=== PATIENT | male | born 1945 | race African-American/Black ===

== ENCOUNTER → 2017-05-12 | Outpatient (CLI) | payer OTHER ==
[~2017-05-12] MED LIST: ASPI325T45 PO; CARV25TA2 PO; FISHOIL PO; INSDGI SC; INSUINJ4 SC; LPT/20 PO; LSN20 PO; POLY335019 PO; TORS100T13 PO
[2017-05-12 15:46] LABS: HEMATOCRIT 38.7 % (42-52); MEAN CELL VOLUME 92.1 fL (80-100); MEAN CORPUSCULAR HEMOGLOBIN 29.5 pg (25-34); PLATELET COUNT 168 K/uL (130-400); WHITE BLOOD COUNT 6.72 K/uL (4.8-10.8)
[2017-05-12 16:15] LABS: ALT/SGPT 16 U/L (12-78); BLOOD UREA NITROGEN 56 mg/dl (7-18); CALCIUM 9.8 mg/dl (8.5-10.1); CARBON DIOXIDE 29 mmol/L (21-32); CHLORIDE 104 mmol/L (98-107); GLUCOSE 342 mg/dl (70-99); PHOSPHORUS 2.7 mg/dl (2.5-4.9); POTASSIUM 4.4 mmol/L (3.5-5.1); SODIUM 138 mmol/L (136-145); URIC ACID 7.6 mg/dl (2.6-7.2)
[2017-05-12 17:02] LABS: URINE APPEARANCE CLEAR (CLEAR); URINE BILIRUBIN NEG (NEG); URINE COLOR YELLOW; URINE NITRITE NEG (NEG); URINE SPECIFIC GRAVITY 1.014 (1.000-1.030); UROBILINOGEN NEG (NEG)
[2017-05-12 17:08] LABS: MANUAL MICROSCOPIC REQUIRED? NO; REVIEW REQ? NO
[2017-05-12 17:19] LABS: URINE PROTIEN/CREAT RATIO 0.3 (0-0.2); URINE TOTAL PROTEIN 25.1 mg/dl (0-11.9)
== END | disposition home or self-care (01) ==
LOC: C.LAB1850 14:57
PROVIDERS: ATTEND Family Medicine
DX: Z11.59 Encounter for screening for other viral diseases (principal); I10 Essential (primary) hypertension; D64.9 Anemia, unspecified; N18.3 Chronic kidney disease, stage 3 (moderate); E55.9 Vitamin D deficiency, unspecified; M10.9 Gout, unspecified; E78.5 Hyperlipidemia, unspecified; E11.29 Type 2 diabetes mellitus with other diabetic kidney complication

== ENCOUNTER → 2018-02-10 | Outpatient (CLI) | payer OTHER ==
[~2018-02-10] MED LIST changes: +ALLO100T PO; +ASPECOTC PO; -ASPI325T45 PO; -INSDGI SC; +INSU100I23 SQ; -INSUINJ4 SC; -LPT/20 PO; +LPT20 PO; +NVLGI7030 SC; -POLY335019 PO; -TORS100T13 PO; +TORS20TA2 PO
[2018-02-10 16:11] LABS: ALBUMIN 3.5 gm/dl (3.4-5.0); ALKALINE PHOSPHATASE 206 U/L (45-117); ALT/SGPT 21 U/L (12-78); AST/SGOT 25 U/L (15-37); BLOOD UREA NITROGEN 44 mg/dl (7-18); CARBON DIOXIDE 32 mmol/L (21-32); CHOLESTEROL 67 mg/dl (0-200); CREATININE 1.79 mg/dl (0.60-1.40); GLUCOSE 160 mg/dl (70-99); LDL CHOLESTEROL CALCULATED 16 mg/dl; POTASSIUM 4.1 mmol/L (3.5-5.1); SODIUM 139 mmol/L (136-145); TOTAL PROTEIN 7.7 gm/dl (6.4-8.2)
[2018-02-11 06:18] LABS: HEMOGLOBIN A1C 8.4 % (4.5-5.6)
== END | disposition home or self-care (01) ==
LOC: C.LAB1850 14:46
PROVIDERS: ATTEND Internal Medicine Cardiovascular Disease
DX: E11.29 Type 2 diabetes mellitus with other diabetic kidney complication (principal)

== ENCOUNTER → 2018-04-14 | Outpatient (CLI) | payer OTHER ==
[~2018-04-14] MED LIST changes: +AMOX500C3 PO; +CLR10 PO; -FISHOIL PO; +LISI-726 PO; -LSN20 PO; +OMEG10002 PO; +SENNTAB23 PO; +SILV1CRE73 TOP
[2018-04-14 12:20] LABS: HEMATOCRIT 36.7 % (42-52); HEMOGLOBIN 11.3 g/dL (14.0-18.0); MEAN CELL VOLUME 93.4 fL (80-100); MEAN CORPUSCULAR HEMOGLOBIN 28.8 pg (25-34); MEAN CORPUSCULAR HGB CONC 30.8 g/dl (32-36); PLATELET COUNT 198 K/uL (130-400); WHITE BLOOD COUNT 7.08 K/uL (4.8-10.8)
[2018-04-14 12:29] LABS: ALBUMIN 3.5 gm/dl (3.4-5.0); BLOOD UREA NITROGEN 58 mg/dl (7-18); CALCIUM 9.8 mg/dl (8.5-10.1); CARBON DIOXIDE 31 mmol/L (21-32); CREATININE 2.01 mg/dl (0.60-1.40); GLUCOSE 203 mg/dl (70-99); POTASSIUM 4.9 mmol/L (3.5-5.1); SODIUM 135 mmol/L (136-145)
== END | disposition home or self-care (01) ==
LOC: C.LAB1850 09:55
PROVIDERS: ATTEND Internal Medicine Nephrology
DX: E55.9 Vitamin D deficiency, unspecified (principal)

== ENCOUNTER 2019-08-19 21:04 | Inpatient (IN) ==
--- NOTE | 2019-08-19 21:27 | Emergency Department Note ---
Entered by Michael Stafford acting as a scribe for Dante Sampson DO History of Present Illness General Chief complaint: Weakness Stated complaint: WEAKNESS Time Seen by Provider: 08/19/19 21:04 Source: patient and other (hypercil core transformer assembler) History of Present Illness Onset (ago): hour(s) (prior to arrival) Location: lower extremity (leg weakness (bilateral)) Pain Consistency: + other (worsening) Relieved By: + none Associated symptoms: + denies other symptoms (increased leg swelling) and + shortness of breath; no fever/chills The patient is a 74 year old M who presents to the Emergency Room with complaints of worsening weakness that started prior to arrival. The HPI was provided by the hypercil core transformer assembler and the patient. The hypercil core transformer assembler states that EMS was called by the patients son. The hypercil core transformer assembler reports that the patients son called EMS because the patient sat down on the floor of the bathroom and could not get back up. The hypercil core transformer assembler adds that the patients son tried to pick the patient off of the floor but was unable to do so. The hypercil core transformer assembler states that the patient did not fall. The patient states that he is currently experiencing leg weakness and shortness of breath. He states that his leg weakness is affecting both legs. He denies that he is currently experiencing a fever and increased leg swelling. The patient notes that he did not take his medications today. He adds that he has a history of HTN. He notes that he has a scheduled appointment with the wound care center to address his ulcerations. He denies any recent travel. He notes that he uses a C-pap machine at home. Home Medications Home Medications Medication Instructions Recorded Confirmed Type allopurinol 100 mg tablet 100 mg PO BID 05/28/18 08/19/19 History aspirin 325 mg tablet 325 mg PO DAILY 05/28/18 08/19/19 History carvedilol 25 mg tablet 25 mg PO BID 05/28/18 08/19/19 History lisinopril 20 mg tablet 20 mg PO DAILY 05/28/18 08/19/19 History loratadine 10 mg tablet 10 mg PO DAILY 05/28/18 08/19/19 History omega-3 fatty acids 1,000 mg 1,000 mg PO DAILY 05/28/18 08/19/19 History capsule blood sugar diagnostic #10 ea 03/04/19 08/12/19 History lancets 30 gauge #25 ea 03/04/19 08/12/19 History nitroglycerin 0.4 mg sublingual 0.4 mg SL ONCE PRN tab 03/04/19 08/19/19 History tablet pen needle, diabetic 32 gauge x #10 ea 03/04/19 08/12/19 History 5/32" vitamin B complex 1 tab PO DAILY 03/04/19 08/19/19 History atorvastatin 40 mg tablet 40 mg PO DAILY #90 tab 05/07/19 08/19/19 Rx torsemide 100 mg tablet 100 mg PO .COMPLEX tab 08/03/19 08/19/19 History cholecalciferol (vitamin D3) 50,000 units PO MONTHLY #3 cap 08/09/19 08/19/19 Rx 50,000 unit capsule insulin glargine [Basaglar KwikPen 30 unit SUBCUT HS 08/19/19 08/19/19 History U-100 Insulin] vbujgrma-rezlfjcyoIu-mrgcxuujJ 1 applic TOPICAL DAILY 08/19/19 08/19/19 History [Neosporin ([id number])] Allergies Allergy/AdvReac Type Severity Reaction Status Date / Time escitalopram Allergy Unknown Unknown Verified 08/19/19 21:40 metformin Allergy Unknown unknown Verified 08/19/19 21:40 topiramate Allergy Unknown unknown Verified 08/19/19 21:40 Past Med/Surg History Medical History (Updated 08/20/19 @ 00:00 by Michael Stafford) Acute gouty arthritis (Resolved) Anemia Ankle joint pain Anxiety Asymptomatic hyperuricemia Biventricular ICD (implantable cardioverter-defibrillator) in place Chronic kidney disease, stage III (moderate) Chronic systolic congestive heart failure Constipation Diabetes Diabetes mellitus type 2, 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, uncontrolled Diabetic peripheral neuropathy Dyslipidemia Esophageal reflux Former smoker GERD (gastroesophageal reflux disease) (Chronic) Gout (Chronic) Gout Hematuria HTN (hypertension) Hypertension, goal below 140/90 Inhibited sexual excitement Ischemic cardiomyopathy Male erectile disorder of organic origin Mild nonproliferative diabetic retinopathy Morbid obesity Need for hepatitis C screening test Non-pressure chronic ulcer of right calf, limited to breakdown of skin Obstructive sleep apnea Paroxysmal ventricular tachycardia Poor compliance Shortness of breath Skin tear of left lower leg without complication Sleep apnea (Chronic) Testicular dysfunction Traumatic open wound of left lower leg Urinary urgency Venous insufficiency of both lower extremities Vitamin D deficiency Surgical History History of appendectomy (Resolved) Family History (Updated 08/19/19 @ 23:56 by Michael Stafford) Other Diabetes Heart disease Hypertension Kidney disease Social History Preferred Language: Haitian Communication Ability: Effective Visual Impairment: Limited Hearing Ability: Normal Surface Grinder Required: No Beliefs That Will Affect Care: Taoism Taoism Beliefs: Patient doesn't want any blood products used. marital status: Current Living Situation: Spouse current occupational status: retired Feels Safe at Home: Yes Smoking Status: Former smoker Tobacco Type: pipe and cigars ; Hx Alcohol Use: Yes Alcohol type: beer Hx Substance Use: No Review of Systems See HPI for pertinent positives & negatives. and A total of 10 systems reviewed and were otherwise negative Physical Exam Vital Signs Vital Signs - 24 hr 08/19/19 21:14 08/19/19 21:22 08/19/19 22:00 Temperature 36.5 C Temperature Source Oral Pulse Rate 80 80 60 Pulse Rate from SpO2 Sensor 60 Respiratory Rate 22 20 20 Respiratory Effort / Characteristics Non-Labored Spontaneous Respiratory Depth Normal Respiratory Pattern Regular Blood Pressure 146/70 H 179/95 H Blood Pressure Mean 95 125 Pulse Oximetry 96 96 97 Oxygen Delivery Method Room Air Room Air Sepsis Recent Fever Within 48 Hours No Sepsis New/Unexplained Change in Mental Status No Sepsis Action Taken by Nursing No Action Required 08/19/19 22:18 08/19/19 22:30 Temperature Temperature Source Pulse Rate 60 72 Pulse Rate from SpO2 Sensor 60 60 Respiratory Rate 20 20 Respiratory Effort / Characteristics Respiratory Depth Respiratory Pattern Blood Pressure 193/83 H Blood Pressure Mean 140 Pulse Oximetry 99 96 Oxygen Delivery Method Sepsis Recent Fever Within 48 Hours Sepsis New/Unexplained Change in Mental Status Sepsis Action Taken by Nursing GENERAL: The patient is awake and alert. He is comfortable appearing. EYES: The conjunctivae are clear. The pupils are round and reactive. EARS, NOSE, MOUTH AND THROAT: The nose is without any evidence of any deformity. Mucous membranes are moist tongue is midline NECK: The neck is nontender and supple. RESPIRATORY: Shallow respirations were noted. There were diminished breath sounds noted throughout with rales at both bases. CARDIOVASCULAR: Regular rate and rhythm noted there no murmurs rubs or gallops normal S1 normal S2 GASTROINTESTINAL: The abdomen is soft. Abdomen is nontender MUSCULOSKELETAL/EXTREMITIES: There is no evidence of gross deformity full range of motion is noted in the hips and shoulders SKIN: Significant venous stasis changes were noted. There were ulcerations on both lower extremities. There were signs of infection developing on the left anterior lower leg with erythema and drainage. NEUROLOGIC: Patient is awake alert and oriented x3. There was no drift in the upper extremities. Patient is able to hold each leg off the bed for 5 seconds. Course Course 2103: The patient was evaluated in room B2. A complete history and physical exam was performed. 2317: I reviewed the patient's case with Dr. Johnny Brewer, [facility] Hospitalist. He will evaluate the patient for further management. Administered Medications Vancomycin HCl 2,750 mg/ (Sodium Chloride) 555 mls @ 200 mls/hr IV NOW ONE Stop: 08/20/19 01:49 Last Admin: 08/19/19 23:52 Dose: 200 mls/hr Documented by: [id number] Discontinued Medications Sodium Chloride (Nss 1000ml) 500 mls @ 999 mls/hr IV .Q31M ONE Stop: 08/19/19 23:32 Last Infusion: 08/20/19 00:05 Dose: 0 mls/hr Documented by: [id number] Admin: 08/19/19 23:32 Dose: 999 mls/hr Documented by: [id number] Ceftriaxone Sodium (Rocephin) 2,000 mg in 70 mls @ 140 mls/hr IV NOW STA Stop: 08/19/19 23:31 Last Infusion: 08/19/19 23:59 Dose: 0 mls/hr Documented by: [id number] Admin: 08/19/19 23:28 Dose: 140 mls/hr Documented by: [id number] Medical Decision Making Differential Diagnosis Differential diagnosis: Etiologies such as metabolic, infection, hypo/hyperglycemia, electrolyte abnormalities, cardiac sources, intracerebral event, toxicologic, neurologic, as well as others were entertained. Medical Records Attestation: I reviewed the patient's medical records. Home Medications Current Medication List: was personally reviewed by me Laboratory Data Attestation: I reviewed the patient's lab results. Result diagrams: 08/19/19 21:16 08/19/19 21:16 Lab Results 08/19/19 08/19/19 08/19/19 Range/Units 21:16 21:16 21:16 WBC 8.14 (4.8-10.8) K/uL RBC 3.06 L (4.7-6.1) M/uL Hgb 8.9 L (14.0-18.0) g/dL Hct 28.4 L (42-52) % MCV 92.8 (80-100) fL MCH 29.1 (25-34) pg MCHC 31.3 L (32-36) g/dL RDW Std Deviation 55.3 H (36.4-46.3) fL RDW Coeff of [place] 16.3 H (11.5-14.5) % Plt Count 148 (130-400) K/uL MPV 11.3 H (7.4-10.4) fL Immature Gran % (Auto) 0.2 % Neut % (Auto) 80.4 % Lymph % (Auto) 11.9 % [place] % (Auto) 5.8 % Eos % (Auto) 1.6 % Baso % (Auto) 0.1 % Immature Gran # (Auto) 0.02 (0.00-0.02) K/uL Neut # (Auto) 6.54 H (1.4-6.5) K/uL Lymph # (Auto) 0.97 L (1.2-3.4) K/uL [place] # (Auto) 0.47 (0.11-0.59) K/uL Eos # (Auto) 0.13 (0-0.5) K/uL Baso # (Auto) 0.01 (0-0.2) K/uL ESR (0-14) mm/hr PT Cancelled INR Cancelled APTT Cancelled PTT Ratio Cancelled Sodium 139 (136-145) mmol/L Potassium 4.5 (3.5-5.1) mmol/L Chloride 106 (98-107) mmol/L Carbon Dioxide 28 (21-32) mmol/L Anion Gap 6.0 (3-11) BUN 102 H (7-18) mg/dl Creatinine 2.92 H (0.6-1.4) mg/dl Est Cr Clr Drug Dosing 34.7 ml/min Est GFR ( Amer) 23.6 Est GFR (Non-Af Amer) 20.3 BUN/Creatinine Ratio 34.8 H (10-20) Glucose 229 H (70-99) mg/dl POC Glucose (70-99) Lactate (0.4-2.0) mmol/L Calcium 9.8 (8.5-10.1) mg/dl Magnesium 2.5 H (1.8-2.4) mg/dl Total Bilirubin 1.0 (0.2-1) mg/dl AST 33 (15-37) U/L ALT 21 (12-78) U/L Alkaline Phosphatase 189 H (45-117) U/L Troponin I 0.059 H* (0-0.045) ng/ml C-Reactive Protein 1.96 H (0-0.29) mg/dl NT-Pro-B Natriuret Pep 7641 H (0-900) pg/ml Total Protein 7.6 (6.4-8.2) gm/dl Albumin 3.2 L (3.4-5.0) gm/dl Globulin 4.4 H (2.5-4.0) gm/dl Albumin/Globulin Ratio 0.7 L (0.9-2) Procalcitonin (0-0.5) ng/ml TSH 5.710 H (0.300-4.500) uIu/ml Free T4 1.24 (0.8-1.6) ng/dl 08/19/19 08/19/19 08/19/19 Range/Units 21:16 21:31 21:31 WBC (4.8-10.8) K/uL RBC (4.7-6.1) M/uL Hgb (14.0-18.0) g/dL Hct (42-52) % MCV (80-100) fL MCH (25-34) pg MCHC (32-36) g/dL RDW Std Deviation (36.4-46.3) fL RDW Coeff of [place] (11.5-14.5) % Plt Count (130-400) K/uL MPV (7.4-10.4) fL Immature Gran % (Auto) % Neut % (Auto) % Lymph % (Auto) % [place] % (Auto) % Eos % (Auto) % Baso % (Auto) % Immature Gran # (Auto) (0.00-0.02) K/uL Neut # (Auto) (1.4-6.5) K/uL Lymph # (Auto) (1.2-3.4) K/uL [place] # (Auto) (0.11-0.59) K/uL Eos # (Auto) (0-0.5) K/uL Baso # (Auto) (0-0.2) K/uL ESR 73 H (0-14) mm/hr PT INR APTT PTT Ratio Sodium (136-145) mmol/L Potassium (3.5-5.1) mmol/L Chloride (98-107) mmol/L Carbon Dioxide (21-32) mmol/L Anion Gap (3-11) BUN (7-18) mg/dl Creatinine (0.6-1.4) mg/dl Est Cr Clr Drug Dosing ml/min Est GFR ( Amer) Est GFR (Non-Af Amer) BUN/Creatinine Ratio (10-20) Glucose (70-99) mg/dl POC Glucose (70-99) Lactate 2.2 H* (0.4-2.0) mmol/L Calcium (8.5-10.1) mg/dl Magnesium (1.8-2.4) mg/dl Total Bilirubin (0.2-1) mg/dl AST (15-37) U/L ALT (12-78) U/L Alkaline Phosphatase (45-117) U/L Troponin I (0-0.045) ng/ml C-Reactive Protein (0-0.29) mg/dl NT-Pro-B Natriuret Pep (0-900) pg/ml Total Protein (6.4-8.2) gm/dl Albumin (3.4-5.0) gm/dl Globulin (2.5-4.0) gm/dl Albumin/Globulin Ratio (0.9-2) Procalcitonin 0.09 (0-0.5) ng/ml TSH (0.300-4.500) uIu/ml Free T4 (0.8-1.6) ng/dl 08/19/19 08/19/19 Range/Units 22:33 23:42 WBC (4.8-10.8) K/uL RBC (4.7-6.1) M/uL Hgb (14.0-18.0) g/dL Hct (42-52) % MCV (80-100) fL MCH (25-34) pg MCHC (32-36) g/dL RDW Std Deviation (36.4-46.3) fL RDW Coeff of [place] (11.5-14.5) % Plt Count (130-400) K/uL MPV (7.4-10.4) fL Immature Gran % (Auto) % Neut % (Auto) % Lymph % (Auto) % [place] % (Auto) % Eos % (Auto) % Baso % (Auto) % Immature Gran # (Auto) (0.00-0.02) K/uL Neut # (Auto) (1.4-6.5) K/uL Lymph # (Auto) (1.2-3.4) K/uL [place] # (Auto) (0.11-0.59) K/uL Eos # (Auto) (0-0.5) K/uL Baso # (Auto) (0-0.2) K/uL ESR (0-14) mm/hr PT 13.0 H INR 1.3 H APTT 27.2 PTT Ratio 1.0 Sodium (136-145) mmol/L Potassium (3.5-5.1) mmol/L Chloride (98-107) mmol/L Carbon Dioxide (21-32) mmol/L Anion Gap (3-11) BUN (7-18) mg/dl Creatinine (0.6-1.4) mg/dl Est Cr Clr Drug Dosing ml/min Est GFR ( Amer) Est GFR (Non-Af Amer) BUN/Creatinine Ratio (10-20) Glucose (70-99) mg/dl POC Glucose 206 H (70-99) Lactate (0.4-2.0) mmol/L Calcium (8.5-10.1) mg/dl Magnesium (1.8-2.4) mg/dl Total Bilirubin (0.2-1) mg/dl AST (15-37) U/L ALT (12-78) U/L Alkaline Phosphatase (45-117) U/L Troponin I (0-0.045) ng/ml C-Reactive Protein (0-0.29) mg/dl NT-Pro-B Natriuret Pep (0-900) pg/ml Total Protein (6.4-8.2) gm/dl Albumin (3.4-5.0) gm/dl Globulin (2.5-4.0) gm/dl Albumin/Globulin Ratio (0.9-2) Procalcitonin (0-0.5) ng/ml TSH (0.300-4.500) uIu/ml Free T4 (0.8-1.6) ng/dl Imaging Data Radiologist's Impression: Radiology results as stated below per my review and the radiologist's interpretation: XR chest 1V portable CLINICAL HISTORY: 74 years-old Male presenting with weakness. TECHNIQUE: Portable upright AP view of the chest was obtained. COMPARISON: 10/29/2018. FINDINGS: Left subclavian implanted cardiac defibrillator with leads to the right atrium, right ventricular apex, and coronary sinus. An additional abandoned right ventricular lead is also noted. Atherosclerosis of the aortic arch. Cardiac silhouette moderately enlarged. Pulmonary vascular prominence similar to prior exam. Significant interval increase in now small to moderate right pleural effusion. No significant effusion on the left. No pneumothorax. Degenerative changes of the thoracic spine. Upper abdomen normal. IMPRESSION: 1. Cardiomegaly with volume overload. 2. Small to moderate right pleural effusion and suspected extensive right basilar atelectasis. This is significantly increased from prior. Underlying infection cannot be excluded. Electronically signed by: Graham López M.D. 08/19/2019 9:55 PM ECG Data Attestation: I personally reviewed and interpreted this ECG as follows: Indication: + weakness Rate (beats per minute): 60 Rhythm: + other (ventricular paced rhythm ) ECG Intervals/blocks: + Right Bundle branch block ECG Findings: + Other (no [place] beats) Blood Pressure Blood Pressure Findings: Elevated blood pressure Blood Pressure Disposition: further management by hospitalist IOANA Narrative The patient is a 74-year-old male who presented to the emergency department for an evaluation of generalized weakness. The patient went to the bathroom but was unable to get off of the floor. The patient slid to the floor. He did not have a significant fall. Ambulance was dispatched and the patient was brought to the emergency department for further evaluation. The patient was found to have very significant swelling in his lower extremities. According to his significant other he is been seen at the wound care center for the swelling but he was discharged from the wound care center recently. The patient's developed blistering on his anterior lower extremities but now has an area especially on his right lower extremity which appears infected secondarily. He was treated with IV fluids and IV antibiotic's in the emergency department. I discussed the patient's laboratory and radiographic studies with him and his family members. Because of his symptoms I discussed his case with the on-call [facility] hospitalist group. They have agreed to evaluate the patient in the emergency department for further management disposition. Impression & Plan Cellulitis, Anemia, Weakness, JUDITH (acute kidney injury) Discharge Plan Visit Data Chief Complaint: Weakness Stated Complaint: WEAKNESS ED Provider: Dante Sampson Discharge Problem: Cellulitis, Anemia, Weakness, JUDITH (acute kidney injury) Patient Disposition: Admitted As Inpatient Discharge Instructions Interventions: ED Discharge Assessment Last Done: 08/20/19 00:16 Discharge Problem: Cellulitis Qualifiers: Site of cellulitis: extremity Site of cellulitis of extremity: lower extremity Laterality: unspecified laterality Qualified Code(s): L03.119 - Cellulitis of unspecified part of limb Anemia Qualifiers: Anemia type: unspecified type Qualified Code(s): D64.9 - Anemia, unspecified The scribe's documentation has been prepared under my direction and personally reviewed by me in its entirety. I confirm that the note above accurately reflects all work, treatment, procedures, and medical decision making performed by me.
[2019-08-19 21:31] LABS: Basophils # (auto) 0.01 K/uL (0-0.2); Basophils % (auto) 0.1 %; Eosinophils # (auto) 0.13 K/uL (0-0.5); Eosinophils % (auto) 1.6 %; Hematocrit (blood only) 28.4 % (42-52); Hemoglobin 8.9 g/dL (14.0-18.0); Immature Granulocytes # (auto) 0.02 K/uL (0.00-0.02); Immature Granulocytes % (auto) 0.2 %; Lymphocytes # (auto) 0.97 K/uL (1.2-3.4); Lymphocytes % (auto) 11.9 %; Mean Corpuscular Hemoglobin 29.1 pg (25-34); Mean Corpuscular Hgb Conc 31.3 g/dL (32-36); Mean Corpuscular Volume 92.8 fL (80-100); Mean Platelet Volume 11.3 fL (7.4-10.4); Monocytes # (auto) 0.47 K/uL (0.11-0.59); Monocytes % (auto) 5.8 %; Neutrophils # (auto) 6.54 K/uL (1.4-6.5); Neutrophils % (auto) 80.4 %; Platelet Count 148 K/uL (130-400); RDW Coefficient of Variation 16.3 % (11.5-14.5); RDW Standard Deviation 55.3 fL (36.4-46.3); Red Blood Count 3.06 M/uL (4.7-6.1); White Blood Count 8.14 K/uL (4.8-10.8)
[2019-08-19 21:49] LABS: Albumin Level 3.2 gm/dl (3.4-5.0); BUN Creatinine Ratio 34.8 (10-20); C Reactive Protein 1.96 mg/dl (0-0.29); Calcium 9.8 mg/dl (8.5-10.1); Creatinine Clr Calc Pharmacy 34.7 ml/min; Est GFR (African American) 23.6; Est GFR (Non-African American) 20.3; Magnesium 2.5 mg/dl (1.8-2.4); Potassium 4.5 mmol/L (3.5-5.1)
--- NOTE | 2019-08-19 21:57 | XRay Report ---
XR chest 1V portable CLINICAL HISTORY: 74 years-old Male presenting with weakness. TECHNIQUE: Portable upright AP view of the chest was obtained. COMPARISON: 10/29/2018. FINDINGS: Left subclavian implanted cardiac defibrillator with leads to the right atrium, right ventricular ape x, and coronary sinus. An additional abandoned right ventricular lead is also noted. Atherosclerosis of the aortic arch. Cardiac silhouette moderately enlarged. Pulmonary vascular prominence similar to prior exam. Significant interval increase in now small to moderate right pleural effusion. No signifi cant effusion on the left. No pneumothorax. Degenerative changes of the thoracic spine. Upper abdomen normal. IMPRESSION: 1. Cardiomegaly with volume overload. 2. Small to moderate right pleural effusion and suspected extensive right basilar atelectasis. This is significantly increased from prior. Underlying infection cannot be excluded. Electronically signed by: Graham López M.D. 08/19/2019 9:55 PM
[2019-08-19 22:04] LABS: Albumin Globulin Ratio 0.7 (0.9-2); Globulin 4.4 gm/dl (2.5-4.0); Thyroid Stimulating Hormone 5.71 uIu/ml (0.300-4.500); Total Protein 7.6 gm/dl (6.4-8.2); Troponin I 0.059 ng/ml (0-0.045)
[2019-08-19 22:17] LABS: T4 Free Thyroxine 1.24 ng/dl (0.8-1.6)
[2019-08-19 22:54] LABS: INR 1.3 (0.9-1.1); Partial Thromboplastin Time 27.2 Seconds (21.0-31.0)
[2019-08-19] MEDS ORDERED: cefTRIAXone SODIUM 2,000 MG/70 ML BAG IV STA (23:02)
[2019-08-19] MEDS ORDERED: SODIUM CHLORIDE 0.9% 1000ML 500 ML IV ONE (23:02)
[2019-08-19] MEDS ORDERED: VANCOMYCIN HCL 2,750 MG in SODIUM CHLORIDE 0.9% 500 ML IV ONE (23:03)
[2019-08-19] MEDS ORDERED: VANCOMYCIN CONSULT ACTIVE PRN (23:03)
--- NOTE | 2019-08-19 23:55 | History & Physical Report ---
Date of Service August 19, 2019 Assessment & Plan (1) Venous stasis ulcers of both lower extremities: Venous stasis ulcers of bilateral lower extremities, left greater than right/cellulitis left greater than right- Consult wound care. Initial dressing: Bacitracin/Adaptic/gauze/Pedro Luis wrap. Given vancomycin IV in the ED. Place on daptomycin IV. Present on Admission?: Yes (2) Cellulitis: As above. Present on Admission?: Yes (3) Acute kidney injury superimposed on chronic kidney disease: Creatinine 2.92 upon admission, with range 1.79-2.07. Hold lisinopril. Follow serially. Present on Admission?: Yes (4) Weakness: Multifactorial- Deconditioning, cellulitis, worsening lower extremity edema, poorly controlled diabetes, elevated troponin and possible cardiac issues, and CHF. Present on Admission?: Yes (5) Chronic systolic congestive heart failure: Chronic systolic CHF/CAD/hypertension/paroxysmal V. tach- Continue aspirin 325 mg p.o. daily, carvedilol 25 mg p.o. twice daily, torsemide 100 mg p.o. daily Present on Admission?: Yes (6) Diabetes mellitus type 2, insulin dependent: Continue Lantus insulin 30 units subcu at bedtime. Placed on Accu-Cheks before meals and at bedtime with NovoLog coverage per scale. Present on Admission?: Yes (7) Dyslipidemia: Continue atorvastatin 40 mg daily. Check a fasting lipid panel. Present on Admission?: Yes (8) Obstructive sleep apnea: CPAP at settings of 10. Present on Admission?: Yes (9) Paroxysmal ventricular tachycardia: Continue carvedilol 25 mg p.o. twice daily. Present on Admission?: Yes History of Present Illness Chief Complaint: The patient presents to the emergency department with complaint of generalized weakness, and worsening lower extremity edema and weeping skin abrasions and lacerations. Primary Care Provider: Aide Calle MD The patient is a 74-year-old male with a past medical history including diabetes mellitus, venous stasis ulcers, AICD, CKD stage III, chronic systolic CHF, diabetic peripheral neuropathy, dyslipidemia, GERD, ischemic cardiomyopathy, paroxysmal ventricular tachycardia, VISHAL and decreased vision due to poor nonproliferative diabetic retinopathy, who presents emergency department with worsening generalized weakness and worsening weeping lower extremity skin abrasions and lacerations that his is been trying to take care of at home. She reports that he had been going to wound care and was dismissed about 3 weeks ago, when his lesions were healed, but since that time they have recurred and worsened. He does have an appointment with wound care coming up early next week. Allergies Allergy/AdvReac Type Severity Reaction Status Date / Time escitalopram Allergy Unknown Unknown Verified 08/19/19 21:40 metformin Allergy Unknown unknown Verified 08/19/19 21:40 topiramate Allergy Unknown unknown Verified 08/19/19 21:40 Home Medications Home Medications Medication Instructions Recorded Confirmed Type allopurinol 100 mg tablet 100 mg PO BID 05/28/18 08/19/19 History aspirin 325 mg tablet 325 mg PO DAILY 05/28/18 08/19/19 History carvedilol 25 mg tablet 25 mg PO BID 05/28/18 08/19/19 History lisinopril 20 mg tablet 20 mg PO DAILY 05/28/18 08/19/19 History loratadine 10 mg tablet 10 mg PO DAILY 05/28/18 08/19/19 History omega-3 fatty acids 1,000 mg 1,000 mg PO DAILY 05/28/18 08/19/19 History capsule blood sugar diagnostic #10 ea 03/04/19 08/12/19 History lancets 30 gauge #25 ea 03/04/19 08/12/19 History nitroglycerin 0.4 mg sublingual 0.4 mg SL ONCE PRN tab 03/04/19 08/19/19 History tablet pen needle, diabetic 32 gauge x #10 ea 03/04/19 08/12/19 History " vitamin B complex 1 tab PO DAILY 03/04/19 08/19/19 History atorvastatin 40 mg tablet 40 mg PO DAILY #90 tab 05/07/19 08/19/19 Rx torsemide 100 mg tablet 100 mg PO .COMPLEX tab 08/03/19 08/19/19 History cholecalciferol (vitamin D3) 50,000 units PO MONTHLY #3 cap 08/09/19 08/19/19 Rx 50,000 unit capsule insulin glargine [Basaglar KwikPen 30 unit SUBCUT HS 08/19/19 08/19/19 History U-100 Insulin] [id number] 1 applic TOPICAL DAILY 11/28/19 11/28/19 History [Neosporin ([id number])] Past Med/Surg History Family History (Updated 08/19/19 @ 23:56 by Michael Stafford) Other Diabetes Heart disease Hypertension Kidney disease Social History Preferred Language: Kyr[place]z Communication Ability: Effective Visual Impairment: Limited Hearing Ability: Normal Hydrologic Engineer Required: No Beliefs That Will Affect Care: Synagogue Synagogue Beliefs: Alejandrocathryn marital status: Current Living Situation: Family current occupational status: retired Other Information That Helps Us Care for You: No Feels Safe at Home: Yes Safety Concerns: Feels Safe At This Time Smoking Status: Unknown if ever smoked Hx Alcohol Use: No Hx Substance Use: No Review of Systems Review of Systems: The patient denies chest pain, palpitations, change in chronic shortness of breath or dyspnea on exertion, cough, lower extremity swelling, sore throat, fevers, chills, sweats, nausea, vomiting, diarrhea , constipation, abdominal pain, pelvic pain, blood in urine or stool, dysuria, urinary frequency or urgency, lightheadedness, dizziness, headache, memory loss, loss of consciousness, focal weakness, numbness or tingling in arms or legs, generalized arthralgias or myalgias, back or neck pain, or night sweats. The review of systems is otherwise negative other than for that already noted above, and at least 10 systems have been reviewed. Physical Exam Physical Exam: The patient is awake, alert and oriented 3, well developed and well nourished, normocephalic and atraumatic, lying in bed and in no acute distress. HEENT--PERRL, EOMI, mucous membranes and oropharynx dry. Neck--supple. No JVD. No bruits. Thyroid normal, trachea midline, no adenopathy. Heart--normal S1 and S2. No murmurs, rubs or gallops. Lungs--clear bilaterally, no respiratory distress, no accessory muscle use. Abdomen--normal bowel sounds and soft. Nontender. Nondistended, no hernias or masses, no organomegaly. Extremities--no cyanosis or clubbing. No edema. There are good distal pulses b/l. Dermatologic--large skin laceration left whitaker approximately 5 x 4 cm with bleb at 7 o'clock position, and erythema extending from base to top of ankle. --Smaller laceration on right whitaker about half size 2.5 x 2 cm. There are times size lacerations on toes bilaterally. Neurologic--cranial nerves II through XII grossly intact. Rheumatologic--exam limited by body habitus and lower extremity lesions. Psychiatric--normal affect. Results & Data Vital Signs (Past 12 Hours) Vital Signs Temp Pulse Resp BP Pulse Ox 08/19/19 22:30 72 20 193/83 H 96 08/19/19 22:18 60 20 99 08/19/19 22:00 60 20 179/95 H 97 08/19/19 21:22 80 20 96 08/19/19 21:14 97.7 F 80 22 146/70 H 96 Laboratory Results Laboratory Results WBC 8.00 K/uL (4.8-10.8) 08/20/19 08:05 RBC 2.86 M/uL (4.7-6.1) L 08/20/19 08:05 Hgb 8.4 g/dL (14.0-18.0) L 08/20/19 08:05 Hct 26.5 % (42-52) L 08/20/19 08:05 MCV 92.7 fL (80-100) 08/20/19 08:05 MCH 29.4 pg (25-34) 08/20/19 08:05 MCHC 31.7 g/dL (32-36) L 08/20/19 08:05 RDW Std Deviation 54.6 fL (36.4-46.3) H 08/20/19 08:05 RDW Coeff of [place]ino 16.2 % (11.5-14.5) H 08/20/19 08:05 Plt Count 128 K/uL (130-400) L 08/20/19 08:05 MPV 11.5 fL (7.4-10.4) H 08/20/19 08:05 Immature Gran % (Auto) 0.3 % 08/20/19 08:05 Neut % (Auto) 76.8 % 08/20/19 08:05 Lymph % (Auto) 15.4 % 08/20/19 08:05 Clinch % (Auto) 6.4 % 08/20/19 08:05 Eos % (Auto) 1.0 % 08/20/19 08:05 Baso % (Auto) 0.1 % 08/20/19 08:05 Immature Gran # (Auto) 0.02 K/uL (0.00-0.02) 08/20/19 08:05 Neut # (Auto) 6.15 K/uL (1.4-6.5) 08/20/19 08:05 Lymph # (Auto) 1.23 K/uL (1.2-3.4) 08/20/19 08:05 Clinch # (Auto) 0.51 K/uL (0.11-0.59) 08/20/19 08:05 Eos # (Auto) 0.08 K/uL (0-0.5) 08/20/19 08:05 Baso # (Auto) 0.01 K/uL (0-0.2) 08/20/19 08:05 ESR 73 mm/hr (0-14) H 08/19/19 21:31 PT 13.0 Seconds (9.0-12.0) H 08/19/19 22:33 INR 1.3 (0.9-1.1) H 08/19/19 22:33 APTT 27.2 Seconds (21.0-31.0) 08/19/19 22:33 PTT Ratio 1.0 08/19/19 22:33 Sodium 140 mmol/L (136-145) 08/20/19 08:05 Potassium 4.1 mmol/L (3.5-5.1) 08/20/19 08:05 Chloride 107 mmol/L (98-107) 08/20/19 08:05 Carbon Dioxide 28 mmol/L (21-32) 08/20/19 08:05 Anion Gap 5.0 (3-11) 08/20/19 08:05 BUN 98 mg/dl (7-18) H 08/20/19 08:05 Creatinine 2.75 mg/dl (0.6-1.4) H 08/20/19 08:05 Est Cr Clr Drug Dosing 37.6 ml/min 08/20/19 08:05 Est GFR ( Amer) 25.4 08/20/19 08:05 Est GFR (Non-Af Amer) 21.9 08/20/19 08:05 BUN/Creatinine Ratio 35.5 (10-20) H 08/20/19 08:05 Glucose 198 mg/dl (70-99) H 08/20/19 08:05 POC Glucose 125 (70-99) H 08/20/19 16:08 Estimat Average Glucose 174 mg/dl 08/19/19 21:31 Hemoglobin A1c 7.7 % (4.5-5.6) H 08/19/19 21:31 Lactate 2.2 mmol/L (0.4-2.0) H* 08/19/19 21:16 Calcium 9.7 mg/dl (8.5-10.1) 08/20/19 08:05 Magnesium 2.5 mg/dl (1.8-2.4) H 08/19/19 21:16 Total Bilirubin 1.0 mg/dl (0.2-1) 08/19/19 21:16 AST 33 U/L (15-37) 08/19/19 21:16 ALT 21 U/L (12-78) 08/19/19 21:16 Alkaline Phosphatase 189 U/L (45-117) H 08/19/19 21:16 Troponin I 0.059 ng/ml (0-0.045) H* 08/19/19 21:16 C-Reactive Protein 1.96 mg/dl (0-0.29) H 08/19/19 21:16 NT-Pro-B Natriuret Pep 7641 pg/ml (0-900) H 08/19/19 21:16 Total Protein 7.6 gm/dl (6.4-8.2) 08/19/19 21:16 Albumin 3.2 gm/dl (3.4-5.0) L 08/19/19 21:16 Globulin 4.4 gm/dl (2.5-4.0) H 08/19/19 21:16 Albumin/Globulin Ratio 0.7 (0.9-2) L 08/19/19 21:16 Procalcitonin 0.09 ng/ml (0-0.5) 08/19/19 21:31 TSH 5.710 uIu/ml (0.300-4.500) H 08/19/19 21:16 Free T4 1.24 ng/dl (0.8-1.6) 08/19/19 21:16 Urine Color Yellow 08/20/19 00:26 Urine Appearance Clear (Clear) 08/20/19 00:26 Urine pH 5.0 (4.5-7.5) 08/20/19 00:26 Ur Specific [place] 1.016 (1.000-1.030) 08/20/19 00:26 Urine Protein Negative (Negative) 08/20/19 00:26 Urine Glucose (UA) Negative (Negative) 08/20/19 00:26 Urine Ketones Negative (Negative) 08/20/19 00:26 Urine Blood Trace (Negative) H 08/20/19 00:26 Urine Nitrite Negative (Negative) 08/20/19 00:26 Urine Bilirubin Negative (Negative) 08/20/19 00:26 Urine Urobilinogen Negative (Negative) 08/20/19 00:26 Ur Leukocyte Esterase Negative (Negative) 08/20/19 00:26 Urine WBC (Auto) 1-5 /hpf (0-5) 08/20/19 00:26 Urine RBC (Auto) 0-4 /hpf (0-4) 08/20/19 00:26 U Hyaline Cast (Auto) 1-5 /lpf (0-5) 08/20/19 00:26 U Epithel Cells (Auto) 10-20 /lpf (0-5) H 08/20/19 00:26 Urine Bacteria (Auto) Negative (Negative) 08/20/19 00:26 Code Status & VTE Plan Code Status Full code VTE Prophylaxis Plan VTE Prophylaxis will be ordered: Yes PG Care Time/CCT Total # of Minutes Spent Total Time Spent with Patient: Total time spent is greater than 50% in coordin ation of care (as documented) at patient's floor/unit and/or counseling patient: (1) Cellulitis Laterality: unspecified laterality Site of cellulitis: extremity Site of cellulitis of extremity: lower extremity Qualified Code(s): L03.119 - Cellulitis of unspecified part of limb
[2019-08-20] MEDS ORDERED: NITROGLYCERIN SL 0.4 MG/TAB TAB SL PRN (00:44)
[2019-08-20] MEDS ORDERED: DEXTROSE 50% 50 ML SYRINGE IV PRN (00:44)
[2019-08-20] MEDS ORDERED: ONDANSETRON INJ 2 MG/ML 2 ML VIAL IV PRN (00:44)
[2019-08-20] MEDS ORDERED: ALUMINUM/MAGNESIUM SUSP 30 ML UDC PO PRN (00:44)
[2019-08-20] MEDS ORDERED: GLUCOSE 10 TABS/TUBE PO PRN (00:44)
[2019-08-20] MEDS ORDERED: GLUCOSE 40% GEL 15 GM TUBE PO PRN (00:44)
[2019-08-20] MEDS ORDERED: POLYETHYLENE (MIRALAX) 17 GM PACK PO PRN (00:44)
[2019-08-20] MEDS ORDERED: MAGNESIUM HYDROXIDE SUSP 30 ML UDC PO PRN (00:44)
[2019-08-20] MEDS ORDERED: GLUCAGON FOR INJ 1 MG VIAL SQ PRN (00:44)
[2019-08-20 01:12] LABS: Appearance Urine Clear (Clear); Bacteria Urine Automated Negative (Negative); Bilirubin Urine Negative (Negative); Blood Urine Trace (Negative); Color Urine Yellow; Glucose Urine UA Negative (Negative); Ketones Urine Negative (Negative); Leukocyte Esterase Urine Negative (Negative); Nitrite Urine Negative (Negative); Protein Urine Negative (Negative); RBC Urine Automated 0-4 /hpf (0-4); Specific Gravity Urine 1.016 (1.000-1.030); Urobilinogen Urine Negative (Negative)
[2019-08-20] MEDS: TORSEMIDE 100 MG TAB PO SCH ×2 (01:42→07:56)
[2019-08-20] MEDS: allopurinoL 100 MG TAB PO SCH ×3 (01:42→20:52)
[2019-08-20] MEDS: carvediloL 25 MG TAB PO SCH ×3 (01:42→20:52)
[2019-08-20] MEDS ORDERED: INSULIN GLARGINE SOLOSTAR 100 UNITS/ML 3 ML PEN SC ONE (02:29)
[2019-08-20] MEDS ORDERED: INSULIN ASPART 100 UNITS/ML 3 ML PEN SC ONE (02:29)
[2019-08-20] MEDS: DAPTOmycin 650 MG in SYRINGE 0 ML IV SCH (05:08)
[2019-08-20 07:07] LABS: Estimated Average Glucose 174 mg/dl; Hemoglobin A1C 7.7 % (4.5-5.6)
[2019-08-20] MEDS: INSULIN ASPART 100 UNITS/ML 3 ML PEN SC SCH ×4 (07:53→20:52)
[2019-08-20] MEDS: LORATADINE 10 MG TAB PO SCH (07:55)
[2019-08-20] MEDS: ASPIRIN 325 MG ECTAB PO SCH (07:56)
[2019-08-20] MEDS: VITAMIN B COMPLEX TAB PO SCH (07:57)
[2019-08-20] MEDS: ATORVASTATIN 40 MG TAB PO SCH (07:57)
[2019-08-20 08:24] LABS: Basophils # (auto) 0.01 K/uL (0-0.2); Basophils % (auto) 0.1 %; Eosinophils # (auto) 0.08 K/uL (0-0.5); Hematocrit (blood only) 26.5 % (42-52); Hemoglobin 8.4 g/dL (14.0-18.0); Immature Granulocytes # (auto) 0.02 K/uL (0.00-0.02); Immature Granulocytes % (auto) 0.3 %; Lymphocytes # (auto) 1.23 K/uL (1.2-3.4); Lymphocytes % (auto) 15.4 %; Mean Corpuscular Hemoglobin 29.4 pg (25-34); Mean Corpuscular Hgb Conc 31.7 g/dL (32-36); Mean Corpuscular Volume 92.7 fL (80-100); Mean Platelet Volume 11.5 fL (7.4-10.4); Monocytes # (auto) 0.51 K/uL (0.11-0.59); Monocytes % (auto) 6.4 %; Neutrophils # (auto) 6.15 K/uL (1.4-6.5); Neutrophils % (auto) 76.8 %; Platelet Count 128 K/uL (130-400); RDW Coefficient of Variation 16.2 % (11.5-14.5); RDW Standard Deviation 54.6 fL (36.4-46.3); Red Blood Count 2.86 M/uL (4.7-6.1)
[2019-08-20 08:50] LABS: BUN Creatinine Ratio 35.5 (10-20); Calcium 9.7 mg/dl (8.5-10.1); Creatinine Clr Calc Pharmacy 37.6 ml/min; Est GFR (African American) 25.4; Est GFR (Non-African American) 21.9; Potassium 4.1 mmol/L (3.5-5.1)
[2019-08-20] MEDS ORDERED: lisinopriL 20 MG TAB PO SCH (09:00)
--- NOTE | 2019-08-20 14:32 | Hospitalist Progress Note ---
Date of Service August 20, 2019 Assessment & Plan (1) JUDITH (acute kidney injury): on CKD stage III Cr up to 2.9 on admission, down to 2.7 will hold Lisinopril and Torsemide allow to eat and drink, hesitant to give IV fluids with h/o systolic HF repeat BMP in the AM monitor UO JUDITH likely playing a role in his weakness (2) Venous stasis ulcers of both lower extremities: ongoing issue consult ground intelligence officer (3) Cellulitis: skin around wounds is slightly warm, but WBC normal will continue Daptomycin for time being and monitor closely (4) Anemia: Hb down 3gm from this summer, it is 8.4 and was 11 in March denies any melena will heme check stools repeat H/H in the AM, certainly anemia could be contributing to weakness (5) Weakness: multifactorial with JUDITH, anemia, infection and with a h/o neuropathy will treat all of the above consult PT/OT, was crawling around his home, anticipate he will need rehab (6) Chronic kidney disease, stage III (moderate): CKD up to 2.7, baseline closer to 2.0 will repeat in the AM (7) Chronic systolic congestive heart failure: mild edema in legs, lungs diminished mucous membranes dry, does not examine like he is in acute heart failure continue Coreg BID hold Lisinopril and Torsemide with JUDITH (8) Diabetes mellitus type 2, insulin dependent: Lantus 30 units HS, Novolog SS monitor for hypoglycemia Subjective patient still very fatigued admits to being fatigued and more weak at home for several weeks he has been crawling around the house, crawled into bathroom, could not get up he has been taking his medications as prescribes, says he takes care of his own medications he denies any fever/chills, cough, chest pain/pressure admits to chronic leg wounds he admits to some constipation, has not noticed dark/tarry stools reviewed labs, WBC 8k, Hb 8.4 (was 11 in the summer) Cr 2.7, down from 2.9 Review of Systems Review of Systems: All systems reviewed & are unremarkable except as noted in HPI & below Constitutional: + fatigue and + weakness; no fever, no chills and no sweats Respiratory: + dyspnea on exertion; no cough, no dyspnea and no wheezing Cardiovascular: + edema; no chest pain, no palpitations and no syncope Gastrointestinal: + constipation; no abdominal pain, no nausea, no vomiting, no diarrhea/loose stools and no melena Musculoskeletal: + muscle weakness; no back pain and no joint pain Integumentary: + wounds (venous stasis ulcers) Physical Exam Constitutional: WD/WN, vitals as above + obese Eyes: PERRL, conjunctivae normal, anicteric sclerae ENMT: external ear and nose normal, oropharynx normal Neck: trachea midline, no thyromegaly Respiratory: normal respiratory effort, lungs clear to auscultation (decreased in bases) Cardiovascular: Rate/Rhythm: regular rate and regular rhythm Heart Sounds: normal S1 and normal S2; no murmur Extremities: + edema Gastrointestinal (Abdomen): normal bowel sounds, soft, nontender, no hepatosplenomegaly Musculoskeletal: Head/Neck/Chest: normocephalic and head atraumatic Extremities: extremities normal to inspection and + abnormal strength (diffuse weakness, 3/5 strength in lower extremities) Skin: + wound (bilateral venous stasis ulcers, weeping, dressed); no rashes and no induration Neurologic: patellar DTR's 2+ bilat, sensation intact and PERRL, EOMI, accommodation nl, no face palsy, no dysarthria Psychiatric: A+Ox3, euthymic affect Lymphatic: no cervical or axillary lymphadenopathy Results & Data Vital Signs (Past 12 Hours) Vital Signs Temp Pulse Pulse Resp BP Pulse Ox 08/20/19 10:54 37.0 C 60 19 118/70 96 08/20/19 08:51 60 08/20/19 06:56 36.9 C 60 20 130/75 98 08/20/19 03:13 60 18 92 Laboratory Results Laboratory Results - last 24 hr 08/19/19 08/19/19 08/19/19 21:16 21:16 21:16 WBC 8.14 RBC 3.06 L Hgb 8.9 L Hct 28.4 L MCV 92.8 MCH 29.1 MCHC 31.3 L RDW Std Deviation 55.3 H RDW Coeff of Marino 16.3 H Plt Count 148 MPV 11.3 H Immature Gran % (Auto) 0.2 Neut % (Auto) 80.4 Lymph % (Auto) 11.9 [place] % (Auto) 5.8 Eos % (Auto) 1.6 Baso % (Auto) 0.1 Immature Gran # (Auto) 0.02 Neut # (Auto) 6.54 H Lymph # (Auto) 0.97 L [place] # (Auto) 0.47 Eos # (Auto) 0.13 Baso # (Auto) 0.01 ESR PT Cancelled INR Cancelled APTT Cancelled PTT Ratio Cancelled Sodium 139 Potassium 4.5 Chloride 106 Carbon Dioxide 28 Anion Gap 6.0 BUN 102 H Creatinine 2.92 H Est Cr Clr Drug Dosing 34.7 Est GFR ( Amer) 23.6 Est GFR (Non-Af Amer) 20.3 BUN/Creatinine Ratio 34.8 H Glucose 229 H POC Glucose Estimat Average Glucose Hemoglobin A1c Lactate Calcium 9.8 Magnesium 2.5 H Total Bilirubin 1.0 AST 33 ALT 21 Alkaline Phosphatase 189 H Troponin I 0.059 H* C-Reactive Protein 1.96 H NT-Pro-B Natriuret Pep 7641 H Total Protein 7.6 Albumin 3.2 L Globulin 4.4 H Albumin/Globulin Ratio 0.7 L Procalcitonin TSH 5.710 H Free T4 1.24 Urine Color Urine Appearance Urine pH Ur Specific [place] Urine Protein Urine Glucose (UA) Urine Ketones Urine Blood Urine Nitrite Urine Bilirubin Urine Urobilinogen Ur Leukocyte Esterase Urine WBC (Auto) Urine RBC (Auto) U Hyaline Cast (Auto) U Epithel Cells (Auto) Urine Bacteria (Auto) 08/19/19 08/19/19 08/19/19 21:16 21:31 21:31 WBC RBC Hgb Hct MCV MCH MCHC RDW Std Deviation RDW Coeff of [place] Plt Count MPV Immature Gran % (Auto) Neut % (Auto) Lymph % (Auto) [place] % (Auto) Eos % (Auto) Baso % (Auto) Immature Gran # (Auto) Neut # (Auto) Lymph # (Auto) [place] # (Auto) Eos # (Auto) Baso # (Auto) ESR 73 H PT INR APTT PTT Ratio Sodium Potassium Chloride Carbon Dioxide Anion Gap BUN Creatinine Est Cr Clr Drug Dosing Est GFR ( Amer) Est GFR (Non-Af Amer) BUN/Creatinine Ratio Glucose POC Glucose Estimat Average Glucose Hemoglobin A1c Lactate 2.2 H* Calcium Magnesium Total Bilirubin AST ALT Alkaline Phosphatase Troponin I C-Reactive Protein NT-Pro-B Natriuret Pep Total Protein Albumin Globulin Albumin/Globulin Ratio Procalcitonin 0.09 TSH Free T4 Urine Color Urine Appearance Urine pH Ur Specific [place] Urine Protein Urine Glucose (UA) Urine Ketones Urine Blood Urine Nitrite Urine Bilirubin Urine Urobilinogen Ur Leukocyte Esterase Urine WBC (Auto) Urine RBC (Auto) U Hyaline Cast (Auto) U Epithel Cells (Auto) Urine Bacteria (Auto) 08/19/19 08/19/19 08/19/19 21:31 22:33 23:42 WBC RBC Hgb Hct MCV MCH MCHC RDW Std Deviation RDW Coeff of [place] Plt Count MPV Immature Gran % (Auto) Neut % (Auto) Lymph % (Auto) [place] % (Auto) Eos % (Auto) Baso % (Auto) Immature Gran # (Auto) Neut # (Auto) Lymph # (Auto) [place] # (Auto) Eos # (Auto) Baso # (Auto) ESR PT 13.0 H INR 1.3 H APTT 27.2 PTT Ratio 1.0 Sodium Potassium Chloride Carbon Dioxide Anion Gap BUN Creatinine Est Cr Clr Drug Dosing Est GFR ( Amer) Est GFR (Non-Af Amer) BUN/Creatinine Ratio Glucose POC Glucose 206 H Estimat Average Glucose 174 Hemoglobin A1c 7.7 H Lactate Calcium Magnesium Total Bilirubin AST ALT Alkaline Phosphatase Troponin I C-Reactive Protein NT-Pro-B Natriuret Pep Total Protein Albumin Globulin Albumin/Globulin Ratio Procalcitonin TSH Free T4 Urine Color Urine Appearance Urine pH Ur Specific [place] Urine Protein Urine Glucose (UA) Urine Ketones Urine Blood Urine Nitrite Urine Bilirubin Urine Urobilinogen Ur Leukocyte Esterase Urine WBC (Auto) Urine RBC (Auto) U Hyaline Cast (Auto) U Epithel Cells (Auto) Urine Bacteria (Auto) 08/20/19 08/20/19 08/20/19 00:26 01:27 07:13 WBC RBC Hgb Hct MCV MCH MCHC RDW Std Deviation RDW Coeff of [place] Plt Count MPV Immature Gran % (Auto) Neut % (Auto) Lymph % (Auto) [place] % (Auto) Eos % (Auto) Baso % (Auto) Immature Gran # (Auto) Neut # (Auto) Lymph # (Auto) [place] # (Auto) Eos # (Auto) Baso # (Auto) ESR PT INR APTT PTT Ratio Sodium Potassium Chloride Carbon Dioxide Anion Gap BUN Creatinine Est Cr Clr Drug Dosing Est GFR ( Amer) Est GFR (Non-Af Amer) BUN/Creatinine Ratio Glucose POC Glucose 228 H 225 H Estimat Average Glucose Hemoglobin A1c Lactate Calcium Magnesium Total Bilirubin AST ALT Alkaline Phosphatase Troponin I C-Reactive Protein NT-Pro-B Natriuret Pep Total Protein Albumin Globulin Albumin/Globulin Ratio Procalcitonin TSH Free T4 Urine Color Yellow Urine Appearance Clear Urine pH 5.0 Ur Specific [place] 1.016 Urine Protein Negative Urine Glucose (UA) Negative Urine Ketones Negative Urine Blood Trace H Urine Nitrite Negative Urine Bilirubin Negative Urine Urobilinogen Negative Ur Leukocyte Esterase Negative Urine WBC (Auto) 1-5 Urine RBC (Auto) 0-4 U Hyaline Cast (Auto) 1-5 U Epithel Cells (Auto) 10-20 H Urine Bacteria (Auto) Negative 08/20/19 08/20/19 08/20/19 08:05 08:05 11:14 WBC 8.00 RBC 2.86 L Hgb 8.4 L Hct 26.5 L MCV 92.7 MCH 29.4 MCHC 31.7 L RDW Std Deviation 54.6 H RDW Coeff of [place] 16.2 H Plt Count 128 L MPV 11.5 H Immature Gran % (Auto) 0.3 Neut % (Auto) 76.8 Lymph % (Auto) 15.4 [place] % (Auto) 6.4 Eos % (Auto) 1.0 Baso % (Auto) 0.1 Immature Gran # (Auto) 0.02 Neut # (Auto) 6.15 Lymph # (Auto) 1.23 [place] # (Auto) 0.51 Eos # (Auto) 0.08 Baso # (Auto) 0.01 ESR PT INR APTT PTT Ratio Sodium 140 Potassium 4.1 Chloride 107 Carbon Dioxide 28 Anion Gap 5.0 BUN 98 H Creatinine 2.75 H Est Cr Clr Drug Dosing 37.6 Est GFR ( Amer) 25.4 Est GFR (Non-Af Amer) 21.9 BUN/Creatinine Ratio 35.5 H Glucose 198 H POC Glucose 170 H Estimat Average Glucose Hemoglobin A1c Lactate Calcium 9.7 Magnesium Total Bilirubin AST ALT Alkaline Phosphatase Troponin I C-Reactive Protein NT-Pro-B Natriuret Pep Total Protein Albumin Globulin Albumin/Globulin Ratio Procalcitonin TSH Free T4 Urine Color Urine Appearance Urine pH Ur Specific [place] Urine Protein Urine Glucose (UA) Urine Ketones Urine Blood Urine Nitrite Urine Bilirubin Urine Urobilinogen Ur Leukocyte Esterase Urine WBC (Auto) Urine RBC (Auto) U Hyaline Cast (Auto) U Epithel Cells (Auto) Urine Bacteria (Auto) Medications Administered Current Inpatient Medications Al Hydrox/Mg Hydrox/Simethicone (Maalox) 15 ml PO Q4H PRN PRN Reason: Dyspepsia Stop: 09/19/19 00:43 Allopurinol (Zyloprim) 100 mg PO BID SHARITA Stop: 09/19/19 00:43 Last Admin: 08/20/19 07:58 Dose: 100 mg Documented by: Aspirin (Ecotrin) 325 mg PO DAILY SHARITA Stop: 09/19/19 08:59 Last Admin: 08/20/19 07:56 Dose: 325 mg Documented by: Atorvastatin Calcium (Lipitor) 40 mg PO DAILY SHARITA Stop: 09/19/19 08:59 Last Admin: 08/20/19 07:57 Dose: 40 mg Documented by: Carvedilol (Coreg) 25 mg PO BID SHARITA Stop: 09/19/19 00:43 Last Admin: 08/20/19 07:55 Dose: 25 mg Documented by: Dextrose (Dextrose 50%) 25 - 50 ml IV UD PRN; Protocol PRN Reason: Hypoglycemia Protocol Stop: 09/19/19 00:43 Glucagon (Glucagen) 1 mg SQ UD PRN; Protocol PRN Reason: Hypoglycemia Protocol Stop: 09/19/19 00:43 Glucose (Dex4 Glucose) 4 - 8 tabs PO UD PRN; Protocol PRN Reason: Hypoglycemia Protocol Stop: 09/19/19 00:43 Glucose (Glucose 40%) 15 - 30 gm PO UD PRN; Protocol PRN Reason: Hypoglycemia Protocol Stop: 09/19/19 00:43 Daptomycin 650 mg/ Syringe 13 mls @ 6.5 mls/min IV Q24H SHARITA; Protocol Stop: 08/30/19 05:59 Last Admin: 08/20/19 05:08 Dose: 6.5 mls/min Documented by: Insulin Aspart (Novolog Flexpen) 0 units SC ACHS SHARITA Stop: 09/19/19 07:29 Last Admin: 08/20/19 11:57 Dose: 5 units Documented by: Insulin Glargine (Lantus Solostar Pen) 30 units SQ HS [facility] Stop: 09/19/19 20:59 Loratadine (Claritin) 10 mg PO DAILY [facility] Stop: 09/19/19 08:59 Last Admin: 08/20/19 07:55 Dose: 10 mg Documented by: Magnesium Hydroxide (Milk Of Magnesia) 30 ml PO Q12H PRN PRN Reason: Constipation Stop: 09/19/19 00:43 Miscellaneous (Carbohydrates For Hypoglycemia) 15 - 30 gm PO UD PRN PRN Reason: Hypoglycemia Protocol Stop: 09/19/19 00:43 Nitroglycerin (Nitrostat) 0.4 mg SL ONCE PRN PRN Reason: Chest Pain Stop: 09/19/19 00:43 Ondansetron HCl (Zofran) 4 mg IV Q6H PRN PRN Reason: Nausea Stop: 09/19/19 00:43 Polyethylene Glycol (Miralax Powder Packet) 17 gm PO DAILY PRN PRN Reason: Constipation Stop: 09/19/19 00:43 Vitamin B Complex (Vitamin B Complex) 1 tab PO DAILY SHARITA Stop: 09/19/19 08:59 Last Admin: 08/20/19 07:57 Dose: 1 tab Documented by: PG Care Time/CCT Total # of Minutes Spent Total Time Spent with Patient: Total time spent is greater than 50% in coordination of care (as documented) at patient's floor/unit and/or counseling patient: (1) Cellulitis Laterality: unspecified laterality Site of cellulitis: extremity Site of cellulitis of extremity: lower extremity Qualified Code(s): L03.119 - Cellulitis of unspecified part of limb (2) Anemia Anemia type: unspecified type Qualified Code(s): D64.9 - Anemia, unspecified
[2019-08-20] MEDS ORDERED: INFLUENZA Vaccine HIGH DOSE 65+yrs 0.5 mL Syr IM ONE (14:45)
[2019-08-20] MEDS ORDERED: INSULIN GLARGINE SOLOSTAR 100 UNITS/ML 3 ML PEN SQ SCH (21:00)
[2019-08-21] MEDS: DAPTOmycin 650 MG in SYRINGE 0 ML IV SCH (05:07)
[2019-08-21 06:17] LABS: Eosinophils % (auto) 2.2 %; Hematocrit (blood only) 27.7 % (42-52); Hemoglobin 8.7 g/dL (14.0-18.0); Immature Granulocytes # (auto) 0.02 K/uL (0.00-0.02); Immature Granulocytes % (auto) 0.2 %; Lymphocytes # (auto) 1.11 K/uL (1.2-3.4); Lymphocytes % (auto) 12.2 %; Mean Corpuscular Hemoglobin 28.7 pg (25-34); Mean Corpuscular Hgb Conc 31.4 g/dL (32-36); Mean Corpuscular Volume 91.4 fL (80-100); Mean Platelet Volume 12.1 fL (7.4-10.4); Monocytes # (auto) 0.75 K/uL (0.11-0.59); Monocytes % (auto) 8.2 %; Neutrophils # (auto) 7.02 K/uL (1.4-6.5); Neutrophils % (auto) 77.2 %; Platelet Count 157 K/uL (130-400); RDW Coefficient of Variation 16.3 % (11.5-14.5); RDW Standard Deviation 54.2 fL (36.4-46.3); Red Blood Count 3.03 M/uL (4.7-6.1)
[2019-08-21 07:08] LABS: Albumin Globulin Ratio 0.7 (0.9-2); BUN Creatinine Ratio 33.6 (10-20); Bilirubin,Total 0.8 mg/dl (0.2-1); Calcium 9.5 mg/dl (8.5-10.1); Creatinine Clr Calc Pharmacy 38.7 ml/min; Est GFR (Non-African American) 22.5; Globulin 4.4 gm/dl (2.5-4.0); Potassium 3.8 mmol/L (3.5-5.1); Total Protein 7.4 gm/dl (6.4-8.2)
[2019-08-21] MEDS: CARBOHYDRATES FOR HYPOGLYCEMIA PO PRN ×2 (07:11→07:31)
[2019-08-21] MEDS: ASPIRIN 325 MG ECTAB PO SCH (07:32)
[2019-08-21] MEDS: LORATADINE 10 MG TAB PO SCH (07:32)
[2019-08-21] MEDS: VITAMIN B COMPLEX TAB PO SCH (07:32)
[2019-08-21] MEDS: ATORVASTATIN 40 MG TAB PO SCH (07:32)
[2019-08-21] MEDS: carvediloL 25 MG TAB PO SCH ×2 (07:32→21:32)
[2019-08-21] MEDS: allopurinoL 100 MG TAB PO SCH ×2 (07:32→21:32)
[2019-08-21] MEDS: INSULIN ASPART 100 UNITS/ML 3 ML PEN SC SCH ×4 (07:40→21:33)
[2019-08-21] MEDS ORDERED: D5W AND 1/2NSS 1,000 ML IV SCH (08:15)
--- NOTE | 2019-08-21 09:43 | Hospitalist Progress Note ---
Date of Service August 21, 2019 Assessment & Plan (1) JUDITH (acute kidney injury): on CKD stage III Cr up to 2.9 on admission, down to 2.6 today will hold Lisinopril and Torsemide gentle hydration today at 80cc/hr for 1 liter total repeat BMP in the AM monitor UO JUDITH likely playing a role in his weakness (2) Chronic kidney disease, stage III (moderate): CKD down a little further to 2.6, baseline closer to 2.0 gentle fluids today, monitor respiratory status (3) Anemia: Hb down 3gm from this summer, it was 11 in March 8.7 this morning, up slightly, no BM denies any melena will heme check stools repeat H/H in the AM, certainly anemia could be contributing to weakness (4) Venous stasis ulcers of both lower extremities: ongoing issue consult microfiche duplicator (5) Hypoglycemia: quite low at 38 this AM, received normal dose of Lantus 30 last night will give D5 at 80cc/hr to help with glucose intake, continue Novolog SS reduce Lantus slightly tonight to 25 (6) Cellulitis: skin around wounds is slightly warm, but WBC normal for two days will continue Daptomycin for time being and monitor closely (7) Weakness: multifactorial with JUDITH, anemia, infection and with a h/o neuropathy will treat all of the above consult PT/OT, was crawling around his home, anticipate he will need rehab told him to start to consider where he would want to go, would anticipate him being ready by mid week (8) Chronic systolic congestive heart failure: mild edema in legs, lungs diminished mucous membranes dry, does not examine like he is in acute heart failure continue Coreg BID hold Lisinopril and Torsemide with JUDITH, likely resume tomorrow give very gentle fluid today, appears on dry side (9) Diabetes mellitus type 2, insulin dependent: Lantus reduced to 25 units HS, Novolog SS monitor for hypoglycemia, had an episode this AM, see above (10) Dyslipidemia: Continue atorvastatin 40 mg daily. (11) Obstructive sleep apnea: CPAP at settings of 10. (12) Paroxysmal ventricular tachycardia: Continue carvedilol 25 mg p.o. twice daily. Subjective patient feeling a little better today, minimal improvement in strength, very weak with therapy discussed with him that he is going to need rehab, to start considering a location, CM will discuss with him further eating well, no BM in a few days no chest pain, no dyspnea, no cough, no nausea/vomiting no pain in lower extremities still with weeping from open ulcers reviewed labs, hypoglycemic this AM at 38, no symptoms, up to 70's later in the AM says that he has hypoglycemic at home placed on D5 1/2 at 80cc/hr for one bag Cr down slightly to 2.6, electrolytes stable, WBC normal, Hb up to 8.7 Review of Systems Review of Systems: All systems reviewed & are unremarkable except as noted in HPI & below Respiratory: no cough, no dyspnea and no wheezing Cardiovascular: + edema (mild, bilaterally); no chest pain Gastrointestinal: + constipation; no abdominal pain, no nausea, no vomiting and no diarrhea/loose stools Musculoskeletal: + muscle weakness Integumentary: + skin ulcer and + dry skin Physical Exam Constitutional: WD/WN, vitals as above + obese Eyes: PERRL, conjunctivae normal, anicteric sclerae ENMT: external ear and nose normal, oropharynx normal Neck: trachea midline, no thyromegaly Respiratory: normal respiratory effort, lungs clear to auscultation (decreased in bases) Cardiovascular: Rate/Rhythm: regular rate and regular rhythm Heart Sounds: normal S1 and normal S2; no murmur Extremities: + edema Gastrointestinal (Abdomen): normal bowel sounds, soft, nontender, no hepatosplenomegaly Musculoskeletal: Head/Neck/Chest: normocephalic and head atraumatic Extremities: extremities normal to inspection and + abnormal strength (diffuse weakness, 3/5 strength in lower extremities) Skin: + wound (bilateral venous stasis ulcers, weeping, dressed); no rashes and no induration Neurologic: patellar DTR's 2+ bilat, sensation intact and PERRL, EOMI, accommodation nl, no face palsy, no dysarthria Psychiatric: A+Ox3, euthymic affect Lymphatic: no cervical or axillary lymphadenopathy Results & Data Vital Signs (Past 12 Hours) Vital Signs Temp Pulse Pulse Resp BP Pulse Ox 08/21/19 07:27 36.3 C L 65 20 122/71 95 08/21/19 04:00 36.8 C 60 18 133/75 94 08/21/19 03:26 57 L 18 94 08/21/19 00:00 60 08/20/19 22:59 36.8 C 59 L 20 105/69 99 08/20/19 22:58 60 17 97 Laboratory Results Laboratory Results - last 24 hr 08/20/19 08/20/19 08/20/19 11:14 16:08 20:41 WBC RBC Hgb Hct MCV MCH MCHC RDW Std Deviation RDW Coeff of Marino Plt Count MPV Immature Gran % (Auto) Neut % (Auto) Lymph % (Auto) Hood % (Auto) Eos % (Auto) Baso % (Auto) Immature Gran # (Auto) Neut # (Auto) Lymph # (Auto) Hood # (Auto) Eos # (Auto) Baso # (Auto) Sodium Potassium Chloride Carbon Dioxide Anion Gap BUN Creatinine Est Cr Clr Drug Dosing Est GFR ( Amer) Est GFR (Non-Af Amer) BUN/Creatinine Ratio Glucose POC Glucose 170 H 125 H 111 H Calcium Total Bilirubin AST ALT Alkaline Phosphatase Total Protein Albumin Globulin Albumin/Globulin Ratio 08/21/19 08/21/19 08/21/19 05:26 05:26 07:22 WBC 9.10 RBC 3.03 L Hgb 8.7 L Hct 27.7 L MCV 91.4 MCH 28.7 MCHC 31.4 L RDW Std Deviation 54.2 H RDW Coeff of Marino 16.3 H Plt Count 157 MPV 12.1 H Immature Gran % (Auto) 0.2 Neut % (Auto) 77.2 Lymph % (Auto) 12.2 [place] % (Auto) 8.2 Eos % (Auto) 2.2 Baso % (Auto) 0.0 Immature Gran # (Auto) 0.02 Neut # (Auto) 7.02 H Lymph # (Auto) 1.11 L [place] # (Auto) 0.75 H Eos # (Auto) 0.20 Baso # (Auto) 0.00 Sodium 139 Potassium 3.8 Chloride 105 Carbon Dioxide 28 Anion Gap 6.0 BUN 90 H Creatinine 2.69 H Est Cr Clr Drug Dosing 38.7 Est GFR ( Amer) 26.0 Est GFR (Non-Af Amer) 22.5 BUN/Creatinine Ratio 33.6 H Glucose 38 L* POC Glucose 65 L* Calcium 9.5 Total Bilirubin 0.8 AST 30 ALT 19 Alkaline Phosphatase 178 H Total Protein 7.4 Albumin 3.0 L Globulin 4.4 H Albumin/Globulin Ratio 0.7 L 08/21/19 07:46 WBC RBC Hgb Hct MCV MCH MCHC RDW Std Deviation RDW Coeff of Marino Plt Count MPV Immature Gran % (Auto) Neut % (Auto) Lymph % (Auto) [place] % (Auto) Eos % (Auto) Baso % (Auto) Immature Gran # (Auto) Neut # (Auto) Lymph # (Auto) Hood # (Auto) Eos # (Auto) Baso # (Auto) Sodium Potassium Chloride Carbon Dioxide Anion Gap BUN Creatinine Est Cr Clr Drug Dosing Est GFR ( Amer) Est GFR (Non-Af Amer) BUN/Creatinine Ratio Glucose POC Glucose 72 Calcium Total Bilirubin AST ALT Alkaline Phosphatase Total Protein Albumin Globulin Albumin/Globulin Ratio Medications Administered Current Inpatient Medications Al Hydrox/Mg Hydrox/Simethicone (Maalox) 15 ml PO Q4H PRN PRN Reason: Dyspepsia Stop: 09/19/19 00:43 Allopurinol (Zyloprim) 100 mg PO BID [facility] Stop: 09/19/19 00:43 Last Admin: 08/21/19 07:32 Dose: 100 mg Documented by: Aspirin (Ecotrin) 325 mg PO DAILY [facility] Stop: 09/19/19 08:59 Last Admin: 08/21/19 07:32 Dose: 325 mg Documented by: Atorvastatin Calcium (Lipitor) 40 mg PO DAILY [facility] Stop: 09/19/19 08:59 Last Admin: 08/21/19 07:32 Dose: 40 mg Documented by: Carvedilol (Coreg) 25 mg PO BID [facility] Stop: 09/19/19 00:43 Last Admin: 08/21/19 07:32 Dose: 25 mg Documented by: Dextrose (Dextrose 50%) 25 - 50 ml IV UD PRN; Protocol PRN Reason: Hypoglycemia Protocol Stop: 09/19/19 00:43 Glucagon (Glucagen) 1 mg SQ UD PRN; Protocol PRN Reason: Hypoglycemia Protocol Stop: 09/19/19 00:43 Glucose (Dex4 Glucose) 4 - 8 tabs PO UD PRN; Protocol PRN Reason: Hypoglycemia Protocol Stop: 09/19/19 00:43 Glucose (Glucose 40%) 15 - 30 gm PO UD PRN; Protocol PRN Reason: Hypoglycemia Protocol Stop: 09/19/19 00:43 Daptomycin 650 mg/ Syringe 13 mls @ 6.5 mls/min IV Q24H [facility]; Protocol Stop: 08/30/19 05:59 Last Admin: 08/21/19 05:07 Dose: 6.5 mls/min Documented by: Dextrose/Sodium Chloride (D5w And 1/2nss) 1,000 mls @ 80 mls/hr IV .[id number] [facility] Stop: 08/21/19 20:44 Last Admin: 08/21/19 08:19 Dose: 80 mls/hr Documented by: Insulin Aspart (Novolog Flexpen) 0 units SC ACHS [facility] Stop: 09/19/19 07:29 Last Admin: 08/21/19 07:40 Dose: 3 units Documented by: Insulin Glargine (Lantus Solostar Pen) 30 units SQ HS [facility] Stop: 09/19/19 20:59 Last Admin: 08/20/19 20:51 Dose: 30 units Documented by: Loratadine (Claritin) 10 mg PO DAILY [facility] Stop: 09/19/19 08:59 Last Admin: 08/21/19 07:32 Dose: 10 mg Documented by: Magnesium Hydroxide (Milk Of Magnesia) 30 ml PO Q12H PRN PRN Reason: Constipation Stop: 09/19/19 00:43 Miscellaneous (Carbohydrates For Hypoglycemia) 15 - 30 gm PO UD PRN PRN Reason: Hypoglycemia Protocol Stop: 09/19/19 00:43 Last Admin: 08/21/19 07:31 Dose: 15 gm Documented by: Nitroglycerin (Nitrostat) 0.4 mg SL ONCE PRN PRN Reason: Chest Pain Stop: 09/19/19 00:43 Ondansetron HCl (Zofran) 4 mg IV Q6H PRN PRN Reason: Nausea Stop: 09/19/19 00:43 Polyethylene Glycol (Miralax Powder Packet) 17 gm PO DAILY PRN PRN Reason: Constipation Stop: 09/19/19 00:43 Vitamin B Complex (Vitamin B Complex) 1 tab PO DAILY [facility] Stop: 09/19/19 08:59 Last Admin: 08/21/19 07:32 Dose: 1 tab Documented by: PG Care Time/CCT Total # of Minutes Spent Total Time Spent with Patient: Total time spent is greater than 50% in coordination of care (as documented) at patient's floor/unit and/or counseling patient: (1) Cellulitis Laterality: unspecified laterality Site of cellulitis: extremity Site of cellulitis of extremity: lower extremity Qualified Code(s): L03.119 - Cellulitis of unspecified part of limb (2) Anemia Anemia type: unspecified type Qualified Code(s): D64.9 - Anemia, unspecified
[2019-08-21] MEDS ORDERED: INSULIN GLARGINE SOLOSTAR 100 UNITS/ML 3 ML PEN SQ SCH (21:00)
[2019-08-22] MEDS: DAPTOmycin 650 MG in SYRINGE 0 ML IV SCH (06:02)
[2019-08-22 08:17] LABS: Basophils # (auto) 0.01 K/uL (0-0.2); Basophils % (auto) 0.1 %; Eosinophils # (auto) 0.23 K/uL (0-0.5); Eosinophils % (auto) 2.5 %; Hematocrit (blood only) 27.4 % (42-52); Hemoglobin 8.6 g/dL (14.0-18.0); Immature Granulocytes # (auto) 0.02 K/uL (0.00-0.02); Immature Granulocytes % (auto) 0.2 %; Lymphocytes # (auto) 1.48 K/uL (1.2-3.4); Lymphocytes % (auto) 16.3 %; Mean Corpuscular Hemoglobin 29.2 pg (25-34); Mean Corpuscular Hgb Conc 31.4 g/dL (32-36); Mean Corpuscular Volume 92.9 fL (80-100); Mean Platelet Volume 10.6 fL (7.4-10.4); Monocytes # (auto) 0.62 K/uL (0.11-0.59); Monocytes % (auto) 6.8 %; Neutrophils # (auto) 6.71 K/uL (1.4-6.5); Neutrophils % (auto) 74.1 %; Platelet Count 145 K/uL (130-400); RDW Coefficient of Variation 16.2 % (11.5-14.5); RDW Standard Deviation 55.3 fL (36.4-46.3); Red Blood Count 2.95 M/uL (4.7-6.1); White Blood Count 9.07 K/uL (4.8-10.8)
[2019-08-22] MEDS: ASPIRIN 325 MG ECTAB PO SCH (08:27)
[2019-08-22] MEDS: LORATADINE 10 MG TAB PO SCH (08:28)
[2019-08-22] MEDS: allopurinoL 100 MG TAB PO SCH ×2 (08:28→21:37)
[2019-08-22] MEDS: ATORVASTATIN 40 MG TAB PO SCH (08:28)
[2019-08-22] MEDS: VITAMIN B COMPLEX TAB PO SCH (08:28)
[2019-08-22] MEDS: carvediloL 25 MG TAB PO SCH ×2 (08:31→21:31)
[2019-08-22] MEDS: INSULIN ASPART 100 UNITS/ML 3 ML PEN SC SCH ×4 (08:44→21:33)
[2019-08-22 08:46] LABS: BUN Creatinine Ratio 35.4 (10-20); Calcium 9.6 mg/dl (8.5-10.1); Creatinine Clr Calc Pharmacy 37.5 ml/min; Est GFR (African American) 26.2; Est GFR (Non-African American) 22.6; Potassium 4.1 mmol/L (3.5-5.1)
--- NOTE | 2019-08-22 11:48 | Hospitalist Progress Note ---
Date of Service August 22, 2019 Assessment & Plan (1) JUDITH (acute kidney injury): on CKD stage III Cr up to 2.9 on admission, down to 2.68 today continue to hold Lisinopril, resume Torsemide 200mg today due to edema provided 1 liter total of fluid on 08/21, no further fluid needed repeat BMP in the AM monitor UO, making adequate urine will check renal US to rule out an obstructive process JUDITH likely playing a role in his weakness (2) Chronic kidney disease, stage III (moderate): CKD down a little further to 2.68, baseline closer to 2.0 gentle fluids yesterday, no further fluids, examines euvolemic to slightly overloaded resume Torsemide today continue to hold Lisinopril as BP low normal (3) Anemia: Hb down 3gm from this summer, it was 11 in March 8.6 this morning, stable, no BM to check for heme occult denies any melena repeat H/H in the AM, certainly anemia could be contributing to weakness (4) Venous stasis ulcers of both lower extremities: ongoing issue consult retail performance specialist (5) Hypoglycemia: quite low at 38 morning of 08/21, received normal dose of Lantus 30 the night prior placed on D5 at 80cc/hr to help with glucose intake, continue Novolog SS plan: reduce Lantus further to 20 units HS, check sugars in AM may need lower dose of Lantus on discharge, however, likely that his diet is better here (6) Cellulitis: skin around wounds is slightly warm, but WBC normal for three days will continue Daptomycin for time being and monitor closely would complete 7 days, no growth on blood cultures all prior wound cultures have grown MSSA wound RN to see tomorrow (7) Weakness: multifactorial with JUDITH, anemia, infection and with a h/o neuropathy will treat all of the above consult PT/OT, was crawling around his home, anticipate he will need rehab told him to start to consider where he would want to go, would anticipate him being ready by mid week (8) Chronic systolic congestive heart failure: mild edema in legs, lungs diminished mucous membranes dry, does not examine like he is in acute heart failure continue Coreg BID resume Torsemide 200mg daily today continue to hold Lisinopril in setting of elevated Cr and low normal BP (9) Diabetes mellitus type 2, insulin dependent: Lantus reduced to 20 units HS, Novolog SS monitor for hypoglycemia (10) Dyslipidemia: Continue atorvastatin 40 mg daily. (11) Obstructive sleep apnea: CPAP at settings of 10. (12) Paroxysmal ventricular tachycardia: Continue carvedilol 25 mg p.o. twice daily. Plan: continue PT/OT, transfer to medical floor today, will most likely need SNF rehab once medically stable for discharge retail performance specialist to see tomorrow for recommendations continue Daptomycin while admitted, several options available for PO treatment on discharge based on prior MSSA cultures check labs in the AM Subjective patient feeling slightly stronger, in the room with therapy, he stood with walker, took a few steps to the door and back legs still with ulcers, weeping wounds eating better, no chest pain, has some dyspnea on exertion but he says that it is normal for him no nausea, still with constipation reviewed labs, Hb stable at 8.6, Cr is 2.68 no real change with fluids yesterday glucose better this morning with lowering dose of Lantus to 25 units, could probably lower further to 20 units Review of Systems Review of Systems: All systems reviewed & are unremarkable except as noted in HPI & below Constitutional: + fatigue and + weakness; no fever Respiratory: + dyspnea on exertion; no cough, no dyspnea and no wheezing Cardiovascular: + edema; no chest pain Gastrointestinal: + constipation; no abdominal pain, no nausea, no vomiting and no diarrhea/loose stools Physical Exam Constitutional: WD/WN, vitals as above + obese Eyes: PERRL, conjunctivae normal, anicteric sclerae ENMT: external ear and nose normal, oropharynx normal Neck: trachea midline, no thyromegaly Respiratory: normal respiratory effort, lungs clear to auscultation (decreased in bases) Cardiovascular: Rate/Rhythm: regular rate and regular rhythm Heart Sounds: normal S1 and normal S2; no murmur Extremities: + edema Gastrointestinal (Abdomen): normal bowel sounds, soft, nontender, no hepatosplenomegaly Musculoskeletal: Head/Neck/Chest: normocephalic and head atraumatic Extremities: extremities normal to inspection and + abnormal strength (diffuse weakness, 4/5 strength in lower extremities) Skin: + wound (bilateral venous stasis ulcers, weeping, dressed); no rashes and no induration Neurologic: patellar DTR's 2+ bilat, sensation intact and PERRL, EOMI, accom modation nl, no face palsy, no dysarthria Psychiatric: A+Ox3, euthymic affect Lymphatic: no cervical or axillary lymphadenopathy Results & Data Vital Signs (Past 12 Hours) Vital Signs Temp Pulse Pulse Resp BP Pulse Ox 08/22/19 10:44 36.6 C 63 18 114/58 L 97 08/22/19 08:33 36.9 C 60 18 138/82 99 08/22/19 08:00 60 08/22/19 05:01 69 18 96 08/22/19 04:10 36.9 C 59 L 18 129/66 97 08/22/19 01:37 61 14 96 Laboratory Results Microbiology 08/19/19 21:31 Blood Aerobic Blood Culture - Preliminary No growth in Aerobic bottle after 48 hours. 08/19/19 21:31 Blood Anaerobic Blood Culture - Preliminary No growth in Anaerobic bottle after 48 hours. 08/19/19 21:16 Blood Aerobic Blood Culture - Preliminary No growth in Aerobic bottle after 48 hours. 08/19/19 21:16 Blood Anaerobic Blood Culture - Preliminary No growth in Anaerobic bottle after 48 hours. Laboratory Results - last 24 hr 08/21/19 08/21/19 08/22/19 16:47 20:28 08:07 WBC 9.07 RBC 2.95 L Hgb 8.6 L Hct 27.4 L MCV 92.9 MCH 29.2 MCHC 31.4 L RDW Std Deviation 55.3 H RDW Coeff of Marino 16.2 H Plt Count 145 MPV 10.6 H Immature Gran % (Auto) 0.2 Neut % (Auto) 74.1 Lymph % (Auto) 16.3 [place] % (Auto) 6.8 Eos % (Auto) 2.5 Baso % (Auto) 0.1 Immature Gran # (Auto) 0.02 Neut # (Auto) 6.71 H Lymph # (Auto) 1.48 [place] # (Auto) 0.62 H Eos # (Auto) 0.23 Baso # (Auto) 0.01 Sodium Potassium Chloride Carbon Dioxide Anion Gap BUN Creatinine Est Cr Clr Drug Dosing Est GFR ( Amer) Est GFR (Non-Af Amer) BUN/Creatinine Ratio Glucose POC Glucose 197 H 196 H Calcium 08/22/19 08/22/19 08/22/19 08:07 08:39 12:00 WBC RBC Hgb Hct MCV MCH MCHC RDW Std Deviation RDW Coeff of Marino Plt Count MPV Immature Gran % (Auto) Neut % (Auto) Lymph % (Auto) [place] % (Auto) Eos % (Auto) Baso % (Auto) Immature Gran # (Auto) Neut # (Auto) Lymph # (Auto) [place] # (Auto) Eos # (Auto) Baso # (Auto) Sodium 139 Potassium 4.1 Chloride 106 Carbon Dioxide 29 Anion Gap 4.0 BUN 95 H Creatinine 2.68 H Est Cr Clr Drug Dosing 37.5 Est GFR ( Amer) 26.2 Est GFR (Non-Af Amer) 22.6 BUN/Creatinine Ratio 35.4 H Glucose 85 POC Glucose 111 H 142 H Calcium 9.6 Medications Administered Current Inpatient Medications Al Hydrox/Mg Hydrox/Simethicone (Maalox) 15 ml PO Q4H PRN PRN Reason: Dyspepsia Stop: 09/19/19 00:43 Allopurinol (Zyloprim) 100 mg PO BID [facility] Stop: 09/19/19 00:43 Last Admin: 08/22/19 08:28 Dose: 100 mg Documented by: Aspirin (Ecotrin) 325 mg PO DAILY [facility] Stop: 09/19/19 08:59 Last Admin: 08/22/19 08:27 Dose: 325 mg Documented by: Atorvastatin Calcium (Lipitor) 40 mg PO DAILY [facility] Stop: 09/19/19 08:59 Last Admin: 08/22/19 08:28 Dose: 40 mg Documented by: Carvedilol (Coreg) 25 mg PO BID [facility] Stop: 09/19/19 00:43 Last Admin: 08/22/19 08:31 Dose: 25 mg Documented by: Dextrose (Dextrose 50%) 25 - 50 ml IV UD PRN; Protocol PRN Reason: Hypoglycemia Protocol Stop: 09/19/19 00:43 Glucagon (Glucagen) 1 mg SQ UD PRN; Protocol PRN Reason: Hypoglycemia Protocol Stop: 09/19/19 00:43 Glucose (Dex4 Glucose) 4 - 8 tabs PO UD PRN; Protocol PRN Reason: Hypoglycemia Protocol Stop: 09/19/19 00:43 Glucose (Glucose 40%) 15 - 30 gm PO UD PRN; Protocol PRN Reason: Hypoglycemia Protocol Stop: 09/19/19 00:43 Daptomycin 650 mg/ Syringe 13 mls @ 6.5 mls/min IV Q24H [facility]; Protocol Stop: 08/30/19 05:59 Last Admin: 08/22/19 06:02 Dose: 6.5 mls/min Documented by: Insulin Aspart (Novolog Flexpen) 0 units SC ACHS [facility] Stop: 09/19/19 07:29 Last Admin: 08/22/19 08:44 Dose: 5 units Documented by: Insulin Glargine (Lantus Solostar Pen) 20 units SC HS [facility] Stop: 09/21/19 20:59 Loratadine (Claritin) 10 mg PO DAILY [facility] Stop: 09/19/19 08:59 Last Admin: 08/22/19 08:28 Dose: 10 mg Documented by: Magnesium Hydroxide (Milk Of Magnesia) 30 ml PO Q12H PRN PRN Reason: Constipation Stop: 09/19/19 00:43 Miscellaneous (Carbohydrates For Hypoglycemia) 15 - 30 gm PO UD PRN PRN Reason: Hypoglycemia Protocol Stop: 09/19/19 00:43 Last Admin: 08/21/19 07:31 Dose: 15 gm Documented by: Nitroglycerin (Nitrostat) 0.4 mg SL ONCE PRN PRN Reason: Chest Pain Stop: 09/19/19 00:43 Ondansetron HCl (Zofran) 4 mg IV Q6H PRN PRN Reason: Nausea Stop: 09/19/19 00:43 Polyethylene Glycol (Miralax Powder Packet) 17 gm PO DAILY PRN PRN Reason: Constipation Stop: 09/19/19 00:43 Torsemide (Demadex) 200 mg PO QAM [facility] Stop: 09/21/19 10:59 Vitamin B Complex (Vitamin B Complex) 1 tab PO DAILY [facility] Stop: 09/19/19 08:59 Last Admin: 08/22/19 08:28 Dose: 1 tab Documented by: PG Care Time/CCT Total # of Minutes Spent Total Time Spent with Patient: Total time spent is greater than 50% in coordination of care (as documented) at patient's floor/unit and/or counseling patient: (1) Anemia Anemia type: unspecified type Qualified Code(s): D64.9 - Anemia, unspecified (2) Cellulitis Laterality: unspecified laterality Site of cellulitis: extremity Site of cellulitis of extremity: lower extremity Qualified Code(s): L03.119 - Cellulitis of unspecified part of limb
[2019-08-22] MEDS: TORSEMIDE 100 MG TAB PO SCH (15:56)
[2019-08-22] MEDS: INSULIN GLARGINE SOLOSTAR 100 UNITS/ML 3 ML PEN SC SCH (21:32)
[2019-08-23 05:26] LABS: Basophils # (auto) 0.01 K/uL (0-0.2); Basophils % (auto) 0.1 %; Eosinophils # (auto) 0.16 K/uL (0-0.5); Eosinophils % (auto) 2.2 %; Hematocrit (blood only) 27.9 % (42-52); Hemoglobin 8.6 g/dL (14.0-18.0); Immature Granulocytes # (auto) 0.02 K/uL (0.00-0.02); Immature Granulocytes % (auto) 0.3 %; Lymphocytes % (auto) 15.2 %; Mean Corpuscular Hemoglobin 28.6 pg (25-34); Mean Corpuscular Hgb Conc 30.8 g/dL (32-36); Mean Corpuscular Volume 92.7 fL (80-100); Mean Platelet Volume 11.8 fL (7.4-10.4); Monocytes # (auto) 0.51 K/uL (0.11-0.59); Monocytes % (auto) 7.1 %; Neutrophils # (auto) 5.43 K/uL (1.4-6.5); Neutrophils % (auto) 75.1 %; Platelet Count 148 K/uL (130-400); RDW Coefficient of Variation 16.4 % (11.5-14.5); RDW Standard Deviation 55.1 fL (36.4-46.3); Red Blood Count 3.01 M/uL (4.7-6.1); White Blood Count 7.23 K/uL (4.8-10.8)
[2019-08-23 05:47] LABS: BUN Creatinine Ratio 33.8 (10-20); Calcium 9.3 mg/dl (8.5-10.1); Creatinine Clr Calc Pharmacy 34.4 ml/min; Est GFR (African American) 23.6; Est GFR (Non-African American) 20.3; Potassium 4.4 mmol/L (3.5-5.1)
[2019-08-23] MEDS: DAPTOmycin 650 MG in SYRINGE 0 ML IV SCH (06:13)
[2019-08-23] MEDS: INSULIN ASPART 100 UNITS/ML 3 ML PEN SC SCH ×4 (09:22→21:30)
[2019-08-23] MEDS: ASPIRIN 325 MG ECTAB PO SCH (09:24)
[2019-08-23] MEDS: LORATADINE 10 MG TAB PO SCH (09:24)
[2019-08-23] MEDS: carvediloL 25 MG TAB PO SCH ×2 (09:24→21:44)
[2019-08-23] MEDS: allopurinoL 100 MG TAB PO SCH ×2 (09:25→21:45)
[2019-08-23] MEDS: ATORVASTATIN 40 MG TAB PO SCH (09:25)
[2019-08-23] MEDS: VITAMIN B COMPLEX TAB PO SCH (09:25)
[2019-08-23] MEDS: TORSEMIDE 100 MG TAB PO SCH (10:08)
--- NOTE | 2019-08-23 12:44 | Hospitalist Progress Note ---
Date of Service August 23, 2019 Assessment & Plan (1) JUDITH (acute kidney injury): In setting of CKD stage III Cr up to 2.9 on admission - improved modestly - now back to 2.9 Will check renal u/s to rule out any obstructive process ANUPAMA on hold Diuretic was resumed due to chronic systolic CHF and ongoing edema repeat BMP in the AM of note - he was given IVF earlier this admission w/o any clinical change or improvement in creatinine (2) Metabolic encephalopathy: 2nd to elevated ammonia level?? lactulose x 1 now; repeat ammonia level am. serial exams. (3) Weakness: suspect multifactorial etiology - JUDITH, anemia, infectious process, elevated ammonia, etc PT, OT check lumbar spine CT to r/o cord issue/spinal stenosis etc check b12 level (4) Cellulitis: b/l shins by report will take dressings off and examine these tomorrow will continue Daptomycin all prior wound cultures have grown MSSA wound care consult appreciated (5) Chronic kidney disease, stage III (moderate): baseline creatinine 2.0 to 2.5 hold ANUPAMA renal u/s BMP in am has mild JUDITH superimposed at this time (6) Anemia: iron studies c/w iron deficiency start Fe supplementation CBC am for stability (7) Venous stasis ulcers of both lower extremities: cont local wound care (8) Hypoglycemia: resolved with reduction in lantus cont reduced lantus dosing and loose Novolog SS (9) Chronic systolic congestive heart failure: appears compensated continue Coreg BID continue Torsemide 200mg daily holding ANUPAMA due to JUDITH in setting of CKD stage 3 (10) Diabetes mellitus type 2, insulin dependent: Lantus reduced to 20 units HS, Novolog SS hypoglycemia resolved (11) Dyslipidemia: Continue atorvastatin (12) Obstructive sleep apnea: CPAP at settings of 10 HS/naps (13) Paroxysmal ventricular tachycardia: Continue carvedilol 25 mg p.o. twice daily. has pacer/ICD check interrogation to r/o dysrhythmia contributing to clinical picture (14) Morbid obesity with BMI of 45.0-49.9, adult: BMI 45.9 (15) DVT prophylaxis: add heparin 5000 BID PT, OT evals Subjective patient sitting in chair at bedside. mildly confused and very poor historian. asked why he was in the hospital and stated "it was my legs." he initially told me he was having pains from the knees down to his feet. asked if he had joint pain and he had hard time answering that. he then stated he was crawling on his hands/knees at home "before I came in." I asked how active he is when he feels well - again had hard time telling me an answer. however, he does use a cane with ambulation at home. appetite is fair at best. denies any back pain. when asked if he was short of breath he said "yes" but couldn't tell me any details. "I was short of breath this am" he told me. Review of Systems Constitutional: no fever Respiratory: no cough Cardiovascular: no chest pain Gastrointestinal: no abdominal pain, no nausea and no vomiting Genitourinary: no dysuria Musculoskeletal: + joint pain; no back pain Integumentary: + skin ulcer Physical Exam Constitutional: + morbidly obese and + altered mental status; no acute distress ENMT: external ear and nose normal, oropharynx normal Neck: trachea midline, no thyromegaly Respiratory: normal respiratory effort, lungs clear to auscultation Cardiovascular: Rate/Rhythm: regular rate and regular rhythm Heart Sounds: normal S1, normal S2 and + murmur (2/6 LSB) Vessels: posterior tibial pulses present and dorsalis pedis pulses present; no JVD Extremities: + edema (1-2+ b/l) Gastrointestinal (Abdomen): normal bowel sounds, soft, nontender, no hepatosplenomegaly Musculoskeletal: no synovitis or effusions of either knee, either ankle, or any of the small joints of his feet. I can passively flex/extend each knee/ankle w/o pain. Skin: skin abrasions/ulcerations inferior to both knees on tibial plateau area - each covered w/ optifoams. kerlix dressings in place over both distal shins. first MTP areas both feet with minor, superficial skin ulcerations. Neurologic: moves all extremities; no focal motor deficits Psychiatric: Orientation: alert, oriented to person and oriented to place; + not oriented to time Results & Data Vital Signs (Past 12 Hours) Vital Signs Temp Pulse Pulse Resp BP Pulse Ox 08/23/19 09:20 60 131/63 08/23/19 07:20 36.8 C 60 20 131/68 96 08/23/19 03:20 61 18 97 Laboratory Results Laboratory Results - last 24 hr 08/23/19 08/23/19 08/23/19 04:31 07:54 12:11 Sodium 138 Potassium 4.4 Chloride 105 Carbon Dioxide 29 Anion Gap 4.0 BUN 99 H Creatinine 2.92 H Est Cr Clr Drug Dosing 34.4 Est GFR ( Amer) 23.6 Est GFR (Non-Af Amer) 20.3 BUN/Creatinine Ratio 33.8 H Glucose 90 POC Glucose 72 79 Calcium 9.3 Iron Transferrin Transferrin % Sat Ferritin Ammonia Total Creatine Kinase Vitamin B12 08/23/19 08/23/19 08/23/19 12:59 12:59 12:59 Sodium Potassium Chloride Carbon Dioxide Anion Gap BUN Creatinine Est Cr Clr Drug Dosing Est GFR ( Amer) Est GFR (Non-Af Amer) BUN/Creatinine Ratio Glucose POC Glucose Calcium Iron 35 Transferrin 211 Transferrin % Sat 12 L Ferritin 39.6 Ammonia 66.0 H Total Creatine Kinase 120 Vitamin B12 1846 H 08/23/19 08/23/19 17:29 20:45 Sodium Potassium Chloride Carbon Dioxide Anion Gap BUN Creatinine Est Cr Clr Drug Dosing Est GFR ( Amer) Est GFR (Non-Af Amer) BUN/Creatinine Ratio Glucose POC Glucose 77 160 H Calcium Iron Transferrin Transferrin % Sat Ferritin Ammonia Total Creatine Kinase Vitamin B12 PG Care Time/CCT Total # of Minutes Spent Total Time Spent with Patient: Total time spent is greater than 50% in coordination of care (as documented) at patient's floor/unit and/or counseling patient: (1) Anemia Anemia type: unspecified type Qualified Code(s): D64.9 - Anemia, unspecified (2) Cellulitis Laterality: unspecified laterality Site of cellulitis: extremity Site of cellulitis of extremity: lower extremity Qualified Code(s): L03.119 - Cellulitis of unspecified part of limb
[2019-08-23 13:43] LABS: Ferritin 39.6 ng/ml (8-388)
--- NOTE | 2019-08-23 15:20 | CT Scan Report ---
CT lumbar spine wo con CT DOSE: 1099.59 mGy.cm CLINICAL HISTORY: Trauma. Bilateral lower extremity weakness. TECHNIQUE: Helical images were acquired in transverse plane. Reformatted sagittal and coronal images were reviewed. A dose lowering technique was utilized adhering to the principles of ALARA. CONTRAST: No contrast was administered COMPARISON STUDY: None. FINDINGS: L1-2 level: There is no evidence of significant disc bulge or focal herniation. There is no evidence of spinal or foraminal stenosis. L2-3 level: There is a circumferential disc bulge. There is severe spinal stenosis. There is a mild L 3 compression deformity. There is an abnormal trabecular pattern of the L3 vertebral body and posteri or elements. There is mild expansion of the spinous process. While nonspecific, the findings resemble Paget's disease. L3-4 level: There is a circumferential disc bulge. There is severe spinal stenosis. There is facet kristina int arthropathy. There is mild bilateral foraminal narrowing. L4-5 level: There is a circumferential disc bulge. There is severe spinal stenosis. There is facet kristina int arthropathy. There is moderate bilateral foraminal narrowing. L5-S1 level: There is a circumferential disc bulge. There is no significant spinal or foraminal steno sis. There is partial SI joint ankylosis. Evaluation is mildly limited from a technical standpoint due to the patient's large body habitus. IMPRESSION: 1. Mild pathologic compression fracture of the L3 vertebra. While nonspecific, the appearance favors Paget's disease of bone 2. Multilevel spondylytic changes with severe spinal stenosis at the L2-3, L3-4, and L4-5 levels. Electronically signed by: Merrill Valera M.D. 08/23/2019 3:18 PM
[2019-08-23] MEDS ORDERED: LACTULOSE SYRUP 20 GM/30 ML UDC PO ONE (16:00)
--- NOTE | 2019-08-23 16:15 | Ultrasound Report ---
EXAMINATION: RENAL ULTRASOUND CLINICAL HISTORY: Acute on chronic renal failure COMPARISON STUDY: CT scan dated 02/23/2008 FINDINGS: The right kidney measures 7 cm. The left kidney measures 10.5 cm. There is no evidence of hydronephrosis. There are no renal masses. Neither ureteral jet was visualized. There is lower pelvic ascites. The study was limited from a technical standpoint due to the patient's large body habitus. IMPRESSION : 1. Technically limited study secondary to the patient's large body habitus 2. No evidence of hydronephrosis 3. Low volume ascites Electronically signed by: Merrill Valera M.D. 08/23/2019 4:13 PM
[2019-08-23] MEDS: FERROUS SULFATE 325 MG TAB PO SCH (17:33)
[2019-08-23] MEDS: INSULIN GLARGINE SOLOSTAR 100 UNITS/ML 3 ML PEN SC SCH (21:31)
[2019-08-24] MEDS: DAPTOmycin 650 MG in SYRINGE 0 ML IV SCH (05:41)
[2019-08-24 07:05] LABS: BUN Creatinine Ratio 35.1 (10-20); Calcium 9.2 mg/dl (8.5-10.1); Creatinine Clr Calc Pharmacy 33.7 ml/min; Est GFR (Non-African American) 19.9; Potassium 4.4 mmol/L (3.5-5.1)
[2019-08-24] MEDS ORDERED: LACTULOSE SYRUP 30 GM/45 ML UDP PO SCH (08:00)
[2019-08-24] MEDS: INSULIN ASPART 100 UNITS/ML 3 ML PEN SC SCH ×4 (08:54→21:13)
[2019-08-24] MEDS: LORATADINE 10 MG TAB PO SCH (09:00)
[2019-08-24] MEDS: FERROUS SULFATE 325 MG TAB PO SCH ×2 (09:00→18:16)
[2019-08-24] MEDS: TORSEMIDE 100 MG TAB PO SCH (09:01)
[2019-08-24] MEDS: carvediloL 25 MG TAB PO SCH ×2 (09:01→21:09)
[2019-08-24] MEDS: ASPIRIN 325 MG ECTAB PO SCH (09:01)
[2019-08-24] MEDS: ATORVASTATIN 40 MG TAB PO SCH (09:02)
[2019-08-24] MEDS: allopurinoL 100 MG TAB PO SCH ×2 (09:02→21:08)
[2019-08-24] MEDS: VITAMIN B COMPLEX TAB PO SCH (09:02)
[2019-08-24] MEDS: HEPARIN SOD 5,000 UNIT/0.5 ML VIAL SQ SCH ×2 (09:16→21:11)
[2019-08-24] MEDS ORDERED: LACTULOSE SYRUP 30 GM/45 ML UDP PO ONE (14:00)
--- NOTE | 2019-08-24 18:04 | CT Scan Report ---
CT head/brain wo con CLINICAL HISTORY: 74 years-old Male with recent fall, altered MS. acutely altered mental status with recent fall TECHNIQUE: Multiple axial CT images of the head were obtained without contrast. A dose lowering tech nique was utilized adhering to the principles of ALARA. CT DOSE: 1228.24 mGy.cm COMPARISON: None. FINDINGS: No acute intracranial hemorrhage, midline shift, intracranial mass, hydrocephalus, territorial ischem ia or abnormal extra-axial collection. Mild age-related involutional changes. Mild patchy white matte r hypodensities suggest chronic microvascular ischemic disease. The calvarium is intact. Mastoid air cells are clear. Mild polypoid mucosal thickening of the right sphenoid and left maxillary sinuses. Soft tissues and orbits are unremarkable. Prior bilateral catara ct repair. IMPRESSION: No acute intracranial abnormality or calvarial fracture. The above report was generated using voice recognition software. It may contain grammatical, syntax o r spelling errors. Electronically signed by: Tawanda Londono M.D. 08/24/2019 6:03 PM
[2019-08-24] MEDS ORDERED: LACTULOSE 200 GM, WATER, STERILE IRRIG 700 ML, BARCODE IDENTIFIER 1 EA PR ONE (18:30)
--- NOTE | 2019-08-24 21:00 | Hospitalist Progress Note ---
Date of Service August 24, 2019 Assessment & Plan (1) Hepatic encephalopathy: ammonia level elevated x 2. despite 3 doses of lactulose over the past 48 hours he has had no improvement in ammonia and no bowel movement. give lactulose enema x 1. repeat ammonia level tomorrow. elevated ammonia level could be 2nd to passive congestion of liver from CHF. alternatively could have primary liver disease - alluded to drinking etoh in past - but no prior h/o liver disease. repeat LFTs and INR in am. consider dedicated liver imaging (ultrasound). (2) Metabolic encephalopathy: CT head wnl. Differential - uremia and/or hepatic encephalopathy +/- metabolic from cellulitis of legs vs combination of factors. Treat elevated ammonia. Treat cellulitis. Supportive care for elevated BUN and Cr. (3) JUDITH (acute kidney injury): In setting of CKD stage III Cr up to 2.9 on admission - improved modestly - now back to 2.9 Renal u/s w/o obstructive process ANUPAMA on hold Diuretic was resumed due to chronic systolic CHF and ongoing edema He examines either euvolemic or mildly volume up but if volume up he looks more like right-sided CHF May need nephrology input - follows w/ Dr Barrios repeat BMP in the AM of note - he was given IVF earlier this admission w/o any clinical change or improvement in creatinine (4) Weakness: suspect multifactorial etiology - JUDITH, anemia, infectious process, elevated ammonia, etc PT, OT both recommending rehab states he has not been to rehab recently checked lumbar spine CT to r/o cord issue/spinal stenosis -- does indeed have spinal stenosis but I don't think this is the cause of current symptoms b12 level was not deficient (5) Cellulitis: b/l shins by report on exam today I don't appreciate significant cellulitis all prior wound cultures have grown MSSA wound care consult appreciated can likely d/c daptomycin tomorrow and proceed forward with oral abx (6) Chronic kidney disease, stage III (moderate): baseline creatinine 2.0 to 2.5 hold ANUPAMA renal u/s w/o obvious obstruction BMP in am has mild JUDITH superimposed at this time (7) Anemia: iron studies c/w iron deficiency started Fe supplementation CBC am for stability await fecal occult blood (8) Venous stasis ulcers of both lower extremities: cont local wound care (9) Hypoglycemia: resolved with reduction in lantus cont reduced lantus dosing and loose Novolog SS glycemic control overall acceptable at this time (10) Chronic systolic congestive heart failure: appears compensated or slightly volume up continue Coreg BID continue Torsemide 200mg daily holding ANUPAMA due to JUDITH in setting of CKD stage [address] Varela's note from 08/03/19 his last echo was in 2017 showing EF 40-45% will repeat echo tomorrow I am very confused by patient's weight They have fluctuated tremendously during his stay True baseline weight is uncertain his torsemide was increased to 200mg/day by Dr Varela in 08/03/19 and he seemingly did ok from volume standpoint thereafter (11) Diabetes mellitus type 2, insulin dependent: Lantus reduced to 20 units HS, Novolog SS hypoglycemia resolved (12) Dyslipidemia: Continue atorvastatin (13) Obstructive sleep apnea: CPAP at settings of 10 HS/naps (14) Paroxysmal ventricular tachycardia: Continue carvedilol 25 mg p.o. twice daily. has pacer/ICD check interrogation to r/o dysrhythmia contributing to clinical picture (15) Morbid obesity with BMI of 45.0-49.9, adult: BMI 49 (16) DVT prophylaxis: heparin 5000 BID PT, OT evals rehab recommended extensively updated by phone total time today 45 minutes including lengthy call to Subjective patient sitting again in chair by bedside. was sleeping but woke up. seemed mildly confused. again could not tell me the year but knew he was in the hospital. appetite a little better today. still no bowel movement despite multiple doses of lactulose. I had a 25 minute long conversation with his by phone late in the day today. she reported he had been confused for 2+ weeks. she recounted how he had seen cardiology earlier in July for dyspnea and his torsemide was increased. she also confirmed he had been constipated and that his legs had been weak. Review of Systems Constitutional: + fatigue; no fever and no chills Respiratory: + cough; no dyspnea Cardiovascular: no chest pain Gastrointestinal: + constipation; no abdominal pain and no nausea Genitourinary: no dysuria Integumentary: + non-healing lesions and + skin ulcer Physical Exam Constitutional: + morbidly obese and + altered mental status; no acute distress ENMT: external ear and nose normal, oropharynx normal Neck: trachea midline, no thyromegaly Respiratory: normal respiratory effort, lungs clear to auscultation Cardiovascular: Rate/Rhythm: regular rate and regular rhythm Heart Sounds: normal S1, normal S2 and + murmur (2/6 LSB) Vessels: posterior tibial pulses present and dorsalis pedis pulses present; no JVD Extremities: + edema (1-2+ b/l) Gastrointestinal (Abdomen): normal bowel sounds, soft, nontender, no hepatosplenomegaly Skin: large ulcerations/denuded skin b/l anterior shins; no superimposed drainage, cellulitis or erythema/odor; smaller ulcerations just below knees b/l and on dorsum of foot near great toe b/l Neurologic: moves all extremities; no focal motor deficits Motor/Sensory: + asterixis Psychiatric: Orientation: alert, oriented to person and oriented to place; + not oriented to time Results & Data Vital Signs (Past 12 Hours) Vital Signs Temp Pulse Resp BP BP Pulse Ox 08/24/19 20:48 61 24 109/53 L 97 08/24/19 14:58 36.9 C 60 18 117/76 98 08/24/19 09:00 60 135/72 Laboratory Results Laboratory Results - last 24 hr 08/24/19 08/24/19 08/24/19 06:15 06:21 08:11 Sodium 137 Potassium 4.4 Chloride 104 Carbon Dioxide 28 Anion Gap 5.0 BUN 105 H Creatinine 2.98 H Est Cr Clr Drug Dosing 33.7 Est GFR ( Amer) 23.0 Est GFR (Non-Af Amer) 19.9 BUN/Creatinine Ratio 35.1 H Glucose 103 H POC Glucose 91 Calcium 9.2 Ammonia 68.0 H 08/24/19 12:08 Sodium Potassium Chloride Carbon Dioxide Anion Gap BUN Creatinine Est Cr Clr Drug Dosing Est GFR ( Amer) Est GFR (Non-Af Amer) BUN/Creatinine Ratio Glucose POC Glucose 110 H Calcium Ammonia PG Care Time/CCT Total # of Minutes Spent Total Time Spent with Patient: Total time spent is greater than 50% in coordination of care (as documented) at patient's floor/unit and/or counseling patient: (1) Anemia Anemia type: unspecified type Qualified Code(s): D64.9 - Anemia, unspecified (2) Cellulitis Laterality: unspecified laterality Site of cellulitis: extremity Site of cellulitis of extremity: lower extremity Qualified Code(s): L03.119 - Cellulitis of unspecified part of limb
[2019-08-24] MEDS: INSULIN GLARGINE SOLOSTAR 100 UNITS/ML 3 ML PEN SC SCH (21:12)
[2019-08-25] MEDS: DAPTOmycin 650 MG in SYRINGE 0 ML IV SCH (06:15)
[2019-08-25 07:27] LABS: INR 1.3 (0.9-1.1); Prothrombin Time 13.4 Seconds (9.0-12.0)
[2019-08-25 07:36] LABS: Hematocrit (blood only) 26.1 % (42-52); Hemoglobin 8.3 g/dL (14.0-18.0); Mean Corpuscular Hemoglobin 29.5 pg (25-34); Mean Corpuscular Hgb Conc 31.8 g/dL (32-36); Mean Corpuscular Volume 92.9 fL (80-100); Mean Platelet Volume 11.3 fL (7.4-10.4); Platelet Count 113 K/uL (130-400); RDW Coefficient of Variation 16.4 % (11.5-14.5); RDW Standard Deviation 55.1 fL (36.4-46.3); Red Blood Count 2.81 M/uL (4.7-6.1); White Blood Count 7.77 K/uL (4.8-10.8)
[2019-08-25 07:50] LABS: Albumin Level 2.8 gm/dl (3.4-5.0); BUN Creatinine Ratio 36.2 (10-20); Calcium 9.2 mg/dl (8.5-10.1); Creatinine Clr Calc Pharmacy 33.9 ml/min; Est GFR (African American) 22.1; Est GFR (Non-African American) 19.1; Potassium 4.4 mmol/L (3.5-5.1)
[2019-08-25 07:53] LABS: Albumin Globulin Ratio 0.7 (0.9-2); Bilirubin,Total 1.1 mg/dl (0.2-1); Globulin 4.3 gm/dl (2.5-4.0); Total Protein 7.1 gm/dl (6.4-8.2)
[2019-08-25] MEDS: ASPIRIN 325 MG ECTAB PO SCH (08:06)
[2019-08-25] MEDS: LORATADINE 10 MG TAB PO SCH (08:07)
[2019-08-25] MEDS: carvediloL 25 MG TAB PO SCH ×2 (08:07→21:06)
[2019-08-25] MEDS: allopurinoL 100 MG TAB PO SCH ×2 (08:08→21:01)
[2019-08-25] MEDS: ATORVASTATIN 40 MG TAB PO SCH (08:08)
[2019-08-25] MEDS: VITAMIN B COMPLEX TAB PO SCH (08:08)
[2019-08-25] MEDS: FERROUS SULFATE 325 MG TAB PO SCH ×2 (08:09→16:53)
[2019-08-25] MEDS ORDERED: LACTULOSE SYRUP 30 GM/45 ML UDP PO SCH (09:00)
--- NOTE | 2019-08-25 09:24 | Ultrasound Report ---
ABDOMINAL ULTRASOUND COMPLETE HISTORY: ?cirrhosis. COMPARISON: Abdomen and pelvis CT 02/23/2008. FINDINGS: Pancreas: Obscured by overlying bowel gas. Liver: Mildly enlarged measuring 19 cm in length. Suboptimally assessed due to the patient's body hab itus. Subtle nodular contour to the liver suggestive of cirrhosis. No hepatic masses. Gallbladder: No gallbladder wall thickening. There appear to be a few punctate stones within the gall bladder neck. CBD: Difficult to visualize but appears to measure 5 mm in diameter. Kidneys: No hydronephrosis. Spleen: Normal in size. Aorta: Obscured by overlying bowel gas. Miscellaneous: Trace ascites. IVC: Patent. IMPRESSION: 1. Subtle nodular contour to the liver suggestive of mild cirrhosis. The liver is also mildly enlarge d. 2. Suspect a few tiny gallstones. No gallbladder wall thickening. 3. Trace ascites. Electronically signed by: Sonido Helms M.D. 08/25/2019 9:23 AM
[2019-08-25] MEDS: HEPARIN SOD 5,000 UNIT/0.5 ML VIAL SQ SCH ×2 (10:23→20:58)
[2019-08-25] MEDS: INSULIN ASPART 100 UNITS/ML 3 ML PEN SC SCH ×4 (10:25→20:57)
--- NOTE | 2019-08-25 10:33 | Nephrology Consultation ---
Date of Consultation August 25, 2019 Assessment & Plan (1) Hepatic encephalopathy: New diagnosis. Minimal ascites noted on renal Us. (2) JUDITH (acute kidney injury): Non-oliguric. Metabolic profile otherwise acceptable. Euvolemic on exam with exception of chronic lower extremity edema. Agree with continuing Torsemide to maintain an even fluid balance. I would defer any additional adjustment of diuretics to cardiology assessment. ANUPAMA held. UA acellular. Renal US without obstruction. Creatinine is stable. There is no emergent indication for LIGHTER. Medications are acceptably dosed for kidney function. Document I/O's and repeat metabolic profile tomorrow AM. (3) Cellulitis: Remains on daptomycin. (4) Chronic kidney disease, stage III (moderate): Baseline creatinine 2.0 mg/dL. Follows with Dr. Barrios as outpatient. (5) Anemia: Iron deficiency noted. FOB pending. No signs of active bleeding. Repeat H/H tomorrow AM. (6) Venous stasis ulcers of both lower extremities: (7) Chronic systolic congestive heart failure: Patient is well known to cardiology. Diuretics adjusted by Dr. Varela less than 1 month ago. I would defer additional evaluation regarding volume status to cardiology. (8) Diabetes mellitus type 2, insulin dependent: History of Present Illness Reason for Consultation: JUDITH/CKD Requesting Physician: Michael Escalera Attending Physician: Michael Escalera History of Present Illness Mr. Mendez is a 74-year-old AA male with CKD stage III. His baseline creatinine has been approximately 2.0 mg/dL with an eGFR of 35 cc/minute. Urine sediment has been benign. Urinary protein excretion has been low grade. Renal impairment has been attributed to obesity, cardiovascular disease, and diabetic nephropathy. Mr. Mendez follow in the CKD clinic with Dr. Barrios. He was last seen in the nephrology clinic in August 2018. Medical history is notable for an ischemic cardiomyopathy with chronic systolic CHF. The patient follows with Dr. Varela in the cardiology clinic regarding this. He has a biV pacer/ICD placed in 2011. Subsequent TTE demonstrated LVEF 40%. He is followed closely in the CHF clinic. 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 The patient also suffers from morbid obesity, DMII, VISHAL, gout, hypertension, and chronic lower extremity edema with venous stasis and lymphedema. He has struggled recently with chronic venous stasis ulcers. Mr. Mendez was admitted to [facility] at the end of July with weakness and mental status changes. He has been treated for hepatic encephalopathy. He was also found to have evidence of lower extremity cellulitis for which he has been treated with daptomycin. Creatinine has been stable at 3.0 mg/dL since admission. Renal US did not demonstrate obstruction. UA/microscopy was bland and acellular. Lisinopril has been held. Allergies Allergy/AdvReac Type Severity Reaction Status Date / Time escitalopram Allergy Unknown Unknown Verified 08/19/19 21:40 metformin Allergy Unknown unknown Verified 08/19/19 21:40 topiramate Allergy Unknown unknown Verified 08/19/19 21:40 Home Medications Home Medications Medication Instructions Recorded Confirmed Type allopurinol 100 mg tablet 100 mg PO BID 05/28/18 08/19/19 History aspirin 325 mg tablet 325 mg PO DAILY 05/28/18 08/19/19 History carvedilol 25 mg tablet 25 mg PO BID 05/28/18 08/19/19 History lisinopril 20 mg tablet 20 mg PO DAILY 05/28/18 08/19/19 History loratadine 10 mg tablet 10 mg PO DAILY 05/28/18 08/19/19 History omega-3 fatty acids 1,000 mg 1,000 mg PO DAILY 05/28/18 08/19/19 History capsule blood sugar diagnostic #10 ea 03/04/19 08/12/19 History lancets 30 gauge #25 ea 03/04/19 08/12/19 History nitroglycerin 0.4 mg sublingual 0.4 mg SL ONCE PRN tab 03/04/19 08/19/19 History tablet pen needle, diabetic 32 gauge x #10 ea 03/04/19 08/12/19 History 5/32" vitamin B complex 1 tab PO DAILY 03/04/19 08/19/19 History torsemide 100 mg tablet 100 mg PO .COMPLEX tab 08/03/19 08/19/19 History cholecalciferol (vitamin D3) 50,000 units PO MONTHLY #3 cap 08/09/19 08/19/19 Rx 50,000 unit capsule insulin glargine [Basaglar KwikPen 30 unit SUBCUT HS 08/19/19 08/19/19 History U-100 Insulin] [id number] 1 applic TOPICAL DAILY 08/19/19 08/19/19 History [Neosporin (ryv-yuw-qxttx)] atorvastatin 40 mg tablet 40 mg PO DAILY #90 tab 08/23/19 Rx Patient History Medical History Acute gouty arthritis (Resolved) Anemia Ankle joint pain Anxiety Asymptomatic hyperuricemia Biventricular ICD (implantable cardioverter-defibrillator) in place Chronic kidney disease, stage III (moderate) Chronic systolic congestive heart failure Constipation Diabetes Diabetes mellitus type 2, 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, uncontrolled Diabetic peripheral neuropathy Dyslipidemia Esophageal reflux Former smoker GERD (gastroesophageal reflux disease) (Chronic) Gout (Chronic) Gout Hematuria HTN (hypertension) Hypertension, goal below 140/90 Inhibited sexual excitement Ischemic cardiomyopathy Male erectile disorder of organic origin Mild nonproliferative diabetic retinopathy Morbid obesity Need for hepatitis C screening test Non-pressure chronic ulcer of right calf, limited to breakdown of skin Obstructive sleep apnea Paroxysmal ventricular tachycardia Poor compliance Shortness of breath Skin tear of left lower leg without complication Sleep apnea (Chronic) Testicular dysfunction Traumatic open wound of left lower leg Urinary urgency Venous insufficiency of both lower extremities Vitamin D deficiency Surgical History History of appendectomy (Resolved) Family History Other Diabetes Heart disease Hypertension Kidney disease Social History Preferred Language: Grenadian Communication Ability: Effective Visual Impairment: Limited Hearing Ability: Normal Cook Larder Required: No Beliefs That Will Affect Care: Uatsdin Uatsdin Beliefs: Shayy marital status: Current Living Situation: Family current occupational status: retired Other Information That Helps Us Care for You: No Feels Safe at Home: Yes Safety Concerns: Feels Safe At This Time Smoking Status: Unknown if ever smoked Hx Alcohol Use: No Hx Substance Use: No Review of Systems Review of Systems: All systems reviewed & are unremarkable except as noted in HPI & below Gastrointestinal: + constipation Physical Exam Constitutional: well developed; no acute distress Eyes: no scleral abnormality and no corneal abnormality ENMT: Mouth: no oral mucosal abnormality and oral mucous membranes not dry Neck: normal visual inspection, trachea midline and + thick neck Respiratory: normal respiratory effort Auscultation: lungs clear to auscultation bilaterally Cardiovascular: Rate/Rhythm: regular rate Heart Sounds: normal S1 and normal S2 Vessels: no JVD Extremities: + edema Musculoskeletal: Extremities: no cyanosis and no clubbing Skin: normal turgor; no lesions Neurologic: Motor/Sensory: no tremor and no asterixis Psychiatric: Orientation: alert and oriented x 3 Results & Data Vital Signs (Past 12 Hours) Vital Signs Temp Pulse Pulse Pulse Resp BP Pulse Ox 08/25/19 08:00 36.4 C L 61 23 111/71 99 08/25/19 03:21 62 16 95 08/24/19 23:37 92 H 16 96 08/24/19 23:01 36.5 C 60 17 130/80 97 Laboratory Results Laboratory Results - last 24 hr 08/24/19 08/24/19 08/24/19 12:08 17:09 20:38 WBC RBC Hgb Hct MCV MCH MCHC RDW Std Deviation RDW Coeff of Marino Plt Count MPV PT INR Sodium Potassium Chloride Carbon Dioxide Anion Gap BUN Creatinine Est Cr Clr Drug Dosing Est GFR ( Amer) Est GFR (Non-Af Amer) BUN/Creatinine Ratio Glucose POC Glucose 110 H 133 H Calcium Total Bilirubin AST ALT Alkaline Phosphatase Ammonia Total Protein Albumin Globulin Albumin/Globulin Ratio Stool Occult Bld Scrn Negative 08/24/19 08/25/19 08/25/19 20:55 07:06 07:06 WBC 7.77 RBC 2.81 L Hgb 8.3 L Hct 26.1 L MCV 92.9 MCH 29.5 MCHC 31.8 L RDW Std Deviation 55.1 H RDW Coeff of Marino 16.4 H Plt Count 113 L MPV 11.3 H PT 13.4 H INR 1.3 H Sodium Potassium Chloride Carbon Dioxide Anion Gap BUN Creatinine Est Cr Clr Drug Dosing Est GFR ( Amer) Est GFR (Non-Af Amer) BUN/Creatinine Ratio Glucose POC Glucose 197 H Calcium Total Bilirubin AST ALT Alkaline Phosphatase Ammonia Total Protein Albumin Globulin Albumin/Globulin Ratio Stool Occult Bld Scrn 08/25/19 08/25/19 08/25/19 07:06 07:06 08:15 WBC RBC Hgb Hct MCV MCH MCHC RDW Std Deviation RDW Coeff of Marino Plt Count MPV PT INR Sodium 137 Potassium 4.4 Chloride 103 Carbon Dioxide 28 Anion Gap 5.0 BUN 112 H Creatinine 3.08 H Est Cr Clr Drug Dosing 33.9 Est GFR ( Amer) 22.1 Est GFR (Non-Af Amer) 19.1 BUN/Creatinine Ratio 36.2 H Glucose 139 H POC Glucose 130 H Calcium 9.2 Total Bilirubin 1.1 H AST 49 H ALT 30 Alkaline Phosphatase 209 H Ammonia 53.5 H Total Protein 7.1 Albumin 2.8 L Globulin 4.3 H Albumin/Globulin Ratio 0.7 L Stool Occult Bld Scrn PG Care Time/CCT Total # of Minutes Spent Total Time Spent with Patient: Total time spent is greater than 50% in coordination of care (as documented) at patient's floor/unit and/or counseling patient: (1) Cellulitis Laterality: unspecified laterality Site of cellulitis: extremity Site of cellulitis of extremity: lower extremity Qualified Code(s): L03.119 - Cellulitis of unspecified part of limb (2) Anemia Anemia type: unspecified type Qualified Code(s): D64.9 - Anemia, unspecified
[2019-08-25] MEDS ORDERED: BUMETANIDE 1 MG TAB PO STA (16:27)
--- NOTE | 2019-08-25 18:08 | Cardiology Consultation ---
Date of Consultation August 25, 2019 Assessment & Plan (1) Biventricular ICD (implantable cardioverter-defibrillator) in place: It appears that his device is programmed to VVI. He seems to have non sensing or a malfunction of the atrial lead which is known to be chronic. It is unclear from his EKG was his atrial rhythm happens to be. Would have some concerns regarding atrial fibrillation and the need for systemic anticoagulation moving forward. (2) Chronic systolic congestive heart failure: Does appear to have an element of pulmonary vascular congestion on chest x-ray. His examination is complicated by his morbid obesity and lower extremity edema which is not entirely due to his cardiac condition. As result, his overall volume status is difficult to determine. Clearly he has overall hypovolemia, but what element of pulmonary vascular congestion or intravascular hypovolemia he has is less clear. I think is reasonable to continue him on his current dose of diuretic. It may be more effective if administered intravenously while he is in the hospital. Review of his objective measures seems unreliable. According to his record he gained 20 kilograms in a period of 7-1/2 hours. Whether his in and out tabulated whitaker is correct is also unclear. According to his chart he has been volume positive for several days . His N terminal proBNP was markedly elevated at the time of admission. I think we should seek to maintain a net negative fluid balance. Perhaps we can attempt to get more accurate numbers to see if his current dose of diuretic his effective. If his renal function declines whether continues to be some debate as to whether he requires more aggressive diuresis than right heart catheterization could shed some light on the topic. (3) Ischemic cardiomyopathy: The cardiomyopathy appears to be resolved. This is likely due to adequate medical therapy and biventricular pacing. LV function was normal on echocardiogram today. He is not appear to be any indication for more aggressive therapy given his preserved LV function at this point. History of Present Illness Reason for Consultation: Congestive heart failure Requesting Physician: Aron Attending Physician: Michael Escalera History of Present Illness The patient is a 74-year-old gentleman with an extensive cardiac history to include an ischemic cardiomyopathy, congestive heart failure and prior implantation of biventricular ICD who is currently admitted to the hospital for symptoms of weakness. It seems that the patient has had progressive weakness over a couple of weeks. He reports being unable to ambulate normally. He was weak enough that he had difficulty getting out of a chair or even getting to the bathroom. During this time the patient did endorse symptoms of dyspnea as well. He states he did have significant breathing trouble leading up to his admission. He has chronic lower extremity edema. He also has pain in the left foot presumably due to ulcers on the left leg. At the time of his admission the patient was felt to be encephalopathic. He had elevated ammonia levels of unclear origin. He is also noted to have acute renal failure. He has baseline renal insufficiency that was worse at the time of admission. Currently complains of left leg discomfort. He states that he does feel slightly stronger today and was able to ambulate with the help of a nurse. He states that he has an element of breathing difficulty but this also appears to be improved since admission. He feels like his mentation is also improved. Allergies Allergy/AdvReac Type Severity Reaction Status Date / Time escitalopram Allergy Unknown Unknown Verified 08/19/19 21:40 metformin Allergy Unknown unknown Verified 08/19/19 21:40 topiramate Allergy Unknown unknown Verified 08/19/19 21:40 Home Medications Home Medications Medication Instructions Recorded Confirmed Type allopurinol 100 mg tablet 100 mg PO BID 05/28/18 08/19/19 History aspirin 325 mg tablet 325 mg PO DAILY 05/28/18 08/19/19 History carvedilol 25 mg tablet 25 mg PO BID 05/28/18 08/19/19 History lisinopril 20 mg tablet 20 mg PO DAILY 05/28/18 08/19/19 History loratadine 10 mg tablet 10 mg PO DAILY 05/28/18 08/19/19 History omega-3 fatty acids 1,000 mg 1,000 mg PO DAILY 05/28/18 08/19/19 History capsule blood sugar diagnostic #10 ea 03/04/19 08/12/19 History lancets 30 gauge #25 ea 03/04/19 08/12/19 History nitroglycerin 0.4 mg sublingual 0.4 mg SL ONCE PRN tab 03/04/19 08/19/19 History tablet pen needle, diabetic 32 gauge x #10 ea 03/04/19 08/12/19 History 5/32" vitamin B complex 1 tab PO DAILY 03/04/19 08/19/19 History torsemide 100 mg tablet 100 mg PO .COMPLEX tab 08/03/19 08/19/19 History cholecalciferol (vitamin D3) 50,000 units PO MONTHLY #3 cap 08/09/19 08/19/19 Rx 50,000 unit capsule insulin glargine [Basaglar KwikPen 30 unit SUBCUT HS 08/19/19 08/19/19 History U-100 Insulin] [id number] 1 applic TOPICAL DAILY 08/19/19 08/19/19 History [Neosporin (pdf-rfa-ptszo)] atorvastatin 40 mg tablet 40 mg PO DAILY #90 tab 08/23/19 Rx Patient History Medical History Acute gouty arthritis (Resolved) Anemia Ankle joint pain Anxiety Asymptomatic hyperuricemia Biventricular ICD (implantable cardioverter-defibrillator) in place Chronic kidney disease, stage III (moderate) Chronic systolic congestive heart failure Constipation Diabetes Diabetes mellitus type 2, 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, uncontrolled Diabetic peripheral neuropathy Dyslipidemia Esophageal reflux Former smoker GERD (gastroesophageal reflux disease) (Chronic) Gout (Chronic) Gout Hematuria HTN (hypertension) Hypertension, goal below 140/90 Inhibited sexual excitement Ischemic cardiomyopathy Male erectile disorder of organic origin Mild nonproliferative diabetic retinopathy Morbid obesity Need for hepatitis C screening test Non-pressure chronic ulcer of right calf, limited to breakdown of skin Obstructive sleep apnea Paroxysmal ventricular tachycardia Poor compliance Shortness of breath Skin tear of left lower leg without complication Sleep apnea (Chronic) Testicular dysfunction Traumatic open wound of left lower leg Urinary urgency Venous insufficiency of both lower extremities Vitamin D deficiency Surgical History History of appendectomy (Resolved) Family History Other Diabetes Heart disease Hypertension Kidney disease Social History Preferred Language: Guyanese Communication Ability: Effective Visual Impairment: Limited Hearing Ability: Normal Weed Inspector Required: No Beliefs That Will Affect Care: Adventist Adventist Beliefs: Shayy marital status: Current Living Situation: Family current occupational status: retired Other Information That Helps Us Care for You: No Feels Safe at Home: Yes Safety Concerns: Feels Safe At This Time Smoking Status: Unknown if ever smoked Hx Alcohol Use: No Hx Substance Use: No Review of Systems Review of Systems: Unobtainable due to cognitive status He did not endorse recent symptoms of fevers or chills. He did not endorse abdominal discomfort. He did endorse an element of anorexia. He claims to be compliant with his outpatient medical regimen. Physical Exam Physical Exam: The patient was somewhat somnolent. He was arousable and easily directed bbl. He did answer questions appropriately. HEENT: He did not open his eyes during today's interview. Neuro: Cranial nerves otherwise intact. Neck: Patient's neck is supple. He has palpable carotid pulses bilaterally without bruits on auscultation. There is no evidence of jugular venous distention. The thyroid is not enlarged. Lungs: Occasional crackles in the bases and some upper respiratory bronchial sounds. No expiratory wheezing. Normal respiratory effort. Chest: Well-healed ICD implant site in left upper pectoral area. Cardiac: Heart demonstrates a regular rate and rhythm. Normal S1 and S2. No murmurs on examination. Pulses: The patient has palpable radial pulses bilaterally that are equal in intensity Extremities: He has significant edema both lower extremities. There are bandages on both lower extremities for stasis ulcers. Skin: I did not appreciate any rashes on examination today. Results & Data Vital Signs (Past 12 Hours) Vital Signs Temp Pulse Pulse Resp BP Pulse Ox 08/25/19 15:02 36.4 C L 60 16 107/66 100 08/25/19 12:30 36.5 C 60 21 116/52 L 98 08/25/19 08:00 36.4 C L 61 23 111/71 99 Laboratory Results Abnormal Lab Results 08/24/19 08/24/19 08/24/19 17:09 20:38 20:55 WBC RBC Hgb Hct MCV MCH MCHC RDW Std Deviation RDW Coeff of Marino Plt Count MPV PT INR Sodium Potassium Chloride Carbon Dioxide Anion Gap BUN Creatinine Est Cr Clr Drug Dosing Est GFR ( Amer) Est GFR (Non-Af Amer) BUN/Creatinine Ratio Glucose POC Glucose 133 H 197 H Calcium Total Bilirubin AST ALT Alkaline Phosphatase Ammonia Total Protein Albumin Globulin Albumin/Globulin Ratio Stool Occult Bld Scrn Negative 08/25/19 08/25/19 08/25/19 07:06 07:06 07:06 WBC 7.77 RBC 2.81 L Hgb 8.3 L Hct 26.1 L MCV 92.9 MCH 29.5 MCHC 31.8 L RDW Std Deviation 55.1 H RDW Coeff of Marino 16.4 H Plt Count 113 L MPV 11.3 H PT 13.4 H INR 1.3 H Sodium 137 Potassium 4.4 Chloride 103 Carbon Dioxide 28 Anion Gap 5.0 BUN 112 H Creatinine 3.08 H Est Cr Clr Drug Dosing 33.9 Est GFR ( Amer) 22.1 Est GFR (Non-Af Amer) 19.1 BUN/Creatinine Ratio 36.2 H Glucose 139 H POC Glucose Calcium 9.2 Total Bilirubin 1.1 H AST 49 H ALT 30 Alkaline Phosphatase 209 H Ammonia Total Protein 7.1 Albumin 2.8 L Globulin 4.3 H Albumin/Globulin Ratio 0.7 L Stool Occult Bld Scrn 08/25/19 08/25/19 08/25/19 07:06 08:15 12:06 WBC RBC Hgb Hct MCV MCH MCHC RDW Std Deviation RDW Coeff of Marino Plt Count MPV PT INR Sodium Potassium Chloride Carbon Dioxide Anion Gap BUN Creatinine Est Cr Clr Drug Dosing Est GFR ( Amer) Est GFR (Non-Af Amer) BUN/Creatinine Ratio Glucose POC Glucose 130 H 146 H Calcium Total Bilirubin AST ALT Alkaline Phosphatase Ammonia 53.5 H Total Protein Albumin Globulin Albumin/Globulin Ratio Stool Occult Bld Scrn 08/25/19 17:11 WBC RBC Hgb Hct MCV MCH MCHC RDW Std Deviation RDW Coeff of Marino Plt Count MPV PT INR Sodium Potassium Chloride Carbon Dioxide Anion Gap BUN Creatinine Est Cr Clr Drug Dosing Est GFR ( Amer) Est GFR (Non-Af Amer) BUN/Creatinine Ratio Glucose POC Glucose 169 H Calcium Total Bilirubin AST ALT Alkaline Phosphatase Ammonia Total Protein Albumin Globulin Albumin/Globulin Ratio Stool Occult Bld Scrn Diagnostic Findings Chest x-ray obtained at the time admission did reveal cardiomegaly and evidence of pulmonary vascular congestion. Also right-sided pleural effusion. Echocardiogram performed today revealed preserved LV systolic function with moderate dilation of left atrium. ECG Additional Comments: EKG demonstrates a paced ventricular rhythm. Unclear atrial rhythm. PG Care Time/CCT Total # of Minutes Spent Total Time Spent with Patient: Total time spent is greater than 50% in coordination of care (as documented) at patient's floor/unit and/or counseling patient:
--- NOTE | 2019-08-25 18:54 | Hospitalist Progress Note ---
Date of Service August 25, 2019 Assessment & Plan (1) Hepatic encephalopathy: IMPROVED. s/p lactulose enema and multiple doses of lactulose by mouth. place on standing lactulose 30gm daily. liver u/s today with findings suggestive of cirrhosis. suspect cirrhosis 2nd to long-standing etoh abuse. cannot rule out [place]/fatty liver given morbid obesity. mildly elevated INR likely 2nd cirrhosis. mildly elevated LFTs likely 2nd to cirrhosis. would refer to GI post-d/c. (2) Cirrhosis: 2nd to etoh or [place] or other vs combo of factors from volume standpoint likely compensated ammonia improving; cont daily lactulose; ideally 2-3 BMs/day on such GI f/u post-d/c (3) Metabolic encephalopathy: CT head wnl. Differential - uremia and/or hepatic encephalopathy +/- metabolic from ce llulitis of legs vs combination of factors. Suspect hyperammoniemia biggest culprit. MENTAL STATUS MUCH IMPROVED TODAY. Treat elevated ammonia. Treat cellulitis. Supportive care for elevated BUN and Cr. (4) JUDITH (acute kidney injury): In setting of CKD stage III Cr up to 2.9 on admission - a little worse today. This is after receiving his daily dose of torsemide. Renal u/s w/o obstructive process ANUPAMA on hold He examines either euvolemic or mildly volume up although liver u/s with minimal ascites, O2 sats 100% in RA, etc. I am concerned that renal function has worsened with ongoing PO diuretics. I asked both Gayathri Crowell from CHF clinic and Dr Sharp from nephrology to assist with diuretic management. 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 consult appreciated can d/c daptomycin after tomorrow's dose (tomorrow would be day #7) then consider 3 more days of PO abx then stop all abx (7) Chronic kidney disease, stage III (moderate): baseline creatinine 2.0 to 2.5 hold ANUPAMA renal u/s w/o obvious obstruction BMP in am has mild JUDITH superimposed at this time nephrology consulted (8) Anemia: iron studies c/w iron deficiency started Fe supplementation CBC stable fecal occult blood NEGATIVE (9) Venous stasis ulcers of both lower extremities: cont local wound care (10) Hypoglycemia: resolved with reduction in lantus cont reduced lantus dosing and loose Novolog SS glycemic control overall acceptable at this time (11) Chronic systolic congestive heart failure: appears compensated or slightly volume up continue Coreg BID continue Torsemide 200mg daily holding ANUPAMA due to JUDITH in setting of CKD stage [address] Varela's note from 08/03/19 his last echo was in 2017 showing EF 40-45% will repeat echo tomorrow I am very confused by patient's weight They have fluctuated tremendously during his stay True baseline weight is uncertain his torsemide was increased to 200mg/day by Dr Varela in 08/03/19 and he seemingly did ok from volume standpoint thereafter (12) Diabetes mellitus type 2, insulin dependent: Lantus reduced to 20 units HS, Novolog SS hypoglycemia resolved (13) Dyslipidemia: Continue atorvastatin (14) Obstructive sleep apnea: CPAP at settings of 10 HS/naps (15) Paroxysmal ventricular tachycardia: Continue carvedilol 25 mg p.o. twice daily. has pacer/ICD check interrogation to r/o dysrhythmia contributing to clinical picture (16) Morbid obesity with BMI of 45.0-49.9, adult: BMI 49 (17) DVT prophylaxis: heparin 5000 BID (cautiously in light of Fe Def) PT, OT evals appreciated rehab recommended extensively updated by phone 08/24 left another message on her voicemail 08/25 total time today 45 minutes including lengthy call to Subjective patient much more awake, alert today. knew all orientation questions. he was faster at answering my questions. could recall names of doctors he sees (Dr Barrios, etc). other than feeling weak he otherwise denied new complaints. had discussion about his etoh history. apparently, up until sometime in the last year, would drink a 6-back beer or gin/bourbon several times each week. had been consuming etoh for many years. Review of Systems Constitutional: + fatigue; no fever, no chills and no anorexia Respiratory: + dyspnea on exertion Cardiovascular: + paroxysmal nocturnal dyspnea and + edema; no chest pain and no dyspnea at rest Gastrointestinal: no abdominal pain and no nausea Genitourinary: no dysuria Integumentary: + skin ulcer Physical Exam Constitutional: + morbidly obese; no acute distress and no altered mental status ENMT: external ear and nose normal, oropharynx normal Neck: trachea midline, no thyromegaly Respiratory: normal respiratory effort, lungs clear to auscultation Cardiovascular: Rate/Rhythm: regular rate and regular rhythm Heart Sounds: normal S1, normal S2 and + murmur (2/6 LSB) Vessels: + JVD (minimal), posterior tibial pulses present and dorsalis pedis pulses present Extremities: + edema (1-2+ b/l) Gastrointestinal (Abdomen): normal bowel sounds, soft, nontender, no hepatosplenomegaly Skin: + ulcer (b/l upper shins just below knees - clean; optifoams in place) dressings intact to b/l mid-shins Neurologic: moves all extremities; no focal motor deficits Motor/Sensory: + asterixis (but much improved today) Psychiatric: Orientation: alert, oriented to person, oriented to place and oriented to time Results & Data Vital Signs (Past 12 Hours) Vital Signs Temp Pulse Pulse Resp BP Pulse Ox 08/25/19 15:02 36.4 C L 60 16 107/66 100 08/25/19 12:30 36.5 C 60 21 116/52 L 98 08/25/19 08:00 36.4 C L 61 23 111/71 99 Laboratory Results Laboratory Results - last 24 hr 08/24/19 08/24/19 08/24/19 17:09 20:38 20:55 WBC RBC Hgb Hct MCV MCH MCHC RDW Std Deviation RDW Coeff of Marino Plt Count MPV PT INR Sodium Potassium Chloride Carbon Dioxide Anion Gap BUN Creatinine Est Cr Clr Drug Dosing Est GFR ( Amer) Est GFR (Non-Af Amer) BUN/Creatinine Ratio Glucose POC Glucose 133 H 197 H Calcium Total Bilirubin AST ALT Alkaline Phosphatase Ammonia Total Protein Albumin Globulin Albumin/Globulin Ratio Stool Occult Bld Scrn Negative 08/25/19 08/25/19 08/25/19 07:06 07:06 07:06 WBC 7.77 RBC 2.81 L Hgb 8.3 L Hct 26.1 L MCV 92.9 MCH 29.5 MCHC 31.8 L RDW Std Deviation 55.1 H RDW Coeff of Marino 16.4 H Plt Count 113 L MPV 11.3 H PT 13.4 H INR 1.3 H Sodium 137 Potassium 4.4 Chloride 103 Carbon Dioxide 28 Anion Gap 5.0 BUN 112 H Creatinine 3.08 H Est Cr Clr Drug Dosing 33.9 Est GFR ( Amer) 22.1 Est GFR (Non-Af Amer) 19.1 BUN/Creatinine Ratio 36.2 H Glucose 139 H POC Glucose Calcium 9.2 Total Bilirubin 1.1 H AST 49 H ALT 30 Alkaline Phosphatase 209 H Ammonia Total Protein 7.1 Albumin 2.8 L Globulin 4.3 H Albumin/Globulin Ratio 0.7 L Stool Occult Bld Scrn 08/25/19 08/25/19 08/25/19 07:06 08:15 12:06 WBC RBC Hgb Hct MCV MCH MCHC RDW Std Deviation RDW Coeff of Marino Plt Count MPV PT INR Sodium Potassium Chloride Carbon Dioxide Anion Gap BUN Creatinine Est Cr Clr Drug Dosing Est GFR ( Amer) Est GFR (Non-Af Amer) BUN/Creatinine Ratio Glucose POC Glucose 130 H 146 H Calcium Total Bilirubin AST ALT Alkaline Phosphatase Ammonia 53.5 H Total Protein Albumin Globulin Albumin/Globulin Ratio Stool Occult Bld Scrn 08/25/19 17:11 WBC RBC Hgb Hct MCV MCH MCHC RDW Std Deviation RDW Coeff of Marino Plt Count MPV PT INR Sodium Potassium Chloride Carbon Dioxide Anion Gap BUN Creatinine Est Cr Clr Drug Dosing Est GFR ( Amer) Est GFR (Non-Af Amer) BUN/Creatinine Ratio Glucose POC Glucose 169 H Calcium Total Bilirubin AST ALT Alkaline Phosphatase Ammonia Total Protein Albumin Globulin Albumin/Globulin Ratio Stool Occult Bld Scrn PG Care Time/CCT Total # of Minutes Spent Total Time Spent with Patient: Total time spent is greater than 50% in coordination of care (as documented) at patient's floor/unit and/or counseling patient: (1) Anemia Anemia type: unspecified type Qualified Code(s): D64.9 - Anemia, unspecified (2) Cellulitis Laterality: unspecified laterality Site of cellulitis: extremity Site of cellulitis of extremity: lower extremity Qualified Code(s): L03.119 - Cellulitis of unspecified part of limb (3) Cirrhosis Hepatic cirrhosis type: other cirrhosis Qualified Code(s): K74.69 - Other cirrhosis of liver
[2019-08-25] MEDS: INSULIN GLARGINE SOLOSTAR 100 UNITS/ML 3 ML PEN SC SCH (20:58)
[2019-08-26] MEDS: DAPTOmycin 650 MG in SYRINGE 0 ML IV SCH (05:44)
[2019-08-26 07:25] LABS: BUN Creatinine Ratio 32.6 (10-20); Calcium 9.2 mg/dl (8.5-10.1); Creatinine Clr Calc Pharmacy 31.8 ml/min; Est GFR (African American) 20.9; Potassium 4.4 mmol/L (3.5-5.1)
[2019-08-26] MEDS: LORATADINE 10 MG TAB PO SCH (08:31)
[2019-08-26] MEDS: ATORVASTATIN 40 MG TAB PO SCH (08:31)
[2019-08-26] MEDS: carvediloL 25 MG TAB PO SCH ×2 (08:31→20:35)
[2019-08-26] MEDS: FERROUS SULFATE 325 MG TAB PO SCH ×2 (08:31→17:25)
[2019-08-26] MEDS: ASPIRIN 325 MG ECTAB PO SCH (08:31)
[2019-08-26] MEDS: allopurinoL 100 MG TAB PO SCH ×2 (08:31→20:36)
[2019-08-26] MEDS: LACTULOSE SYRUP 30 GM/45 ML UDP PO SCH ×2 (08:32→20:35)
[2019-08-26] MEDS: VITAMIN B COMPLEX TAB PO SCH (08:32)
[2019-08-26] MEDS: HEPARIN SOD 5,000 UNIT/0.5 ML VIAL SQ SCH ×2 (08:34→21:00)
[2019-08-26] MEDS: INSULIN ASPART 100 UNITS/ML 3 ML PEN SC SCH ×4 (08:35→21:04)
[2019-08-26] MEDS: AMOXICILLIN/CLAVULANATE 500 MG TAB PO SCH ×2 (08:42→17:24)
[2019-08-26] MEDS: TORSEMIDE 100 MG TAB PO SCH (09:58)
--- NOTE | 2019-08-26 10:02 | Nephrology Progress Note ---
Date of Service August 26, 2019 Assessment & Plan (1) Hepatic encephalopathy: New diagnosis. Minimal ascites noted on renal US. Abd US demonstrated cirrhotic contour to liver but liver is enlarged. (2) JUDITH (acute kidney injury): Non-oliguric. Metabolic profile otherwise acceptable. Euvolemic on exam with exception of chronic lower extremity edema. Agree with cardiology regarding encouraging negative fluid balance. Torsemide resumed this morning. I would defer any additional adjustment of diuretics to cardiology assessment. ANUPAMA held. UA acellular. Renal US without obstruction. Creatinine slightly elevated at 3.2 mg/dL this morning. 2.9 mg/dL on admission. 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 Medications are acceptably dosed for kidney function. Document I/O's and repeat metabolic profile tomorrow AM. (3) Cellulitis: Remains on daptomycin. (4) Chronic kidney disease, stage III (moderate): Baseline creatinine 2.0 mg/dL. Follows with Dr. Barrios as outpatient. (5) Anemia: Iron deficiency noted. FOB pending. No signs of active bleeding. Repeat H/H tomorrow AM. (6) Venous stasis ulcers of both lower extremities: (7) Chronic systolic congestive heart failure: Patient is well known to cardiology (Dr. Vareal) and CHF clinic. (8) Diabetes mellitus type 2, insulin dependent: Subjective No acute events overnight. Sleepy this morning. Denies pain. No fevers or chills. Breathing comfortably. No urinary complaints. Appetite good. Review of Systems Review of Systems: All systems reviewed & are unremarkable except as noted in HPI & below Physical Exam Constitutional: well developed; no acute distress Eyes: no scleral abnormality and no corneal abnormality ENMT: Mouth: no oral mucosal abnormality and oral mucous membranes not dry Neck: normal visual inspection, trachea midline and + thick neck Respiratory: normal respiratory effort Auscultation: lungs clear to auscultation bilaterally Cardiovascular: Rate/Rhythm: regular rate Heart Sounds: normal S1 and normal S2 Vessels: no JVD Extremities: + edema Musculoskeletal: Extremities: no cyanosis and no clubbing Skin: normal turgor; no lesions Neurologic: Motor/Sensory: no tremor and no asterixis Psychiatric: Orientation: alert and oriented x 3 Results & Data Vital Signs (Past 12 Hours) Vital Signs Temp Pulse Pulse Resp BP Pulse Ox 08/26/19 07:50 36.9 C 63 16 110/63 94 12/05/19 03:33 61 18 97 08/25/19 23:32 36.5 C 60 18 102/53 L 98 08/25/19 22:41 60 16 98 Laboratory Results Laboratory Results - last 24 hr 08/25/19 08/25/19 08/25/19 12:06 17:11 20:30 Sodium Potassium Chloride Carbon Dioxide Anion Gap BUN Creatinine Est Cr Clr Drug Dosing Est GFR ( Amer) Est GFR (Non-Af Amer) BUN/Creatinine Ratio Glucose POC Glucose 146 H 169 H Calcium Ammonia Nasal Screen MRSA (PCR) Negative 08/25/19 08/26/19 08/26/19 20:49 06:48 06:48 Sodium 136 Potassium 4.4 Chloride 103 Carbon Dioxide 28 Anion Gap 5.0 BUN 105 H Creatinine 3.23 H Est Cr Clr Drug Dosing 31.8 Est GFR ( Amer) 20.9 Est GFR (Non-Af Amer) 18.0 BUN/Creatinine Ratio 32.6 H Glucose 105 H POC Glucose 199 H Calcium 9.2 Ammonia 65.7 H Nasal Screen MRSA (PCR) 08/26/19 08:09 Sodium Potassium Chloride Carbon Dioxide Anion Gap BUN Creatinine Est Cr Clr Drug Dosing Est GFR ( Amer) Est GFR (Non-Af Amer) BUN/Creatinine Ratio Glucose POC Glucose 115 H Calcium Ammonia Nasal Screen MRSA (PCR) PG Care Time/CCT Total # of Minutes Spent Total Time Spent with Patient: Total time spent is greater than 50% in coordination of care (as documented) at patient's floor/unit and/or counseling patient: (1) Cellulitis Laterality: unspecified laterality Site of cellulitis: extremity Site of cellulitis of extremity: lower extremity Qualified Code(s): L03.119 - Cellulitis of unspecified part of limb (2) Anemia Anemia type: unspecified type Qualified Code(s): D64.9 - Anemia, unspecified
--- NOTE | 2019-08-26 15:06 | Heart Failure Progress Note ---
Date of Service August 26, 2019 Assessment & Plan (1) Chronic systolic congestive heart failure: Volume status is difficult to assess due to his body habitus. He has significant lower extremity edema which is likely chronic and likely secondary to venous insufficiency but could also be heart failure. Pulmonary vascular congestion on chest x-ray. Overall he appears hypervolemic but with rising creatinine with ongoing diuresis may suggest he is intravascularly dry. Diuretic is currently held. Continue to aim for net negative or at least neutral fluid balance. Continue to encourage accurate documentation of I&Os. Consider sesay catheter for more accurate documentation. Daily standing weights, no bed weights. Low sodium diet. Fluid restriction. Could consider right heart catheterization to determine pressures. Cardiology is also following and will defer to Dr. Patel. Disposition: Anticipate close follow up with CHF team upon discharge, within 7 days. Will continue to follow during admission. Subjective Mr. Mendez is [place] [facility] [place] He was scheduled to follow up in the office the day he ended up being admitted. He reports he is feeling improved today. He is sitting up in a chair at the bedside. He notes chronic dyspnea but this has improved since admission. He has chronic orthopnea and denies PND. He has chronic lower extremity edema. He received Bumex 2 mg IV yesterday and his creatinine continues to worsen. Fluid balance is currently positive (+2.7 L) per the chart but is likely inaccurate due to undocumented urine output. His weight has been fluctuating quite a bit so accuracy is questionable. He is down 10 lb overnight? He denies chest pain, dizziness, or lightheadedness. Physical Exam Physical Exam: Constitutional: Alert, oriented, in no acute distress HEENT: Head is atraumatic and normocephalic. EOMs intact. Sclera anicteric. Face is symmetric. No perioral cyanosis. Mucous membranes moist. Neck: Supple, no JVD Pulmonary: Normal respiratory effort, decreased breath sounds at the bases with rhonchi. No wheezing. Chest: Palpable device left pectoral area. Cardiac: Regular rate and rhythm. Normal S1 and S2, no gallops, no rubs, no murmurs Extremities: 2+ radial pulses bilaterally. 2+ posterior tibialis pulses bilaterally. Significant tense pitting edema extending to the thighs. No cyanosis or clubbing. Abdomen: Normal bowel sounds, soft, non-tender, no abdominal mass palpated Skin: Normal skin color, turgor, and pigmentation, no rash, BLE dressings. Neurological: Patient is awake, alert, and oriented. Pleasant and cooperative. Answers questions appropriately. Speech is clear. Normal movement in all 4 extremities. Results & Data Vital Signs (Past 12 Hours) Vital Signs Temp Pulse Pulse Resp BP Pulse Ox 08/26/19 07:50 98.4 F 63 16 110/63 94 08/26/19 03:33 61 18 97 PG Care Time/CCT Total # of Minutes Spent Total Time Spent with Patient: Total time spent is greater than 50% in coordination of care (as documented) at patient's floor/unit and/or counseling patient:
--- NOTE | 2019-08-26 20:20 | Hospitalist Progress Note ---
Date of Service August 26, 2019 Assessment & Plan (1) JUDITH (acute kidney injury): In setting of CKD stage III He has continued to have worsening renal function with use of torsemide 200mg daily. He has not had any significant diuresis with it either. Renal u/s w/o obstructive process ANUPAMA on hold. He continues to have significant LE edema. CHF clinic/Dr Patel and nephrology/Dr Sharp continue to follow. There has been some consideration of right heart cath to help decipher volume status, hemodynamics, etc. BMP in am. The trajectory of his creatinine is highly concerning. (2) Hepatic encephalopathy: IMPROVED. Cont lactulose 30gm BID. liver u/s with findings suggestive of cirrhosis. suspect cirrhosis 2nd to long-standing etoh abuse. cannot rule out [place]/fatty liver given morbid obesity. mildly elevated INR likely 2nd cirrhosis. mildly elevated LFTs likely 2nd to cirrhosis. would refer to GI post-d/c. (3) Chronic kidney disease, stage III (moderate): baseline creatinine 2.0 to 2.5 holding ANUPAMA in face of JUDITH renal u/s w/o obvious obstruction BMP in am (4) Cirrhosis: 2nd to etoh or [place] or other vs combo of factors ammonia improving; cont daily lactulose; ideally 2-3 BMs/day on such GI f/u post-d/c check ammonia level in 48 hours (5) Metabolic encephalopathy: CT head wnl. Differential - uremia and/or hepatic encephalopathy +/- metabolic from cellulitis of legs vs combination of factors. Suspect hyperammoniemia biggest culprit followed by uremia. Treat elevated ammonia. Treat cellulitis. Supportive care for elevated BUN and Cr. (6) Weakness: suspect multifactorial etiology - JUDITH, anemia, infectious process, elevated ammonia, etc PT, OT both recommending rehab checked lumbar spine CT to r/o cord issue/spinal stenosis -- does have spinal stenosis but doubt this is cause of weakness b12 level was not deficient (7) Cellulitis: b/l shins at time of admission - resolved. 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 appreciated completed 7 days of IV daptomycin complete 3 more days of PO augmentin then stop all abx (8) Anemia: iron studies c/w iron deficiency started Fe supplementation CKD also likely contributing to anemia fecal occult blood NEGATIVE CBC in am for stability (9) Venous stasis ulcers of both lower extremities: cont local wound care - has 6 ulcers in total, 3 on each leg (first is just inferior to knee; 2nd is mid-whitaker; 3rd is near the first MTP joint) (10) Hypoglycemia: resolved with reduction in lantus cont reduced lantus dosing and loose Novolog SS glycemic control overall acceptable at this time (11) Chronic systolic congestive heart failure: previous echo 2016 with EF 40-45% echo now with preserved EF and normal IVC continue Coreg BID continue Torsemide 200mg daily holding ANUPAMA due to JUDITH in setting of CKD stage 3 patient's volume status has been difficult to determine daily weights have been quite confusing I's and O's may not be entirely accurate his torsemide was increased to 200mg/day by Dr Varela in early July as an outpatient there is consideration of right heart cath to assist with determining volume status (12) Diabetes mellitus type 2, insulin dependent: cont Lantus at reduced dose of 20 units HS Novolog Sliding scale controlled (13) Dyslipidemia: Continue atorvastatin (14) Obstructive sleep apnea: cont CPAP at settings of 10 HS/naps (15) Paroxysmal ventricular tachycardia: Continue carvedilol 25 mg p.o. twice daily. has pacer/ICD (16) Morbid obesity with BMI of 45.0-49.9, adult: BMI 49 (17) DVT prophylaxis: heparin 5000 BID (cautiously in light of Fe Def) PT, OT evals appreciated; rehab recommended extensively updated by phone 08/24 left another message on her voicemail 08/25 will update tomorrow Subjective patient more awake today than previous. more oriented - knew he was in [facility], that it was 2018, etc. he c/o dyspnea with exertion - none at rest. in fact he was laying completely flat in bed w/o difficulty. eating decently today. no bowel movement today however. Review of Systems Constitutional: no fever Respiratory: no cough Cardiovascular: + edema; no chest pain and no orthopnea Gastrointestinal: + bloating; no abdominal pain, no nausea and no vomiting Physical Exam Constitutional: + morbidly obese; no acute distress and no altered mental status ENMT: external ear and nose normal, oropharynx normal Neck: trachea midline, no thyromegaly Respiratory: normal respiratory effort, lungs clear to auscultation Cardiovascular: Rate/Rhythm: regular rate and regular rhythm Heart Sounds: normal S1, normal S2 and + murmur (2/6 LSB) Vessels: posterior tibial pulses present and dorsalis pedis pulses present Extremities: + edema (2+ b/l lower legs; edema present in thighs as well ) Gastrointestinal (Abdomen): normal bowel sounds, soft, nontender, no hepatosplenomegaly Inspection/Auscultation: + abdomen distended Skin: + ulcer (b/l upper shins just below knees - clean; optifoams in place) Neurologic: moves all extremities; no focal motor deficits Motor/Sensory: + asterixis (mild) Psychiatric: Orientation: alert, oriented to person, oriented to place and oriented to time Results & Data Vital Signs (Past 12 Hours) Vital Signs Temp Pulse Resp BP Pulse Ox 08/26/19 15:25 36.3 C L 65 20 115/66 100 Laboratory Results Laboratory Results - last 24 hr 08/25/19 08/25/19 08/26/19 20:30 20:49 06:48 Sodium Potassium Chloride Carbon Dioxide Anion Gap BUN Creatinine Est Cr Clr Drug Dosing Est GFR ( Amer) Est GFR (Non-Af Amer) BUN/Creatinine Ratio Glucose POC Glucose 199 H Calcium Ammonia 65.7 H Nasal Screen MRSA (PCR) Negative 08/26/19 08/26/19 08/26/19 06:48 08:09 12:16 Sodium 136 Potassium 4.4 Chloride 103 Carbon Dioxide 28 Anion Gap 5.0 BUN 105 H Creatinine 3.23 H Est Cr Clr Drug Dosing 31.8 Est GFR ( Amer) 20.9 Est GFR (Non-Af Amer) 18.0 BUN/Creatinine Ratio 32.6 H Glucose 105 H POC Glucose 115 H 125 H Calcium 9.2 Ammonia Nasal Screen MRSA (PCR) 08/26/19 17:29 Sodium Potassium Chloride Carbon Dioxide Anion Gap BUN Creatinine Est Cr Clr Drug Dosing Est GFR ( Amer) Est GFR (Non-Af Amer) BUN/Creatinine Ratio Glucose POC Glucose 157 H Calcium Ammonia Nasal Screen MRSA (PCR) PG Care Time/CCT Total # of Minutes Spent Total Time Spent with Patient: Total time spent is greater than 50% in coordination of care (as documented) at patient's floor/unit and/or counseling patient: (1) Anemia Anemia type: unspecified type Qualified Code(s): D64.9 - Anemia, unspecified (2) Cellulitis Laterality: unspecified laterality Site of cellulitis: extremity Site of cellulitis of extremity: lower extremity Qualified Code(s): L03.119 - Cellulitis of unspecified part of limb (3) Cirrhosis Hepatic cirrhosis type: other cirrhosis Qualified Code(s): K74.69 - Other cirrhosis of liver
[2019-08-26] MEDS: INSULIN GLARGINE SOLOSTAR 100 UNITS/ML 3 ML PEN SC SCH (21:03)
[2019-08-27 08:19] LABS: Hematocrit (blood only) 24.4 % (42-52); Hemoglobin 7.7 g/dL (14.0-18.0); Mean Corpuscular Hemoglobin 29.3 pg (25-34); Mean Corpuscular Hgb Conc 31.6 g/dL (32-36); Mean Corpuscular Volume 92.8 fL (80-100); Mean Platelet Volume 9.9 fL (7.4-10.4); Platelet Count 126 K/uL (130-400); RDW Coefficient of Variation 16.7 % (11.5-14.5); RDW Standard Deviation 54.5 fL (36.4-46.3); Red Blood Count 2.63 M/uL (4.7-6.1); White Blood Count 6.73 K/uL (4.8-10.8)
[2019-08-27] MEDS: FERROUS SULFATE 325 MG TAB PO SCH ×2 (09:00→17:48)
[2019-08-27] MEDS: AMOXICILLIN/CLAVULANATE 500 MG TAB PO SCH ×2 (09:00→17:48)
[2019-08-27 09:07] LABS: Albumin Globulin Ratio 0.6 (0.9-2); Albumin Level 2.6 gm/dl (3.4-5.0); BUN Creatinine Ratio 34.5 (10-20); Bilirubin,Total 1.1 mg/dl (0.2-1); Calcium 9.4 mg/dl (8.5-10.1); Creatinine Clr Calc Pharmacy 31.5 ml/min; Est GFR (Non-African American) 17.3; Globulin 4.2 gm/dl (2.5-4.0); Total Protein 6.8 gm/dl (6.4-8.2)
[2019-08-27] MEDS: INSULIN ASPART 100 UNITS/ML 3 ML PEN SC SCH ×4 (09:19→21:42)
[2019-08-27] MEDS: LACTULOSE SYRUP 30 GM/45 ML UDP PO SCH ×2 (09:21→21:43)
[2019-08-27] MEDS: LORATADINE 10 MG TAB PO SCH (09:22)
[2019-08-27] MEDS: TORSEMIDE 100 MG TAB PO SCH (09:22)
[2019-08-27] MEDS: HEPARIN SOD 5,000 UNIT/0.5 ML VIAL SQ SCH ×2 (09:23→21:44)
[2019-08-27] MEDS: ASPIRIN 325 MG ECTAB PO SCH (09:23)
[2019-08-27] MEDS: VITAMIN B COMPLEX TAB PO SCH (09:23)
[2019-08-27] MEDS: ATORVASTATIN 40 MG TAB PO SCH (09:23)
[2019-08-27] MEDS: allopurinoL 100 MG TAB PO SCH ×2 (09:24→21:46)
[2019-08-27] MEDS: carvediloL 25 MG TAB PO SCH ×2 (09:30→21:48)
[2019-08-27 09:38] LABS: Potassium 4.7 mmol/L (3.5-5.1)
[2019-08-27] MEDS ORDERED: EPOETIN ALFA 20,000 UNITS/ML VIAL SQ ONE (10:27)
--- NOTE | 2019-08-27 16:08 | Nephrology Progress Note ---
Date of Service August 27, 2019 Assessment & Plan (1) Hepatic encephalopathy: New diagnosis. Minimal ascites noted on renal US. Abd US demonstrated cirrhotic contour to liver but liver is enlarged. (2) JUDITH (acute kidney injury): Non-oliguric. Metabolic profile otherwise acceptable. The patient appeared more edematous on exam today. I suspect he would benefit from encouraging negative fluid balance and would certainly avoid a positive fluid balance. Torsemide continued this morning. I appreciate cardiology assistance. I had a long conversation with the patient this morning regarding potential indications for dialysis. If there is no improvement in kidney function over the weekend, I would favor HD catheter placement and starting on HD. Juan expressed understanding. I discussed this with Dr. Aiken as well. UA acellular. Renal US without obstruction. 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 Medications are acceptably dosed for kidney function. Document I/O's and repeat metabolic profile tomorrow AM. (3) Cellulitis: Remains on daptomycin. (4) Chronic kidney disease, stage III (moderate): Baseline creatinine 2.0 mg/dL. Follows with Dr. Barrios as outpatient. (5) Anemia: Iron deficiency noted. FOB negative. No signs of active bleeding. Repeat H/H tomorrow AM. (6) Venous stasis ulcers of both lower extremities: (7) Chronic systolic congestive heart failure: Patient is well known to cardiology (Dr. Varela) and CHF clinic. (8) Diabetes mellitus type 2, insulin dependent: Subjective No acute events overnight. Juan remains lethargic. No fevers or chills. No pain. Denies shortness of breath. Review of Systems Review of Systems: All systems reviewed & are unremarkable except as noted in HPI & below Physical Exam Constitutional: well developed; no acute distress Eyes: no scleral abnormality and no corneal abnormality ENMT: Mouth: no oral mucosal abnormality and oral mucous membranes not dry Neck: normal visual inspection, trachea midline and + thick neck Respiratory: normal respiratory effort Auscultation: lungs clear to auscultation bilaterally Cardiovascular: Rate/Rhythm: regular rate Heart Sounds: normal S1 and normal S2 Vessels: no JVD Extremities: + edema Musculoskeletal: Extremities: no cyanosis and no clubbing Skin: normal turgor; no lesions Neurologic: Motor/Sensory: no tremor and no asterixis Psychiatric: Orientation: alert and oriented x 3 Results & Data Vital Signs (Past 12 Hours) Vital Signs Temp Pulse Pulse Pulse Resp BP Pulse Ox 08/27/19 12:15 36.4 C L 60 21 98/61 L 100 08/27/19 09:30 60 116/73 08/27/19 08:00 36.5 C 60 20 116/74 97 08/27/19 04:08 76 16 97 Laboratory Results Laboratory Results - last 24 hr 08/26/19 08/26/19 08/27/19 17:29 21:02 08:06 WBC RBC Hgb Hct MCV MCH MCHC RDW Std Deviation RDW Coeff of Marino Plt Count MPV Sodium 137 Potassium Chloride 103 Carbon Dioxide 26 Anion Gap 8.0 BUN 115 H Creatinine 3.34 H Est Cr Clr Drug Dosing 31.5 Est GFR ( Amer) 20.0 Est GFR (Non-Af Amer) 17.3 BUN/Creatinine Ratio 34.5 H Glucose 62 L POC Glucose 157 H 194 H Calcium 9.4 Total Bilirubin 1.1 H AST ALT 33 Alkaline Phosphatase 201 H Total Protein 6.8 Albumin 2.6 L Globulin 4.2 H Albumin/Globulin Ratio 0.6 L 08/27/19 08/27/19 08/27/19 08:06 08:12 09:13 WBC 6.73 RBC 2.63 L Hgb 7.7 L Hct 24.4 L MCV 92.8 MCH 29.3 MCHC 31.6 L RDW Std Deviation 54.5 H RDW Coeff of Marino 16.7 H Plt Count 126 L MPV 9.9 Sodium Potassium 4.7 Chloride Carbon Dioxide Anion Gap BUN Creatinine Est Cr Clr Drug Dosing Est GFR ( Amer) Est GFR (Non-Af Amer) BUN/Creatinine Ratio Glucose POC Glucose 71 Calcium Total Bilirubin AST 52 H ALT Alkaline Phosphatase Total Protein Albumin Globulin Albumin/Globulin Ratio 08/27/19 11:51 WBC RBC Hgb Hct MCV MCH MCHC RDW Std Deviation RDW Coeff of Marino Plt Count MPV Sodium Potassium Chloride Carbon Dioxide Anion Gap BUN Creatinine Est Cr Clr Drug Dosing Est GFR ( Amer) Est GFR (Non-Af Amer) BUN/Creatinine Ratio Glucose POC Glucose 122 H Calcium Total Bilirubin AST ALT Alkaline Phosphatase Total Protein Albumin Globulin Albumin/Globulin Ratio PG Care Time/CCT Total # of Minutes Spent Total Time Spent with Patient: Total time spent is greater than 50% in coordination of care (as documented) at patient's floor/unit and/or counseling patient: (1) Cellulitis Laterality: unspecified laterality Site of cellulitis: extremity Site of cellulitis of extremity: lower extremity Qualified Code(s): L03.119 - Cellulit is of unspecified part of limb (2) Anemia Anemia type: unspecified type Qualified Code(s): D64.9 - Anemia, unspecified
--- NOTE | 2019-08-27 16:36 | Cardiac Catheterization ---
ACC Data: Community Planner Cardiac Status Clinical evaluation leading to the procedure CAD Presenation: No Sxs, No angina Diagnostic Physicians Name: Manan Patel MD Closure Device Recommendations: Medical Therapy and/or Counseling Cardiac Cath Procedure Full Procedure Date August 27, 2019 Pre-Procedure Diagnosis Pre-Procedure Diagnosis: CHF AUC Score AUC Score: n/a Post-Procedure Diagnosis Post-Procedure Diagnosis: Elevated Intracardiac Pressures Procedure(s) Performed Procedure(s) Performed: Right Heart Cath Agency Development Manager Manan Patel MD Salvage Supervisor(s) none Estimated Blood Loss Estimated Blood Loss: 7cc Medication(s) Medication(s): Lidocaine 1% Summary of Findings Right heart catheterization was performed from the right antecubital approach. A 6 [place]bourg[place] venous sheath was placed at this site over a guidewire. The sheath the use of feels a passage of a balloon tipped PA catheter through the different chambers of the heart into the pulmonary artery under fluoroscopic guidance. Pressure measurements and hemodynamics were measured prior to removal of the catheter. At the conclusion of the procedure hemostasis was achieved at the access site using manual pressure. [place]az cardiac output was 5.2 liters/minute Thermodilution cardiac output was 5.4 liters/minute Hemodynamics Rest Ao:: n/a Final Ao: n/a LV: n/a RA: The right atrial pressure was 29 millimeters Hg RV: Right ventricular pressure was 78/22 millimeters of mercury PA: PA pressure was 70/29 millimeters of mercury PW: Pulmonary capillary wedge pressure was 28 millimeters of mercury Recommendations Recommendations: Medical Therapy and/or Counseling Radiation Exposure (mGy) q Contrast (mls) q Procedural Complication(s) None Disposition PCU I attest to the content of the Intraoperative Record and any orders documented therein. Any exceptions are noted below. [facility] Card Cath Procedure Codes Cardiac Catheterization Procedure 1: Cardiovascular Cath Procedures: 52444 Right Heart Cath PG Care Time/CCT Total # of Minutes Spent Total Time Spent with Patient: Total time spent is greater than 50% in coordination of care (as documented) at patient's floor/unit and/or counseling patient:
--- NOTE | 2019-08-27 20:12 | Hospitalist Progress Note ---
Date of Service August 27, 2019 Assessment & Plan (1) JUDITH (acute kidney injury): In setting of CKD stage III. Patient presented with elevated Cr of 2.9 on day of admission. He has been volume overloaded and despite daily torsemide of 200mg his renal function has continued to worsen. Further there has been no change in weight or effective diuresis. Right heart cath was performed today by Dr Patel to get a better understanding of right heart pressures and volume status. This revealed PCWP of 28. Interestingly his echo a few days ago showed intact EF and normal IVC. Spoke with Dr Sharp - an we may be headed towards hemodialysis given lack of effective diuresis and worsening renal status. He is also symptomatically uremic with worsening lethargy, ongoing asterixis (although elevated ammonia likely contributing to that, etc). On Friday, if Cr worse or same - likely permcath placement. I attempted to call today for 3rd day in a row and was unable to connect with her live. (2) Hepatic encephalopathy: Had improved, but now very lethargic and asterixis continues. Both symptoms/signs however could also be due to uremia. Despite lactulose 30gm BID he is not stooling that well. Consider rifaximin. Recheck ammonia level AM. liver u/s this admission with findings suggestive of cirrhosis. suspect cirrhosis 2nd to long-standing etoh abuse. cannot rule out [place]/fatty liver given morbid obesity. cannot rule out some element of "cardiac" cirrhosis. mildly elevated INR likely 2nd cirrhosis. mildly elevated LFTs likely 2nd to cirrhosis. would refer to GI post-d/c. (3) Cirrhosis: 2nd to etoh or [place] or other vs combo of factors from volume standpoint likely compensated ammonia improving; cont daily lactulose; ideally 2-3 BMs/day on such GI f/u post-d/c (4) Metabolic encephalopathy: CT head wnl. Differential - uremia and hepatic encephalopathy. Treat elevated ammonia. Supportive care for elevated BUN and Cr. Ultimately, however, may need HD for worsening renal function. 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 wound care consult appreciated completed 7 days of IV daptomycin complete 3 days of augmentin then stop (today is day #2 of augmentin) (7) Chronic kidney disease, stage III (moderate): baseline creatinine 2.0 to 2.5 holding ANUPAMA renal u/s w/o obvious obstruction BMP in am has JUDITH superimposed on CKD JUDITH worsening he is in jeopardy of needing HD - see discussion above appreciate nephrology consult/recs (8) Anemia: iron studies c/w iron deficiency started Fe supplementation fecal occult blood NEGATIVE CKD also contributing (9) Venous stasis ulcers of both lower extremities: cont local wound care 6 ulcers in total (3 each leg -- 1 below knee, another is a large ulcer mid- whitaker, and 1 on dorsum of foot near great toe) (10) Hypoglycemia: had hypoglycemia again this am reduce lantus further loose novolog sliding scale (11) Chronic systolic congestive heart failure: now with volume overload volume overload, however, is likely more in part to acute/chronic renal failure and cirrhosis - NOT CHF continue Coreg BID continue Torsemide 200mg daily but it is not helping -- see discussion above holding ANUPAMA due to JUDITH in setting of CKD stage [address] Varela's note from 08/03/19 his last echo was in 2016 showing EF 40-45% repeat echo this admission showed IMPROVED EF - now normal in fact; IVC was normal surprisingly s/p right heart cath today with PCWP of 28; indicative of volume overloaded state (12) Diabetes mellitus type 2, insulin dependent: reduce Lantus due to hypoglycemia cont novolog for meals (13) Dyslipidemia: Continue atorvastatin but low threshold to stop if LFTs rise further (14) Obstructive sleep apnea: CPAP at settings of 10 HS/naps (15) Paroxysmal ventricular tachycardia: Continue carvedilol 25 mg p.o. twice daily. has pacer/ICD (16) Morbid obesity with BMI of 45.0-49.9, adult: BMI now >50 2nd worsening volume overload (17) DVT prophylaxis: heparin 5000 BID (cautiously in light of Fe Def) PT, OT evals appreciated rehab recommended at d/c but he is not close to such extensively updated by phone 08/24 left another message on her voicemail 08/25 and today 08/27 patient transferred to PCU s/p right heart cath and worsening renal status Subjective patient very sleepy during my visit. however he easily awakens and answers questions. he is quite slow at answering the questions, however. he is surprisingly oriented - new it was Friday, that it was 2018 and that he was at "[facility]." he was working with PT - he had just gotten into the chair from the bed - and was sleepy. he was also very dyspneic after having just moved. spoke with Dr Patel who planned right heart cath for today. Review of Systems Constitutional: + fatigue; no fever, no chills and no anorexia Respiratory: + dyspnea on exertion; no cough Cardiovascular: no chest pain Gastrointestinal: + bloating and + constipation; no abdominal pain Physical Exam Constitutional: + acute distress (dyspneic (just walked from bed to chair)), + morbidly obese and + lethargic; no altered mental status ENMT: external ear and nose normal, oropharynx normal Neck: trachea midline, no thyromegaly Respiratory: normal respiratory effort, lungs clear to auscultation Cardiovascular: Rate/Rhythm: regular rate and regular rhythm Heart Sounds: normal S1, normal S2 and + murmur (2/6 LSB) Vessels: + JVD, posterior tibial pulses present and dorsalis pedis pulses present Extremities: + edema (2+ b/l shins; thigh edema as well) Gastrointestinal (Abdomen): normal bowel sounds, soft, nontender, no hepatosplenomegaly Skin: + ulcer (b/l upper shins just below knees - clean; optifoams in place) dressings intact to both shins; no cellulitis of the shins Neurologic: moves all extremities; no focal motor deficits Motor/Sensory: + asterixis (ongoing) Psychiatric: Orientation: alert, oriented to person, oriented to place and oriented to time Results & Data Vital Signs (Past 12 Hours) Vital Signs Temp Pulse Pulse Resp BP Pulse Ox 08/27/19 12:15 36.4 C L 60 21 98/61 L 100 08/27/19 09:30 60 116/73 Laboratory Results Laboratory Results - last 24 hr 08/26/19 08/27/19 08/27/19 21:02 08:06 08:06 WBC 6.73 RBC 2.63 L Hgb 7.7 L Hct 24.4 L MCV 92.8 MCH 29.3 MCHC 31.6 L RDW Std Deviation 54.5 H RDW Coeff of Marino 16.7 H Plt Count 126 L MPV 9.9 Sodium 137 Potassium Chloride 103 Carbon Dioxide 26 Anion Gap 8.0 BUN 115 H Creatinine 3.34 H Est Cr Clr Drug Dosing 31.5 Est GFR ( Amer) 20.0 Est GFR (Non-Af Amer) 17.3 BUN/Creatinine Ratio 34.5 H Glucose 62 L POC Glucose 194 H Calcium 9.4 Total Bilirubin 1.1 H AST ALT 33 Alkaline Phosphatase 201 H Total Protein 6.8 Albumin 2.6 L Globulin 4.2 H Albumin/Globulin Ratio 0.6 L 08/27/19 08/27/19 08/27/19 08:12 09:13 11:51 WBC RBC Hgb Hct MCV MCH MCHC RDW Std Deviation RDW Coeff of Marino Plt Count MPV Sodium Potassium 4.7 Chloride Carbon Dioxide Anion Gap BUN Creatinine Est Cr Clr Drug Dosing Est GFR ( Amer) Est GFR (Non-Af Amer) BUN/Creatinine Ratio Glucose POC Glucose 71 122 H Calcium Total Bilirubin AST 52 H ALT Alkaline Phosphatase Total Protein Albumin Globulin Albumin/Globulin Ratio 08/27/19 17:14 WBC RBC Hgb Hct MCV MCH MCHC RDW Std Deviation RDW Coeff of Marino Plt Count MPV Sodium Potassium Chloride Carbon Dioxide Anion Gap BUN Creatinine Est Cr Clr Drug Dosing Est GFR ( Amer) Est GFR (Non-Af Amer) BUN/Creatinine Ratio Glucose POC Glucose 121 H Calcium Total Bilirubin AST ALT Alkaline Phosphatase Total Protein Albumin Globulin Albumin/Globulin Ratio PG Care Time/CCT Total # of Minutes Spent Total Time Spent with Patient: Total time spent is greater than 50% in coordination of care (as documented) at patient's floor/unit and/or counseling patient: (1) Anemia Anemia type: unspecified type Qualified Code(s): D64.9 - Anemia, unspecified (2) Cellulitis Laterality: unspecified laterality Site of cellulitis: extremity Site of cellulitis of extremity: lower extremity Qualified Code(s): L03.119 - Cellulitis of unspecified part of limb (3) Cirrhosis Hepatic cirrhosis type: other cirrhosis Qualified Code(s): K74.69 - Other cirrhosis of liver
--- NOTE | 2019-08-27 21:10 | Cardiology Progress Note ---
Date of Service August 27, 2019 Assessment & Plan (1) Biventricular ICD (implantable cardioverter-defibrillator) in place: It appears that his device is programmed to VVI. Will need interrogation to check atrial lead function and see if he has documented atrial fibrillation (2) Chronic systolic congestive heart failure: He seems overall hypervolemic. However, it has been difficult to determine his overall fluid status. RHC performed today suggested bot elevated pulmonary and cardiac pressures. The levels were severely elevated. I do question the reliability of the data, but we continuously checked the fidelity of the readings in real time when performing hjis procedure. I have to believe he has an element of heart failure (diastolic) and pulmonary hypertension. His echocardiogram did not support the diagnosis of pulmonary hypertension or restrictive diastolic filling, but his pressures do support this diagnosis. In any event, it would seem reasonable to continue trying diuresis. We could add metolazone. Declining renal function may compromise our ability to achieve any diuresis. (3) Ischemic cardiomyopathy: The cardiomyopathy appears to be resolved. This is likely due to adequate medical therapy and biventricular pacing. LV function was normal on echocardiogram today. He is not appear to be any indication for more aggressive therapy given his preserved LV function at this point. Subjective This afternoon her reports feeling better overall. He has some mild dyspnea. No chest pain. Tired Review of Systems Review of Systems: per HPI Physical Exam Physical Exam: Constitutional: Alert, oriented, in no acute distress HEENT: Head is atraumatic and normocephalic. EOMs intact. Sclera anicteric. Face is symmetric. No perioral cyanosis. Mucous membranes moist. Neck: Supple, no JVD Pulmonary: Normal respiratory effort, decreased breath sounds at the bases with rhonchi. Occasional wheezing Chest: Palpable device left pectoral area. Cardiac: Regular rate and rhythm. Normal S1 and S2, no gallops, no rubs, no murmurs Extremities: 2+ radial pulses bilaterally. 2+ posterior tibialis pulses bilaterally. Significant tense pitting edema extending to the thighs. No cyanosis or clubbing. Abdomen: Normal bowel sounds, soft, non-tender, no abdominal mass palpated Skin: Normal skin color, turgor, and pigmentation, no rash, BLE dressings. Neurological: Patient is awake, alert, and oriented. Pleasant and cooperative. Answers questions appropriately. Speech is clear. Normal movement in all 4 extremities. Results & Data Vital Signs (Past 12 Hours) Vital Signs Temp Pulse Pulse Resp BP Pulse Ox 08/27/19 12:15 36.4 C L 60 21 98/61 L 100 08/27/19 09:30 60 116/73 Laboratory Results Abnormal Lab Results 08/26/19 08/27/19 08/27/19 21:02 08:06 08:06 WBC 6.73 RBC 2.63 L Hgb 7.7 L Hct 24.4 L MCV 92.8 MCH 29.3 MCHC 31.6 L RDW Std Deviation 54.5 H RDW Coeff of Marino 16.7 H Plt Count 126 L MPV 9.9 Sodium 137 Potassium Chloride 103 Carbon Dioxide 26 Anion Gap 8.0 BUN 115 H Creatinine 3.34 H Est Cr Clr Drug Dosing 31.5 Est GFR ( Amer) 20.0 Est GFR (Non-Af Amer) 17.3 BUN/Creatinine Ratio 34.5 H Glucose 62 L POC Glucose 194 H Calcium 9.4 Total Bilirubin 1.1 H AST ALT 33 Alkaline Phosphatase 201 H Total Protein 6.8 Albumin 2.6 L Globulin 4.2 H Albumin/Globulin Ratio 0.6 L 08/27/19 08/27/19 08/27/19 08:12 09:13 11:51 WBC RBC Hgb Hct MCV MCH MCHC RDW Std Deviation RDW Coeff of Marino Plt Count MPV Sodium Potassium 4.7 Chloride Carbon Dioxide Anion Gap BUN Creatinine Est Cr Clr Drug Dosing Est GFR ( Amer) Est GFR (Non-Af Amer) BUN/Creatinine Ratio Glucose POC Glucose 71 122 H Calcium Total Bilirubin AST 52 H ALT Alkaline Phosphatase Total Protein Albumin Globulin Albumin/Globulin Ratio 08/27/19 08/27/19 17:14 20:21 WBC RBC Hgb Hct MCV MCH MCHC RDW Std Deviation RDW Coeff of Marino Plt Count MPV Sodium Potassium Chloride Carbon Dioxide Anion Gap BUN Creatinine Est Cr Clr Drug Dosing Est GFR ( Amer) Est GFR (Non-Af Amer) BUN/Creatinine Ratio Glucose POC Glucose 121 H 153 H Calcium Total Bilirubin AST ALT Alkaline Phosphatase Total Protein Albumin Globulin Albumin/Globulin Ratio Diagnostic Findings RHC demonstrated severely elevated pulmonary and cardiac pressures ECG Additional Comments: Paced PG Care Time/CCT Total # of Minutes Spent Total Time Spent with Patient: Total time spent is greater than 50% in coordination of care (as documented) at patient's floor/unit and/or counseling patient:
[2019-08-27] MEDS: INSULIN GLARGINE SOLOSTAR 100 UNITS/ML 3 ML PEN SC SCH (21:45)
[2019-08-28 06:02] LABS: Hematocrit (blood only) 24.3 % (42-52); Hemoglobin 7.7 g/dL (14.0-18.0); Mean Corpuscular Hemoglobin 29.3 pg (25-34); Mean Corpuscular Hgb Conc 31.7 g/dL (32-36); Mean Corpuscular Volume 92.4 fL (80-100); Mean Platelet Volume 10.3 fL (7.4-10.4); Platelet Count 125 K/uL (130-400); RDW Coefficient of Variation 16.9 % (11.5-14.5); RDW Standard Deviation 54.8 fL (36.4-46.3); Red Blood Count 2.63 M/uL (4.7-6.1); White Blood Count 6.79 K/uL (4.8-10.8)
[2019-08-28 06:30] LABS: BUN Creatinine Ratio 32.9 (10-20); Calcium 9.2 mg/dl (8.5-10.1); Creatinine Clr Calc Pharmacy 29.7 ml/min; Est GFR (African American) 18.3; Est GFR (Non-African American) 15.8; Potassium 4.9 mmol/L (3.5-5.1)
[2019-08-28] MEDS: AMOXICILLIN/CLAVULANATE 500 MG TAB PO SCH ×2 (08:06→17:07)
[2019-08-28] MEDS: INSULIN ASPART 100 UNITS/ML 3 ML PEN SC SCH ×4 (08:06→20:19)
[2019-08-28] MEDS: FERROUS SULFATE 325 MG TAB PO SCH ×2 (08:08→17:07)
[2019-08-28] MEDS: LACTULOSE SYRUP 30 GM/45 ML UDP PO SCH ×2 (08:08→20:11)
[2019-08-28] MEDS: carvediloL 25 MG TAB PO SCH ×2 (08:09→20:10)
[2019-08-28] MEDS: LORATADINE 10 MG TAB PO SCH (08:09)
[2019-08-28] MEDS: TORSEMIDE 100 MG TAB PO SCH (08:09)
[2019-08-28] MEDS: ASPIRIN 325 MG ECTAB PO SCH (08:10)
[2019-08-28] MEDS: HEPARIN SOD 5,000 UNIT/0.5 ML VIAL SQ SCH ×2 (08:10→20:12)
[2019-08-28] MEDS: ATORVASTATIN 40 MG TAB PO SCH (08:10)
[2019-08-28] MEDS: allopurinoL 100 MG TAB PO SCH ×2 (08:11→20:09)
[2019-08-28] MEDS: OMEGA-3 (PURIFIED FISH OIL) 1 GM CAP PO SCH (08:11)
[2019-08-28] MEDS: VITAMIN B COMPLEX TAB PO SCH (08:11)
[2019-08-28] MEDS: NEOMYCIN/POLYMYX/BACITR OINT 15 GM TUBE TOP SCH (08:11)
--- NOTE | 2019-08-28 12:39 | Nephrology Progress Note ---
Date of Service August 28, 2019 Assessment & Plan (1) Hepatic encephalopathy: New diagnosis. Minimal ascites noted on renal US. Abd US demonstrated cirrhotic contour to liver but liver is enlarged. (2) JUDITH (acute kidney injury): 74 year old M with stage 3 chronic kidney disease baseline creatinine around 2.0 in the setting of from cardiomyopathy and pulmonary hypertension. Admitted to the hospital with a progressive volume overload and found to have worsening of renal function with creatinine 3 on admission. Renal function has been slowly worsening over last few days and creatinine of 3.6 and BUN today. Had right heart catheterization yesterday showing pulmonary hypertension and suggestive of volume overload. UA acellular. Renal US without obstruction. --As renal function progressively worsening setting of volume overload, agree w ith adding metolazone. If no improvement in urine output and renal function progressively worsened, he would be reasonable to consult vascular surgery tomorrow for plan for possible dialysis starting Friday. 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 Medications are acceptably dosed for kidney function. --Document I/O's and repeat metabolic profile tomorrow AM. Will follow (3) Cellulitis: Remains on daptomycin. (4) Chronic kidney disease, stage III (moderate): Baseline creatinine 2.0 mg/dL. Follows with Dr. Barrios as outpatient. (5) Anemia: . (6) Venous stasis ulcers of both lower extremities: (7) Chronic systolic congestive heart failure: (8) Diabetes mellitus type 2, insulin dependent: Jian Martinez was seen and examined this morning. His overall feeling about the same and feels like breathing is better than before. Appetite has been decent. Nonoliguric. Renal function continues to slightly worsened with BUN 118 and creatinine 3.6, other electrolyte acceptable. Review of Systems Review of Systems: All systems reviewed & are unremarkable except as noted in HPI & below Physical Exam Constitutional: well developed and well nourished; no acute distress Respiratory: Auscultation: + diminished lung sounds Cardiovascular: Rate/Rhythm: regular rate and regular rhythm Heart Sounds: normal S1 and normal S2 Extremities: + edema Neurologic: moves all extremities and awake; not confused Psychiatric: A+Ox3, euthymic affect Results & Data Vital Signs (Past 12 Hours) Vital Signs Temp Pulse Pulse Pulse Resp BP BP 08/28/19 11:50 36.7 C 60 19 105/55 L 08/28/19 07:53 36.5 C 61 18 128/68 08/28/19 07:40 60 18 08/28/19 04:38 36.4 C L 58 L 20 125/77 08/28/19 04:24 64 16 08/28/19 03:26 Pulse Ox Pulse Ox 08/28/19 11:50 99 08/28/19 07:53 97 08/28/19 07:40 96 08/28/19 04:38 94 08/28/19 04:24 98 08/28/19 03:26 94 (1) Cellulitis Laterality: unspecified laterality Site of cellulitis: extremity Site of cellulitis of extremity: lower extremity Qualified Code(s): L03.119 - Cellulitis of unspecified part of limb (2) Anemia Anemia type: unspecified type Qualified Code(s): D64.9 - Anemia, unspecified
--- NOTE | 2019-08-28 13:20 | Hospitalist Progress Note ---
Date of Service August 28, 2019 Assessment & Plan (1) ATN (acute tubular necrosis): anasarca is multifactorial ...component of acute syst CHF cannot be ruled out acute/chronic renal failure cirrhosis continue Coreg BID continue Torsemide 200mg daily but it is not helping -- see discussion above holding ANUPAMA due to JUDITH in setting of CKD stage [address] Varela's note from 08/03/19 his last 2018 ECHO EF 40-45% ECHO (this admit): showed IMPROVED/normal EF. IVC was normal surprisingly RHC 12.6.19 with PCWP=28 Present on Admission?: Yes (2) Cardiorenal syndrome with renal failure: see problem #1 ATN Present on Admission?: Yes (3) Hepatic encephalopathy: encephalopathy, likely multi-factorial ...hepatic encephalopathy ...uremia w/ metabolic encephalopathy remains lethargic with poor cognitive fxn asterixis and elevated NH3 despite lactulose ...not much stool production despite lactulose ...consider rifaximin ...follow NH3 levels cirrhosis, likely d/t long-standing alcoholism ...liver US c/w cirrhosis ...cannot rule out [place]/fatty liver given morbid obesity. ...cannot rule out some element of "cardiac" cirrhosis. would refer to GI as an outpatient (4) Cirrhosis: see problem above....hepatic encephalopathy (5) Metabolic encephalopathy: see problem above....hepatic encephalopathy (6) Acute on chronic diastolic CHF (congestive heart failure): anasarca is multifactorial ...acute on chr diastolic CHF cannot be ruled out ...acute/chronic renal failure ...cirrhosis continue Coreg BID continue Torsemide 200mg holding ANUPAMA due to JUDITH ECHO 2017 EF 40-45% DILLON (this admit) IMPROVED/normal EF. IVC was normal surprisingly RHC 12..19: PCWP=28 Present on Admission?: Yes (7) Weakness: suspect multifactorial etiology - JUDITH, anemia, infectious process, elevated ammonia, etc very deconditioned CT lumbar spine w/ spinal stenosis but leg strength is actually intact PT, OT treatments will likely need SNF on DC once ready for DC Present on Admission?: Yes (8) Cellulitis: b/l shins mostly improved all prior wound cultures have grown MSSA. 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 continue wound care (wound care consult appreciated) augmentin D 3/3 s/p IV daptomycin x 7d (9) Chronic kidney disease, stage III (moderate): baseline creatinine 2.0 to 2.5 holding ANUPAMA renal u/s w/o obvious obstruction see problem #1 ATN Present on Admission?: Yes (10) Anemia: multifactorial ...iron deficiency anemia ...anemia of CKD started Fe supplementation fecal occult blood NEGATIVE start epogen (11) Venous stasis ulcers of both lower extremities: cont local wound care 6 ulcers in total (3 each leg -- 1 below knee, another is a large ulcer mid- whitaker, and 1 on dorsum of foot near great toe) (12) Hypoglycemia: recurrrent hypoglycemia lantus titration, requiring further reduction low level novolog sliding scale (13) Diabetes mellitus type 2, insulin dependent: reduce Lantus due to hypoglycemia cont novolog for meals Present on Admission?: Yes (14) Dyslipidemia: consider stopping statin in setting of cirrhosis will defer to cardiology Present on Admission?: Yes (15) Obstructive sleep apnea: cont CPAP at settings of 10 HS/naps Present on Admission?: Yes (16) Paroxysmal ventricular tachycardia: Continue carvedilol has pacer/ICD Present on Admission?: Yes (17) Morbid obesity with BMI of 45.0-49.9, adult: BMI now >50 but much of that is fluid weight. Present on Admission?: Yes (18) Diabetes mellitus with kidney complication: see problem above.... ATN Present on Admission?: Yes (19) Biventricular ICD (implantable cardioverter-defibrillator) in place: see problem above.... Paroxysmal Ventricular tachycardia Present on Admission?: Yes (20) DVT prophylaxis: heparin 5000 BID (cautiously in light of Fe Def) PT, OT evals appreciated rehab recommended at d/c once ready for DC patient transferred to PCU s/p right heart cath and worsening renal status Subjective his cognitive status is fair. he does provide hx but it may not be reliable appetite is poor-fair. voiding well. some mild foot pain. no other pains. no SOB at rest now. difficult to gauge his SOB well since he has very limited mobility Review of Systems Review of Systems: Positive ROS: only as in Subjective improving SOB improving edema Constitutional: no fevers HENT: Negative for sore throat. Respiratory: Negative for cough. Cardiovascular: Negative for chest pain and palpitations. Gastrointestinal: Negative for abdominal pain, nausea and vomiting. Genitourinary: Negative for dysuria. Neurological: Negative for focal weakness and headaches. Physical Exam Physical Exam: Abnormal Exam: cognitively slow. 2+ bipedal pitting edema legs are bandaged to distal whitaker Constitutional: No distress. HENT: Mouth/Throat: Oropharynx is clear and moist. Eyes: Conjunctivae are normal. No scleral icterus. Cardiovascular: Normal RRR and normal heart sounds. No murmur heard. no gallop and no friction rub. Pulmonary/Chest: Effort normal and breath sounds normal. No respiratory distress. no wheezing no rales. Abdominal: Soft. Bowel sounds are normal. no distension. There is no tenderness. Musculoskeletal: no deformity. Neurological: alert. mostly oriented. no focal motor deficits Skin: Skin is warm and dry. No rash noted. Psychiatric: Mood and affect normal. Results & Data Vital Signs (Past 12 Hours) Vital Signs Temp Pulse Pulse Pulse Resp BP BP 08/28/19 11:50 36.7 C 60 19 105/55 L 08/28/19 07:53 36.5 C 61 18 128/68 08/28/19 07:40 60 18 08/28/19 04:38 36.4 C L 58 L 20 125/77 08/28/19 04:24 64 16 08/28/19 03:26 Pulse Ox Pulse Ox 08/28/19 11:50 99 08/28/19 07:53 97 08/28/19 07:40 96 08/28/19 04:38 94 08/28/19 04:24 98 08/28/19 03:26 94 Laboratory Results WBC=6.8 hgb=7.7 tmo=513 creat=3.6 RFH=871 NH3=81.6 (1) Anemia Anemia type: unspecified type Qualified Code(s): D64.9 - Anemia, unspecified (2) Cellulitis Laterality: unspecified laterality Site of cellulitis: extremity Site of cellulitis of extremity: lower extremity Qualified Code(s): L03.119 - Cellulitis of unspecified part of limb (3) Cirrhosis Hepatic cirrhosis type: other cirrhosis Qualified Code(s): K74.69 - Other cirrhosis of liver
[2019-08-28] MEDS ORDERED: EPOETIN ALFA 10,000 UNITS/ML VIAL SQ ONE (19:15)
[2019-08-28] MEDS: RIFAXIMIN 550 MG TABLET PO SCH (20:15)
[2019-08-28] MEDS: INSULIN GLARGINE SOLOSTAR 100 UNITS/ML 3 ML PEN SC SCH (20:19)
[2019-08-29] MEDS: ASPIRIN 325 MG ECTAB PO SCH (07:58)
[2019-08-29] MEDS: VITAMIN B COMPLEX TAB PO SCH (07:58)
[2019-08-29] MEDS: LACTULOSE SYRUP 30 GM/45 ML UDP PO SCH ×2 (07:58→20:45)
[2019-08-29] MEDS: allopurinoL 100 MG TAB PO SCH ×2 (07:58→20:46)
[2019-08-29] MEDS: RIFAXIMIN 550 MG TABLET PO SCH ×2 (07:59→20:48)
[2019-08-29] MEDS: TORSEMIDE 100 MG TAB PO SCH (07:59)
[2019-08-29] MEDS: OMEGA-3 (PURIFIED FISH OIL) 1 GM CAP PO SCH (07:59)
[2019-08-29] MEDS: carvediloL 25 MG TAB PO SCH ×2 (07:59→20:45)
[2019-08-29] MEDS: FERROUS SULFATE 325 MG TAB PO SCH ×2 (07:59→17:26)
[2019-08-29] MEDS: ATORVASTATIN 40 MG TAB PO SCH (07:59)
[2019-08-29] MEDS: HEPARIN SOD 5,000 UNIT/0.5 ML VIAL SQ SCH ×2 (07:59→20:46)
[2019-08-29] MEDS: LORATADINE 10 MG TAB PO SCH (09:55)
[2019-08-29] MEDS: INSULIN ASPART 100 UNITS/ML 3 ML PEN SC SCH ×4 (09:56→20:45)
[2019-08-29 10:14] LABS: Albumin Level 2.5 gm/dl (3.4-5.0); BUN Creatinine Ratio 35.5 (10-20); Calcium 9.2 mg/dl (8.5-10.1); Creatinine Clr Calc Pharmacy 27.8 ml/min; Est GFR (African American) 18.5; Phosphorus 4.4 mg/dl (2.5-4.9); Potassium 4.9 mmol/L (3.5-5.1)
[2019-08-29] MEDS: IRON SUCROSE 200 MG in 0.9 % SODIUM CHLORIDE 100 ML IV SCH (10:22)
[2019-08-29] MEDS ORDERED: EPOETIN ALFA 20,000 UNITS/ML VIAL SQ SCH (11:00)
[2019-08-29] MEDS: metOLazone 5 MG TABLET PO SCH (11:06)
--- NOTE | 2019-08-29 11:07 | Nephrology Progress Note ---
Date of Service August 29, 2019 Assessment & Plan (1) Hepatic encephalopathy: New diagnosis. Minimal ascites noted on renal US. Abd US demonstrated cirrhotic contour to liver but liver is enlarged. (2) JUDITH (acute kidney injury): 74 year old M with stage 3 chronic kidney disease baseline creatinine around 2.0 in the setting of from cardiomyopathy and pulmonary hypertension. Admitted to the hospital with a progressive volume overload and found to have worsening of renal function with creatinine 3 on admission. Renal function has been slowly worsening over last few days and creatinine of 3.6 and BUN today. Had right heart catheterization yesterday showing pulmonary hypertension and suggestive of volume overload. UA acellular. Renal US without obstruction. --discontinue torsemide, start on Bumex 4 milligram IV twice a day and metolaz one 5 milligram daily, will give 1st dose now. Monitor urine output and renal function next 24 hours, if no improvement in urine output and renal function continues to worsen then it would be reasonable to consult vascular surgery tomorrow for plan for dialysis. 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 Medications are acceptably dosed for kidney function. --Document I/O's and repeat metabolic profile tomorrow AM. --start on Venofer 20 milligram IV daily for 5 doses and Epogen 60199 units x1 dose today Will follow (3) Cellulitis: Remains on daptomycin. (4) Chronic kidney disease, stage III (moderate): Baseline creatinine 2.0 mg/dL. Follows with Dr. Barrios as outpatient. (5) Anemia: . (6) Venous stasis ulcers of both lower extremities: (7) Chronic systolic congestive heart failure: Patient is well known to cardiology (Dr. Varela) and CHF clinic. (8) Diabetes mellitus type 2, insulin dependent: Jian Martinez was seen and examined this morning. His overall feeling about the same and feels like breathing is better than before. Appetite seems to be better. Nonoliguric but urine output less than 1 liter on high dose of torsemide and continues to be volume overloaded. Renal function continues to slightly worsened, other electrolyte acceptable. Blood pressure acceptable. Review of Systems Review of Systems: All systems reviewed & are unremarkable except as noted in HPI & below Physical Exam Constitutional: well developed and well nourished; no acute distress Respiratory: Auscultation: + diminished lung sounds Cardiovascular: Rate/Rhythm: regular rate and regular rhythm Heart Sounds: normal S1 and normal S2 Extremities: + edema Neurologic: moves all extremities and awake; not confused Psychiatric: A+Ox3, euthymic affect Results & Data Vital Signs (Past 12 Hours) Vital Signs Temp Pulse Pulse Resp BP Pulse Ox 08/29/19 07:55 36.7 C 60 18 110/66 97 08/29/19 03:35 79 20 95 08/29/19 02:55 36.6 C 60 19 132/86 98 PG Care Time/CCT Total # of Minutes Spent Total Time Spent with Patient: Total time spent is greater than 50% in coor dination of care (as documented) at patient's floor/unit and/or counseling patient: (1) Cellulitis Laterality: unspecified laterality Site of cellulitis: extremity Site of cellulitis of extremity: lower extremity Qualified Code(s): L03.119 - Cellulitis of unspecified part of limb (2) Anemia Anemia type: unspecified type Qualified Code(s): D64.9 - Anemia, unspecified
[2019-08-29] MEDS ORDERED: BUMETANIDE 4 MG in SYRINGE 0 ML IV ONE (11:15)
--- NOTE | 2019-08-29 14:27 | Hospitalist Progress Note ---
Date of Service August 29, 2019 Assessment & Plan (1) ATN (acute tubular necrosis): anasarca is multifactorial ...acute on chr diastolic CHF cannot be ruled out ...acute/chronic renal failure ...cirrhosis Treatment ...continue Coreg BID ...s/p Torsemide 200mg (was not effective) ...holding ANUPAMA due to JUDITH ...IV Bumex and metolazone Data: ... 2017 EF 40-45% ...DILLON (this admit) IMPROVED/normal EF. IVC was normal surprisingly ...RHC ..19: PCWP=28 (2) Cardiorenal syndrome with renal failure: see problem #1 ATN (3) Hepatic encephalopathy: encephalopathy, likely multi-factorial ...hepatic encephalopathy ...uremia w/ metabolic encephalopathy partially improving lethargic with poor cognitive fxn asterixis and elevated NH3 despite lactulose ...not much stool production despite lactulose ...rifaximin added on 08.28 ...follow NH3 levels cirrhosis, likely d/t long-standing alcoholism ...liver US c/w cirrhosis ...cannot rule out [place]/fatty liver given morbid obesity. ...cannot rule out some element of "cardiac" cirrhosis. would refer to GI as an outpatient (4) Cirrhosis: see problem above....hepatic encephalopathy (5) Metabolic encephalopathy: see problem above....hepatic encephalopathy (6) Acute on chronic diastolic CHF (congestive heart failure): see problem #1 ATN (7) Weakness: suspect multifactorial etiology - JUDITH, anemia, infectious process, elevated ammonia, etc very deconditioned CT lumbar spine w/ spinal stenosis but leg strength is actually intact PT, OT treatments will likely need SNF on DC once ready for DC (8) Cellulitis: b/l shins mostly improved all prior wound cultures have grown MSSA. 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 continue wound care (wound care consult appreciated) s/p augmentin x 3d s/p IV daptomycin x 7d (9) Chronic kidney disease, stage III (moderate): baseline creatinine 2.0 to 2.5 holding ANUPAMA renal u/s w/o obvious obstruction see problem #1 ATN (10) Anemia: multifactorial ...iron deficiency anemia ...anemia of CKD started Fe supplementation po and IV fecal occult blood NEGATIVE epogen started on 12.7 (11) Venous stasis ulcers of both lower extremities: cont local wound care 6 ulcers in total (3 each leg -- 1 below knee, another is a large ulcer mid- whitaker, and 1 on dorsum of foot near great toe) (12) Hypoglycemia: recurrrent hypoglycemia lantus titration, requiring further reduction low level novolog sliding scale (13) Diabetes mellitus type 2, insulin dependent: reduced Lantus due to hypoglycemia cont novolog for meals (14) Dyslipidemia: consider stopping statin in setting of cirrhosis will defer to cardiology (15) Obstructive sleep apnea: cont CPAP at settings of 10 HS/naps (16) Paroxysmal ventricular tachycardia: Continue carvedilol has pacer/ICD 12.8 pm: 12 beats of a wide complex tachycardia --> paced. pt was sleeping and asymptomatic (17) Morbid obesity with BMI of 45.0-49.9, adult: BMI now >50 but much of that is fluid weight. will need to re-evaluate once we get him to dry weigh would benefit from intermediate designer weight loss measures (18) Diabetes mellitus with kidney complication: see problem above.... DM2 and ATN (19) Biventricular ICD (implantable cardioverter-defibrillator) in place: see problem above.... 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 pt was sleeping and asymptomatic Juan was seen w/ at bedside. breathing is the same (partially improved since admission) but no further improvement. ...UOP is fair despite diuresis. ...Now on Bumex 4mg IV bid with Metolazone 5mg qam. ...will make final recommendation once re-evaluated tomorrow but leaning toward placing a dialysis catheter and attempting hemodialysis. ...pt and are agreeable to dialysis if that is what is recommended. appetite is fair. he seems more alert and engaged today. few words but having meaningful conversation. ...rifaximin was added to lactulose yesterday Review of Systems Review of Systems: Positive ROS: only as in Subjective improving SOB improving edema Constitutional: no fevers HENT: Negative for sore throat. Respiratory: Negative for cough. Cardiovascular: Negative for chest pain and palpitations. Gastrointestinal: Negative for abdominal pain, nausea and vomiting. Genitourinary: Negative for dysuria. Neurological: Negative for focal weakness and headaches. Physical Exam Physical Exam: Abnormal Exam: cognitively slow but making partial improvement. 2+ bipedal pitting edema legs are bandaged to distal whitaker (reported venous stasis ulcers) Constitutional: No distress. HENT: Mouth/Throat: Oropharynx is clear and moist. Eyes: Conjunctivae are normal. No scleral icterus. Cardiovascular: Normal RRR and normal heart sounds. No murmur heard. no gallop and no friction rub. Pulmonary/Chest: Effort normal and breath sounds normal. No respiratory distress. no wheezing no rales. Abdominal: Soft. Bowel sounds are normal. no distension. There is no tenderness. Neurological: alert. mostly oriented. no focal motor deficits Psychiatric: Mood and affect flat and depressed. Results & Data Vital Signs (Past 12 Hours) Vital Signs Temp Pulse Pulse Pulse Resp BP Pulse Ox 08/29/19 12:18 36.3 C L 59 L 18 117/68 97 08/29/19 07:55 36.7 C 60 18 110/66 97 08/29/19 03:35 79 20 95 08/29/19 02:55 36.6 C 60 19 132/86 98 Laboratory Results creat=3.57 (was 2.92 on admit; baseline was 2 - 2.5) RMH=399 (was 102 on admit) albumin=2.1 NH3=81 on 12.7 Medications Administered bumex 4mg IV bid metolazone 5mg po daily rifaximin, lactulose IV iron sq Epogen (1) Anemia Anemia type: unspecified type Qualified Code(s): D64.9 - Anemia, unspecified (2) Cellulitis Laterality: unspecified laterality Site of cellulitis: extremity Site of cellulitis of extremity: lower extremity Qualified Code(s): L03.119 - Cellulitis of unspecified part of limb (3) Cirrhosis Hepatic cirrhosis type: other cirrhosis Qualified Code(s): K74.69 - Other cirrhosis of liver
[2019-08-29] MEDS: NEOMYCIN/POLYMYX/BACITR OINT 15 GM TUBE TOP SCH (17:25)
[2019-08-29] MEDS: BUMETANIDE 4 MG in SYRINGE 0 ML IV SCH (17:26)
[2019-08-29] MEDS: INSULIN GLARGINE SOLOSTAR 100 UNITS/ML 3 ML PEN SC SCH (20:46)
[2019-08-30 06:10] LABS: Hematocrit (blood only) 25.8 % (42-52); Hemoglobin 8.3 g/dL (14.0-18.0); Mean Corpuscular Hemoglobin 29.4 pg (25-34); Mean Corpuscular Hgb Conc 32.2 g/dL (32-36); Mean Corpuscular Volume 91.5 fL (80-100); Mean Platelet Volume 10.8 fL (7.4-10.4); Platelet Count 134 K/uL (130-400); RDW Coefficient of Variation 17.7 % (11.5-14.5); Red Blood Count 2.82 M/uL (4.7-6.1); White Blood Count 6.83 K/uL (4.8-10.8)
[2019-08-30 06:36] LABS: Albumin Level 2.7 gm/dl (3.4-5.0); BUN Creatinine Ratio 37.8 (10-20); Calcium 9.8 mg/dl (8.5-10.1); Creatinine Clr Calc Pharmacy 29.5 ml/min; Est GFR (African American) 19.7; Potassium 4.7 mmol/L (3.5-5.1)
[2019-08-30 06:38] LABS: Phosphorus 4.5 mg/dl (2.5-4.9)
[2019-08-30] MEDS: VITAMIN B COMPLEX TAB PO SCH (08:45)
[2019-08-30] MEDS: OMEGA-3 (PURIFIED FISH OIL) 1 GM CAP PO SCH (08:45)
[2019-08-30] MEDS: RIFAXIMIN 550 MG TABLET PO SCH ×2 (08:45→22:22)
[2019-08-30] MEDS: INSULIN ASPART 100 UNITS/ML 3 ML PEN SC SCH ×4 (08:45→22:21)
[2019-08-30] MEDS: LORATADINE 10 MG TAB PO SCH (08:45)
[2019-08-30] MEDS: ASPIRIN 325 MG ECTAB PO SCH (08:45)
[2019-08-30] MEDS: FERROUS SULFATE 325 MG TAB PO SCH ×2 (08:46→18:01)
[2019-08-30] MEDS: metOLazone 5 MG TABLET PO SCH (08:46)
[2019-08-30] MEDS: carvediloL 25 MG TAB PO SCH ×2 (08:46→22:23)
[2019-08-30] MEDS: ATORVASTATIN 40 MG TAB PO SCH (08:46)
[2019-08-30] MEDS: allopurinoL 100 MG TAB PO SCH ×2 (08:46→22:23)
[2019-08-30] MEDS: LACTULOSE SYRUP 30 GM/45 ML UDP PO SCH ×2 (08:47→22:21)
[2019-08-30] MEDS: HEPARIN SOD 5,000 UNIT/0.5 ML VIAL SQ SCH ×2 (08:47→22:24)
[2019-08-30] MEDS: NEOMYCIN/POLYMYX/BACITR OINT 15 GM TUBE TOP SCH (08:47)
[2019-08-30] MEDS: IRON SUCROSE 200 MG in 0.9 % SODIUM CHLORIDE 100 ML IV SCH (08:59)
[2019-08-30] MEDS: BUMETANIDE 4 MG in SYRINGE 0 ML IV SCH (10:15)
--- NOTE | 2019-08-30 10:19 | Nephrology Progress Note ---
Date of Service August 30, 2019 Assessment & Plan (1) ESRD (end stage renal disease): H/o stage III CKD w/ baseline creatinine 2.0. Patient admitted w/ weakness and tense edema of LE and weeping bullae. R heart catheterization revealed severe pHTN. He has cardiac cirrhosis. Patient has developed progressive renal dysfunction in the setting of high dose loop diuretics. HD now indicated for correction of volume status and azotemia -- Discussed indications, risks, benefits and alternatives to HD at length w/ both patient and his Barbara this morning. They are agreeable to proceeding w/ access placement and initiation of HD -- Will consult Vascular Surgery for IJ THC and AVF -- Will consult Discharge Planning to set up outpatient HD at [facility] -- Stop Bumex & Metolazone -- Continue IV iron -- Start Nephrovite (2) Chronic kidney disease, stage III (moderate): -- Baseline creatinine 2.0 mg/dL. (3) Cellulitis: --Remains on daptomycin. (4) Hepatic encephalopathy: -- New diagnosis. Minimal ascites noted on renal US. Abd US demonstrated cirrhotic liver. Likely has cardiac cirrhosis (5) Anemia: -- Iron sat 12%, ferritin < 200 -- On IV Venofer (6) Chronic systolic congestive heart failure: R heart cath 08/27/19: RA: The right atrial pressure was 29 millimeters Hg RV: Right ventricular pressure was 78/22 millimeters of mercury PA: PA pressure was 70/29 millimeters of mercury PW: Pulmonary capillary wedge pressure was 28 millimeters of mercury (7) Venous stasis ulcers of both lower extremities: (8) Diabetes mellitus type 2, insulin dependent: Subjective Mr. Mendez was seen & examined in his hospital room this morning. He c/o LE swelling w/ weeping bullae. He currently denies angina or dyspnea Review of Systems Constitutional: + weakness; no fever and no chills Eyes: no worsening vision and no problem reported Ear, Nose, Mouth, Throat: no problem reported Respiratory: no cough and no dyspnea Cardiovascular: + edema; no chest pain and no palpitations Gastrointestinal: no abdominal pain, no nausea, no vomiting and no diarrhea/loose stools Genitourinary: no dysuria, no urinary hesitancy and no hematuria Musculoskeletal: no back pain Integumentary: no rash Neurologic: no dizziness and no confusion Physical Exam Constitutional: + ill appearing; not in distress Eyes: PERRL, conjunctivae normal, anicteric sclerae ENMT: external ear and nose normal, oropharynx normal Neck: trachea midline, no thyromegaly Respiratory: normal respiratory effort, lungs clear to auscultation Cardiovascular: Rate/Rhythm: regular rate and regular rhythm Extremities: + edema (tense LE swelling w/ weeping bullae) Gastrointestinal (Abdomen): normal bowel sounds, soft, nontender, no hepatosplenomegaly Musculoskeletal: Extremities: no cyanosis Neurologic: awake; not confused Results & Data Vital Signs (Past 12 Hours) Vital Signs Temp Pulse Pulse Pulse Resp BP BP 08/30/19 07:29 36.3 C L 61 18 110/60 08/30/19 04:47 36.6 C 60 20 128/65 08/30/19 03:30 94 H 20 08/30/19 00:31 60 08/29/19 23:05 36.4 C L 65 22 188/47 H Pulse Ox 08/30/19 07:29 96 08/30/19 04:47 99 08/30/19 03:30 98 08/30/19 00:31 08/29/19 23:05 98 Laboratory Results Laboratory Tests 08/30/19 08/30/19 05:52 05:52 WBC 6.83 Hgb 8.3 L Hct 25.8 L Plt Count 134 Sodium 135 L Potassium 4.7 Chloride 100 Carbon Dioxide 27 BUN 128 H Creatinine 3.39 H Glucose 71 PG Care Time/CCT Total # of Minutes Spent Total Time Spent with Patient: Total time spent is greater than 50% in coordination of care (as documented) at patient's floor/unit and/or counseling patient: (1) Cellulitis Laterality: unspecified laterality Site of cellulitis: extremity Site of cellulitis of extremity: lower extremity Qualified Code(s): L03.119 - Cellulitis of unspecified part of limb (2) Anemia Anemia type: unspecified type Qualified Code(s): D64.9 - Anemia, unspecified
--- NOTE | 2019-08-30 12:12 | Consultation ---
Date of Consultation August 30, 2019 Assessment & Plan (1) ESRD (end stage renal disease): Pt for permcath insertion tomorrow in OR. Pt agreeable. Requested that we contact his to let her know. History of Present Illness Reason for Consultation: ESRD, need permcath Attending Physician: Michael Escalera History of Present Illness 74 yo m with multiple medical problems, including CHF, cardiorenal syndrome, venous stasis ulcers, DMII, neuropathy, GERD, VISHAL, HTN, gout, cirrhosis, admitted with ATN causing JUDITH, seen in consultation today for permcath insertion for HD. Pt states he will proceed with HD as recommended by his cardiovascular sonographer. Admits generalized weakness. Deneis TONEY, fever, chest pain, SOB, abd pain, N/V, rest pain, claudication, other complaints. Allergies Allergy/AdvReac Type Severity Reaction Status Date / Time escitalopram Allergy Unknown Unknown Verified 08/19/19 21:40 metformin Allergy Unknown unknown Verified 08/19/19 21:40 topiramate Allergy Unknown unknown Verified 08/19/19 21:40 Home Medications Home Medications Medication Instructions Recorded Confirmed Type allopurinol 100 mg tablet 100 mg PO BID 05/28/18 08/19/19 History aspirin 325 mg tablet 325 mg PO DAILY 05/28/18 08/19/19 History carvedilol 25 mg tablet 25 mg PO BID 05/28/18 08/19/19 History lisinopril 20 mg tablet 20 mg PO DAILY 05/28/18 08/19/19 History loratadine 10 mg tablet 10 mg PO DAILY 05/28/18 08/19/19 History omega-3 fatty acids 1,000 mg 1,000 mg PO DAILY 05/28/18 08/19/19 History capsule blood sugar diagnostic #10 ea 03/04/19 08/12/19 History lancets 30 gauge #25 ea 03/04/19 08/12/19 History nitroglycerin 0.4 mg sublingual 0.4 mg SL ONCE PRN tab 03/04/19 08/19/19 History tablet pen needle, diabetic 32 gauge x #10 ea 03/04/19 08/12/19 History 32" vitamin B complex 1 tab PO DAILY 03/04/19 08/19/19 History torsemide 100 mg tablet 100 mg PO .COMPLEX tab 08/03/19 08/19/19 History cholecalciferol (vitamin D3) 50,000 units PO MONTHLY #3 cap 08/09/19 08/19/19 Rx 50,000 unit capsule insulin glargine [Basaglar KwikPen 30 unit SUBCUT HS 08/19/19 08/19/19 History U-100 Insulin] onifduca-ysewultbbGf-jkjuusykW 1 applic TOPICAL DAILY 08/19/19 08/19/19 History [Neosporin ([id number]-[id number])] atorvastatin 40 mg tablet 40 mg PO DAILY #90 tab 08/23/19 Rx Patient History Medical History Acute gouty arthritis (Resolved) Anemia Ankle joint pain Anxiety Asymptomatic hyperuricemia 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) Chronic kidney disease, stage III (moderate) (Chronic) Chronic systolic congestive heart failure Constipation Diabetes Diabetes mellitus type 2, insulin dependent (Chronic) Diabetes mellitus with kidney complication (Chronic) Diabetes mellitus with neurological manifestations, uncontrolled Diabetic peripheral neuropathy Dyslipidemia (Chronic) Esophageal reflux ESRD (end stage renal disease) Former smoker GERD (gastroesophageal reflux disease) (Chronic) Gout (Chronic) Gout Hematuria HTN (hypertension) Hypertension, goal below 140/90 Inhibited sexual excitement Ischemic cardiomyopathy Male erectile disorder of organic origin Mild nonproliferative diabetic retinopathy Morbid obesity Need for hepatitis C screening test Non-pressure chronic ulcer of right calf, limited to breakdown of skin Obstructive sleep apnea (Chronic) Paroxysmal ventricular tachycardia (Chronic) Poor compliance Shortness of breath Skin tear of left lower leg without complication Sleep apnea (Chronic) Testicular dysfunction Traumatic open wound of left lower leg Urinary urgency Venous insufficiency of both lower extremities Vitamin D deficiency Surgical History History of appendectomy (Resolved) Family History Other Diabetes Heart disease Hypertension Kidney disease Social History Preferred Language: Divehi Communication Ability: Effective Visual Impairment: Limited Hearing Ability: Normal Border Machine Operator Required: No Beliefs That Will Affect Care: Bahai Bahai Beliefs: Shayy marital status: Current Living Situation: Family current occupational status: retired Other Information That Helps Us Care for You: No Feels Safe at Home: Yes Safety Concerns: Feels Safe At This Time Smoking Status: Unknown if ever smoked Hx Alcohol Use: No Hx Substance Use: No Review of Systems Review of Systems: All systems reviewed & are unremarkable except as noted in HPI & below Physical Exam Constitutional: WD/WN, vitals as above + morbidly obese, cooperative and comfortable; not in distress Eyes: PERRL, conjunctivae normal, anicteric sclerae ENMT: external ear and nose normal, oropharynx normal Ears: no hearing impairment Neck: trachea midline Respiratory: normal respiratory effort Auscultation: lungs clear to auscultation bilaterally and + diminished lung sounds Cardiovascular: Rate/Rhythm: regular rate and regular rhythm Vessels: posterior tibial pulses present, dorsalis pedis pulses present, brachial pulses present and radial pulses present; + abnormal peripheral pulses Extremities: normal capillary refill, + pedal edema and + edema Gastrointestinal (Abdomen): normal bowel sounds, soft, nontender, no hepatosplenomegaly Inspection/Auscultation: + abdominal edema Musculoskeletal: no cyanosis or clubbing, extremities motor strength 5/5 Skin: no rashes, warm and dry + ulcer (BLE) Neurologic: moves all extremities; no focal motor deficits and not confused Psychiatric: Orientation: alert and oriented x 3 Eye Contact: + fair eye contact Affect: + flat affect Results & Data Vital Signs (Past 12 Hours) Vital Signs Temp Pulse Pulse Pulse Resp BP BP 08/30/19 11:09 36.6 C 59 L 20 97/61 L 08/30/19 07:29 36.3 C L 61 18 110/60 08/30/19 04:47 36.6 C 60 20 128/65 08/30/19 03:30 94 H 20 08/30/19 00:31 60 Pulse Ox 08/30/19 11:09 100 08/30/19 07:29 96 08/30/19 04:47 99 08/30/19 03:30 98 08/30/19 00:31
[2019-08-30] MEDS: NEPHROCAPS PO SCH (12:15)
--- NOTE | 2019-08-30 16:31 | Hospitalist Progress Note ---
Date of Service August 30, 2019 Assessment & Plan (1) Acute on chronic diastolic CHF (congestive heart failure): (2) ATN (acute tubular necrosis): Anasarca: multifactorial ...acute on chr diastolic CHF cannot be ruled out ...acute/chronic renal failure - ATN ...cirrhosis Treatment ...continue Coreg BID ...s/p Torsemide 200mg (was not effective) ...holding ANUPAMA due to JUDITH ...Dced IV Bumex and metolazone as making Cr worse and ineffective Data: ... 2017 EF 40-45% ...DILLON (this admit) IMPROVED/normal EF. IVC was normal surprisingly ...RHC 08.27.19: PCWP=28 Hepatic encephalopathy: encephalopathy, likely multi-factorial ...hepatic encephalopathy ...uremia w/ metabolic encephalopathy partially improving lethargic with poor cognitive fxn asterixis and elevated NH3 despite lactulose ...not much stool production despite lactulose 30mg BID - enema x 1 tonight ...rifaximin added on 08.28 ...follow NH3 levels Cirrhosis, likely d/t long-standing alcoholism ...liver US c/w cirrhosis ...cannot rule out [place]/fatty liver given morbid obesity ...cannot rule out some element of "cardiac" cirrhosis GI outpatient follow up Weakness: suspect multifactorial etiology - JUDITH, anemia, infectious process, elevated ammonia, etc very deconditioned CT lumbar spine w/ spinal stenosis but leg strength is actually intact PT, OT treatments SNF on DC once ready for DC Cellulitis: b/l shins mostly improved all prior wound cultures have grown MSSA. MRSA RATE MANAGER swab negative continue wound care (wound care consult appreciated) s/p augmentin x 3d s/p IV daptomycin x 7d ATN in the setting of Chronic kidney disease, stage III (moderate): baseline creatinine 2.0 to 2.5, now 3.39 with BUN 128 holding ANUPAMA renal u/s w/o obvious obstruction Plan for permacatch and HD tomorrow Anemia: multifactorial ...iron deficiency anemia ...anemia of CKD started Fe supplementation po and IV fecal occult blood NEGATIVE epogen started on 08.28 Venous stasis ulcers of both lower extremities: cont local wound care 6 ulcers in total (3 each leg -- 1 below knee, another is a large ulcer mid- whitaker, and 1 on dorsum of foot near great toe) Diabetes mellitus type 2, insulin dependent: reduced Lantus due to hypoglycemia cont novolog for meals Dyslipidemia: consider stopping statin in setting of cirrhosis will defer to cardiology Obstructive sleep apnea: cont CPAP at settings of 10 HS/naps Paroxysmal ventricular tachycardia: Continue carvedilol has pacer/ICD 12.8 pm: 12 beats of a wide complex tachycardia --> paced. pt was sleeping and asymptomatic Morbid obesity with BMI of 45.0-49.9, adult: BMI now >50 but much of that is fluid weight. will need to re-evaluate once we get him to dry weigh would benefit from manager intermediate weight loss measures Severe protein-calorie malnutrition: pt had very poor energy caloric intake he has had acute weight/fat loss (if you exclude his fluid weight) this is roughly based on ASPEN criteria hypoalbuminemia ...will consult Director [employer] [facility] ...Rx protein shakes DVT prophylaxis: heparin 5000 BID (cautiously in light of Fe Def) (3) Cirrhosis: (4) Hepatic encephalopathy: (5) Morbid obesity with BMI of 45.0-49.9, adult: (6) Metabolic encephalopathy: (7) Cellulitis: (8) Anemia: (9) Biventricular ICD (implantable cardioverter-defibrillator) in place: (10) Chronic kidney disease, stage III (moderate): (11) Diabetes mellitus type 2, insulin dependent: (12) Paroxysmal ventricular tachycardia: (13) Obstructive sleep apnea: (14) Dyslipidemia: Supervising Physician Co-Signing Physician Notes Resident Physician Supervision Note: I interviewed and examined the patient. Discussed with Dr. Mirna Munroe and agree with findings and plan as documented in the note. Any exceptions or clarifications are listed here: none. Additional ROS obtained - * denies orthopnea, PND * no dyspnea at rest * +LOUIS * no chest pain * c/o weakness, fatigue, difficulty moving /walking * no abdominal pain * no appetite * minimal bowel movement last 24 hours Very lengthy discussion held with pt, his , a friend, and their talent acquisition sourcer at bedside. Discussed the events of entire hospital stay, difficulties w/ renal function, ammonia levels, cirrhosis, volume overload, etc. Questions answered. Discussed plan for next 24 hours - catheter placement by Dr Morales then HD thereafter. still wants rehab for patient post-d/c. exam - gen - sleepy but awakens; very tired; falls asleep during the encounter mouth - MMM heart - RRR, s1 s2 lungs - decreased BS bases abd - distended BS+ NT ext - 2-3+ edema from feet to the thighs skin - dressings intact just below knees, mid-shins neuro - asterixis present labs - Cr >3, BUN >120, ammonia 90 A/P: 1. acute/chronic renal failure; acute component likely ATN in setting of CKD stage 3 2. volume overload/anasarca/pulmonary edema - multifactorial 3. hepatic encephalopathy - cont lactulose/rifaximin; lactulose enema x 1 today 4. symptomatic uremia 2nd to #1 - plan HD catheter placement tomorrow followed by HD 5. cellulitis b/l shins - resolved, off abx 6. b/l leg wounds - multiple - ongoing dressing changes, etc total time today spent at bedside - 30 minutes counseling pt and family total time today between myself and Dr Munroe in terms of coordination of care - 45 minutes Documented By: Michael Escalera MD Subjective This afternoon patient denies any shortness of breath at rest however does report shortness of breath with mild exertion. Also reports fatigue. Denies any chest discomfort, nausea, vomiting, abdominal pain, diarrhea, dysuria, hematuria. Patient was paced in 70s on telemetry. Per nursing small BM last night and none today. Review of Systems Review of Systems: As per HPI Physical Exam Physical Exam: General: In NAD Neuro: A&O x 3 (not to time), mild asterixis Pulm: CTAB equal breath sounds bilaterally CV: RRR, no m/r/g Abdomen:+BS, no TTP in all quadrants, distended, tympanic and obese LE: Dressing to venous stasis ulcers C/D/I, 2+ LE edema Results & Data Vital Signs (Past 12 Hours) Vital Signs Temp Pulse Pulse Resp BP BP Pulse Ox 08/30/19 15:22 36.2 C L 60 19 135/67 95 08/30/19 11:09 36.6 C 59 L 20 97/61 L 100 08/30/19 07:29 36.3 C L 61 18 110/60 96 08/30/19 04:47 36.6 C 60 20 128/65 99 Laboratory Results Abnormal lab results 08/29/19 08/30/19 08/30/19 Range/Units 20:20 05:52 05:52 RBC (4.7-6.1) M/uL Hgb (14.0-18.0) g/dL Hct (42-52) % RDW Std Deviation (36.4-46.3) fL RDW Coeff of Marino (11.5-14.5) % MPV (7.4-10.4) fL Sodium 135 L (136-145) mmol/L BUN 128 H (7-18) mg/dl Creatinine 3.39 H (0.6-1.4) mg/dl BUN/Creatinine Ratio 37.8 H (10-20) POC Glucose 133 H (70-99) Ammonia 92.0 H (11-32) umol/L Albumin 2.7 L (3.4-5.0) gm/dl 08/30/19 08/30/19 08/30/19 Range/Units 05:52 11:22 16:31 RBC 2.82 L (4.7-6.1) M/uL Hgb 8.3 L (14.0-18.0) g/dL Hct 25.8 L (42-52) % RDW Std Deviation 57.0 H (36.4-46.3) fL RDW Coeff of [place] 17.7 H (11.5-14.5) % MPV 10.8 H (7.4-10.4) fL Sodium (136-145) mmol/L BUN (7-18) mg/dl Creatinine (0.6-1.4) mg/dl BUN/Creatinine Ratio (10-20) POC Glucose 153 H 192 H (70-99) Ammonia (11-32) umol/L Albumin (3.4-5.0) gm/dl Resident Activity Tracking Resident Involvement: Resident Care Provided Care Provided: Adult Hospital Medicine (1) Anemia Anemia type: unspecified type Qualified Code(s): D64.9 - Anemia, unspecified (2) Cellulitis Laterality: unspecified laterality Site of cellulitis: extremity Site of cellulitis of extremity: lower extremity Qualified Code(s): L03.119 - Cellulitis of unspecified part of limb (3) Cirrhosis Hepatic cirrhosis type: other cirrhosis Qualified Code(s): K74.69 - Other cirrhosis of liver
[2019-08-30] MEDS ORDERED: LACTULOSE 200 GM, WATER, STERILE IRRIG 700 ML, BARCODE IDENTIFIER 1 EA PR ONE (20:00)
[2019-08-30] MEDS: INSULIN GLARGINE SOLOSTAR 100 UNITS/ML 3 ML PEN SC SCH (22:22)
[2019-08-31] MEDS ORDERED: CEFAZOLIN 3000MG 72.5 ML IV SCH (06:00)
[2019-08-31 06:59] LABS: BUN Creatinine Ratio 41.9 (10-20); Calcium 9.8 mg/dl (8.5-10.1); Creatinine Clr Calc Pharmacy 30.1 ml/min; Est GFR (African American) 20.6; Est GFR (Non-African American) 17.8; Potassium 4.5 mmol/L (3.5-5.1)
[2019-08-31] MEDS: INSULIN ASPART 100 UNITS/ML 3 ML PEN SC SCH ×4 (07:33→22:15)
[2019-08-31] MEDS: FERROUS SULFATE 325 MG TAB PO SCH ×2 (08:00→22:13)
[2019-08-31] MEDS: NEPHROCAPS PO SCH (08:00)
[2019-08-31] MEDS: allopurinoL 100 MG TAB PO SCH ×2 (08:00→22:12)
[2019-08-31] MEDS: LACTULOSE SYRUP 30 GM/45 ML UDP PO SCH ×2 (08:00→22:13)
[2019-08-31] MEDS: carvediloL 25 MG TAB PO SCH ×2 (08:00→22:12)
--- NOTE | 2019-08-31 08:30 | History & Physical Bridge Note ---
Date of Service August 31, 2019 History & Physical Bridge Note Patient for insertion of a permcath today. I have discussed the risks options and benefits of the procedure with the patient. The patient understands the risks options and benefits and agrees to the procedure. I have examined the patient, reviewed the History & Physical and in the interval since the performance of the History & Physical I have noted the following changes of clinical significance: no changes noted
[2019-08-31] MEDS: RIFAXIMIN 550 MG TABLET PO SCH ×2 (09:00→22:12)
[2019-08-31] MEDS: ASPIRIN 325 MG ECTAB PO SCH (09:00)
[2019-08-31] MEDS: IRON SUCROSE 200 MG in 0.9 % SODIUM CHLORIDE 100 ML IV SCH (09:00)
[2019-08-31] MEDS: HEPARIN SOD 5,000 UNIT/0.5 ML VIAL SQ SCH ×2 (09:00→22:17)
[2019-08-31] MEDS: OMEGA-3 (PURIFIED FISH OIL) 1 GM CAP PO SCH (09:00)
[2019-08-31] MEDS: ATORVASTATIN 40 MG TAB PO SCH (09:00)
[2019-08-31] MEDS: VITAMIN B COMPLEX TAB PO SCH (09:00)
[2019-08-31] MEDS: LORATADINE 10 MG TAB PO SCH (09:00)
[2019-08-31] MEDS: NEOMYCIN/POLYMYX/BACITR OINT 15 GM TUBE TOP SCH (09:00)
--- NOTE | 2019-08-31 09:55 | Billing Data ---
Coding Level of Care Code 56683 Subseq Hosp Care Lvl 3
[2019-08-31] MEDS ORDERED: LIDOCAINE HCL 2% 2 ML VIAL/AMP(20MG/ML) INFIL ONE (10:36)
[2019-08-31] MEDS ORDERED: PROPOFOL IV EMULSION 10 MG/ML 20 ML VIAL IV ONE (10:36)
[2019-08-31] MEDS ORDERED: MIDAZOLAM HCL 1 MG/ML 2ML VIAL ONE ×3 (10:36→12:36)
[2019-08-31] MEDS ORDERED: fentaNYL citrate 100 MCG/2 ML VIAL ONE ×2 (10:36→12:07)
[2019-08-31] MEDS ORDERED: ONDANSETRON INJ 2 MG/ML 2 ML VIAL ONE (10:39)
[2019-08-31] MEDS ORDERED: KETAMINE HCL INJ 50 MG/ML 10 ML VIAL ONE (11:05)
--- NOTE | 2019-08-31 11:25 | Pre Anesthesia Assessment ---
Date of Service August 31, 2019 Pre Sedation Assessment Vital Signs Temp Pulse Pulse Pulse Pulse Resp BP 08/31/19 08:43 36.3 C L 68 68 18 138/60 08/31/19 07:56 36.6 C 60 18 138/74 08/31/19 04:00 36.5 C 66 20 99/58 L 08/31/19 03:34 60 16 08/30/19 23:16 36.3 C L 60 20 134/69 08/30/19 23:00 61 08/30/19 22:41 18 08/30/19 19:24 36.5 C 60 19 152/75 H 08/30/19 16:00 60 08/30/19 15:22 36.2 C L 60 19 135/67 Pulse Ox 08/31/19 08:43 99 08/31/19 07:56 99 08/31/19 04:00 95 08/31/19 03:34 98 08/30/19 23:16 99 08/30/19 23:00 08/30/19 22:41 94 08/30/19 19:24 97 08/30/19 16:00 08/30/19 15:22 95 Cardiovascular RRR, no murmur, no edema Respiratory normal respiratory effort, lungs clear to auscultation Pre-Sedation Airway Assessment Smoking Status: Unknown if ever smoked Hx Sleep Apnea: Yes (cpap at night) Short, Thick Neck: Yes Thyromental Distance: > or= 3.5 Finger Breadths Oral Cavity: + WNL Mallampati Class: I ASA: ASA4 NPO Status Date of Last Intake of Fluids: 08/30/19 Time of Last Intake of Fluids: 19:00 Date of Last Intake of Solid Food: 08/30/19 Time of Last Intake of Solid Foods: 19:00 Procedure Planning Contraindications for Sedation: none Current Medications Reviewed: Yes Notes The planned sedation has been discussed with the patient. Informed Consent was obtained. I have identified the patient, determined the appropriateness of sedation and have assessed the patient immediately prior to the procedure. All medicine(s) and interventions are by my order.
[2019-08-31] MEDS ORDERED: LIDOCAINE HCL 1% 20 ML VIAL ONE (11:45)
[2019-08-31] MEDS ORDERED: HEPARIN SOD (PORCINE) 5,000 UNITS/ML VIAL ONE ×2 (11:45→12:33)
[2019-08-31] MEDS ORDERED: SODIUM CHLORIDE 0.9% 1000ML 1,000 ML IV PRN (12:18)
--- NOTE | 2019-08-31 12:18 | Nephrology Progress Note ---
Date of Service August 31, 2019 Assessment & Plan (1) ESRD (end stage renal disease): H/o stage III CKD w/ baseline creatinine 2.0. Patient admitted w/ weakness and tense edema of LE and weeping bullae. R heart catheterization revealed severe pHTN. He has cardiac cirrhosis. Patient has developed progressive renal dysfunction in the setting of high dose loop diuretics. HD now indicated for correction of volume status and azotemia -- Awaiting IJ THC insertion -- Will schedule 1st HD treatment today (2 hrs, heparin free) -- Discharge Planning consulted to set up outpatient HD at [facility] -- Continue IV iron (2) Chronic kidney disease, stage III (moderate): -- Baseline creatinine 2.0 mg/dL. (3) Cellulitis: --Remains on daptomycin. (4) Hepatic encephalopathy: -- New diagnosis. Minimal ascites noted on renal US. Abd US demonstrated cirrhotic liver. Likely has cardiac cirrhosis (5) Anemia: -- Iron sat 12%, ferritin < 200 -- On IV Venofer (6) Chronic systolic congestive heart failure: R heart cath 08/27/19: RA: The right atrial pressure was 29 millimeters Hg RV: Right ventricular pressure was 78/22 millimeters of mercury PA: PA pressure was 70/29 millimeters of mercury PW: Pulmonary capillary wedge pressure was 28 millimeters of mercury (7) Venous stasis ulcers of both lower extremities: (8) Diabetes mellitus type 2, insulin dependent: Subjective No medical concerns voiced. Awaiting IJ THC insertion. Review of Systems Constitutional: no fever and no chills Eyes: no worsening vision and no problem reported Ear, Nose, Mouth, Throat: no problem reported Respiratory: no cough and no dyspnea Cardiovascular: + edema; no chest pain and no palpitations Gastrointestinal: no abdominal pain, no nausea, no vomiting and no diarrhea/loose stools Genitourinary: no dysuria, no urinary hesitancy and no hematuria Musculoskeletal: no back pain Integumentary: no rash Neurologic: no falls, no dizziness and no confusion Physical Exam Constitutional: + ill appearing; not in distress Eyes: PERRL, conjunctivae normal, anicteric sclerae ENMT: external ear and nose normal, oropharynx normal Neck: trachea midline, no thyromegaly Respiratory: normal respiratory effort, lungs clear to auscultation Cardiovascular: Rate/Rhythm: regular rate and regular rhythm Extremities: + edema (tense LE swelling w/ weeping bullae) Gastrointestinal (Abdomen): normal bowel sounds, soft, nontender, no hepatosplenomegaly Musculoskeletal: Extremities: no cyanosis Neurologic: awake; not confused Results & Data Vital Signs (Past 12 Hours) Vital Signs Temp Pulse Pulse Pulse Pulse Resp BP 08/31/19 08:43 36.3 C L 68 68 18 138/60 08/31/19 07:56 36.6 C 60 18 138/74 08/31/19 04:00 36.5 C 66 20 99/58 L 08/31/19 03:34 60 16 Pulse Ox 08/31/19 08:43 99 08/31/19 07:56 99 08/31/19 04:00 95 08/31/19 03:34 98 Laboratory Results Laboratory Tests 08/31/19 06:12 Sodium 135 L Potassium 4.5 Chloride 99 Carbon Dioxide 29 BUN 137 H Creatinine 3.26 H Glucose 130 H PG Care Time/CCT Total # of Minutes Spent Total Time Spent with Patient: Total time spent is greater than 50% in coordination of care (as documented) at patient's floor/unit and/or counseling patient: (1) Cellulitis Laterality: unspecified laterality Site of cellulitis: extremity Site of cellulitis of extremity: lower extremity Qualified Code(s): L03.119 - Cellulitis of unspecified part of limb (2) Anemia Anemia type: unspecified type Qualified Code(s): D64.9 - Anemia, unspecified
[2019-08-31] MEDS ORDERED: EPOETIN ALFA 10,000 UNITS/ML VIAL IV SCH (12:30)
--- NOTE | 2019-08-31 13:06 | Procedure Note ---
Angiogram Post Procedure Fluoroscopy Time (minutes): 0.3 Radiation (mGy): 11 Contrast: 0cc Post Operative Report Pre & Post Diagnosis Operation Date: 08/27/19 15:00 <No data on this case meets the specified criteria> Operation Date: 08/31/19 10:20 Pre-Op Diagnosis: acute kidney injury Post-Op Diagnosis: acute kidney injury Procedure Operation Date: 08/27/19 15:00 Actual Procedures p Right Heart Cath Only - Elton Patel MD Operation Date: 08/31/19 10:20 Actual Procedures p Insertion Of Perm Catheter, Right Femoral Approach, Ultrasound Localization of Right Femoral Vein, Fluoroscopy For Positioning, Moderate Concious Sedation 1217 to(Right) - Efrain Morales MD Surgeon Efrain Morales MD Environmental Engineer Scientist Iraida Calderon Estimated Blood Loss 10 Findings Consistent with Post-Op Diagnosis Specimens none Drains none Anesthesia Type RN Sedation Complications none Disposition Accompanied Patient To Recovery: No Disposition: Recovery Room Indications 74 yo male with multiple medical problems, including congestive heart failure, cardiorenal syndrome, venous stasis ulcers, type II diabetes mellitus, neuropathy, GERD, VISHAL, HTN, gout, cirrhosis, admitted with ATN causing JUDITH, who was seen in consultation for permcath insertion for hemodialysis access. The procedure and associated risks were explained to the procedure. The patient wished to proceed with the procedure. Surgical consent was obtained Description of Procedure Patient was taken to the angio suite and placed in the supine position. The patient's identity and surgical procedure were verified. A timeout was . right side of the neck and chest wall were prepped and draped in a sterile manner. Ultrasound was then used in an attempt to locate the right internal jugular vein, however the right IJ was unable to be identified with confidence; it was either very diminutive or occluded. Given that the patient had a pacemaker to the left IJ, we decided to place the catheter in the patient's right femoral. The right groin was then prepped and draped in a sterile manner. Local anesthesia was then administered to the appropriate areas of the right groin. Ultrasound was then used to locate the right femoral vein. The vein compressed easily, had no filing defects, and was patent. The vein was then punctured under direct ultrasound imaging. A guidewire was then passed centrally under fluoroscopic imaging. A stab wound was then made in the right thigh and a 42 cm permcath was passed from the stab wound on the right thigh to the puncture site in the right groin. The puncture site was then dilated till the 14Fr peel away sheath was inserted. The permcath was then inserted through the sheath to a central position in the inferior vena cava. The peel away sheath was then removed. The catheter was then sutured in place using nylon sutures. The puncture was then closed using a 4-0 Vicryl subcuticular suture. Dermabond was used for a dressing on the puncture site. Both ports aspirated and flushed easily and were then packed with heparin. A sterile dressing was applied to the catheter. The patient left the angio suite in good condition and tolerated the procedure well. Dr. Morales was present and scrubbed for the entire procedure. I attest to the content of the Intraoperative Record and any orders documented therein. Any exceptions are noted below.
--- NOTE | 2019-08-31 13:08 | Post Operative Brief Note ---
Immediate Post Op Note v1 Date of Surgery August 31, 2019 Pre & Post Diagnosis Operation Date: 08/27/19 15:00 <No data on this case meets the specified criteria> Operation Date: 08/31/19 10:20 Pre-Op Diagnosis: acute kidney injury Post-Op Diagnosis: acute kidney injury I identified the patient and participated in the time-out.: Yes Procedure Operation Date: 08/27/19 15:00 Actual Procedures p Right Heart Cath Only - Elton Patel MD Operation Date: 08/31/19 10:20 Actual Procedures p Insertion Of Perm Catheter, Right Femoral Approach, Ultrasound Localization of Right Femoral Vein, Fluoroscopy For Positioning, Moderate Concious Sedation 1217 to 1317(Right) - Efrain Morales MD Surgeon Efrain Morales MD Burrer Hand MD Melani Estimated Blood Loss 10 Findings Consistent with Post-Op Diagnosis Anesthesia Type RN Sedation Complications none Disposition Accompanied Patient To Recovery: No Disposition: Recovery Room
--- NOTE | 2019-08-31 13:29 | Post Anesthesia Assessment ---
Date of Service August 31, 2019 Post Sedation Assessment Vital Signs Temp Pulse Pulse Pulse Pulse Resp BP 08/31/19 13:17 64 14 119/87 08/31/19 13:12 60 15 142/68 H 08/31/19 13:07 60 15 142/68 H 08/31/19 13:02 58 L 14 144/70 H 08/31/19 12:57 60 16 126/71 08/31/19 12:52 60 16 112/68 08/31/19 12:47 61 16 142/80 H 08/31/19 12:42 61 16 154/70 H 08/31/19 12:37 67 17 152/78 H 08/31/19 12:32 65 17 146/82 H 08/31/19 12:27 60 16 152/73 H 08/31/19 12:22 60 16 145/70 H 08/31/19 12:17 60 15 167/74 H 08/31/19 12:11 60 15 161/72 H 08/31/19 08:43 36.3 C L 68 68 18 138/60 08/31/19 07:56 36.6 C 60 18 138/74 08/31/19 04:00 36.5 C 66 20 99/58 L 08/31/19 03:34 60 16 08/30/19 23:16 36.3 C L 60 20 134/69 08/30/19 23:00 61 08/30/19 22:41 18 08/30/19 19:24 36.5 C 60 19 152/75 H 08/30/19 16:00 60 08/30/19 15:22 36.2 C L 60 19 135/67 Pulse Ox 08/31/19 13:17 95 08/31/19 13:12 100 08/31/19 13:07 96 08/31/19 13:02 93 08/31/19 12:57 94 08/31/19 12:52 93 08/31/19 12:47 95 08/31/19 12:42 97 08/31/19 12:37 100 08/31/19 12:32 100 08/31/19 12:27 100 08/31/19 12:22 100 08/31/19 12:17 100 08/31/19 12:11 100 08/31/19 08:43 99 12/10/19 07:56 99 08/31/19 04:00 95 08/31/19 03:34 98 08/30/19 23:16 99 08/30/19 23:00 08/30/19 22:41 94 08/30/19 19:24 97 08/30/19 16:00 08/30/19 15:22 95 Recovery Score Activity: Moves 4 extremities Respiration: Deep Breath/Cough Circulation: +/-20% PreAnes Value Consciousness: Arouseable (by name) Oxygen Saturation: O2 needed for >90% Post Anesthesia Score: 8 Discharge Sedation Level of Care: Fast Track Phase II Post Sedation Plan On clinical assessment, the patient appears to have tolerated the sedation without complications. Patient is recovering as anticipated. Patient will continue to be monitored by nursing and may be discharged when sedation discharge criteria are met per below protocol. Upon Completions of procedure up to 15 minutes continue every 5 minute vital signs and the P.A.R. score; then discharge to a Phase I or Fast Track to Phase II per the following guidelines: * Discharge Patient to appropriate Phase II area if PAR is 8 or greater or return to pre- procedure baseline. The post - procedure orders will be as directed. * If PAR score is less than 8 or not return to pre-procedure baseline then felicitas ent will follow Phase I monitoring till PAR is reached for Phase II. The Phase I may be done in procedure room or may call to secure a Phase I area. * If naloxone or flumazenil are used for reversal, hold in Phase I for continued monitoring from when last reversal dose was given for a minimum of 60 minutes or longer pending the nurse and/or physician discretion of patient condition before discharge to Phase II. Please call the Sedation Physician to re-evaluate and complete post-note for discharge to Phase II area. Do NOT discharge from procedure sedation or Phase 1 until post- sedation e valuation note is complete by procedure /sedation MD Sedation Discharge Instructions to be given to the patient at discharge to home.
[2019-08-31 15:30] LABS: Hepatitis B Surface Ab Quant < 3.10 mIU/mL (>or=10mIU/mL Immune); Hepatitis B Surface Antibody Non-Immune
[2019-08-31 15:40] LABS: Hepatitis B Surface Antigen Neg (Neg)
--- NOTE | 2019-08-31 20:09 | Hospitalist Progress Note ---
Date of Service August 31, 2019 Assessment & Plan (1) Acute on chronic diastolic CHF (congestive heart failure): (2) ATN (acute tubular necrosis): Anasarca: multifactorial ...acute on chr diastolic CHF cannot be ruled out ...acute/chronic renal failure - ATN ...cirrhosis Treatment ...continue Coreg BID ...s/p Torsemide 200mg (was not effective) ...holding ANUPAMA due to JUDITH ...Dced IV Bumex and metolazone as making Cr worse and ineffective Data: ... 2017 EF 40-45% ...DILLON (this admit) IMPROVED/normal EF. IVC was normal surprisingly ...RHC ..19: PCWP=28 Hepatic encephalopathy: encephalopathy, likely multi-factorial ...hepatic encephalopathy ...uremia w/ metabolic encephalopathy partially improving lethargic with poor cognitive fxn ...not much stool production despite lactulose 30mg BID - enema x 1 on 08/30 with good stool output, ammonia improved to 69.5 from 92 ...rifaximin added on 08.28 ...follow NH3 levels Cirrhosis, likely d/t long-standing alcoholism ...liver US c/w cirrhosis ...cannot rule out [place]/fatty liver given morbid obesity ...cannot rule out some element of "cardiac" cirrhosis GI outpatient follow up Weakness: suspect multifactorial etiology - JUDITH, anemia, infectious process, elevated ammonia, etc very deconditioned CT lumbar spine w/ spinal stenosis but leg strength is actually intact PT, OT treatments SNF on DC once ready for DC Cellulitis: b/l shins mostly improved all prior wound cultures have grown MSSA. 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 continue wound care (wound care consult appreciated) s/p augmentin x 3d s/p IV daptomycin x 7d ATN in the setting of Chronic kidney disease, stage III (moderate): baseline creatinine 2.0 to 2.5, now 3.26 with BUN 137 holding ANUPAMA renal u/s w/o obvious obstruction Patient had right femoral PermCath placed today and 2 hours of dialysis Setting up outpatient dialysis Anemia: multifactorial ...iron deficiency anemia ...anemia of CKD started Fe supplementation po and IV fecal occult blood NEGATIVE epogen started on 08.28 Venous stasis ulcers of both lower extremities: cont local wound care 6 ulcers in total (3 each leg -- 1 below knee, another is a large ulcer mid- whitaker, and 1 on dorsum of foot near great toe) Diabetes mellitus type 2, insulin dependent: reduced Lantus due to hypoglycemia cont novolog for meals Dyslipidemia: consider stopping statin in setting of cirrhosis will defer to cardiology Obstructive sleep apnea: cont CPAP at settings of 10 HS/naps Paroxysmal ventricular tachycardia: Continue carvedilol has pacer/ICD 12.8 pm: 12 beats of a wide complex tachycardia --> paced. pt was sleeping and asymptomatic Morbid obesity with BMI of 45.0-49.9, adult: BMI now >50 but much of that is fluid weight. 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 Severe protein-calorie malnutrition: pt had very poor energy caloric intake he has had acute weight/fat loss (if you exclude his fluid weight) this is roughly based on ASPEN criteria hypoalbuminemia ...will consult [facility] ...Rx protein shakes DVT prophylaxis: heparin 5000 BID (cautiously in light of Fe Def) (3) Cirrhosis: (4) Hepatic encephalopathy: (5) Morbid obesity with BMI of 45.0-49.9, adult: (6) Metabolic encephalopathy: (7) Cellulitis: (8) Anemia: (9) Biventricular ICD (implantable cardioverter-defibrillator) in place: (10) Chronic kidney disease, stage III (moderate): (11) Diabetes mellitus type 2, insulin dependent: (12) Paroxysmal ventricular tachycardia: (13) Obstructive sleep apnea: (14) Dyslipidemia: Supervising Physician Co-Signing Physician Notes Resident Physician Supervision Note: I interviewed and examined the patient. Discussed with Dr. Mirna Munroe and agree with findings and plan as documented in the note. Any exceptions or clarifications are listed here: none. Saw the patient post-permcath placement. He was quite sleepy but arousable. He knew he had just returned from getting his catheter. Patient was sleepy due to versed/fentanyl use for sedation for procedure. Nurse reported his mentation had improved since arriving back to tele unit. To receive 2 hour dialysis session today -- his first. Pt denied any pain/complaints during my visit. exam - gen - sleepy but awakens and follows commands mouth - MMM heart - RRR, s1 s2; unable to assess for JVD lungs - decreased BS bases, CTA anteriorly b/l abd - distended BS+ NT - no change ext - 2-3+ edema from feet to the thighs skin - dressings intact to LEs; not removed today; permcath right groin clean; no hematoma labs - ammonia 60s; BUN and Cr similar to prior A/P: 1. acute/chronic renal failure; acute component likely ATN in setting of CKD stage 3 - permcath placed today (in femoral vein -- unable to access central circulation in chest by report) - HD initiated due to volume overload and uremia 2. volume overload/anasarca/pulmonary edema - multifactorial - HD initiated today 3. hepatic encephalopathy - cont lactulose/rifaximin; improved overall clinically and lab-bourne. 4. cellulitis b/l shins - resolved; completed 10 days of IV/PO abx 5. b/l leg wounds - multiple - ongoing dressing changes, etc 6. morbid obesity BMI >40 #1, #2, #3 constitute life-threatening conditions Documented By: Michael Escalera MD Subjective Patient evaluated this evening after permacath placement and hemodialysis. Reports some chills and feverish sensation in addition to lightheadedness during dialysis but now improved. Reports breathing is all right. Denies any headache, chest pain, abdominal pain, nausea, vomiting, diarrhea, constipation, dysuria. Patient had 2 large bowel movements overnight after having lactulose enema. Review of Systems Review of Systems: As per HPI Physical Exam Physical Exam: General: In NAD Neuro: A&O x 3 (not to time), mild asterixis Pulm: Bibasilar crackles equal breath sounds bilaterally CV: RRR, no m/r/g Abdomen:+BS, no TTP in all quadrants, less distended compared to yesterday and obese LE: Right femoral cath dressing clean/dry/intact; Dressing to venous stasis ulcers C/D/I, 2+ LE edema, compression dressing applied ankle to shins Results & Data Vital Signs (Past 12 Hours) Vital Signs Temp Pulse Pulse Pulse Pulse Resp BP 08/31/19 20:05 36.7 C 60 20 08/31/19 17:12 36.4 C L 60 60 142/72 H 08/31/19 17:00 62 115/70 08/31/19 16:40 60 128/70 08/31/19 16:20 60 116/68 08/31/19 16:00 60 112/68 08/31/19 15:40 60 113/67 08/31/19 15:20 60 120/68 08/31/19 15:10 36.4 C L 58 L 58 L 126/73 08/31/19 14:04 36.3 C L 60 16 08/31/19 13:39 36.5 C 60 20 08/31/19 13:17 64 14 08/31/19 13:12 60 15 08/31/19 13:07 60 15 08/31/19 13:02 58 L 14 08/31/19 12:57 60 16 08/31/19 12:52 60 16 08/31/19 12:47 61 16 08/31/19 12:42 61 16 08/31/19 12:37 67 17 08/31/19 12:32 65 17 08/31/19 12:27 60 16 08/31/19 12:22 60 16 08/31/19 12:17 60 15 08/31/19 12:11 60 15 08/31/19 08:43 36.3 C L 68 68 18 BP Pulse Ox 08/31/19 20:05 126/53 L 100 08/31/19 17:12 142/72 H 08/31/19 17:00 08/31/19 16:40 08/31/19 16:20 08/31/19 16:00 08/31/19 15:40 08/31/19 15:20 08/31/19 15:10 08/31/19 14:04 129/73 08/31/19 13:39 104/63 100 08/31/19 13:17 119/87 95 08/31/19 13:12 142/68 H 100 08/31/19 13:07 142/68 H 96 08/31/19 13:02 144/70 H 93 08/31/19 12:57 126/71 94 08/31/19 12:52 112/68 93 08/31/19 12:47 142/80 H 95 08/31/19 12:42 154/70 H 97 08/31/19 12:37 152/78 H 100 08/31/19 12:32 146/82 H 100 08/31/19 12:27 152/73 H 100 08/31/19 12:22 145/70 H 100 08/31/19 12:17 167/74 H 100 08/31/19 12:11 161/72 H 100 08/31/19 08:43 138/60 99 Resident Activity Tracking Resident Involvement: Resident Care Provided Care Provided: Adult Hospital Medicine (1) Anemia Anemia type: unspecified type Qualified Code(s): D64.9 - Anemia, unspecified (2) Cellulitis Laterality: unspecified laterality Site of cellulitis: extremity Site of cellulitis of extremity: lower extremity Qualified Code(s): L03.119 - Cellulitis of unspecified part of limb (3) Cirrhosis Hepatic cirrhosis type: other cirrhosis Qualified Code(s): K74.69 - Other cirrhosis of liver
[2019-08-31] MEDS: INSULIN GLARGINE SOLOSTAR 100 UNITS/ML 3 ML PEN SC SCH (22:13)
--- NOTE | 2019-08-31 23:07 | Billing Data ---
Coding Level of Care Code 73655 Subseq Hosp Care Lvl 3
[2019-09-01 06:32] LABS: Hemoglobin 7.3 g/dL (14.0-18.0); Mean Corpuscular Hemoglobin 29.8 pg (25-34); Mean Corpuscular Hgb Conc 31.7 g/dL (32-36); Mean Corpuscular Volume 93.9 fL (80-100); Mean Platelet Volume 10.6 fL (7.4-10.4); Nucleated RBC # (auto) 0.03 K/uL (0-0); Nucleated RBC % (auto) 0.4 %; Platelet Count 126 K/uL (130-400); RDW Coefficient of Variation 18.4 % (11.5-14.5); RDW Standard Deviation 59.7 fL (36.4-46.3); Red Blood Count 2.45 M/uL (4.7-6.1); White Blood Count 8.23 K/uL (4.8-10.8)
[2019-09-01 06:59] LABS: BUN Creatinine Ratio 37.8 (10-20); Calcium 9.3 mg/dl (8.5-10.1); Creatinine Clr Calc Pharmacy 32.9 ml/min; Est GFR (African American) 22.9; Est GFR (Non-African American) 19.8; Potassium 4.5 mmol/L (3.5-5.1)
[2019-09-01] MEDS ORDERED: SODIUM CHLORIDE 0.9% 250 ML IV PRN (07:08)
[2019-09-01] MEDS: IRON SUCROSE 200 MG in 0.9 % SODIUM CHLORIDE 100 ML IV SCH (08:59)
[2019-09-01] MEDS: INSULIN ASPART 100 UNITS/ML 3 ML PEN SC SCH ×4 (08:59→20:48)
[2019-09-01] MEDS: VITAMIN B COMPLEX TAB PO SCH (09:00)
[2019-09-01] MEDS: ATORVASTATIN 40 MG TAB PO SCH (09:00)
[2019-09-01] MEDS: LORATADINE 10 MG TAB PO SCH (09:01)
[2019-09-01] MEDS: OMEGA-3 (PURIFIED FISH OIL) 1 GM CAP PO SCH (09:01)
[2019-09-01] MEDS: ASPIRIN 325 MG ECTAB PO SCH (09:01)
[2019-09-01] MEDS: RIFAXIMIN 550 MG TABLET PO SCH ×2 (09:01→20:46)
[2019-09-01] MEDS: FERROUS SULFATE 325 MG TAB PO SCH ×2 (09:02→17:39)
[2019-09-01] MEDS: NEPHROCAPS PO SCH (09:03)
[2019-09-01] MEDS: NEOMYCIN/POLYMYX/BACITR OINT 15 GM TUBE TOP SCH (09:03)
[2019-09-01] MEDS: LACTULOSE SYRUP 30 GM/45 ML UDP PO SCH ×2 (09:04→20:45)
[2019-09-01] MEDS: allopurinoL 100 MG TAB PO SCH ×2 (09:04→20:46)
[2019-09-01] MEDS: carvediloL 25 MG TAB PO SCH ×2 (09:05→20:46)
--- NOTE | 2019-09-01 09:21 | Nephrology Progress Note ---
Date of Service September 01, 2019 Assessment & Plan (1) ESRD (end stage renal disease): ESRD due to cardiorenal syndrome. Patient admitted w/ weakness and tense edema of LE and weeping bullae. R heart catheterization revealed severe pHTN. He has cardiac cirrhosis. Patient has developed progressive renal dysfunction in the setting of high dose loop diuretics. HD indicated for correction of volume status and azotemia -- Will schedule 2nd HD treatment today -- Discharge Planning consulted to set up outpatient HD at [facility] [address] (2) Anemia: -- Iron sat 12%, ferritin < 200 -- On IV Venofer -- Will provide BERE w/ HD (3) Hepatic encephalopathy: -- Abdominal US demonstrated cirrhotic liver. Likely has cardiac cirrhosis. On rifamixin (4) Chronic systolic congestive heart failure: R heart cath 08/27/19: RA: The right atrial pressure was 29 millimeters Hg RV: Right ventricular pressure was 78/22 millimeters of mercury PA: PA pressure was 70/29 millimeters of mercury PW: Pulmonary capillary wedge pressure was 28 millimeters of mercury (5) Venous stasis ulcers of both lower extremities: (6) Diabetes mellitus type 2, insulin dependent: Subjective Mr. Mendez was seen & examined in his hospital room this morning. R femoral THC placed yesterday. Vascular surgery notes that both IJ systems were occluded by US and not amenable to catheter insertion. 1st HD treatment completed yesterday without complication. 1 L UF obtained. Patient voices no new medical concerns. Review of Systems Constitutional: + weakness; no fever Eyes: no worsening vision and no problem reported Ear, Nose, Mouth, Throat: no problem reported Respiratory: no cough and no dyspnea Cardiovascular: + edema; no chest pain and no palpitations Gastrointestinal: no abdominal pain, no nausea, no vomiting and no diarrhea/loose stools Genitourinary: no dysuria, no urinary hesitancy and no hematuria Musculoskeletal: no back pain Integumentary: no rash Neurologic: no falls, no dizziness and no confusion Physical Exam Constitutional: + ill appearing; not in distress Eyes: PERRL, conjunctivae normal, anicteric sclerae ENMT: external ear and nose normal, oropharynx normal Neck: trachea midline, no thyromegaly Respiratory: normal respiratory effort, lungs clear to auscultation Cardiovascular: Rate/Rhythm: regular rate and regular rhythm Extremities: + edema (tense LE swelling w/ weeping bullae) Gastrointestinal (Abdomen): normal bowel sounds, soft, nontender, no hepatosplenomegaly Musculoskeletal: Extremities: no cyanosis Neurologic: awake; not confused Results & Data Vital Signs (Past 12 Hours) Vital Signs Temp Pulse Pulse Resp BP BP Pulse Ox 09/01/19 07:42 36.7 C 60 18 91/49 L 96 09/01/19 03:31 37.0 C 62 19 124/71 97 08/31/19 23:41 36.7 C 59 L 18 113/56 L 98 08/31/19 21:50 18 96 Laboratory Results Laboratory Tests 09/01/19 09/01/19 06:02 06:02 WBC 8.23 Hgb 7.3 L Hct 23.0 L Plt Count 126 L Sodium 137 Potassium 4.5 Chloride 101 Carbon Dioxide 30 BUN 113 H Creatinine 2.99 H Glucose 131 H PG Care Time/CCT Total # of Minutes Spent Total Time Spent with Patient: Total time spent is greater than 50% in coordination of care (as documented) at patient's floor/unit and/or counseling patient: (1) Anemia Anemia type: unspecified type Qualified Code(s): D64.9 - Anemia, unspecified
[2019-09-01] MEDS ORDERED: SODIUM CHLORIDE 0.9% 1000ML 1,000 ML IV PRN (09:24)
[2019-09-01] MEDS ORDERED: EPOETIN ALFA 10,000 UNITS/ML VIAL IV SCH (09:30)
[2019-09-01] MEDS: HEPARIN SOD 5,000 UNIT/0.5 ML VIAL SQ SCH (10:31)
--- NOTE | 2019-09-01 13:12 | Cardiology Progress Note ---
Date of Service September 01, 2019 Assessment & Plan (1) Biventricular ICD (implantable cardioverter-defibrillator) in place: Pacing appropriately. (2) Chronic systolic congestive heart failure: Systolic function appeared to be normal. However, he likely has an element of severe diastolic dysfunction perhaps related to longstanding hypertension. His pulmonary pressures and filling pressures were markedly elevated at the time of his right heart catheterization. Based on inability to diurese him with medical therapy has been initiated on hemodialysis. This should improve his volume status. (3) Ischemic cardiomyopathy: Systolic function is normalized. He still has significant diastolic dysfunction based on his recent evaluation. Medical therapy was not adequate he has currently been started on hemodialysis. Adequate blood pressure control would be paramount from our perspective. Subjective The patient did not report symptoms of dyspnea or pain. He did appear somewhat confused this morning and mentation was slow. Review of Systems Review of Systems: Unobtainable due to cognitive status Physical Exam Physical Exam: The patient is alert but disoriented at times.. Morbidly obese HEENT: Pupils are equal and reactive to light and accommodation. Extraocular movements are intact. The sclerae are anicteric. Neuro: Cranial nerves intact Lungs: Crackles at the bases bilaterally. No expiratory wheezing. Normal respiratory effort. Cardiac: Heart demonstrates a regular rate and rhythm. Normal S1 and S2. No murmurs on examination. Pulses: The patient has palpable radial pulses bilaterally that are equal in intensity Extremities: Palpable radial pulses bilaterally. Edematous lower extremities currently bandaged. Skin: I did not appreciate any rashes on examination today. Results & Data Vital Signs (Past 12 Hours) Vital Signs Temp Pulse Pulse Pulse Pulse Resp BP 09/01/19 12:20 65 133/61 09/01/19 12:00 90 131/59 L 09/01/19 11:40 63 125/62 09/01/19 11:20 60 122/53 L 09/01/19 11:00 60 124/53 L 09/01/19 10:40 60 119/55 L 09/01/19 10:20 60 123/63 09/01/19 10:05 36.6 C 60 09/01/19 07:42 36.7 C 60 18 09/01/19 03:31 37.0 C 62 19 BP BP Pulse Ox 09/01/19 12:20 09/01/19 12:00 09/01/19 11:40 09/01/19 11:20 09/01/19 11:00 09/01/19 10:40 09/01/19 10:20 09/01/19 10:05 09/01/19 07:42 91/49 L 96 09/01/19 03:31 124/71 97 Laboratory Results Abnormal Lab Results 08/31/19 08/31/19 08/31/19 06:17 14:11 14:15 WBC RBC Hgb Hct MCV MCH MCHC RDW Std Deviation RDW Coeff of Marino Plt Count MPV Absolute Nucleated RBC Nucleated RBC % (auto) Sodium Potassium Chloride Carbon Dioxide Anion Gap BUN Creatinine Est Cr Clr Drug Dosing Est GFR ( Amer) Est GFR (Non-Af Amer) BUN/Creatinine Ratio Glucose POC Glucose 114 H Calcium Ammonia Hep Bs Antigen Neg Hep Bs Antibody Non-Immune Hep Bs Antibody, Quant < 3.10 L Blood Type Blood Type Recheck O Negative Antibody Screen Crossmatch 08/31/19 08/31/19 09/01/19 16:36 20:51 06:02 WBC 8.23 RBC 2.45 L Hgb 7.3 L Hct 23.0 L MCV 93.9 MCH 29.8 MCHC 31.7 L RDW Std Deviation 59.7 H RDW Coeff of Marino 18.4 H Plt Count 126 L MPV 10.6 H Absolute Nucleated RBC 0.03 H Nucleated RBC % (auto) 0.4 Sodium Potassium Chloride Carbon Dioxide Anion Gap BUN Creatinine Est Cr Clr Drug Dosing Est GFR ( Amer) Est GFR (Non-Af Amer) BUN/Creatinine Ratio Glucose POC Glucose 126 H 152 H Calcium Ammonia Hep Bs Antigen Hep Bs Antibody Hep Bs Antibody, Quant Blood Type Blood Type Recheck Antibody Screen Crossmatch 09/01/19 09/01/19 09/01/19 06:02 06:02 07:44 WBC RBC Hgb Hct MCV MCH MCHC RDW Std Deviation RDW Coeff of Marino Plt Count MPV Absolute Nucleated RBC Nucleated RBC % (auto) Sodium 137 Potassium 4.5 Chloride 101 Carbon Dioxide 30 Anion Gap 6.0 BUN 113 H Creatinine 2.99 H Est Cr Clr Drug Dosing 32.9 Est GFR ( Amer) 22.9 Est GFR (Non-Af Amer) 19.8 BUN/Creatinine Ratio 37.8 H Glucose 131 H POC Glucose 135 H Calcium 9.3 Ammonia 59.3 H Hep Bs Antigen Hep Bs Antibody Hep Bs Antibody, Quant Blood Type Blood Type Recheck Antibody Screen Crossmatch 09/01/19 09/01/19 07:57 12:43 WBC RBC Hgb Hct MCV MCH MCHC RDW Std Deviation RDW Coeff of Marino Plt Count MPV Absolute Nucleated RBC Nucleated RBC % (auto) Sodium Potassium Chloride Carbon Dioxide Anion Gap BUN Creatinine Est Cr Clr Drug Dosing Est GFR ( Amer) Est GFR (Non-Af Amer) BUN/Creatinine Ratio Glucose POC Glucose 124 H Calcium Ammonia Hep Bs Antigen Hep Bs Antibody Hep Bs Antibody, Quant Blood Type O Negative Blood Type Recheck Antibody Screen NEGATIVE Crossmatch See Detail PG Care Time/CCT Total # of Minutes Spent Total Time Spent with Patient: Total time spent is greater than 50% in coordination of care (as documented) at patient's floor/unit and/or counseling patient:
[2019-09-01 14:57] LABS: Urine Total Protein 18.5 mg/dl
[2019-09-01 15:00] LABS: Urine Creatinine 55.8 mg/dl
[2019-09-01 15:44] LABS: Hematocrit (blood only) 22.9 % (42-52); Hemoglobin 7.4 g/dL (14.0-18.0)
[2019-09-01 15:51] LABS: Base Excess VBG 4.5 mEq/L; pH VBG 7.44 (7.36-7.41)
[2019-09-01 16:44] LABS: Creatinine Clearance Urine 17.7 ml/min (97-137); Total Protein 24 Hour Urine 383.9 mg/24 Hr (0-149.1)
--- NOTE | 2019-09-01 17:14 | Hospitalist Progress Note ---
Date of Service September 01, 2019 Assessment & Plan (1) Acute on chronic diastolic CHF (congestive heart failure): (2) ATN (acute tubular necrosis): Volume overload secondary to diastolic CHF and cardiac cirrhosis versus ESRD ...continue Coreg BID ...holding ANUPAMA due to poor renal function ... Failed diuresis with IV Bumex and metolazone which also made creatinine worse -now on HD Data: ... 2017 EF 40-45% ...DILLON (this admit) IMPROVED/normal EF. IVC was normal surprisingly ...RHC 12..19: PCWP=28 ESRD baseline creatinine 2.0 to 2.5, now 2.9 with BUN 113 -improving status post HD holding ANUPAMA renal u/s w/o obvious obstruction Patient has right femoral PermCath and receiving HD, day 2 Setting up outpatient dialysis Cirrhosis, likely d/t long-standing alcoholism versus cardiac cirrhosis versus Brown ...liver US c/w cirrhosis ... Ascites improving with hemodialysis GI outpatient follow up Encephalopathy: ...hepatic encephalopathy ...uremia w/ metabolic encephalopathy partially improving lethargic with poor cognitive fxn ... Ammonia improving ... Continue rifaximin and lactulose ...follow NH3 levels Weakness: suspect multifactorial etiology - JUDITH, anemia, infectious process, elevated ammonia, etc very deconditioned CT lumbar spine w/ spinal stenosis but leg strength is actually intact PT, OT treatments SNF on DC once ready for DC Cellulitis: b/l shins mostly improved all prior wound cultures have grown MSSA. 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 continue wound care (wound care consult appreciated) s/p augmentin x 3d s/p IV daptomycin x 7d Anemia: multifactorial ...iron deficiency anemia versus procedure related blood loss ...anemia of CKD started Fe supplementation po and IV fecal occult blood NEGATIVE epogen started on 12.7 Note: Patient is Denominational and cannot receive blood Venous stasis ulcers of both lower extremities: cont local wound care 6 ulcers in total (3 each leg -- 1 below knee, another is a large ulcer mid- whitaker, and 1 on dorsum of foot near great toe) Diabetes mellitus type 2, insulin dependent: reduced Lantus due to hypoglycemia cont novolog for meals Dyslipidemia: consider stopping statin in setting of cirrhosis will defer to cardiology Obstructive sleep apnea: cont CPAP at settings of 10 HS/naps Paroxysmal ventricular tachycardia: Continue carvedilol has pacer/ICD Morbid obesity with BMI of 45.0-49.9, adult: BMI now >50 but much of that is fluid weight. 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 Maker ...Rx protein shakes DVT prophylaxis: heparin 5000 BID (cautiously in light of Fe Def) Disposition: Pending dialysis outpatient set up and SNF placement (3) Cirrhosis: (4) Hepatic encephalopathy: (5) Morbid obesity with BMI of 45.0-49.9, adult: (6) Metabolic encephalopathy: (7) Cellulitis: (8) Anemia: (9) Biventricular ICD (implantable cardioverter-defibrillator) in place: (10) Chronic kidney disease, stage III (moderate): (11) Diabetes mellitus type 2, insulin dependent: (12) Paroxysmal ventricular tachycardia: (13) Obstructive sleep apnea: (14) Dyslipidemia: (15) ESRD (end stage renal disease): (16) Severe protein-calorie malnutrition: (17) Acute blood loss anemia: Supervising Physician Co-Signing Physician Notes Resident Physician Supervision Note: I interviewed and examined the patient with Dr. Mirna Munroe, PGY3, during bedside rounds. I agree with findings and plan as documented in the note. Any exceptions or clarifications are listed here: patient now labeled as ESRD. Also w/ acute blood loss anemia 2nd to bleeding/oozing from right femoral permcath site. Pressure dressings applied per instructions from vascular. HEPARIN SC for DVT proph placed on hold due to bleeding. Patient VERY SLEEPY / lethargic during the visit. Would awaken but quickly fall back asleep. Knew he was in hospital but couldn't answer other questions. exam - gen - sleepy / lethargic mouth - MMM heart - RRR, s1 s2; unable to assess for JVD lungs - decreased BS bases, CTA anteriorly b/l abd - distended BS+ NT no HSM ext - 2+ edema from feet to the thighs skin - dressings removed - tiny ulcerations just below both knees; large whitaker ulcers as noted by Dr Munroe - clean, no cellulitis; tiny ulcers on first toes, dorsal surface, b/l vasc - permcath in place right groin; large dressing in place musculo - right thigh much larger than left thigh labs - VBG w/o significant hypercarbia A/P: 1. acute/chronic renal failure; acute component likely ATN in setting of CKD stage 3 - now ESRD; s/p right femoral vein permcath, POD #1. Complicated by acute blood loss anemia/oozing from permcath site. Day #2 of HD sessions - tolerating such. 2. volume overload/anasarca/pulmonary edema - multifactorial - HD initiated yesterday; cont HD per nephrology 3. hepatic encephalopathy - cont lactulose/rifaximin; ammonia level had been down-trending 4. cellulitis b/l shins - resolved; completed 10 days of IV/PO abx 5. b/l leg wounds - multiple - ongoing dressing changes, etc; appreciate wound care consult 6. morbid obesity BMI >40 7. ongoing lethargy - metabolic encephalopathy - likely combination of uremia and #3 - supportive care if MS continues as such -- repeat head imaging #1, #2, #3 constitute ongoing life-threatening conditions Documented By: Michael Escalera MD Subjective This morning patient was sleeping when visited however was communicative after awakening and able to stay awake. However he appeared more sleepy this afternoon and mentation was slow. He reported some lightheadedness and dyspnea on exertion however no shortness of breath at rest. He denied any chest pain, abdominal pain, nausea, vomiting, diarrhea, constipation, dysuria. Per nursing his right PermCath site was oozing despite pressure dressing. Patient's hemoglobin dropped from 8.3-7.3 this morning post PermCath procedure. Patient is Denominational and no blood was provided. Review of Systems Review of Systems: As per HPI Physical Exam Physical Exam: General: In NAD Neuro: A&O x 3 (not to situation), mild asterixis Pulm: mild bibasilar crackles equal breath sounds bilaterally CV: RRR, no m/r/g Abdomen:+BS, no TTP in all quadrants, less distended compared to yesterday and obese LE: Right femoral cath dressing clean/dry/intact; has about 2cm well healing ulcer on each knee, about 10 by 10cm ulcer on both whitaker regions, about 1cm ulcers on bilateral toes healing well, 2+ LE edema Results & Data Vital Signs (Past 12 Hours) Vital Signs Temp Pulse Pulse Pulse Resp BP BP 09/01/19 15:50 37.1 C 60 18 127/58 L 09/01/19 13:16 36.6 C 63 09/01/19 13:00 75 131/47 L 09/01/19 12:40 66 114/55 L 09/01/19 12:20 65 133/61 09/01/19 12:00 90 131/59 L 09/01/19 11:40 63 125/62 09/01/19 11:20 60 122/53 L 09/01/19 11:00 60 124/53 L 09/01/19 10:40 60 119/55 L 09/01/19 10:20 60 123/63 09/01/19 10:05 36.6 C 60 09/01/19 07:42 36.7 C 60 18 BP Pulse Ox 09/01/19 15:50 96 09/01/19 13:16 129/61 09/01/19 13:00 09/01/19 12:40 09/01/19 12:20 09/01/19 12:00 09/01/19 11:40 09/01/19 11:20 09/01/19 11:00 09/01/19 10:40 09/01/19 10:20 09/01/19 10:05 09/01/19 07:42 91/49 L 96 Resident Activity Tracking Resident Involvement: Resident Care Provided Care Provided: Adult Hospital Medicine (1) Anemia Anemia type: unspecified type Qualified Code(s): D64.9 - Anemia, unspecified (2) Cellulitis Laterality: unspecified laterality Site of cellulitis: extremity Site of cellulitis of extremity: lower extremity Qualified Code(s): L03.119 - Cellulitis of unspecified part of limb (3) Cirrhosis Hepatic cirrhosis type: other cirrhosis Qualified Code(s): K74.69 - Other cirrhosis of liver
[2019-09-01] MEDS: INSULIN GLARGINE SOLOSTAR 100 UNITS/ML 3 ML PEN SC SCH (20:47)
[2019-09-02] MEDS ORDERED: HEPARIN SOD (PORCINE) 1000 UNIT/ML 10 ML VIAL IV ONE (07:00)
[2019-09-02] MEDS ORDERED: EPOETIN ALFA 10,000 UNITS/ML VIAL IV SCH (07:00)
[2019-09-02] MEDS ORDERED: SODIUM CHLORIDE 0.9% 1000ML 1,000 ML IV PRN (07:00)
[2019-09-02 08:09] LABS: Basophils # (auto) 0.01 K/uL (0-0.2); Basophils % (auto) 0.1 %; Eosinophils # (auto) 0.14 K/uL (0-0.5); Eosinophils % (auto) 1.2 %; Hematocrit (blood only) 23.5 % (42-52); Hemoglobin 7.4 g/dL (14.0-18.0); Immature Granulocytes % (auto) 0.9 %; Lymphocytes % (auto) 13.1 %; Mean Corpuscular Hemoglobin 30.3 pg (25-34); Mean Corpuscular Hgb Conc 31.5 g/dL (32-36); Mean Corpuscular Volume 96.3 fL (80-100); Mean Platelet Volume 11.1 fL (7.4-10.4); Monocytes # (auto) 0.89 K/uL (0.11-0.59); Monocytes % (auto) 7.8 %; Neutrophils % (auto) 76.9 %; Nucleated RBC # (auto) 0.15 K/uL (0-0); Nucleated RBC % (auto) 1.3 %; Platelet Count 130 K/uL (130-400); RDW Coefficient of Variation 19.4 % (11.5-14.5); RDW Standard Deviation 62.5 fL (36.4-46.3); Red Blood Count 2.44 M/uL (4.7-6.1); White Blood Count 11.44 K/uL (4.8-10.8)
[2019-09-02] MEDS: INSULIN ASPART 100 UNITS/ML 3 ML PEN SC SCH ×4 (08:09→20:26)
[2019-09-02] MEDS: LACTULOSE SYRUP 30 GM/45 ML UDP PO SCH ×2 (08:10→20:02)
[2019-09-02] MEDS: RIFAXIMIN 550 MG TABLET PO SCH ×2 (08:11→20:03)
[2019-09-02] MEDS: FERROUS SULFATE 325 MG TAB PO SCH ×2 (08:11→17:24)
[2019-09-02] MEDS: NEPHROCAPS PO SCH (08:11)
[2019-09-02] MEDS: OMEGA-3 (PURIFIED FISH OIL) 1 GM CAP PO SCH (08:11)
[2019-09-02] MEDS: ASPIRIN 325 MG ECTAB PO SCH (08:11)
[2019-09-02] MEDS: VITAMIN B COMPLEX TAB PO SCH (08:11)
[2019-09-02] MEDS: LORATADINE 10 MG TAB PO SCH (08:11)
[2019-09-02] MEDS: ATORVASTATIN 40 MG TAB PO SCH (08:12)
[2019-09-02] MEDS: allopurinoL 100 MG TAB PO SCH ×2 (08:12→20:02)
[2019-09-02] MEDS: NEOMYCIN/POLYMYX/BACITR OINT 15 GM TUBE TOP SCH (08:13)
--- NOTE | 2019-09-02 08:36 | Billing Data ---
Coding Level of Care Code 28329 Subseq Hosp Care Lvl 3
[2019-09-02 08:42] LABS: BUN Creatinine Ratio 27.8 (10-20); Calcium 9.6 mg/dl (8.5-10.1); Creatinine Clr Calc Pharmacy 37.3 ml/min; Est GFR (African American) 26.8; Est GFR (Non-African American) 23.1; Potassium 4.2 mmol/L (3.5-5.1)
[2019-09-02 08:45] LABS: Anisocytosis Present; Howell-Jolly Bodies 1+; Hypochromasia Present; Polychromasia 1+
[2019-09-02] MEDS: carvediloL 25 MG TAB PO SCH ×2 (09:05→20:02)
--- NOTE | 2019-09-02 09:42 | Nephrology Progress Note ---
Date of Service September 02, 2019 Assessment & Plan (1) ESRD (end stage renal disease): ESRD due to cardiorenal syndrome. Patient admitted w/ weakness and tense edema of LE and weeping bullae. R heart catheterization revealed severe pHTN. He has cardiac cirrhosis. Patient has developed progressive renal dysfunction in the setting of high dose loop diuretics. HD indicated for correction of volume status and azotemia -- Will schedule 3nd HD treatment today -- Discharge Planning consulted to set up outpatient HD at [facility]. Patient will likely require county transportation to treatments (2) Anemia: -- Iron sat 12%, ferritin < 200 -- On IV Venofer -- Will provide BERE w/ HD (3) Hepatic encephalopathy: -- Abdominal US demonstrated cirrhotic liver. Likely has cardiac cirrhosis. On rifamixin (4) Chronic systolic congestive heart failure: R heart cath 08/27/19: RA: The right atrial pressure was 29 millimeters Hg RV: Right ventricular pressure was 78/22 millimeters of mercury PA: PA pressure was 70/29 millimeters of mercury PW: Pulmonary capillary wedge pressure was 28 millimeters of mercury (5) Venous stasis ulcers of both lower extremities: (6) Diabetes mellitus type 2, insulin dependent: Subjective Mr. Mendez was seen & examined in the PCU this morning. He was alert and oriented x3. Mr. Mendez completed his second dialysis treatment yesterday for 2 L UF. There were no complications. He notes that his LE swelling is improved Review of Systems Constitutional: + weakness; no fever Eyes: no worsening vision and no problem reported Ear, Nose, Mouth, Throat: no problem reported Respiratory: no cough and no dyspnea Cardiovascular: + edema; no chest pain and no palpitations Gastrointestinal: no abdominal pain, no nausea, no vomiting and no diarrhea/loose stools Genitourinary: no dysuria, no urinary hesitancy and no hematuria Musculoskeletal: no back pain Integumentary: no rash Neurologic: no falls, no dizziness and no confusion Physical Exam Constitutional: + ill appearing; not in distress Eyes: PERRL, conjunctivae normal, anicteric sclerae ENMT: external ear and nose normal, oropharynx normal Neck: trachea midline, no thyromegaly Respiratory: normal respiratory effort, lungs clear to auscultation Cardiovascular: Rate/Rhythm: regular rate and regular rhythm Extremities: + edema (1+ pretibial pitting edema) Gastrointestinal (Abdomen): normal bowel sounds, soft, nontender, no hepatosplenomegaly Musculoskeletal: Extremities: no cyanosis Neurologic: awake; not confused Results & Data Vital Signs (Past 12 Hours) Vital Signs Temp Pulse Pulse Pulse Resp BP BP 09/02/19 07:25 36.9 C 59 L 18 113/66 09/02/19 05:30 36.9 C 36 L 20 99/53 L 09/02/19 03:29 62 16 09/01/19 23:53 36.8 C 63 19 97/57 L 09/01/19 22:10 60 16 Pulse Ox 09/02/19 07:25 100 09/02/19 05:30 97 09/02/19 03:29 96 09/01/19 23:53 96 09/01/19 22:10 97 Laboratory Results Laboratory Tests 09/02/19 09/02/19 07:51 07:51 WBC 11.44 H Hgb 7.4 L Hct 23.5 L Plt Count 130 Sodium 138 Potassium 4.2 Chloride 104 Carbon Dioxide 31 BUN 73 H Creatinine 2.63 H D Glucose 82 PG Care Time/CCT Total # of Minutes Spent Total Time Spent with Patient: Total time spent is greater than 50% in coordination of care (as documented) at patient's floor/unit and/or counseling patient: (1) Anemia Anemia type: unspecified type Qualified Code(s): D64.9 - Anemia, unspecified
--- NOTE | 2019-09-02 11:48 | Hospitalist Progress Note ---
Date of Service September 02, 2019 Assessment & Plan (1) Acute on chronic diastolic CHF (congestive heart failure): (2) ATN (acute tubular necrosis): Volume overload secondary to diastolic CHF and cardiac cirrhosis versus ESRD ...continue Coreg BID ...holding ANUPAMA due to poor renal function ...On HD day 3 - Failed diuresis with IV Bumex and metolazone Data: ... 2017 EF 40-45% ...DILLON (this admit) IMPROVED/normal EF. IVC was normal surprisingly ...RHC 08.27.19: PCWP=28 ESRD baseline creatinine 2.0 to 2.5, now 2.6 with BUN 73 -improving status post HD holding ANUPAMA renal u/s w/o obvious obstruction Patient has right femoral PermCath and receiving HD, day 3 Next HD session will be on 09/04/19 Setting up outpatient dialysis Cirrhosis, likely d/t long-standing alcoholism versus cardiac cirrhosis versus Brown ...liver US c/w cirrhosis ... Ascites improving with hemodialysis GI outpatient follow up Encephalopathy: improving ...hepatic encephalopathy ...uremia w/ metabolic encephalopathy Improving lethargy and cognitive function ... Ammonia, 61.3 today compared to 59.3 yesterday ... Continue rifaximin and lactulose, provide lactulose enema if no BM and ammonia continues to rise ...Started on miralax daily as well ...follow NH3 levels Cellulitis: b/l shins mostly improved all prior wound cultures have grown MSSA. 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 iron deficiency anemia vs. procedure related blood loss started Fe supplementation po and IV fecal occult blood NEGATIVE epogen started on 08.28 Note: Patient is Restorationist and cannot receive blood Venous stasis ulcers of both lower extremities: cont local wound care 6 ulcers in total (3 each leg -- 1 below knee, another is a large ulcer mid- whitaker, and 1 on dorsum of foot near great toe) Diabetes mellitus type 2, insulin dependent: reduced Lantus due to hypoglycemia cont novolog for meals Dyslipidemia: consider stopping statin in setting of cirrhosis will defer to cardiology Obstructive sleep apnea: cont CPAP at settings of 10 HS/naps Paroxysmal ventricular tachycardia: Continue carvedilol has pacer/ICD Morbid obesity with BMI of 45.0-49.9, adult: BMI now >50 but much of that is fluid weight. 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 ...Rx protein shakes DVT prophylaxis: heparin 5000 BID (cautiously in light of Fe Def) Disposition: Pending dialysis outpatient set up and SNF placement (3) Cirrhosis: (4) Hepatic encephalopathy: (5) Morbid obesity with BMI of 45.0-49.9, adult: (6) Metabolic encephalopathy: (7) Cellulitis: (8) Anemia: (9) Biventricular ICD (implantable cardioverter-defibrillator) in place: (10) Chronic kidney disease, stage III (moderate): (11) Diabetes mellitus type 2, insulin dependent: (12) Paroxysmal ventricular tachycardia: (13) Obstructive sleep apnea: (14) Dyslipidemia: Supervising Physician Co-Signing Physician Notes Resident Physician Supervision Note: I interviewed and examined the patient with Dr. Mirna Munroe, PGY3, during bedside rounds. I agree with findings and plan as documented in the note. Any exceptions or clarifications are listed here: none. Pt's present at bedside during our bedside rounds. Pt sleepy but not as much as yesterday. Could not tell me day of week but knew the month, year, and where he was. c/o weakness. tele - pacing. exam - gen - more awake/alert today mouth - MMM heart - RRR, s1 s2 lungs - decreased BS bases, CTA anteriorly b/l abd - distended BS+ NT no HSM - no changes ext - edema improved b/l LEs skin - dressings intact to right groin and b/l shins musculo - right thigh is smaller today relative to yesterday's exam neuro - asterixis present A/P: 1. acute/chronic renal failure; acute component likely ATN in setting of CKD stage 3 - now ESRD; s/p right femoral vein permcath, POD #2. Complicated by acute blood loss anemia/oozing from permcath site. Day #3 of HD sessions - tolerating such. Next HD session - 09/04 (Friday). 2. volume overload/anasarca/pulmonary edema - multifactorial - HD initiated this week; volume status improved; cont HD per nephrology 3. hepatic encephalopathy - cont lactulose/rifaximin; ammonia level had been down-trending but still confused and with asterixis. add miralax in addition to lactulose to promote 2-3 BMs/day 4. cellulitis b/l shins - resolved; completed 10 days of IV/PO abx 5. b/l leg wounds - multiple - ongoing dressing changes, etc; appreciate wound care consult 6. morbid obesity BMI 46 7. metabolic encephalopathy - combination of uremia and #3 - supportive care 8. severe deconditioning - still will need rehab post-d/c 9. DVT proph - if H/H remain stable overnight resume heparin SC for DVT proph 10. mild acute blood loss anemia - 2nd to bleeding in setting of permcath placement - no PRBCs due to religion reasons (Jehova's witness); CBC am updated Documented By: Michael Escalera MD Subjective This morning patient reported feeling better. He has not been out of bed to see if he is more short of breath with movement however at rest on 2 L via nasal cannula he did not feel short of breath. He reported improvement in his lower extremity edema. Denied any chest pain, abdominal pain, nausea, vomiting, diarrhea, dysuria. Per nursing he has not had a bowel movement in 2 days now. Review of Systems Review of Systems: As per HPI Physical Exam Physical Exam: General: In NAD, more alert and responsive today however cognition still impaired Neuro: A&O x 3 (not to time remembers dec but cannot say year), mild asterixis Pulm: CTAB, equal breath sounds bilaterally CV: RRR, no m/r/g Abdomen:+BS, no TTP in all quadrants, soft, somewhat distended LE: Right femoral cath dressing clean/dry/intact; dressings C/D/I over lower extremity ulcers Results & Data Vital Signs (Past 12 Hours) Vital Signs Temp Pulse Pulse Pulse Resp BP BP 09/02/19 11:20 60 108/52 L 09/02/19 11:00 60 107/45 L 09/02/19 10:40 60 107/51 L 09/02/19 10:28 37.1 C 61 09/02/19 07:25 36.9 C 59 L 18 09/02/19 05:30 36.9 C 36 L 20 99/53 L 09/02/19 03:29 62 16 09/01/19 23:53 36.8 C 63 19 97/57 L BP Pulse Ox 09/02/19 11:20 09/02/19 11:00 09/02/19 10:40 09/02/19 10:28 09/02/19 07:25 113/66 100 09/02/19 05:30 97 09/02/19 03:29 96 09/01/19 23:53 96 Resident Activity Tracking Resident Involvement: Resident Care Provided Care Provided: Adult Hospital Medicine (1) Anemia Anemia type: unspecified type Qualified Code(s): D64.9 - Anemia, unspecified (2) Cellulitis Laterality: unspecified laterality Site of cellulitis: extremity Site of cellulitis of extremity: lower extremity Qualified Code(s): L03.119 - Ce llulitis of unspecified part of limb (3) Cirrhosis Hepatic cirrhosis type: other cirrhosis Qualified Code(s): K74.69 - Other cirrhosis of liver
[2019-09-02] MEDS: POLYETHYLENE (MIRALAX) 17 GM PACK PO SCH (20:01)
[2019-09-02] MEDS: INSULIN GLARGINE SOLOSTAR 100 UNITS/ML 3 ML PEN SC SCH (20:25)
--- NOTE | 2019-09-03 05:07 | Billing Data ---
Date of Service September 02, 2019 Coding Level of Care Code 54697 Subseq Hosp Care Lvl 3
[2019-09-03 06:09] LABS: Basophils # (auto) 0.01 K/uL (0-0.2); Basophils % (auto) 0.1 %; Eosinophils % (auto) 1.5 %; Hematocrit (blood only) 22.7 % (42-52); Hemoglobin 7.1 g/dL (14.0-18.0); Immature Granulocytes # (auto) 0.29 K/uL (0.00-0.02); Immature Granulocytes % (auto) 2.2 %; Lymphocytes # (auto) 1.85 K/uL (1.2-3.4); Lymphocytes % (auto) 13.8 %; Mean Corpuscular Hemoglobin 30.7 pg (25-34); Mean Corpuscular Hgb Conc 31.3 g/dL (32-36); Mean Corpuscular Volume 98.3 fL (80-100); Mean Platelet Volume 10.3 fL (7.4-10.4); Monocytes % (auto) 6.7 %; Neutrophils # (auto) 10.16 K/uL (1.4-6.5); Neutrophils % (auto) 75.7 %; Nucleated RBC # (auto) 0.21 K/uL (0-0); Nucleated RBC % (auto) 1.6 %; Platelet Count 119 K/uL (130-400); RDW Coefficient of Variation 19.6 % (11.5-14.5); RDW Standard Deviation 66.6 fL (36.4-46.3); Red Blood Count 2.31 M/uL (4.7-6.1); White Blood Count 13.41 K/uL (4.8-10.8)
[2019-09-03 06:34] LABS: BUN Creatinine Ratio 21.5 (10-20); Calcium 9.1 mg/dl (8.5-10.1); Creatinine Clr Calc Pharmacy 38.3 ml/min; Est GFR (African American) 27.1; Est GFR (Non-African American) 23.4; Potassium 4.4 mmol/L (3.5-5.1)
[2019-09-03 06:43] LABS: Pappenheimer Bodies 2+; Polychromasia 1+; Schistocytes Occasional; Tear Drop Cells 1+
[2019-09-03 07:04] LABS: Appearance Urine Turbid (Clear); Blood Urine 3+ (Negative); Glucose Urine UA Negative (Negative); Ketones Urine Negative (Negative); Leukocyte Esterase Urine 2+ (Negative); Nitrite Urine Positive (Negative); Protein Urine 1+ (Negative); Specific Gravity Urine 1.018 (1.000-1.030); Urobilinogen Urine Negative (Negative); WBC Urine Automated >30 /hpf (0-5)
[2019-09-03 07:16] LABS: Bilirubin Urine Negative (Negative); Color Urine Amber; Ictotest Urine Negative (Negative)
--- NOTE | 2019-09-03 07:51 | XRay Report ---
XR chest 1V portable CLINICAL HISTORY: Pneumonia. Abnormal chest x-ray. COMPARISON STUDY: 08/19/2019 FINDINGS: The heart remains enlarged. There is a left subclavian pacer/defibrillator present. There i s a subpulmonic right pleural effusion. There are right mid to lower lung zone airspace opacities, pn eumonia versus asymmetric edema.[ IMPRESSION: 1. Cardiomegaly and subpulmonic right pleural effusion 2. Right mid to lower lung zone airspace opacities, pneumonia versus asymmetric edema. Electronically signed by: Merrill Valera M.D. 09/03/2019 7:50 AM
[2019-09-03 08:01] LABS: Bacteria Urine Automated 1+ (Negative); RBC Urine Automated >30 /hpf (0-4)
[2019-09-03] MEDS: RIFAXIMIN 550 MG TABLET PO SCH ×2 (10:17→21:01)
[2019-09-03] MEDS: carvediloL 25 MG TAB PO SCH ×2 (10:17→21:01)
[2019-09-03] MEDS: allopurinoL 100 MG TAB PO SCH ×2 (10:17→21:02)
[2019-09-03] MEDS: NEPHROCAPS PO SCH (10:17)
[2019-09-03] MEDS: ATORVASTATIN 40 MG TAB PO SCH (10:17)
[2019-09-03] MEDS: FERROUS SULFATE 325 MG TAB PO SCH ×2 (10:18→17:32)
[2019-09-03] MEDS: LORATADINE 10 MG TAB PO SCH (10:18)
[2019-09-03] MEDS: VITAMIN B COMPLEX TAB PO SCH (10:18)
[2019-09-03] MEDS: OMEGA-3 (PURIFIED FISH OIL) 1 GM CAP PO SCH (10:18)
[2019-09-03] MEDS: ASPIRIN 325 MG ECTAB PO SCH (10:18)
[2019-09-03] MEDS: NEOMYCIN/POLYMYX/BACITR OINT 15 GM TUBE TOP SCH (10:19)
[2019-09-03] MEDS: POLYETHYLENE (MIRALAX) 17 GM PACK PO SCH (10:19)
[2019-09-03] MEDS: LACTULOSE SYRUP 30 GM/45 ML UDP PO SCH ×2 (10:20→21:00)
--- NOTE | 2019-09-03 10:22 | Nephrology Progress Note ---
Date of Service September 03, 2019 Assessment & Plan (1) ESRD (end stage renal disease): ESRD due to cardiorenal syndrome. Patient admitted w/ weakness and tense edema of LE and weeping bullae. R heart catheterization revealed severe pHTN. He has cardiac cirrhosis. Patient has developed progressive renal dysfunction in the setting of high dose loop diuretics. HD indicated for correction of volume status and azotemia -- Will schedule next HD for tomorrow -- Discharge Planning consulted to set up outpatient HD at [facility]. Patient will likely require county transportation to [facility] (2) Anemia: -- IV iron infusion completed. Now on oral iron -- Will provide BERE w/ HD -- Recheck iron stores w/ next lab draw (3) Hepatic encephalopathy: -- Abdominal US demonstrated cirrhotic liver. Likely has cardiac cirrhosis. On rifamixin (4) Chronic systolic congestive heart failure: R heart cath 08/27/19: RA: The right atrial pressure was 29 millimeters Hg RV: Right ventricular pressure was 78/22 millimeters of mercury PA: PA pressure was 70/29 millimeters of mercury PW: Pulmonary capillary wedge pressure was 28 millimeters of mercury (5) Weakness: -- PT for strengthening today (6) Venous stasis ulcers of both lower extremities: (7) Diabetes mellitus type 2, insulin dependent: Subjective Mr. nicole was seen & examined in his hospital room this morning. He was dialyzed yesterday for 3 L UF. There were no complications. This morning he c/o weakness but hopes to participate in PT today Review of Systems Constitutional: + weakness; no fever Eyes: no worsening vision and no problem reported Ear, Nose, Mouth, Throat: no problem reported Respiratory: no cough and no dyspnea Cardiovascular: + edema; no chest pain and no palpitations Gastrointestinal: no abdominal pain, no nausea, no vomiting and no diarrhea/loose stools Genitourinary: no dysuria, no urinary hesitancy and no hematuria Musculoskeletal: no back pain Integumentary: no rash Neurologic: no falls, no dizziness and no confusion Physical Exam Constitutional: + ill appearing; not in distress Eyes: PERRL, conjunctivae normal, anicteric sclerae ENMT: external ear and nose normal, oropharynx normal Neck: trachea midline, no thyromegaly Respiratory: normal respiratory effort, lungs clear to auscultation Cardiovascular: Rate/Rhythm: regular rate and regular rhythm Extremities: + edema (1+ pretibial pitting edema) Gastrointestinal (Abdomen): normal bowel sounds, soft, nontender, no he patosplenomegaly Musculoskeletal: Extremities: no cyanosis Neurologic: awake; not confused Results & Data Vital Signs (Past 12 Hours) Vital Signs Temp Pulse Pulse Pulse Resp BP Pulse Ox 09/03/19 07:50 37.1 C 60 19 126/85 97 09/03/19 03:47 37.4 C 72 60 16 115/55 L 94 09/03/19 00:00 60 09/02/19 23:46 37.7 C H 59 L 20 93/55 L 99 Laboratory Results Laboratory Tests 09/03/19 09/03/19 05:58 05:58 WBC 13.41 H Hgb 7.1 L Hct 22.7 L Plt Count 119 L Sodium 134 L Potassium 4.4 Chloride 102 Carbon Dioxide 27 BUN 56 H Creatinine 2.60 H Glucose 113 H PG Care Time/CCT Total # of Minutes Spent Total Time Spent with Patient: Total time spent is greater than 50% in coordination of care (as documented) at patient's floor/unit and/or counseling patient: (1) Anemia Anemia type: unspecified type Qualified Code(s): D64.9 - Anemia, unspecified
[2019-09-03] MEDS: INSULIN ASPART 100 UNITS/ML 3 ML PEN SC SCH ×4 (10:29→21:02)
--- NOTE | 2019-09-03 15:58 | Hospitalist Progress Note ---
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 2017 EF 40-45% ...DILLON (this admit) IMPROVED/normal EF. IVC was normal surprisingly ...RHC 08.27.19: PCWP=28 ESRD baseline creatinine 2.0 to 2.5, now 2.6 with BUN 56 -improving status post HD holding ANUPAMA renal u/s w/o obvious obstruction Patient has right femoral PermCath and receiving HD Next HD session will be on 09/04/19, day 4 Outpatient dialysis set up for //Sat at [facility] Cirrhosis, likely d/t long-standing alcoholism versus cardiac cirrhosis versus Brown ...liver US c/w cirrhosis ... Ascites improving with hemodialysis GI outpatient follow up Encephalopathy: improving ...hepatic encephalopathy ...uremia w/ metabolic encephalopathy Improving lethargy and cognitive function ... Ammonia, 56 (improving) ... Continue rifaximin and lactulose, provide lactulose enema if no BM and ammonia continues to rise ...Started on miralax daily as well ...follow NH3 levels Leukocytosis Increasing WBC 11.4 -> 13.4 Temp 37.7 at 23:46 on 09/02/19, enviromental? Likely reactive in the setting of procedure/permCath placement vs. concern for acute infection UA - positive (sesay sample) - repeat ordered BCx2 pending CXR improved pulmonary congestion, no concern for consolidation/PNA Continue to monitor Cellulitis: b/l shins mostly improved all prior wound cultures have grown MSSA. 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 iron deficiency anemia vs. procedure related blood loss started Fe supplementation po and IV fecal occult blood NEGATIVE epogen started on 12.7 Note: Patient is Christian and cannot receive blood Venous stasis ulcers of both lower extremities: cont local wound care 6 ulcers in total (3 each leg -- 1 below knee, another is a large ulcer mid- whitaker, and 1 on dorsum of foot near great toe) Diabetes mellitus type 2, insulin dependent: reduced Lantus due to hypoglycemia cont novolog for meals Dyslipidemia: consider stopping statin in setting of cirrhosis will defer to cardiology Obstructive sleep apnea: cont CPAP at settings of 10 HS/naps Paroxysmal ventricular tachycardia: Continue carvedilol has pacer/ICD Morbid obesity with BMI of 45.0-49.9, adult: BMI now >50 but much of that is fluid weight. will need to re-evaluate once we get him to dry weigh would benefit from detention weight loss measures Weakness: suspect multifactorial etiology - JUDITH, anemia, infectious process, elevated ammonia, etc very deconditioned CT lumbar spine w/ spinal stenosis but leg strength is actually intact PT, OT treatments SNF on DC once ready for DC Severe protein-calorie malnutrition: pt had very poor energy caloric intake he has had acute weight/fat loss (if you exclude his fluid weight) this is roughly based on ASPEN criteria hypoalbuminemia ...will consult Radioactivity Technician ...Rx protein shakes DVT prophylaxis: heparin 5000 BID Disposition: [employer] insurance auth pending (3) Cirrhosis: (4) Hepatic encephalopathy: (5) Morbid obesity with BMI of 45.0-49.9, adult: (6) Metabolic encephalopathy: (7) Cellulitis: (8) Anemia: (9) Biventricular ICD (implantable cardioverter-defibrillator) in place: (10) Chronic kidney disease, stage III (moderate): (11) Diabetes mellitus type 2, insulin dependent: (12) Paroxysmal ventricular tachycardia: (13) Obstructive sleep apnea: (14) Dyslipidemia: Supervising Physician Co-Signing Physician Notes Resident Physician Supervision Note: I interviewed and examined the patient with Dr. Mirna Munroe, PGY3, during bedside rounds. I agree with findings and plan as documented in the note. Any exceptions or clarifications are listed here: none. Pt much more awake/alert today than previous visits. He denied any complaints. Tele - pacing. exam - gen - more awake/alert today, did not fall asleep at all during the visit (previous visits he did such) mouth - MMM heart - RRR, s1 s2, 2/6 systolic murmur LLSB lungs - decreased BS bases, CTA anteriorly b/l, airation much improved abd - distended but improved; BS+ NT no HSM ext - edema improved b/l LEs skin - right femoral permcath clean; dressings intact to all wounds on legs b/l neuro - asterixis present but less prominent today A/P: 1. acute/chronic renal failure; acute component likely ATN in setting of CKD stage 3 - now with development of ESRD; s/p right femoral vein permcath, POD #3. Complicated by acute blood loss anemia/oozing from permcath site. H/H have plateaued. s/p 3 serial HD sessions with improved volume status, improved mentation. Next HD session - 09/04 (Friday). Outpatient plan - //Fri schedule at [facility]. 2. volume overload/anasarca/pulmonary edema - multifactorial - HD initiated this week; volume status improved; cont HD per nephrology 3. hepatic encephalopathy - IMPROVED. cont lactulose/rifaximin; cont miralax in addition to lactulose to promote 2-3 BMs/day; has tendencies towards constipation. 4. cellulitis b/l shins - resolved; completed 10 days of IV/PO abx 5. b/l leg wounds - multiple - ongoing dressing changes, etc; appreciate wound care consult 6. morbid obesity BMI 45 7. metabolic encephalopathy - combination of uremia and #3 - IMPROVING 8. severe deconditioning - needs rehab post-d/c 9. DVT proph - resume heparin SC for DVT proph; high risk of DVT due to immobility and length of his hospitalization 10. mild acute blood loss anemia - 2nd to bleeding in setting of permcath placement - no PRBCs due to presybeterian reasons (Jehova's witness); CBC acceptable for now; IV iron per nephrology updated 09/02 at bedside Documented By: Michael Escalera MD Subjective This AM pt appeared more alert and responsive. He was dialyzed yesterday for 3 L UF. He reports improvement in his breathing and is on RA. He denies having a cough. Per nursing pt has not had a BM yet x [address] - nursing advised to dc sesay. Of note: pt had temp of 37.7 ON unsure if environmental (room temp was 85 at the time per nursing) Review of Systems Review of Systems: Denies any headache, dizziness, cp, sob, abdominal pain, nausea, vomiting, diarrhea. Physical Exam Physical Exam: General: In NAD, more alert and responsive today however cognition still impaired Psych: A&O x 3 (not to time remembers dec but cannot say year) Neuro: mild improving asterixis Pulm: CTAB, equal breath sounds bilaterally CV: RRR, holosystolic murmur along L sternal border (TR) Abdomen:+BS, no TTP in all quadrants, soft, less distended Skin: Right femoral cath dressing clean/dry/intact; dressings C/D/I over lower extremity ulcers LE: 1+ bilateral LE edema Results & Data Vital Signs (Past 12 Hours) Vital Signs Temp Pulse Pulse Resp BP Pulse Ox 09/03/19 15:41 36.5 C 60 20 116/66 97 09/03/19 11:59 37.1 C 60 19 137/65 99 09/03/19 07:50 37.1 C 60 19 126/85 97 Resident Activity Tracking Resident Involvement: Resident Care Provided Care Provided: Adult Hospital Medicine (1) Anemia Anemia type: unspecified type Qualified Code(s): D64.9 - Anemia, unspecified (2) Cellulitis Laterality: unspecified laterality Site of cellulitis: extremity Site of cellulitis of extremity: lower extremity Qualified Code(s): L03.119 - Cellulitis of unspecified part of limb (3) Cirrhosis Hepatic cirrhosis type: other cirrhosis Qualified Code(s): K74.69 - Other cirrhosis of liver
--- NOTE | 2019-09-03 16:42 | Cardiology Progress Note ---
Date of Service September 03, 2019 Assessment & Plan (1) Biventricular ICD (implantable cardioverter-defibrillator) in place: Pacing appropriately. (2) Chronic systolic congestive heart failure: Primarily diastolic heart failure and associated pulmonary hypertension. Appears to be tolerating dialysis. Over this will reverse his volume overload. Unfortunately, his dialysis accesses in the right groin. This prohibits ambulation. (3) Ischemic cardiomyopathy: Systolic function is normalized. He still has significant diastolic dysfunction based on his recent evaluation. He will continue on his beta- cynthia, high-dose atorvastatin and aspirin. Blood pressure appears to be adequately controlled I will be away from the hospital for the next 2 days. Please address any cardiac concerns to the mechanical applications engineer plater printed circuit board panels. The patient is discharged before then please have follow-up with his primary plater printed circuit board panels Dr. Varela Subjective This more the patient complained primarily of a headache. He denies significant breathing difficulty. He appeared to have good appetite but was not aware that his breakfast was in front of him. He denies any other pain. He denies any breathing difficulty. Review of Systems Review of Systems: Unobtainable due to cognitive status Physical Exam Physical Exam: The patient is alert but disoriented at times.. Morbidly obese. Wearing CPAP mask HEENT: Pupils are equal and reactive to light and accommodation. Extraocular movements are intact. The sclerae are anicteric. Neuro: Cranial nerves intact Lungs: Crackles at the bases bilaterally. No expiratory wheezing. Normal respiratory effort. Cardiac: Heart demonstrates a regular rate and rhythm. Normal S1 and S2. No murmurs on examination. Pulses: The patient has palpable radial pulses bilaterally that are equal in intensity Extremities: Palpable radial pulses bilaterally. Edematous lower extremities currently bandaged. Skin: I did not appreciate any rashes on examination today. Results & Data Vital Signs (Past 12 Hours) Vital Signs Temp Pulse Pulse Resp BP Pulse Ox 09/03/19 15:41 36.5 C 60 20 116/66 97 09/03/19 11:59 37.1 C 60 19 137/65 99 09/03/19 07:50 37.1 C 60 19 126/85 97 Laboratory Results Abnormal Lab Results 09/02/19 09/03/19 09/03/19 20:12 05:58 05:58 WBC 13.41 H RBC 2.31 L Hgb 7.1 L Hct 22.7 L MCV 98.3 MCH 30.7 MCHC 31.3 L RDW Std Deviation 66.6 H RDW Coeff of Marino 19.6 H Plt Count 119 L MPV 10.3 Immature Gran % (Auto) 2.2 Neut % (Auto) 75.7 Lymph % (Auto) 13.8 [place] % (Auto) 6.7 Eos % (Auto) 1.5 Baso % (Auto) 0.1 Immature Gran # (Auto) 0.29 H Neut # (Auto) 10.16 H Lymph # (Auto) 1.85 [place] # (Auto) 0.90 H Eos # (Auto) 0.20 Baso # (Auto) 0.01 Absolute Nucleated RBC 0.21 H Nucleated RBC % (auto) 1.6 Polychromasia 1+ Pappenheimer Bodies 2+ Tear Drop Cells 1+ Schistocytes Occasional Sodium Potassium Chloride Carbon Dioxide Anion Gap BUN Creatinine Est Cr Clr Drug Dosing Est GFR ( Amer) Est GFR (Non-Af Amer) BUN/Creatinine Ratio Glucose POC Glucose 181 H Calcium Ammonia 56.0 H Urine Color Urine Appearance Urine pH Ur Specific [place] Urine Protein Urine Glucose (UA) Urine Ketones Urine Blood Urine Nitrite Urine Bilirubin Urine Urobilinogen Ur Leukocyte Esterase Urine WBC (Auto) Urine RBC (Auto) U Hyaline Cast (Auto) U Epithel Cells (Auto) Urine Bacteria (Auto) Urine Crystals Urine Yeast 09/03/19 09/03/19 09/03/19 05:58 06:32 07:14 WBC RBC Hgb Hct MCV MCH MCHC RDW Std Deviation RDW Coeff of Mar[place] Plt Count MPV Immature Gran % (Auto) Neut % (Auto) Lymph % (Auto) [place] % (Auto) Eos % (Auto) Baso % (Auto) Immature Gran # (Auto) Neut # (Auto) Lymph # (Auto) [place] # (Auto) Eos # (Auto) Baso # (Auto) Absolute Nucleated RBC Nucleated RBC % (auto) Polychromasia Pappenheimer Bodies Tear Drop Cells Schistocytes Sodium 134 L Potassium 4.4 Chloride 102 Carbon Dioxide 27 Anion Gap 5.0 BUN 56 H Creatinine 2.60 H Est Cr Clr Drug Dosing 38.3 Est GFR ( Amer) 27.1 Est GFR (Non-Af Amer) 23.4 BUN/Creatinine Ratio 21.5 H Glucose 113 H POC Glucose 120 H Calcium 9.1 Ammonia Urine Color Mikayla Urine Appearance Turbid A Urine pH 5.0 Ur Specific [place] 1.018 Urine Protein 1+ H Urine Glucose (UA) Negative Urine Ketones Negative Urine Blood 3+ H Urine Nitrite Positive A Urine Bilirubin Negative Urine Urobilinogen Negative Ur Leukocyte Esterase 2+ H Urine WBC (Auto) >30 H Urine RBC (Auto) >30 H U Hyaline Cast (Auto) 1-5 U Epithel Cells (Auto) 5-10 H Urine Bacteria (Auto) 1+ H Urine Crystals Not Reportable Urine Yeast Budding A 09/03/19 09/03/19 11:21 16:16 WBC RBC Hgb Hct MCV MCH MCHC RDW Std Deviation RDW Coeff of Marino Plt Count MPV Immature Gran % (Auto) Neut % (Auto) Lymph % (Auto) [place] % (Auto) Eos % (Auto) Baso % (Auto) Immature Gran # (Auto) Neut # (Auto) Lymph # (Auto) [place] # (Auto) Eos # (Auto) Baso # (Auto) Absolute Nucleated RBC Nucleated RBC % (auto) Polychromasia Pappenheimer Bodies Tear Drop Cells Schistocytes Sodium Potassium Chloride Carbon Dioxide Anion Gap BUN Creatinine Est Cr Clr Drug Dosing Est GFR ( Amer) Est GFR (Non-Af Amer) BUN/Creatinine Ratio Glucose POC Glucose 167 H 174 H Calcium Ammonia Urine Color Urine Appearance Urine pH Ur Specific [place] Urine Protein Urine Glucose (UA) Urine Ketones Urine Blood Urine Nitrite Urine Bilirubin Urine Urobilinogen Ur Leukocyte Esterase Urine WBC (Auto) Urine RBC (Auto) U Hyaline Cast (Auto) U Epithel Cells (Auto) Urine Bacteria (Auto) Urine Crystals Urine Yeast PG Care Time/CCT Total # of Minutes Spent Total Time Spent with Patient: Total time spent is greater than 50% in coordination of care (as documented) at patient's floor/unit and/or counseling patient:
--- NOTE | 2019-09-03 17:50 | Billing Data ---
Date of Service September 03, 2019 Coding Level of Care Code 27022 Subseq Hosp Care Lvl 2
[2019-09-03] MEDS: INSULIN GLARGINE SOLOSTAR 100 UNITS/ML 3 ML PEN SC SCH (21:03)
[2019-09-03] MEDS ORDERED: GLUCAGON FOR INJ 1 MG VIAL SQ PRN (21:42)
[2019-09-04 06:26] LABS: Hematocrit (blood only) 22.4 % (42-52); Hemoglobin 6.8 g/dL (14.0-18.0); Mean Corpuscular Hemoglobin 30.6 pg (25-34); Mean Corpuscular Hgb Conc 30.4 g/dL (32-36); Mean Corpuscular Volume 100.9 fL (80-100); Mean Platelet Volume 11.2 fL (7.4-10.4); Nucleated RBC # (auto) 0.32 K/uL (0-0); Nucleated RBC % (auto) 2.6 %; Platelet Count 130 K/uL (130-400); RDW Coefficient of Variation 20.6 % (11.5-14.5); RDW Standard Deviation 67.9 fL (36.4-46.3); Red Blood Count 2.22 M/uL (4.7-6.1); White Blood Count 11.95 K/uL (4.8-10.8)
[2019-09-04 06:42] LABS: Anisocytosis Present; Basophils # (auto) 0.01 K/uL (0-0.2); Basophils % (auto) 0.1 %; Eosinophils # (auto) 0.15 K/uL (0-0.5); Eosinophils % (auto) 1.3 %; Howell-Jolly Bodies 1+; Immature Granulocytes # (auto) 0.25 K/uL (0.00-0.02); Immature Granulocytes % (auto) 2.1 %; Lymphocytes # (auto) 1.26 K/uL (1.2-3.4); Lymphocytes % (auto) 10.5 %; Monocytes % (auto) 8.4 %; Neutrophils # (auto) 9.28 K/uL (1.4-6.5); Neutrophils % (auto) 77.6 %; Pappenheimer Bodies 1+; Polychromasia 1+; Target Cells 1+
[2019-09-04] MEDS ORDERED: SODIUM CHLORIDE 0.9% 1000ML 1,000 ML IV PRN (07:00)
[2019-09-04] MEDS ORDERED: EPOETIN ALFA 10,000 UNITS/ML VIAL IV SCH (07:00)
[2019-09-04 07:05] LABS: BUN Creatinine Ratio 20.7 (10-20); Calcium 8.8 mg/dl (8.5-10.1); Creatinine Clr Calc Pharmacy 30.3 ml/min; Est GFR (African American) 20.9; Potassium 4.6 mmol/L (3.5-5.1)
[2019-09-04 07:10] LABS: Ferritin 221.1 ng/ml (8-388)
[2019-09-04] MEDS: INSULIN ASPART 100 UNITS/ML 3 ML PEN SC SCH ×4 (09:27→20:51)
[2019-09-04] MEDS: HEPARIN SOD 5,000 UNIT/0.5 ML VIAL SQ SCH ×2 (09:28→20:50)
[2019-09-04] MEDS: carvediloL 25 MG TAB PO SCH ×2 (09:29→20:50)
[2019-09-04] MEDS: LACTULOSE SYRUP 30 GM/45 ML UDP PO SCH ×2 (09:29→20:49)
[2019-09-04] MEDS: FERROUS SULFATE 325 MG TAB PO SCH (09:29)
[2019-09-04] MEDS: allopurinoL 100 MG TAB PO SCH ×2 (09:30→20:53)
[2019-09-04] MEDS: RIFAXIMIN 550 MG TABLET PO SCH ×2 (09:30→20:52)
--- NOTE | 2019-09-04 11:02 | Nephrology Progress Note ---
Date of Service September 04, 2019 Assessment & Plan (1) ESRD (end stage renal disease): ESRD due to cardiorenal syndrome. Patient admitted w/ weakness and tense edema of LE and weeping bullae. R heart catheterization revealed severe pHTN. He has cardiac cirrhosis. Patient has developed progressive renal dysfunction in the setting of high dose loop diuretics. HD indicated for correction of volume status and azotemia -- HD today for continued UF -- Discharge Planning consulted to set up outpatient HD at [facility]. Patient will likely require county transportation to [facility] (2) Anemia: -- Hgb continues to trend down. Patient is asymptomatic -- Discussed risk of severe anemia w/ patient today. He declined blood transfusion based on amish conviction -- Iron stores remain low. Will order 1 g IV Venofer over 5 doses -- Will order FOBT (3) Hepatic encephalopathy: -- Abdominal US demonstrated cirrhotic liver. Likely has cardiac cirrhosis. On rifamixin (4) Chronic systolic congestive heart failure: R heart cath 08/27/19: RA: The right atrial pressure was 29 millimeters Hg RV: Right ventricular pressure was 78/22 millimeters of mercury PA: PA pressure was 70/29 millimeters of mercury PW: Pulmonary capillary wedge pressure was 28 millimeters of mercury (5) Weakness: -- PT for strengthening today (6) Venous stasis ulcers of both lower extremities: (7) Diabetes mellitus type 2, insulin dependent: Subjective Mr. Mendez was seen & examined in his hospital room this morning. He complains of weakness but denies dyspnea or angina. He denies overt blood loss. Review of Systems Constitutional: + weakness; no fever Eyes: no worsening vision and no problem reported Ear, Nose, Mouth, Throat: no problem reported Respiratory: no cough and no dyspnea Cardiovascular: + edema; no chest pain and no palpitations Gastrointestinal: no abdominal pain, no nausea, no vomiting and no diarrhea/loose stools Genitourinary: no dysuria, no urinary hesitancy and no hematuria Musculoskeletal: no back pain Integumentary: no rash Neurologic: no falls, no dizziness and no confusion Physical Exam Constitutional: + ill appearing; not in distress Eyes: PERRL, conjunctivae normal, anicteric sclerae ENMT: external ear and nose normal, oropharynx normal Neck: trachea midline, no thyromegaly Respiratory: normal respiratory effort, lungs clear to auscultation Cardiovascular: Rate/Rhythm: regular rate and regular rhythm Extremities: + edema (1+ pretibial pitting edema) Gastrointestinal (Abdomen): normal bowel sounds, soft, nontender, no hepatosplenomegaly Musculoskeletal: Extremities: no cyanosis Neurologic: awake; not confused Results & Data Vital Signs (Past 12 Hours) Vital Signs Temp Pulse Pulse Resp BP Pulse Ox 09/04/19 07:46 37.4 C 60 18 118/66 97 09/04/19 04:17 20 96 09/04/19 03:42 36.9 C 60 20 122/69 98 09/03/19 23:20 18 96 09/03/19 23:17 37.0 C 59 L 18 126/67 99 Laboratory Results Laboratory Tests 09/04/19 09/04/19 05:51 05:51 WBC 11.95 H Hgb 6.8 L* Hct 22.4 L Plt Count 130 Sodium 135 L Potassium 4.6 Chloride 102 Carbon Dioxide 27 BUN 67 H Creatinine 3.23 H D Glucose 156 H Calcium 8.8 PG Care Time/CCT Total # of Minutes Spent Total Time Spent with Patient: Total time spent is greater than 50% in coordination of care (as documented) at patient's floor/unit and/or counseling patient: (1) Anemia Anemia type: unspecified type Qualified Code(s): D64.9 - Anemia, unspecified
[2019-09-04] MEDS: IRON SUCROSE 200 MG in 0.9 % SODIUM CHLORIDE 100 ML IV SCH (14:22)
[2019-09-04] MEDS: ATORVASTATIN 40 MG TAB PO SCH (14:23)
[2019-09-04] MEDS: POLYETHYLENE (MIRALAX) 17 GM PACK PO SCH (14:24)
[2019-09-04] MEDS: VITAMIN B COMPLEX TAB PO SCH (14:25)
[2019-09-04] MEDS: ASPIRIN 325 MG ECTAB PO SCH (14:25)
[2019-09-04] MEDS: OMEGA-3 (PURIFIED FISH OIL) 1 GM CAP PO SCH (14:25)
[2019-09-04] MEDS: NEPHROCAPS PO SCH (14:25)
[2019-09-04] MEDS: NEOMYCIN/POLYMYX/BACITR OINT 15 GM TUBE TOP SCH (14:25)
[2019-09-04] MEDS: LORATADINE 10 MG TAB PO SCH (14:25)
--- NOTE | 2019-09-04 16:20 | Hospitalist Progress Note ---
Date of Service September 04, 2019 Assessment & Plan (1) ATN (acute tubular necrosis): Cont PCU on telemetry continue Coreg BID s/p Torsemide 200mg (was not effective) holding ANUPAMA due to JUDITH IV Bumex and metolazone ECHO 2016 EF 40-45% DILLON (this admit) IMPROVED/normal EF. IVC was normal surprisingly RHC 12.6.19: PCWP=28 (2) Acute on chronic diastolic CHF (congestive heart failure): see above (3) Cirrhosis: see problem above (4) Hepatic encephalopathy: partially improving lethargic with poor cognitive fxn asterixis and elevated NH3 despite lactulose Cont lactulose Cont rifaximin added on 12.7F Follow ammonia levels Follow up GI as an outpatient for [place] (5) Morbid obesity with BMI of 45.0-49.9, adult: BMI now >50 but much of that is fluid weight. will need to re-evaluate once we get him to dry weigh would benefit from intermediate card tender weight loss measures (6) Metabolic encephalopathy: see problem above (7) Cellulitis: b/l shins mostly improved all prior wound cultures have grown MSSA. MRSA KNOCK OUT HAND swab negative continue wound care (wound care consult appreciated) s/p augmentin x 3d s/p IV daptomycin x 7d (8) Anemia: started Fe supplementation po and IV fecal occult blood NEGATIVE epogen started on 12.7 (9) Biventricular ICD (implantable cardioverter-defibrillator) in place: see problem above (10) Chronic kidney disease, stage III (moderate): baseline creatinine 2.0 to 2.5 acute on chronic holding ANUPAMA renal u/s w/o obvious obstruction (11) Diabetes mellitus type 2, insulin dependent: reduced Lantus due to hypoglycemia cont novolog for meals (12) Paroxysmal ventricular tachycardia: Continue carvedilol has pacer/ICD 12.8 pm: 12 beats of a wide complex tachycardia --> paced. pt was sleeping and asymptomatic (13) Obstructive sleep apnea: cont CPAP at settings of 10 HS/naps (14) Dyslipidemia: consider stopping statin in setting of cirrhosis will defer to cardiology Subjective Mr. Mendez was seen & examined at the bedside. He was sleepy this morning but arousable. Patient is afebrile. Denies fever chills chest pain shortness of breath abdominal pain frequency urgency, hematuria dysuria. He continued to feel weak all over. Review of Systems Review of Systems: All systems reviewed & are unremarkable except as noted in HPI & below Physical Exam Musculoskeletal: no cyanosis or clubbing, extremities motor strength 5/5 Head/Neck/Chest: normocephalic and head atraumatic Extremities: extremities normal to inspection and + abnormal strength (diffuse weakness, 4/5 strength in lower extremities); no cyanosis and no clubbing Skin: no rashes, warm and dry normal turgor, + ulcer (BLE) and + wound (bilateral venous stasis ulcers, weeping, dressed); no rashes, no lesions and no induration Neurologic: patellar DTR's 2+ bilat, sensation intact and PERRL, EOMI, accommodation nl, no face palsy, no dysarthria moves all extremities and awake; no focal motor deficits and not confused Motor/Sensory: + asterixis (ongoing); no tremor Psychiatric: A+Ox3, euthymic affect Orientation: alert, oriented x 3, or iented to person, oriented to place and oriented to time Eye Contact: + fair eye contact Affect: + flat affect Lymphatic: no cervical or axillary lymphadenopathy Results & Data Vital Signs (Past 12 Hours) Vital Signs Temp Pulse Pulse Pulse Pulse Resp BP 09/04/19 15:47 37.0 C 60 18 09/04/19 13:30 37.4 C 60 09/04/19 13:20 60 125/60 09/04/19 13:00 60 132/55 L 09/04/19 12:40 60 126/55 L 09/04/19 12:20 60 127/54 L 09/04/19 12:00 60 116/55 L 09/04/19 11:40 60 127/54 L 09/04/19 11:20 60 122/58 L 09/04/19 11:00 60 115/53 L 09/04/19 10:40 60 108/49 L 09/04/19 10:20 60 105/53 L 09/04/19 10:00 60 108/57 L 09/04/19 09:40 60 88/48 L 09/04/19 09:21 37.4 C 60 09/04/19 07:46 37.4 C 60 18 09/04/19 04:17 20 BP BP Pulse Ox 09/04/19 15:47 112/56 L 96 09/04/19 13:30 127/55 L 09/04/19 13:20 09/04/19 13:00 09/04/19 12:40 09/04/19 12:20 09/04/19 12:00 09/04/19 11:40 09/04/19 11:20 09/04/19 11:00 09/04/19 10:40 09/04/19 10:20 09/04/19 10:00 09/04/19 09:40 09/04/19 09:21 09/04/19 07:46 118/66 97 09/04/19 04:17 96 PG Care Time/CCT Total # of Minutes Spent Total Time Spent with Patient: Total time spent is greater than 50% in coordination of care (as documented) at patient's floor/unit and/or counseling patient: (1) Cirrhosis Hepatic cirrhosis type: other cirrhosis Qualified Code(s): K74.69 - Other cirrhosis of liver (2) Cellulitis Laterality: unspecified laterality Site of cellulitis: extremity Site of cellulitis of extremity: lower extremity Qualified Code(s): L03.119 - Cellulitis of unspecified part of limb (3) Anemia Anemia type: unspecified type Qualified Code(s): D64.9 - Anemia, unspecified
[2019-09-04] MEDS ORDERED: SODIUM CHLORIDE 0.9% 250 ML IV PRN (16:32)
[2019-09-04] MEDS: INSULIN GLARGINE SOLOSTAR 100 UNITS/ML 3 ML PEN SC SCH (20:50)
[2019-09-05 06:22] LABS: Hematocrit (blood only) 22.9 % (42-52); Hemoglobin 6.9 g/dL (14.0-18.0); Mean Corpuscular Hemoglobin 31.2 pg (25-34); Mean Corpuscular Hgb Conc 30.1 g/dL (32-36); Mean Corpuscular Volume 103.6 fL (80-100); Mean Platelet Volume 10.7 fL (7.4-10.4); Nucleated RBC % (auto) 2.7 %; Platelet Count 119 K/uL (130-400); RDW Coefficient of Variation 21.7 % (11.5-14.5); RDW Standard Deviation 72.3 fL (36.4-46.3); Red Blood Count 2.21 M/uL (4.7-6.1); White Blood Count 11.29 K/uL (4.8-10.8)
[2019-09-05 06:40] LABS: Calcium 8.6 mg/dl (8.5-10.1); Creatinine Clr Calc Pharmacy 31.1 ml/min; Est GFR (African American) 21.8; Est GFR (Non-African American) 18.8; Potassium 4.6 mmol/L (3.5-5.1)
[2019-09-05] MEDS: allopurinoL 100 MG TAB PO SCH ×2 (09:11→21:40)
[2019-09-05] MEDS: ASPIRIN 325 MG ECTAB PO SCH (09:11)
[2019-09-05] MEDS: ATORVASTATIN 40 MG TAB PO SCH (09:11)
[2019-09-05] MEDS: OMEGA-3 (PURIFIED FISH OIL) 1 GM CAP PO SCH (09:11)
[2019-09-05] MEDS: RIFAXIMIN 550 MG TABLET PO SCH ×2 (09:11→21:40)
[2019-09-05] MEDS: VITAMIN B COMPLEX TAB PO SCH (09:11)
[2019-09-05] MEDS: LACTULOSE SYRUP 30 GM/45 ML UDP PO SCH ×2 (09:11→21:39)
[2019-09-05] MEDS: POLYETHYLENE (MIRALAX) 17 GM PACK PO SCH (09:11)
[2019-09-05] MEDS: carvediloL 25 MG TAB PO SCH ×2 (09:11→21:41)
[2019-09-05] MEDS: HEPARIN SOD 5,000 UNIT/0.5 ML VIAL SQ SCH ×2 (09:12→21:39)
[2019-09-05] MEDS: NEPHROCAPS PO SCH (09:12)
[2019-09-05] MEDS: LORATADINE 10 MG TAB PO SCH (09:12)
[2019-09-05] MEDS: NEOMYCIN/POLYMYX/BACITR OINT 15 GM TUBE TOP SCH (09:12)
[2019-09-05] MEDS: INSULIN ASPART 100 UNITS/ML 3 ML PEN SC SCH ×4 (09:13→21:41)
[2019-09-05] MEDS: IRON SUCROSE 200 MG in 0.9 % SODIUM CHLORIDE 100 ML IV SCH (09:16)
--- NOTE | 2019-09-05 09:49 | Nephrology Progress Note ---
Date of Service September 05, 2019 Assessment & Plan (1) ESRD (end stage renal disease): ESRD due to cardiorenal syndrome. Patient admitted w/ weakness and tense edema of LE and weeping bullae. R heart catheterization revealed severe pHTN. He has cardiac cirrhosis. Patient has developed progressive renal dysfunction in the setting of high dose loop diuretics. HD provided for correction of volume status and azotemia -- CBC and PRP ordered for am. Will reassess need for HD in am but attempt to convert to TTS schedule -- If weight is correct then patient has lost 21kg since initiation of HD. LE edema persists but is markedly improved since admission -- Discharge Planning consulted to set up outpatient HD at [facility]. Patient will likely require county transportation to [facility] (2) Anemia: -- Hgb stable at ~ 6.8. Patient is asymptomatic -- Discussed risk of severe anemia w/ patient. He declined blood transfusion based on yazdanism conviction -- IV Venofer 1 g over 5 doses ordered 09/04/19. Oral iron held due to constipation -- FOBT pending (3) Hepatic encephalopathy: -- Abdominal US demonstrated cirrhotic liver. Likely has cardiac cirrhosis. On rifamixin (4) Chronic systolic congestive heart failure: R heart cath 08/27/19: RA: The right atrial pressure was 29 millimeters Hg RV: Right ventricular pressure was 78/22 millimeters of mercury PA: PA pressure was 70/29 millimeters of mercury PW: Pulmonary capillary wedge pressure was 28 millimeters of mercury (5) Weakness: -- PT for strengthening today. -- Advised medical staff coordinator to get patient up to chair today (6) Venous stasis ulcers of both lower extremities: (7) Diabetes mellitus type 2, insulin dependent: Subjective Mr. Mendez was seen & examined in his hospital room this morning. He c/o weakness but is anxious to participate in PT for strengthening. He was last dialyzed yesterday for 1700 cc UF. There were no complications. R femoral THC functions A-->A. He declined blood transfusion based on yazdanism convictions. IV iron is currently infusing. Review of Systems Constitutional: + weakness; no fever Eyes: no worsening vision and no problem reported Ear, Nose, Mouth, Throat: no problem reported Respiratory: no cough and no dyspnea Cardiovascular: + edema; no chest pain and no palpitations Gastrointestinal: no abdominal pain, no nausea, no vomiting and no diarrhea/loose stools Genitourinary: no dysuria, no urinary hesitancy and no hematuria Musculoskeletal: no back pain Integumentary: no rash Neurologic: no falls, no dizziness and no confusion Physical Exam Constitutional: + ill appearing; not in distress Eyes: PERRL, conjunctivae normal, anicteric sclerae ENMT: external ear and nose normal, oropharynx normal Neck: trachea midline, no thyromegaly Respiratory: normal respiratory effort, lungs clear to auscultation Cardiovascular: Rate/Rhythm: regular rate and regular rhythm Extremities: + edema (1+ pretibial pitting edema) Gastrointestinal (Abdomen): normal bowel sounds, soft, nontender, no hepatosplenomegaly Musculoskeletal: Extremities: no cyanosis Neurologic: awake; not confused Results & Data Vital Signs (Past 12 Hours) Vital Signs Temp Pulse Pulse Resp BP BP Pulse Ox 09/05/19 08:02 37.3 C 59 L 21 126/74 99 09/05/19 03:33 37.0 C 60 18 115/68 98 09/04/19 23:58 36.8 C 58 L 20 117/73 98 Laboratory Results Laboratory Tests 09/05/19 09/05/19 05:55 05:55 WBC 11.29 H Hgb 6.9 L* Hct 22.9 L Plt Count 119 L Sodium 134 L Potassium 4.6 Chloride 102 Carbon Dioxide 28 BUN 50 H Creatinine 3.12 H Glucose 133 H PG Care Time/CCT Total # of Minutes Spent Total Time Spent with Patient: Total time spent is greater than 50% in coordin ation of care (as documented) at patient's floor/unit and/or counseling patient: (1) Anemia Anemia type: unspecified type Qualified Code(s): D64.9 - Anemia, unspecified
--- NOTE | 2019-09-05 16:39 | Hospitalist Progress Note ---
Date of Service September 05, 2019 Assessment & Plan (1) ATN (acute tubular necrosis): Cont PCU on telemetry continue Coreg BID s/p Torsemide 200mg (was not effective) holding ANUPAMA due to JUDITH IV Bumex and metolazone ECHO 2016 EF 40-45% DILLON (this admit) IMPROVED/normal EF. IVC was normal surprisingly RHC 12.6.19: PCWP=28 Continue strict in and out . Daily weight . Patient approximately lost 40 pounds since admission and initiation of hemodialysis. Discharge Planning consulted to set up outpatient HD at [facility]. Patient will likely require [facility] transportation to treatments. Hepatitis panel obtained and negative. Full code (2) Acute on chronic diastolic CHF (congestive heart failure): see above (3) Cirrhosis: see problem above (4) Hepatic encephalopathy: partially improving lethargic with poor cognitive fxn asterixis and elevated NH3 despite lactulose Cont lactulose Cont rifaximin added on 12.7F Follow ammonia levels Follow up GI as an outpatient for [facility] (5) Morbid obesity with BMI of 45.0-49.9, adult: BMI now >50 but much of that is fluid weight. will need to re-evaluate once we get him to dry weigh would benefit from lobsterman weight loss measures (6) Metabolic encephalopathy: see problem above (7) Cellulitis: b/l shins mostly improved all prior wound cultures have grown MSSA. 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 Patient declined blood transfusion due to his sabianist believes. Continue IV Venofer 1 g over 5 doses ordered 09/04/19. Oral iron held due to constipation. Fecal occult blood previously negative .We will continue testing -FOBT pending (9) Biventricular ICD (implantable cardioverter-defibrillator) in place: see problem above (10) Chronic kidney disease, stage III (moderate): baseline creatinine 2.0 to 2.5 acute on chronic holding ANUPAMA renal u/s w/o obvious obstruction (11) Diabetes mellitus type 2, insulin dependent: reduced Lantus due to hypoglycemia cont novolog for meals (12) Paroxysmal ventricular tachycardia: Continue carvedilol has pacer/ICD 12.8 pm: 12 beats of a wide complex tachycardia --> paced. pt was sleeping and asymptomatic (13) Obstructive sleep apnea: cont CPAP at settings of 10 HS/naps (14) Dyslipidemia: Stopped statins in setting of liver cirrhosis.Will defer to cardiology. Subjective Patient seen and examined at the bedside. Patient is awake alert and oriented x3. Resting comfortably in the bed. Good p.o. intake. Patient complains of generalized weakness which could be related to severe anemia and long stay in the hospital. He was last dialyzed yesterday for 1700 cc UF, next dialysis is on Friday.patient declined blood transfusion due to being Confucianist. Patient is receiving Epogen with hemodialysis and IV iron. Patient denies fever, chills, chest pain, shortness of breath, abdominal pain, frequency, urgency, melena, hematuria, dysuria, hematemesis, nosebleeds, easy bruising. Review of Systems Review of Systems: All systems reviewed & are unremarkable except as noted in HPI & below Physical Exam Musculoskeletal: no cyanosis or clubbing, extremities motor strength 5/5 Head/Neck/Chest: normocephalic and head atraumatic Extremities: extremities normal to inspection and + abnormal strength (diffuse weakness, 4/5 strength in lower extremities); no cyanosis and no clubbing Skin: no rashes, warm and dry normal turgor, + ulcer (BLE) and + wound (bilateral venous stasis ulcers, weeping, dressed); no rashes, no lesions and no induration Neurologic: patellar DTR's 2+ bilat, sensation intact and PERRL, EOMI, accommodation nl, no face palsy, no dysarthria moves all extremities and awake; no focal motor deficits and not confused Motor/Sensory: + asterixis (ongoing); no tremor Psychiatric: A+Ox3, euthymic affect Orientation: alert, oriented x 3, oriented to person, oriented to place and oriented to time Eye Contact: + fair eye contact Affect: + flat affect Lymphatic: no cervical or axillary lymphadenopathy Results & Data Vital Signs (Past 12 Hours) Vital Signs Temp Pulse Pulse Resp BP Pulse Ox 09/05/19 15:53 36.9 C 59 L 19 109/67 97 09/05/19 10:47 37.1 C 61 20 100/62 97 09/05/19 08:02 37.3 C 59 L 21 126/74 99 PG Care Time/CCT Total # of Minutes Spent Total Time Spent with Patient: Total time spent is greater than 50% in coordination of care (as documented) at patient's floor/unit and/or counseling patient: (1) Anemia Anemia type: unspecified type Qualified Code(s): D64.9 - Anemia, unspecified (2) Cellulitis Laterality: unspecified laterality Site of cellulitis: extremity Site of cellulitis of extremity: lower extremity Qualified Code(s): L03.119 - Cellulitis of unspecified part of limb (3) Cirrhosis Hepatic cirrhosis type: other cirrhosis Qualified Code(s): K74.69 - Other cirrhosis of liver
[2019-09-05] MEDS: INSULIN GLARGINE SOLOSTAR 100 UNITS/ML 3 ML PEN SC SCH (21:40)
[2019-09-06 06:56] LABS: Hematocrit (blood only) 22.2 % (42-52); Hemoglobin 6.7 g/dL (14.0-18.0); Mean Corpuscular Hemoglobin 32.1 pg (25-34); Mean Corpuscular Hgb Conc 30.2 g/dL (32-36); Mean Corpuscular Volume 106.2 fL (80-100); Nucleated RBC # (auto) 0.13 K/uL (0-0); Nucleated RBC % (auto) 1.6 %; RDW Coefficient of Variation 22.7 % (11.5-14.5); RDW Standard Deviation 78.7 fL (36.4-46.3); Red Blood Count 2.09 M/uL (4.7-6.1); White Blood Count 8.53 K/uL (4.8-10.8)
[2019-09-06 07:14] LABS: Mean Platelet Volume 11.6 fL (7.4-10.4); Platelet Count 74 K/uL (130-400); Platelet Estimate Decreased (Normal)
[2019-09-06 07:36] LABS: BUN Creatinine Ratio 15.7 (10-20); Calcium 8.7 mg/dl (8.5-10.1); Creatinine Clr Calc Pharmacy 27.7 ml/min; Est GFR (African American) 18.6; Est GFR (Non-African American) 16.1
[2019-09-06] MEDS: OMEGA-3 (PURIFIED FISH OIL) 1 GM CAP PO SCH (08:09)
[2019-09-06] MEDS: LACTULOSE SYRUP 30 GM/45 ML UDP PO SCH ×2 (08:09→21:01)
[2019-09-06] MEDS: carvediloL 25 MG TAB PO SCH ×2 (08:09→21:03)
[2019-09-06] MEDS: allopurinoL 100 MG TAB PO SCH ×2 (08:10→21:02)
[2019-09-06] MEDS: ATORVASTATIN 40 MG TAB PO SCH (08:10)
[2019-09-06] MEDS: RIFAXIMIN 550 MG TABLET PO SCH ×2 (08:10→21:02)
[2019-09-06] MEDS: ASPIRIN 325 MG ECTAB PO SCH (08:10)
[2019-09-06] MEDS: HEPARIN SOD 5,000 UNIT/0.5 ML VIAL SQ SCH ×2 (08:10→21:05)
[2019-09-06] MEDS: LORATADINE 10 MG TAB PO SCH (08:10)
[2019-09-06] MEDS: VITAMIN B COMPLEX TAB PO SCH (08:10)
[2019-09-06] MEDS: NEPHROCAPS PO SCH (08:11)
[2019-09-06] MEDS: NEOMYCIN/POLYMYX/BACITR OINT 15 GM TUBE TOP SCH (08:11)
[2019-09-06] MEDS: POLYETHYLENE (MIRALAX) 17 GM PACK PO SCH (08:14)
[2019-09-06] MEDS: INSULIN ASPART 100 UNITS/ML 3 ML PEN SC SCH ×4 (08:14→21:08)
[2019-09-06] MEDS: IRON SUCROSE 200 MG in 0.9 % SODIUM CHLORIDE 100 ML IV SCH (08:19)
--- NOTE | 2019-09-06 08:31 | Hospitalist Progress Note ---
Date of Service September 06, 2019 Assessment & Plan (1) ATN (acute tubular necrosis): Cont PCU on telemetry CBC and PRP ordered for am. BP, volume status, and electrolytes are currently acceptable. Will plan for HD tomorrow. continue Coreg BID s/p Torsemide 200mg (was not effective) holding ANUPAMA due to JUDITH IV Bumex and metolazone ECHO 2016 EF 40-45% DILLON (this admit) IMPROVED/normal EF. IVC was normal surprisingly RHC 12.6.19: PCWP=28 Continue strict in and out . Daily weight . Patient approximately lost 40 pounds since admission and initiation of hemodialysis. Discharge Planning consulted to set up outpatient HD at [facility]. Patient will likely require county transportation to [facility]. Hepatitis panel obtained and negative. Full code (2) Acute on chronic diastolic CHF (congestive heart failure): see above (3) Cirrhosis: see problem above (4) Hepatic encephalopathy: partially improving lethargic with poor cognitive fxn asterixis and elevated NH3 despite lactulose Cont lactulose Cont rifaximin added on 12.7F Follow ammonia levels Follow up GI as an outpatient for [place] (5) Morbid obesity with BMI of 45.0-49.9, adult: BMI now >50 but much of that is fluid weight. will need to re-evaluate once we get him to dry weigh would benefit from assisted weight loss measures (6) Metabolic encephalopathy: see problem above (7) Cellulitis: b/l shins mostly improved all prior wound cultures have grown MSSA. 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 Patient declined blood transfusion due to his nondenominational believes. Continue IV Venofer 1 g over 5 doses ordered 09/04/19. Oral iron held due to constipation. Fecal occult blood previously negative .We will continue testing -FOBT pending (9) Biventricular ICD (implantable cardioverter-defibrillator) in place: see problem above (10) Chronic kidney disease, stage III (moderate): baseline creatinine 2.0 to 2.5 acute on chronic holding ANUPAMA renal u/s w/o obvious obstruction (11) Diabetes mellitus type 2, insulin dependent: reduced Lantus due to hypoglycemia cont novolog for meals (12) Paroxysmal ventricular tachycardia: Continue carvedilol has pacer/ICD 12.8 pm: 12 beats of a wide complex tachycardia --> paced. pt was sleeping and asymptomatic (13) Obstructive sleep apnea: cont CPAP at settings of 10 HS/naps (14) Dyslipidemia: Stopped statins in setting of liver cirrhosis.Will defer to cardiology. Subjective Patient seen and examined at the bedside. Resting comfortably in the bed. Good p.o. intake. Patient denies fever, chills, chest pain, shortness of breath, abdominal pain, frequency, urgency, melena, hematuria, dysuria, hematemesis, nosebleeds, easy bruising. Review of Systems Review of Systems: All systems reviewed & are unremarkable except as noted in HPI & below Physical Exam Constitutional: WD/WN, vitals as above + morbidly obese Eyes: PERRL, conjunctivae normal, anicteric sclerae Respiratory: normal respiratory effort, lungs clear to auscultation Cardiovascular: Heart Sounds: normal S1, normal S2 and + murmur Extremities: + pedal edema Gastrointestinal (Abdomen): normal bowel sounds, soft, nontender, no hepatosplenomegaly Musculoskeletal: no cyanosis or clubbing, extremities motor strength 5/5 Head/Neck/Chest: normocephalic and head atraumatic Extremities: extremities normal to inspection and + abnormal strength (diffuse weakness, 4/5 strength in lower extremities); no cyanosis and no clubbing Skin: no rashes, warm and dry normal turgor, + ulcer (BLE) and + wound (bilateral venous stasis ulcers, weeping, dressed); no rashes, no lesions and no induration Neurologic: patellar DTR's 2+ bilat, sensation intact and PERRL, EOMI, accommodation nl, no face palsy, no dysarthria moves all extremities and awake; no focal motor deficits and not confused Motor/Sensory: + asterixis (ongoing); no tremor Psychiatric: A+Ox3, euthymic affect Orientation: alert, oriented x 3, oriented to person, oriented to place and oriented to time Eye Contact: + fair eye contact Affect: + flat affect Lymphatic: no cervical or axillary lymphadenopathy Results & Data Vital Signs (Past 12 Hours) Vital Signs Temp Pulse Pulse Pulse Resp BP Pulse Ox 09/06/19 07:30 36.8 C 61 20 114/71 99 12/16/19 03:23 36.9 C 60 20 122/68 98 09/06/19 00:19 36.9 C 60 20 107/58 L 98 09/05/19 22:07 60 20 96 PG Care Time/CCT Total # of Minutes Spent Total Time Spent with Patient: Total time spent is greater than 50% in coordination of care (as documented) at patient's floor/unit and/or counseling patient: (1) Anemia Anemia type: unspecified type Qualified Code(s): D64.9 - Anemia, unspecified (2) Cellulitis Laterality: unspecified laterality Site of cellulitis: extremity Site of cellulitis of extremity: lower extremity Qualified Code(s): L03.119 - Cellulitis of unspecified part of limb (3) Cirrhosis Hepatic cirrhosis type: other cirrhosis Qualified Code(s): K74.69 - Other cirrhosis of liver
--- NOTE | 2019-09-06 09:46 | Nephrology Progress Note ---
Date of Service September 06, 2019 Assessment & Plan (1) ESRD (end stage renal disease): ESRD due to cardiorenal syndrome. Patient admitted w/ weakness and tense edema of LE and weeping bullae. R heart catheterization revealed severe pHTN. He has cardiac cirrhosis. Patient has developed progressive renal dysfunction in the setting of high dose loop diuretics. HD provided for correction of volume status and azotemia. -- CBC and PRP ordered for am. -- BP, volume status, and electrolytes are currently acceptable. Will plan for HD tomorrow. -- Discharge Planning consulted to set up outpatient HD at [facility]. Patient will likely require [facility] transportation to treatments (2) Anemia: -- Hgb stable at ~ 6.7. Patient is asymptomatic -- Juan has declined blood transfusion based on anglican conviction -- IV Venofer 1 g over 5 doses ordered 09/04/19. Oral iron held due to constipation -- Epogen provided with HD (3) Hepatic encephalopathy: -- Abdominal US demonstrated cirrhotic liver. Likely has cardiac cirrhosis. On rifamixin (4) Chronic systolic congestive heart failure: R heart cath 08/27/19: RA: The right atrial pressure was 29 millimeters Hg RV: Right ventricular pressure was 78/22 millimeters of mercury PA: PA pressure was 70/29 millimeters of mercury PW: Pulmonary capillary wedge pressure was 28 millimeters of mercury (5) Weakness: -- PT for strengthening today. -- Advised staff nuclear medicine technologist to get patient up to chair today (6) Venous stasis ulcers of both lower extremities: (7) Diabetes mellitus type 2, insulin dependent: Subjective No acute events overnight. Juan was resting in bed with NIPPV mask on this m orning. He feels well. No fevers or chills. Denies pain. Breathing comfortably. Review of Systems Review of Systems: All systems reviewed & are unremarkable except as noted in HPI & below Physical Exam Constitutional: well developed; no acute distress Eyes: no scleral abnormality and no corneal abnormality ENMT: Mouth: no oral mucosal abnormality and oral mucous membranes not dry Neck: normal visual inspection, trachea midline and + thick neck Respiratory: normal respiratory effort Auscultation: lungs clear to auscultation bilaterally Cardiovascular: Rate/Rhythm: regular rate Heart Sounds: normal S1 and normal S2 Vessels: no JVD Extremities: no edema Musculoskeletal: Extremities: no cyanosis and no clubbing Skin: normal turgor; no lesions Neurologic: Motor/Sensory: no tremor and no asterixis Psychiatric: Orientation: alert and oriented x 3 Results & Data Vital Signs (Past 12 Hours) Vital Signs Temp Pulse Pulse Pulse Resp BP Pulse Ox 09/06/19 07:30 36.8 C 61 20 114/71 99 09/06/19 03:23 36.9 C 60 20 122/68 98 09/06/19 00:19 36.9 C 60 20 107/58 L 98 09/05/19 22:07 60 20 96 Laboratory Results Laboratory Results - last 24 hr 09/05/19 09/05/19 09/06/19 11:14 20:24 06:17 WBC 8.53 RBC 2.09 L Hgb 6.7 L* Hct 22.2 L MCV 106.2 H MCH 32.1 MCHC 30.2 L RDW Std Deviation 78.7 H RDW Coeff of Marino 22.7 H Plt Count 74 L MPV 11.6 H Absolute Nucleated RBC 0.13 H Nucleated RBC % (auto) 1.6 Platelet Estimate Decreased L Sodium Potassium Chloride Carbon Dioxide Anion Gap BUN Creatinine Est Cr Clr Drug Dosing Est GFR ( Amer) Est GFR (Non-Af Amer) BUN/Creatinine Ratio Glucose POC Glucose 237 H 125 H Calcium Triglycerides Cholesterol LDL Cholesterol, Calc VLDL Cholesterol, Calc HDL Cholesterol Cholesterol/HDL Ratio 09/06/19 09/06/19 09/06/19 06:17 07:35 07:40 WBC RBC Hgb Hct MCV MCH MCHC RDW Std Deviation RDW Coeff of Marino Plt Count MPV Absolute Nucleated RBC Nucleated RBC % (auto) Platelet Estimate Sodium 134 L Potassium 4.5 Chloride 103 Carbon Dioxide 27 Anion Gap 4.0 BUN 56 H Creatinine 3.55 H D Est Cr Clr Drug Dosing 27.7 Est GFR ( Amer) 18.6 Est GFR (Non-Af Amer) 16.1 BUN/Creatinine Ratio 15.7 Glucose 84 POC Glucose 94 Calcium 8.7 Triglycerides 61 Cholesterol 55 LDL Cholesterol, Calc 13 VLDL Cholesterol, Calc 12 HDL Cholesterol 30 Cholesterol/HDL Ratio 2 PG Care Time/CCT Total # of Minutes Spent Total Time Spent with Patient: Total time spent is greater than 50% in coordination of care (as documented) at patient's floor/unit and/or counseling patient: (1) Anemia Anemia type: unspecified type Qualified Code(s): D64.9 - Anemia, unspecified
[2019-09-06] MEDS: INSULIN GLARGINE SOLOSTAR 100 UNITS/ML 3 ML PEN SC SCH (21:08)
[2019-09-07 06:55] LABS: Hemoglobin 7.4 g/dL (14.0-18.0)
[2019-09-07 07:00] LABS: Albumin Level 2.7 gm/dl (3.4-5.0); BUN Creatinine Ratio 15.8 (10-20); Creatinine Clr Calc Pharmacy 25.2 ml/min; Est GFR (African American) 16.6; Est GFR (Non-African American) 14.3; Potassium 4.6 mmol/L (3.5-5.1)
[2019-09-07] MEDS ORDERED: EPOETIN ALFA 10,000 UNITS/ML VIAL IV SCH (07:00)
[2019-09-07] MEDS ORDERED: SODIUM CHLORIDE 0.9% 1000ML 1,000 ML IV PRN (07:00)
[2019-09-07 07:01] LABS: Phosphorus 4.2 mg/dl (2.5-4.9)
--- NOTE | 2019-09-07 07:19 | Hospitalist Progress Note ---
Date of Service September 07, 2019 Assessment & Plan (1) ATN (acute tubular necrosis): Cont PCU on telemetry Pt will be discharged to [facility] tomorrow H&H stable and improving CBC and PRP ordered for am. BP, volume status, and electrolytes are currently acceptable. Will plan for HD tomorrow. continue Coreg BID s/p Torsemide 200mg (was not effective) holding ANUPAMA due to JUDITH IV Bumex and metolazone ECHO 2016 EF 40-45% DILLON (this admit) IMPROVED/normal EF. IVC was normal surprisingly RHC 12.6.19: PCWP=28 Continue strict in and out . Daily weight . Patient approximately lost 40 pounds since admission and initiation of hemodialysis. Discharge Planning consulted to set up outpatient HD at [facility]. Patient will likely require county transportation to treatments. Hepatitis panel obtained and negative. Full code (2) Acute on chronic diastolic CHF (congestive heart failure): see above (3) Cirrhosis: see problem above (4) Hepatic encephalopathy: partially improving lethargic with poor cognitive fxn asterixis and elevated NH3 despite lactulose Cont lactulose Cont rifaximin added on 12.7F Follow ammonia levels Follow up GI as an outpatient for [place] (5) Morbid obesity with BMI of 45.0-49.9, adult: BMI now >50 but much of that is fluid weight. will need to re-evaluate once we get him to dry weigh would benefit from watermelon harvesting supervisor weight loss measures (6) Metabolic encephalopathy: see problem above (7) Cellulitis: b/l shins mostly improved all prior wound cultures have grown MSSA. 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 Patient declined blood transfusion due to his episcopalian believes. Continue IV Venofer 1 g over 5 doses ordered 09/04/19. Oral iron held due to constipation. Fecal occult blood previously negative .We will continue testing -FOBT pending (9) Biventricular ICD (implantable cardioverter-defibrillator) in place: see problem above (10) Chronic kidney disease, stage III (moderate): baseline creatinine 2.0 to 2.5 acute on chronic holding ANUPAMA renal u/s w/o obvious obstruction (11) Diabetes mellitus type 2, insulin dependent: reduced Lantus due to hypoglycemia cont novolog for meals (12) Paroxysmal ventricular tachycardia: Continue carvedilol has pacer/ICD 12.8 pm: 12 beats of a wide complex tachycardia --> paced. pt was sleeping and asymptomatic (13) Obstructive sleep apnea: cont CPAP at settings of 10 HS/naps (14) Dyslipidemia: Stopped statins in setting of liver cirrhosis.Will defer to cardiology. (15) Anemia of chronic disease: Continue iron and Epogen per nephrology. Patient is Jehovah witness. Blood count improving. Hemoglobin 7.4 and 25 Present on Admission?: Yes Subjective Patient seen and examined at the bedside. Resting comfortably in the bed. Pt had HD today and tolerated well.Pt will be discharge to [facility] w. Good p.o. intake. Patient denies fever, chills, chest pain, shortness of breath, abdominal pain, frequency, urgency, melena, hematuria, dysuria, hematemesis, nosebleeds, easy bruising.Pt will be discharged to e Review of Systems Review of Systems: All systems reviewed & are unremarkable except as noted in HPI & below Physical Exam Constitutional: WD/WN, vitals as above + morbidly obese Eyes: PERRL, conjunctivae normal, anicteric sclerae Respiratory: normal respiratory effort, lungs clear to auscultation Cardiovascular: Heart Sounds: normal S1, normal S2 and + murmur Extremities: + pedal edema Gastrointestinal (Abdomen): normal bowel sounds, soft, nontender, no hepatosplenomegaly Musculoskeletal: no cyanosis or clubbing, extremities motor strength 5/5 Head/Neck/Chest: normocephalic and head atraumatic Extremities: extremities normal to inspection and + abnormal strength (diffuse weakness, 4/5 strength in lower extremities); no cyanosis and no clubbing Skin: no rashes, warm and dry normal turgor, + ulcer (BLE) and + wound (bilateral venous stasis ulcers, weeping, dressed); no rashes, no lesions and no induration Neurologic: patellar DTR's 2+ bilat, sensation intact and PERRL, EOMI, accommodation nl, no face palsy, no dysarthria moves all extremities and awake; no focal motor deficits and not confused Motor/Sensory: + asterixis (ongoing); no tremor Psychiatric: A+Ox3, euthymic affect Orientation: alert, oriented x 3, oriented to person, oriented to place and oriented to time Eye Contact: + f air eye contact Affect: + flat affect Lymphatic: no cervical or axillary lymphadenopathy Results & Data Vital Signs (Past 12 Hours) Vital Signs Temp Pulse Pulse Pulse Resp BP Pulse Ox 09/07/19 04:23 36.6 C 59 L 20 141/70 H 99 09/07/19 00:47 60 09/07/19 00:18 36.7 C 59 L 18 121/83 99 09/06/19 20:56 60 110/57 L 09/06/19 19:55 37 C 59 L 18 118/65 98 PG Care Time/CCT Total # of Minutes Spent Total Time Spent with Patient: Total time spent is greater than 50% in coordination of care (as documented) at patient's floor/unit and/or counseling patient: (1) Anemia Anemia type: unspecified type Qualified Code(s): D64.9 - Anemia, unspecified (2) Cellulitis Laterality: unspecified laterality Site of cellulitis: extremity Site of cellulitis of extremity: lower extremity Qualified Code(s): L03.119 - Cellulitis of unspecified part of limb (3) Cirrhosis Hepatic cirrhosis type: other cirrhosis Qualified Code(s): K74.69 - Other cirrhosis of liver
[2019-09-07] MEDS: LACTULOSE SYRUP 30 GM/45 ML UDP PO SCH ×2 (08:10→21:06)
[2019-09-07] MEDS: ASPIRIN 325 MG ECTAB PO SCH (08:11)
[2019-09-07] MEDS: NEPHROCAPS PO SCH (08:11)
[2019-09-07] MEDS: RIFAXIMIN 550 MG TABLET PO SCH ×2 (08:11→21:03)
[2019-09-07] MEDS: LORATADINE 10 MG TAB PO SCH (08:11)
[2019-09-07] MEDS: ATORVASTATIN 40 MG TAB PO SCH (08:11)
[2019-09-07] MEDS: VITAMIN B COMPLEX TAB PO SCH (08:12)
[2019-09-07] MEDS: INSULIN ASPART 100 UNITS/ML 3 ML PEN SC SCH ×4 (08:12→21:03)
[2019-09-07] MEDS: carvediloL 25 MG TAB PO SCH ×3 (08:12→21:01)
[2019-09-07] MEDS: NEOMYCIN/POLYMYX/BACITR OINT 15 GM TUBE TOP SCH (08:13)
[2019-09-07] MEDS: POLYETHYLENE (MIRALAX) 17 GM PACK PO SCH (08:14)
[2019-09-07] MEDS: allopurinoL 100 MG TAB PO SCH ×2 (08:14→20:53)
[2019-09-07] MEDS: OMEGA-3 (PURIFIED FISH OIL) 1 GM CAP PO SCH (08:14)
[2019-09-07] MEDS: HEPARIN SOD 5,000 UNIT/0.5 ML VIAL SQ SCH ×2 (08:14→21:04)
[2019-09-07] MEDS: IRON SUCROSE 200 MG in 0.9 % SODIUM CHLORIDE 100 ML IV SCH (08:27)
--- NOTE | 2019-09-07 09:27 | Nephrology Progress Note ---
Date of Service September 07, 2019 Assessment & Plan (1) ESRD (end stage renal disease): ESRD due to cardiorenal syndrome. Patient admitted w/ weakness and tense edema of LE and weeping bullae. R heart catheterization revealed severe pHTN. He has cardiac cirrhosis. Patient has developed progressive renal dysfunction in the setting of high dose loop diuretics. HD provided for correction of volume status and azotemia. -- Orders for HD today entered into EMR and discussed with HD nurse. 3K bath. 1 L UF. -- BP and volume status are acceptable. -- Discharge Planning consulted to set up outpatient HD at [facility]. (2) Anemia: -- Hgb stable. FOBT negative. -- Juan declined blood transfusion. -- IV Venofer 1 g over 5 doses ordered 09/04/19. -- Epogen to be provided with HD. (3) Hepatic encephalopathy: (4) Chronic systolic congestive heart failure: R heart cath 08/27/19: RA: The right atrial pressure was 29 millimeters Hg RV: Right ventricular pressure was 78/22 millimeters of mercury PA: PA pressure was 70/29 millimeters of mercury PW: Pulmonary capillary wedge pressure was 28 millimeters of mercury (5) Weakness: (6) Venous stasis ulcers of both lower extremities: (7) Diabetes mellitus type 2, insulin dependent: Subjective No acute events overnight. Juan feels tired this morning. No fevers or chills. No dyspnea. Appetite fair. Review of Systems Review of Systems: All systems reviewed & are unremarkable except as noted in HPI & below Physical Exam Constitutional: well developed; no acute distress Eyes: no scleral abnormality and no corneal abnormality ENMT: Mouth: no oral mucosal abnormality and oral mucous membranes not dry Neck: normal visual inspection, trachea midline and + thick neck Respiratory: normal respiratory effort Auscultation: lungs clear to auscultation bilaterally Cardiovascular: Rate/Rhythm: regular rate Heart Sounds: normal S1 and normal S2 Vessels: no JVD Extremities: no edema Musculoskeletal: Extremities: no cyanosis and no clubbing Skin: normal turgor; no lesions Neurologic: Motor/Sensory: no tremor and no asterixis Psychiatric: Orientation: alert and oriented x 3 Results & Data Vital Signs (Past 12 Hours) Vital Signs Temp Pulse Pulse Pulse Resp BP Pulse Ox 09/07/19 07:41 36.6 C 63 17 119/66 99 09/07/19 04:23 36.6 C 59 L 20 141/70 H 99 09/07/19 00:47 60 09/07/19 00:18 36.7 C 59 L 18 121/83 99 Laboratory Results Laboratory Results - last 24 hr 09/06/19 09/06/19 09/06/19 11:57 16:08 20:43 Hgb Hct Sodium Potassium Chloride Carbon Dioxide Anion Gap BUN Creatinine Est Cr Clr Drug Dosing Est GFR ( Amer) Est GFR (Non-Af Amer) BUN/Creatinine Ratio Glucose POC Glucose 111 H 114 H 132 H Calcium Phosphorus Albumin 09/07/19 09/07/19 09/07/19 06:00 06:00 07:18 Hgb 7.4 L Hct 25.0 L Sodium 135 L Potassium 4.6 Chloride 102 Carbon Dioxide 28 Anion Gap 5.0 BUN 62 H Creatinine 3.90 H D Est Cr Clr Drug Dosing 25.2 Est GFR ( Amer) 16.6 Est GFR (Non-Af Amer) 14.3 BUN/Creatinine Ratio 15.8 Glucose 108 H POC Glucose 116 H Calcium 9.0 Phosphorus 4.2 Albumin 2.7 L PG Care Time/CCT Total # of Minutes Spent Total Time Spent with Patient: Total time spent is greater than 50% in coordination of care (as documented) at patient's floor/unit and/or counseling patient: (1) Anemia Anemia type: unspecified type Qualified Code(s): D64.9 - Anemia, unspecified
--- NOTE | 2019-09-07 09:49 | Internal Medicine Consult Note ---
Date of Consultation September 07, 2019 Assessment & Plan (1) Encounter for rehabilitation: Given his medical complexity which spans multiple organ systems (Cardio/Pulmonary/Renal/Neuro/Derm) and the complexity of his medical needs including HD and ongoing oversight of infectious and metabolic issues: the rehab hospital would be an appropriate next step in his medical treatment after the acute care measures have been completed. He will be placed in the rehab hospitals high risk group with that programs intensified monitoring protocols. History of Present Illness Reason for Consultation: Patient Post-Discharge Referral to Acute Rehab Hospital at [facility] Attending Physician: Nika Burnham MD History of Present Illness In to see Mr. Mendez for potential post discharge admission to [facility]. He qualifies as one of our high risk transfer patients. His records and trajectory reviewed. Given his multi-organ dysfunction and profound weakness secondary to his critical illness, the rehab hospital destination after acute care intervention complete is appropriate. [facility] will be able to continue onsite HD. Respiratory therapy services will be available. Today he was able to transfer to the bedside toilet with assistance of one. Endurance is poor. Allergies Allergy/AdvReac Type Severity Reaction Status Date / Time escitalopram Allergy Unknown Unknown Verified 08/19/19 21:40 metformin Allergy Unknown unknown Verified 08/19/19 21:40 topiramate Allergy Unknown unknown Verified 08/19/19 21:40 Home Medications Home Medications Medication Instructions Recorded Confirmed Type allopurinol 100 mg tablet 100 mg PO BID 05/28/18 08/19/19 History aspirin 325 mg tablet 325 mg PO DAILY 05/28/18 08/19/19 History carvedilol 25 mg tablet 25 mg PO BID 05/28/18 08/19/19 History lisinopril 20 mg tablet 20 mg PO DAILY 05/28/18 08/19/19 History loratadine 10 mg tablet 10 mg PO DAILY 05/28/18 08/19/19 History omega-3 fatty acids 1,000 mg 1,000 mg PO DAILY 05/28/18 08/19/19 History capsule blood sugar diagnostic #10 ea 03/04/19 08/12/19 History lancets 30 gauge #25 ea 03/04/19 08/12/19 History nitroglycerin 0.4 mg sublingual 0.4 mg SL ONCE PRN tab 03/04/19 08/19/19 History tablet pen needle, diabetic 32 gauge x #10 ea 03/04/19 08/12/19 History 5/32" vitamin B complex 1 tab PO DAILY 03/04/19 08/19/19 History cholecalciferol (vitamin D3) 50,000 units PO MONTHLY #3 cap 08/09/19 08/19/19 Rx 50,000 unit capsule insulin glargine [Basaglar KwikPen 30 unit SUBCUT HS 08/19/19 08/19/19 History U-100 Insulin] [id number] 1 applic TOPICAL DAILY 08/19/19 08/19/19 History [Neosporin ([id number])] atorvastatin 40 mg tablet 40 mg PO DAILY #90 tab 08/23/19 Rx torsemide 100 mg tablet 100 mg PO .COMPLEX #180 tab 09/03/19 Rx Patient History Medical History Acute gouty arthritis (Resolved) Anemia Ankle joint pain Anxiety Asymptomatic hyperuricemia 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) Chronic kidney disease, stage III (moderate) (Chronic) Chronic systolic congestive heart failure Constipation Diabetes Diabetes mellitus type 2, insulin dependent (Chronic) Diabetes mellitus with kidney complication (Chronic) Diabetes mellitus with neurological manifestations, uncontrolled Diabetic peripheral neuropathy Dyslipidemia (Chronic) Esophageal reflux ESRD (end stage renal disease) Former smoker GERD (gastroesophageal reflux disease) (Chronic) Gout (Chronic) Gout Hematuria HTN (hypertension) Hypertension, goal below 140/90 Inhibited sexual excitement Ischemic cardiomyopathy Male erectile disorder of organic origin Mild nonproliferative diabetic retinopathy Morbid obesity Need for hepatitis C screening test Non-pressure chronic ulcer of right calf, limited to breakdown of skin Obstructive sleep apnea (Chronic) Paroxysmal ventricular tachycardia (Chronic) Poor compliance Shortness of breath Skin tear of left lower leg without complication Sleep apnea (Chronic) Testicular dysfunction Traumatic open wound of left lower leg Urinary urgency Venous insufficiency of both lower extremities Vitamin D deficiency Surgical History History of appendectomy (Resolved) Family History Other Diabetes Heart disease Hypertension Kidney disease Social History Preferred Language: [place] Communication Ability: Effective Visual Impairment: Limited Hearing Ability: Normal 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 Beliefs That Will Affect Care: Sikh Sikh Beliefs: Alejandrocathryn marital status: Current Living Situation: Family current occupational status: retired Other Information That Helps Us Care for You: No Feels Safe at Home: Yes Safety Concerns: Feels Safe At This Time Smoking Status: Unknown if ever smoked Hx Alcohol Use: No Hx Substance Use: No Review of Systems Review of Systems: No new ROS targets Physical Exam Physical Exam: Vitals--reviewed--A-a gradient better HEENT--no acute target Respiratory--exchange is acceptable Cardio--volume status is stable GI--functional Neuro--no focal new deficits--profound weakness Skin--cellulitis treatment in place Psych--no new behaviors reported Results & Data Vital Signs (Past 12 Hours) Vital Signs Temp Pulse Pulse Pulse Resp BP Pulse Ox 09/07/19 07:41 36.6 C 63 17 119/66 99 09/07/19 04:23 36.6 C 59 L 20 141/70 H 99 09/07/19 00:47 60 09/07/19 00:18 36.7 C 59 L 18 121/83 99
[2019-09-07] MEDS: INSULIN GLARGINE SOLOSTAR 100 UNITS/ML 3 ML PEN SC SCH (21:04)
[2019-09-08] MEDS: LORATADINE 10 MG TAB PO SCH (08:36)
[2019-09-08] MEDS: HEPARIN SOD 5,000 UNIT/0.5 ML VIAL SQ SCH ×2 (08:36→21:19)
[2019-09-08] MEDS: carvediloL 25 MG TAB PO SCH ×2 (08:36→21:16)
[2019-09-08] MEDS: OMEGA-3 (PURIFIED FISH OIL) 1 GM CAP PO SCH (08:37)
[2019-09-08] MEDS: allopurinoL 100 MG TAB PO SCH ×2 (08:37→21:19)
[2019-09-08] MEDS: LACTULOSE SYRUP 30 GM/45 ML UDP PO SCH ×2 (08:37→21:15)
[2019-09-08] MEDS: ASPIRIN 325 MG ECTAB PO SCH (08:37)
[2019-09-08] MEDS: ATORVASTATIN 40 MG TAB PO SCH (08:37)
[2019-09-08] MEDS: NEPHROCAPS PO SCH (08:37)
[2019-09-08] MEDS: VITAMIN B COMPLEX TAB PO SCH (08:37)
[2019-09-08] MEDS: NEOMYCIN/POLYMYX/BACITR OINT 15 GM TUBE TOP SCH (08:38)
[2019-09-08] MEDS: INSULIN ASPART 100 UNITS/ML 3 ML PEN SC SCH ×4 (08:39→21:17)
[2019-09-08] MEDS: IRON SUCROSE 200 MG in 0.9 % SODIUM CHLORIDE 100 ML IV SCH (08:42)
[2019-09-08] MEDS: POLYETHYLENE (MIRALAX) 17 GM PACK PO SCH (08:43)
[2019-09-08] MEDS: RIFAXIMIN 550 MG TABLET PO SCH ×2 (08:59→21:19)
--- NOTE | 2019-09-08 10:18 | Nephrology Progress Note ---
Date of Service September 08, 2019 Assessment & Plan (1) ESRD (end stage renal disease): ESRD due to cardiorenal syndrome. Patient admitted w/ weakness and tense edema of LE and weeping bullae. R heart catheterization revealed severe pHTN. He has cardiac cirrhosis. Patient has developed progressive renal dysfunction in the setting of high dose loop diuretics. HD provided for correction of volume status and azotemia. -- Tolerated HD yesterday without complications. Continue TTS schedule. -- BP and volume status are acceptable. -- Repeat H/H and BMP in AM. -- Discharge Planning consulted to set up outpatient HD at [facility] [address]. -- [facility] nephrology will continue to follow for dialysis coverage at [facility] post discharge. (2) Anemia: -- Hgb stable. FOBT negative. -- Juan declined blood transfusion. -- IV Venofer 1 g over 5 doses ordered 09/04/19. -- Epogen to be provided with HD. (3) Hepatic encephalopathy: -- Abdominal US demonstrated cirrhotic liver. Likely has cardiac cirrhosis. On rifamixin (4) Chronic systolic congestive heart failure: R heart cath 08/27/19: RA: The right atrial pressure was 29 millimeters Hg RV: Right ventricular pressure was 78/22 millimeters of mercury PA: PA pressure was 70/29 millimeters of mercury PW: Pulmonary capillary wedge pressure was 28 millimeters of mercury (5) Weakness: -- PT for strengthening today. -- Advised hourly sales staff to get patient up to chair today (6) Venous stasis ulcers of both lower extremities: (7) Diabetes mellitus type 2, insulin dependent: Subjective No acute events overnight. No complaints this AM. Tolerated HD yesterday without complications. Review of Systems Review of Systems: All systems reviewed & are unremarkable except as noted in HPI & below Physical Exam Constitutional: well developed; no acute distress Eyes: no scleral abnormality and no corneal abnormality ENMT: Mouth: no oral mucosal abnormality and oral mucous membranes not dry Neck: normal visual inspection, trachea midline and + thick neck Respiratory: normal respiratory effort Auscultation: lungs clear to auscultation bilaterally Cardiovascular: Rate/Rhythm: regular rate Heart Sounds: normal S1 and normal S2 Vessels: no JVD Extremities: no edema Musculoskeletal: Extremities: no cyanosis and no clubbing Skin: normal turgor; no lesions Neurologic: Motor/Sensory: no tremor and no asterixis Psychiatric: Orientation: alert and oriented x 3 Results & Data Vital Signs (Past 12 Hours) Vital Signs Temp Pulse Pulse Pulse Pulse Resp BP 09/08/19 08:00 36.4 C L 60 20 110/71 09/08/19 03:29 36.4 C L 60 19 122/78 09/07/19 23:52 36.6 C 60 20 132/66 09/07/19 22:44 60 Pulse Ox 09/08/19 08:00 98 09/08/19 03:29 97 09/07/19 23:52 97 09/07/19 22:44 Laboratory Results Laboratory Results - last 24 hr 09/07/19 09/07/19 09/08/19 16:50 21:00 07:29 POC Glucose 117 H 102 H 75 PG Care Time/CCT Total # of Minutes Spent Total Time Spent with Patient: Total time spent is greater than 50% in coordination of care (as documented) at patient's floor/unit and/or counseling patient: (1) Anemia Anemia type: unspecified type Qualified Code(s): D64.9 - Anemia, unspecified
--- NOTE | 2019-09-08 18:13 | Hospitalist Progress Note ---
Date of Service September 08, 2019 Assessment & Plan (1) ATN (acute tubular necrosis): Cont PCU on telemetry Pt will be discharged to [facility] when bed available H&H stable and improving CBC and PRP ordered for am. BP, volume status, and electrolytes are currently acceptable. Will plan for HD tomorrow. continue Coreg BID s/p Torsemide 200mg (was not effective) holding ANUPAMA due to JUDITH IV Bumex and metolazone ECHO 2016 EF 40-45% DILLON (this admit) IMPROVED/normal EF. IVC was normal surprisingly RHC 12.6.19: PCWP=28 Continue strict in and out . Daily weight . Patient approximately lost 40 pounds since admission and initiation of hemodialysis. Discharge Planning consulted to set up outpatient HD at [facility]. Patient will likely require county transportation to [facility]. Hepatitis panel obtained and negative. Full code (2) Acute on chronic diastolic CHF (congestive heart failure): see above (3) Cirrhosis: see problem above (4) Hepatic encephalopathy: partially improving lethargic with poor cognitive fxn asterixis and elevated NH3 despite lactulose Cont lactulose Cont rifaximin added on 12.7F Follow ammonia levels Follow up GI as an outpatient for WAKEFIELD (5) Morbid obesity with BMI of 45.0-49.9, adult: BMI now >50 but much of that is fluid weight. will need to re-evaluate once we get him to dry weigh would benefit from termination clerk weight loss measures (6) Metabolic encephalopathy: see problem above (7) Cellulitis: b/l shins mostly improved all prior wound cultures have grown MSSA. 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 Patient declined blood transfusion due to his catholic believes. Continue IV Venofer 1 g over 5 doses ordered 09/04/19. Oral iron held due to constipation. Fecal occult blood previously negative .We will continue testing -FOBT pending (9) Biventricular ICD (implantable cardioverter-defibrillator) in place: see problem above (10) Chronic kidney disease, stage III (moderate): baseline creatinine 2.0 to 2.5 acute on chronic holding ANUPAMA renal u/s w/o obvious obstruction (11) Diabetes mellitus type 2, insulin dependent: reduced Lantus due to hypoglycemia cont novolog for meals (12) Paroxysmal ventricular tachycardia: Continue carvedilol has pacer/ICD 12.8 pm: 12 beats of a wide complex tachycardia --> paced. pt was sleeping and asymptomatic (13) Obstructive sleep apnea: cont CPAP at settings of 10 HS/naps (14) Dyslipidemia: Stopped statins in setting of liver cirrhosis.Will defer to cardiology. (15) Anemia of chronic disease: Continue iron and Epogen per nephrology. Patient is Jehovah witness. Blood count improving. Hemoglobin 7.4 and 25 Subjective Patient seen and examined at the bedside. Resting comfortably in the bed, reports feeling better. Afebrile. No acute events overnight. Tolerated HD yesterday without complications. Patient denies fever, chills, chest pain, shortness of breath, abdominal pain, frequency, urgency. Review of Systems Review of Systems: All systems reviewed & are unremarkable except as noted in HPI & below Physical Exam Constitutional: WD/WN, vitals as above + morbidly obese Eyes: PERRL, conjunctivae normal, anicteric sclerae Respiratory: normal respiratory effort, lungs clear to auscultation Cardiovascular: Heart Sounds: normal S1, normal S2 and + murmur Extremities: + pedal edema Gastrointestinal (Abdomen): normal bowel sounds, soft, nontender, no hepatosplenomegaly Musculoskeletal: no cyanosis or clubbing, extremities motor strength 5/5 Head/Neck/Chest: normocephalic and head atraumatic Extremities: extremities normal to inspection and + abnormal strength (diffuse weakness, 4/5 strength in lower extremities); no cyanosis and no clubbing Skin: no rashes, warm and dry normal turgor, + ulcer (BLE) and + wound (bilateral venous stasis ulcers, weeping, dressed); no rashes, no lesions and no induration Neurologic: patellar DTR's 2+ bilat, sensation intact and PERRL, EOMI, accommodation nl, no face palsy, no dysarthria moves all extremities and awake; no focal motor deficits and not confused Motor/Sensory: + asterixis (ongoing); no tremor Psychiatric: A+Ox3, euthymic affect Orientation: alert, oriented x 3, oriented to person, oriented to place and oriented to time Eye Contact: + fair eye contact Affect: + flat affect Lymphatic: no cervical or axillary lymphadenopathy Results & Data Vital Signs (Past 12 Hours) Vital Signs Temp Pulse Pulse Resp BP Pulse Ox 09/08/19 16:00 60 09/08/19 15:34 36.9 C 60 21 114/65 100 09/08/19 12:00 36.5 C 62 18 111/67 98 09/08/19 08:00 36.4 C L 60 20 110/71 98 PG Care Time/CCT Total # of Minutes Spent Total Time Spent with Patient: Total time spent is greater than 50% in coordination of care (as documented) at patient's floor/unit and/or counseling patient: (1) Cirrhosis Hepatic cirrhosis type: other cirrhosis Qualified Code(s): K74.69 - Other cirrhosis of liver (2) Cellulitis Laterality: unspecified laterality Site of cellulitis: extremity Site of cellulitis of extremity: lower extremity Qualified Code(s): L03.119 - Cellulitis of unspecified part of limb (3) Anemia Anemia type: unspecified type Qualified Code(s): D64.9 - Anemia, unspecified
[2019-09-08] MEDS: INSULIN GLARGINE SOLOSTAR 100 UNITS/ML 3 ML PEN SC SCH (21:18)
[2019-09-09 06:41] LABS: Hematocrit (blood only) 26.1 % (42-52); Hemoglobin 7.8 g/dL (14.0-18.0)
--- NOTE | 2019-09-09 06:44 | XRay Report ---
XR chest 1V portable HISTORY: 74 years-old Male eval for aspiration pneumonitis acute cough COMPARISON: Chest radiograph 09/03/2019 and 08/19/2019 TECHNIQUE: Portable AP view of the chest FINDINGS: Cardiac silhouette is enlarged, unchanged. There is mild pulmonary vascular congestion. There is mild interstitial coarsening. Calcified plaque of the thoracic aortic arch. Trace pleural effusions. No p neumothorax. Left subclavian pacer/AICD redemonstrated. Degenerative changes of the shoulders and spi ne. IMPRESSION: 1. Cardiomegaly and pulmonary vascular congestion with suggestion of mild pulmonary edema. 2. Trace pleural effusions. ACT 112: Negative or not required by law. The above report was generated using voice recognition software. It may contain grammatical, syntax o r spelling errors. Electronically signed by: Tawanda Londono M.D. 09/09/2019 6:42 AM
[2019-09-09] MEDS ORDERED: SODIUM CHLORIDE 0.9% 1000ML 1,000 ML IV PRN (07:00)
[2019-09-09] MEDS ORDERED: EPOETIN ALFA 4,000 UNIT/ML VIAL IV ONE (07:00)
[2019-09-09 07:17] LABS: Albumin Level 2.6 gm/dl (3.4-5.0); BUN Creatinine Ratio 13.5 (10-20); Calcium 9.2 mg/dl (8.5-10.1); Creatinine Clr Calc Pharmacy 24.8 ml/min; Est GFR (African American) 16.7; Est GFR (Non-African American) 14.4; Phosphorus 3.7 mg/dl (2.5-4.9); Potassium 4.6 mmol/L (3.5-5.1)
[2019-09-09] MEDS: LORATADINE 10 MG TAB PO SCH (08:01)
[2019-09-09] MEDS: VITAMIN B COMPLEX TAB PO SCH (08:01)
[2019-09-09] MEDS: ASPIRIN 325 MG ECTAB PO SCH (08:01)
[2019-09-09] MEDS: NEPHROCAPS PO SCH (08:01)
[2019-09-09] MEDS: carvediloL 25 MG TAB PO SCH ×2 (08:01→21:26)
[2019-09-09] MEDS: OMEGA-3 (PURIFIED FISH OIL) 1 GM CAP PO SCH (08:01)
[2019-09-09] MEDS: allopurinoL 100 MG TAB PO SCH ×2 (08:01→21:25)
[2019-09-09] MEDS: RIFAXIMIN 550 MG TABLET PO SCH ×2 (08:02→21:25)
[2019-09-09] MEDS: POLYETHYLENE (MIRALAX) 17 GM PACK PO SCH (08:02)
[2019-09-09] MEDS: ATORVASTATIN 40 MG TAB PO SCH (08:02)
[2019-09-09] MEDS: LACTULOSE SYRUP 30 GM/45 ML UDP PO SCH ×2 (08:03→21:24)
[2019-09-09] MEDS: INSULIN ASPART 100 UNITS/ML 3 ML PEN SC SCH ×4 (08:05→21:27)
[2019-09-09] MEDS: HEPARIN SOD 5,000 UNIT/0.5 ML VIAL SQ SCH ×2 (10:23→21:26)
[2019-09-09] MEDS: NEOMYCIN/POLYMYX/BACITR OINT 15 GM TUBE TOP SCH (10:23)
--- NOTE | 2019-09-09 13:37 | Nephrology Progress Note ---
Date of Service September 09, 2019 Assessment & Plan (1) ESRD (end stage renal disease): -- Remains on HD via TDC. I discussed the plan of care with Dr. King as well as staff at [facility] this morning. -- Juan was seen and evaluated during HD. Orders were placed and reviewed with the nurse. -- TDC functioning well. Tolerating treatments reasonably well. Minimal UF required. -- I will provide orders for the patient to remain on 3 x weekly treatments at [facility]. TTS schedule to continue at [facility]. (2) Anemia: -- Hgb stable. FOBT negative. -- Juan declined blood transfusion. -- IV Venofer 1 g over 5 doses completed. -- Epogen provided with HD. (3) Hepatic encephalopathy: (4) Chronic systolic congestive heart failure: R heart cath 08/27/19: RA: The right atrial pressure was 29 millimeters Hg RV: Right ventricular pressure was 78/22 millimeters of mercury PA: PA pressure was 70/29 millimeters of mercury PW: Pulmonary capillary wedge pressure was 28 millimeters of mercury (5) Weakness: DC to rehab planned for today. (6) Venous stasis ulcers of both lower extremities: (7) Diabetes mellitus type 2, insulin dependent: Subjective No acute events overnight. Planned DC to [facility] today. Juan was seen and evaluated during HD this morning. He experienced nausea and vomited early during treatment. BP acceptable. Review of Systems Review of Systems: All systems reviewed & are unremarkable except as noted in HPI & below Physical Exam Constitutional: well developed; no acute distress Eyes: no scleral abnormality and no corneal abnormality ENMT: Mouth: no oral mucosal abnormality and oral mucous membranes not dry Neck: normal visual inspection, trachea midline and + thick neck Respiratory: normal respiratory effort Auscultation: lungs clear to auscultation bilaterally Cardiovascular: Rate/Rhythm: regular rate Heart Sounds: normal S1 and normal S2 Vessels: no JVD Extremities: no edema Musculoskeletal: Extremities: no cyanosis and no clubbing Skin: normal turgor; no lesions Neurologic: Motor/Sensory: no tremor and no asterixis Psychiatric: Orientation: alert and oriented x 3 Results & Data Vital Signs (Past 12 Hours) Vital Signs Temp Pulse Pulse Pulse Resp BP BP 09/09/19 12:00 60 108/63 09/09/19 11:40 62 106/55 L 09/09/19 11:20 62 119/55 L 09/09/19 11:00 60 122/53 L 09/09/19 10:40 64 139/55 L 09/09/19 10:20 60 116/64 09/09/19 10:00 61 117/58 L 09/09/19 09:40 62 113/63 09/09/19 09:20 60 106/60 09/09/19 08:57 36.6 C 60 09/09/19 07:30 37 C 61 18 127/68 09/09/19 04:08 36.7 C 59 L 20 104/66 09/09/19 04:07 64 18 09/09/19 02:51 60 Pulse Ox 09/09/19 12:00 09/09/19 11:40 09/09/19 11:20 09/09/19 11:00 09/09/19 10:40 09/09/19 10:20 09/09/19 10:00 09/09/19 09:40 09/09/19 09:20 09/09/19 08:57 09/09/19 07:30 99 09/09/19 04:08 96 09/09/19 04:07 95 09/09/19 02:51 Laboratory Results Laboratory Results - last 24 hr 09/08/19 09/08/19 09/09/19 16:31 21:11 05:57 Hgb 7.8 L Hct 26.1 L Sodium Potassium Chloride Carbon Dioxide Anion Gap BUN Creatinine Est Cr Clr Drug Dosing Est GFR ( Amer) Est GFR (Non-Af Amer) BUN/Creatinine Ratio Glucose POC Glucose 145 H 133 H Calcium Phosphorus Albumin 09/09/19 09/09/19 09/09/19 05:57 07:26 13:19 Hgb Hct Sodium 136 Potassium 4.6 Chloride 103 Carbon Dioxide 28 Anion Gap 5.0 BUN 53 H Creatinine 3.89 H Est Cr Clr Drug Dosing 24.8 Est GFR ( Amer) 16.7 Est GFR (Non-Af Amer) 14.4 BUN/Creatinine Ratio 13.5 Glucose 126 H POC Glucose 122 H 96 Calcium 9.2 Phosphorus 3.7 Albumin 2.6 L PG Care Time/CCT Total # of Minutes Spent Total Time Spent with Patient: Total time spent is greater than 50% in coordination of care (as documented) at patient's floor/unit and/or counseling patient: (1) Anemia Anemia type: unspecified type Qualified Code(s): D64.9 - Anemia, unspecified
--- NOTE | 2019-09-09 16:23 | Hospitalist Progress Note ---
Date of Service September 09, 2019 Assessment & Plan (1) ATN (acute tubular necrosis): Now in ESRD with HD. - Tolerated HD today, but very tired after. Hopefully to [facility] tomorrow. Pt will be discharged to [facility] when bed available H&H stable and improving CBC and PRP ordered for am. BP, volume status, and electrolytes are currently acceptable. Will plan for HD tomorrow. continue Coreg BID s/p Torsemide 200mg (was not effective) holding ANUPAMA due to JUDITH IV Bumex and metolazone ECHO 2016 EF 40-45% DILLON (this admit) IMPROVED/normal EF. IVC was normal surprisingly RHC ..19: PCWP=28 Continue strict in and out . Daily weight . Patient approximately lost 40 pounds since admission and initiation of hemodialysis. Discharge Planning consulted to set up outpatient HD at [facility]. Patient will likely require county transportation to treatments. Hepatitis panel obtained and negative. Full code (2) Acute on chronic diastolic CHF (congestive heart failure): see above (3) Cirrhosis: see problem above (4) Hepatic encephalopathy: partially improving lethargic with poor cognitive fxn asterixis and elevated NH3 despite lactulose Cont lactulose Cont rifaximin added on 12.7F Follow ammonia levels Follow up GI as an outpatient for [facility] (5) Morbid obesity with BMI of 45.0-49.9, adult: BMI now >50 but much of that is fluid weight. 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 MRSA VENTILATING [employer]PERT swab negative continue wound care (wound care consult appreciated) s/p augmentin x 3d s/p IV daptomycin x 7d (8) Anemia: started Fe supplementation po and IV fecal occult blood NEGATIVE epogen started on 08/28. Patient declined blood transfusion due to his baptism believes. Continue IV Venofer 1 g over 5 doses ordered 09/04/19. Oral iron held due to constipation. Fecal occult blood previously negative .We will continue testing -FOBT pending (9) Biventricular ICD (implantable cardioverter-defibrillator) in place: see problem above (10) Chronic kidney disease, stage III (moderate): baseline creatinine 2.0 to 2.5 acute on chronic holding ANUPAMA renal u/s w/o obvious obstruction (11) Diabetes mellitus type 2, insulin dependent: reduced Lantus due to hypoglycemia cont novolog for meals (12) Paroxysmal ventricular tachycardia: Continue carvedilol has pacer/ICD 12.8 pm: 12 beats of a wide complex tachycardia --> paced. pt was sleeping and asymptomatic (13) Obstructive sleep apnea: cont CPAP at settings of 10 HS/naps (14) Dyslipidemia: Stopped statins in setting of liver cirrhosis.Will defer to cardiology. (15) Anemia of chronic disease: Continue iron and Epogen per nephrology. Patient is Jehovah witness. Blood count improving. Hemoglobin 7.4 and 25 Subjective Saw the patient 2 times today. First during HD, he was somewhat lethargic and nauseated. He had just thrown up once, but denied any major issues after getting Zofran. Second time, at 4:00pm, he was easily arousable, but very tired after HD. Per RNs, he has this issue after HD usually. Reports no fevers/chills, chest pain, shortness of breath, abdominal pain, nausea, or vomiting. Physical Exam Constitutional: WD/WN, vitals as above + lethargic Eyes: EOM intact bilaterally; no conjunctival abnormality ENMT: external ear and nose normal, oropharynx normal Neck: trachea midline, no thyromegaly normal visual inspection Respiratory: normal respiratory effort, lungs clear to auscultation no respiratory distress Cardiovascular: RRR, no murmur, no edema Gastrointestinal (Abdomen): Inspection/Auscultation: abdomen normal to inspection; abdomen not distended Musculoskeletal: no cyanosis or clubbing, extremities motor strength 5/5 Skin: no rashes, warm and dry Neurologic: moves all extremities and awake Psychiatric: Orientation: alert, oriented to person and cooperative Results & Data Vital Signs (Past 12 Hours) Vital Signs Temp Pulse Pulse Pulse Resp BP BP 09/09/19 13:07 36.9 C 60 18 130/80 09/09/19 12:40 36.9 C 60 110/60 09/09/19 12:20 69 94/81 L 09/09/19 12:00 60 108/63 09/09/19 11:40 62 106/55 L 09/09/19 11:20 62 119/55 L 09/09/19 11:00 60 122/53 L 09/09/19 10:40 64 139/55 L 09/09/19 10:20 60 116/64 09/09/19 10:00 61 117/58 L 09/09/19 09:40 62 113/63 09/09/19 09:20 60 106/60 09/09/19 08:57 36.6 C 60 09/09/19 07:30 37 C 61 18 127/68 Pulse Ox 09/09/19 13:07 94 09/09/19 12:40 09/09/19 12:20 09/09/19 12:00 09/09/19 11:40 09/09/19 11:20 09/09/19 11:00 09/09/19 10:40 09/09/19 10:20 09/09/19 10:00 09/09/19 09:40 09/09/19 09:20 09/09/19 08:57 09/09/19 07:30 99 PG Care Time/CCT Total # of Minutes Spent Total Time Spent with Patient: Total time spent is greater than 50% in coordination of care (as documented) at patient's floor/unit and/or counseling patient: (1) Cirrhosis Hepatic cirrhosis type: other cirrhosis Qualified Code(s): K74.69 - Other cirrhosis of liver (2) Cellulitis Laterality: unspecified laterality Site of cellulitis: extremity Site of cellulitis of extremity: lower extremity Qualified Code(s): L03.119 - Cellulitis of unspecified part of limb (3) Anemia Anemia type: unspecified type Qualified Code(s): D64.9 - Anemia, unspecified
[2019-09-09] MEDS ORDERED: INSULIN GLARGINE SOLOSTAR 100 UNITS/ML 3 ML PEN SC ONE (22:00)
[2019-09-10 07:15] LABS: BUN Creatinine Ratio 10.7 (10-20); Calcium 8.6 mg/dl (8.5-10.1); Creatinine Clr Calc Pharmacy 27.6 ml/min; Est GFR (African American) 18.5; Magnesium 2.4 mg/dl (1.8-2.4); Potassium 4.8 mmol/L (3.5-5.1)
[2019-09-10] MEDS: LACTULOSE SYRUP 30 GM/45 ML UDP PO SCH (07:56)
[2019-09-10] MEDS: INSULIN ASPART 100 UNITS/ML 3 ML PEN SC SCH ×2 (07:56→12:00)
[2019-09-10] MEDS: allopurinoL 100 MG TAB PO SCH (07:57)
[2019-09-10] MEDS: LORATADINE 10 MG TAB PO SCH (07:57)
[2019-09-10] MEDS: ATORVASTATIN 40 MG TAB PO SCH (07:57)
[2019-09-10] MEDS: RIFAXIMIN 550 MG TABLET PO SCH (07:57)
[2019-09-10] MEDS: VITAMIN B COMPLEX TAB PO SCH (07:57)
[2019-09-10] MEDS: carvediloL 25 MG TAB PO SCH (07:57)
[2019-09-10] MEDS: POLYETHYLENE (MIRALAX) 17 GM PACK PO SCH (07:57)
[2019-09-10] MEDS: HEPARIN SOD 5,000 UNIT/0.5 ML VIAL SQ SCH (07:58)
[2019-09-10] MEDS: NEPHROCAPS PO SCH (07:58)
[2019-09-10] MEDS: NEOMYCIN/POLYMYX/BACITR OINT 15 GM TUBE TOP SCH (07:58)
[2019-09-10] MEDS: OMEGA-3 (PURIFIED FISH OIL) 1 GM CAP PO SCH (07:58)
[2019-09-10] MEDS: ASPIRIN 325 MG ECTAB PO SCH (07:58)
--- NOTE | 2019-09-10 10:16 | Nephrology Progress Note ---
Date of Service September 10, 2019 Assessment & Plan (1) ESRD (end stage renal disease): -- BP, volume status, and electrolytes are acceptable. Plan next HD tomorrow. Please let me know if patient is discharged today so we can appropriately coordinate treatment at [facility]. -- TDC functioning well. Tolerating treatments reasonably well. Minimal UF required. -- I will provide orders for the patient to remain on 3 x weekly treatments at [facility]. TTS schedule to continue at [facility]. (2) Anemia: -- Hgb stable. FOBT negative. -- Juan declined blood transfusion. -- IV Venofer 1 g over 5 doses completed. -- Epogen provided with HD. (3) Hepatic encephalopathy: (4) Chronic systolic congestive heart failure: (5) Weakness: DC to rehab planned for today. (6) Venous stasis ulcers of both lower extremities: (7) Diabetes mellitus type 2, insulin dependent: Subjective No acute events overnight. Possible discharge to [facility] today. Following episode of nausea, patients symptoms improved. Completed dialysis yesterday otherwise without complications. Review of Systems Review of Systems: All systems reviewed & are unremarkable except as noted in HPI & below Physical Exam Constitutional: well developed; no acute distress Eyes: no scleral abnormality and no corneal abnormality ENMT: Mouth: no oral mucosal abnormality and oral mucous membranes not dry Neck: normal visual inspection, trachea midline and + thick neck Respiratory: normal respiratory effort Auscultation: lungs clear to auscultation bilaterally Cardiovascular: Rate/Rhythm: regular rate Heart Sounds: normal S1 and normal S2 Vessels: no JVD Extremities: no edema Musculoskeletal: Extremities: no cyanosis and no clubbing Skin: normal turgor; no lesions Neurologic: Motor/Sensory: no tremor and no asterixis Psychiatric: Orientation: alert and oriented x 3 Results & Data Vital Signs (Past 12 Hours) Vital Signs Temp Pulse Pulse Resp BP BP Pulse Ox 09/10/19 09:43 67 115/65 09/10/19 07:58 35.8 C L 60 16 106/58 L 91 09/10/19 04:01 37 C 59 L 20 110/47 L 95 09/09/19 23:33 37.1 C 59 L 19 135/57 L 94 Laboratory Results Laboratory Results - last 24 hr 09/09/19 09/09/19 09/09/19 13:19 16:37 20:59 Sodium Potassium Chloride Carbon Dioxide Anion Gap BUN Creatinine Est Cr Clr Drug Dosing Est GFR ( Amer) Est GFR (Non-Af Amer) BUN/Creatinine Ratio Glucose POC Glucose 96 94 105 H Calcium Magnesium 09/10/19 09/10/19 06:09 07:08 Sodium 135 L Potassium 4.8 Chloride 103 Carbon Dioxide 25 Anion Gap 7.0 BUN 38 H Creatinine 3.57 H D Est Cr Clr Drug Dosing 27.6 Est GFR ( Amer) 18.5 Est GFR (Non-Af Amer) 16.0 BUN/Creatinine Ratio 10.7 Glucose 95 POC Glucose 98 Calcium 8.6 Magnesium 2.4 PG Care Time/CCT Total # of Minutes Spent Total Time Spent with Patient: Total time spent is greater than 50% in coordination of care (as documented) at patient's floor/unit and/or counseling patient: (1) Anemia Anemia type: unspecified type Qualified Code(s): D64.9 - Anemia, unspecified
[2019-09-10 11:26] VITALS: PULSE 60; TEMP 98.4; O2SAT 98
[2019-09-10 12:14] LABS: Hematocrit (blood only) 25.9 % (42-52); Hemoglobin 7.6 g/dL (14.0-18.0); Mean Corpuscular Hemoglobin 33.2 pg (25-34); Mean Corpuscular Hgb Conc 29.3 g/dL (32-36); Mean Corpuscular Volume 113.1 fL (80-100); Mean Platelet Volume 11.1 fL (7.4-10.4); Platelet Count 126 K/uL (130-400); RDW Coefficient of Variation 20.8 % (11.5-14.5); RDW Standard Deviation 85.3 fL (36.4-46.3); Red Blood Count 2.29 M/uL (4.7-6.1); White Blood Count 12.62 K/uL (4.8-10.8)
[2019-09-10 14:36] VITALS: BP 115/65
--- NOTE | 2019-09-14 07:14 | Discharge Summary ---
Date of Service September 10, 2019 Admission HPI Per Admitting Provider The patient is a 74-year-old male with a past medical history including diabetes mellitus, venous stasis ulcers, AICD, CKD stage III, chronic systolic CHF, diabetic peripheral neuropathy, dyslipidemia, GERD, ischemic cardiomyopathy, paroxysmal ventricular tachycardia, VISHAL and decreased vision due to poor nonproliferative diabetic retinopathy, who presents emergency department with worsening generalized weakness and worsening weeping lower extremity skin abrasions and lacerations that his is been trying to take care of at home. She reports that he had been going to wound care and was dismissed about 3 weeks ago, when his lesions were healed, but since that time they have recurred and worsened. He does have an appointment with wound care coming up early next week. Principal Diagnosis Acute Tubular Necrosis Discharge Exam Constitutional: WD/WN, vitals as above + lethargic Eyes: EOM intact bilaterally; no conjunctival abnormality ENMT: external ear and nose normal, oropharynx normal Neck: trachea midline, no thyromegaly normal visual inspection Respiratory: normal respiratory effort, lungs clear to auscultation no respiratory distress Cardiovascular: RRR, no murmur, no edema Gastrointestinal (Abdomen): Inspection/Auscultation: abdomen normal to inspection; abdomen not distended Musculoskeletal: no cyanosis or clubbing, extremities motor strength 5/5 Skin: no rashes, warm and dry Neurologic: moves all extremities and awake Psychiatric: Orientation: alert, oriented to person and cooperative Discharge Data Allergies Allergy/AdvReac Type Severity Reaction Status Date / Time escitalopram Allergy Unknown Unknown Verified 08/19/19 21:40 metformin Allergy Unknown unknown Verified 08/19/19 21:40 topiramate Allergy Unknown unknown Verified 08/19/19 21:40 Consultations 08/19/19 23:13 ED Decision to Admit Stat 08/20/19 00:44 Consult Case Management - Discharge Planning Routine 08/25/19 08:13 Consult Nephrology Routine 08/25/19 19:07 [facility] CHF Program Referral Routine 08/30/19 10:00 Consult Case Management - Discharge Planning Routine Consult Vascular Surgery Routine 09/02/19 09:42 Consult Case Management - Discharge Planning Routine 09/08/19 20:51 Consult Nephrology Routine Procedures Performed Operation Date: 08/27/19 15:00 Actual Procedures p Right Heart Cath Only - Elton Patel MD Operation Date: 08/31/19 10:20 Actual Procedures p Insertion Of Perm Catheter, Right Femoral Approach, Ultrasound Localization of Right Femoral Vein, Fluoroscopy For Positioning, Moderate Concious Sedation [id number](Right) - Efrain Morales MD Ordered Studies 08/23/19 12:40 CT lumbar spine wo con Routine US renal/blad retro comp Routine 08/24/19 17:20 CT head/brain wo con Routine 08/25/19 07:51 US abdomen complete Routine 08/27/19 14:37 CL Cath Imgs for PACS use only Stat 08/31/19 07:03 EV cvc insrt tunnel wo prt/brake drum 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 - Tolerated HD yesterday, but very tired after. Pt will be discharged to [facility] today. D/W [facility] and were told this is his baseline. CBC and PRP ordered for am. BP, volume status, and electrolytes are currently acceptable. continue Coreg BID s/p Torsemide 200mg (was not effective) holding ANUPAMA due to JUDITH IV Bumex and metolazone ECHO 2016 EF 40-45% DILLON (this admit) IMPROVED/normal EF. IVC was normal surprisingly Discharge Planning consulted to set up outpatient HD at [facility]. Patient will likely require [facility] transportation to [place] [place]. Hepatitis panel obtained and negative. Full code (2) Acute on chronic diastolic CHF (congestive heart failure): see above (3) Cirrhosis: see problem above (4) Hepatic encephalopathy: partially improving lethargic with poor cognitive fxn asterixis and elevated NH3 despite lactulose Cont lactulose Cont rifaximin added on 12.7F Follow ammonia levels Follow up GI as an outpatient for [facility] (5) Morbid obesity with BMI of 45.0-49.9, adult: BMI now >50 but much of that is fluid weight. will need to re-evaluate once we get him to dry weigh would benefit from detention weight loss measures (6) Metabolic encephalopathy: see problem above (7) Cellulitis: b/l shins mostly improved all prior wound cultures have grown MSSA. MRSA [place] swab negative continue wound care (wound care consult appreciated) s/p augmentin x 3d s/p IV daptomycin x 7d (8) Anemia: started Fe supplementation po and IV fecal occult blood NEGATIVE epogen started on 08/28. Patient declined blood transfusion due to his yazidi believes. Continue IV Venofer 1 g over 5 doses ordered 09/04/19. Oral iron held due to constipation. Fecal occult blood previously negative . (9) Biventricular ICD (implantable cardioverter-defibrillator) in place: see problem above (10) Chronic kidney disease, stage III (moderate): baseline creatinine 2.0 to 2.5 acute on chronic holding ANUPAMA renal u/s w/o obvious obstruction (11) Diabetes mellitus type 2, insulin dependent: reduced Lantus due to hypoglycemia cont novolog for meals (12) Paroxysmal ventricular tachycardia: Continue carvedilol has pacer/ICD 12.8 pm: 12 beats of a wide complex tachycardia --> paced. pt was sleeping and asymptomatic (13) Obstructive sleep apnea: cont CPAP at settings of 10 HS/naps (14) Dyslipidemia: Stopped statins in setting of liver cirrhosis.Will defer to cardiology. (15) Anemia of chronic disease: Continue iron and Epogen per nephrology. Patient is Jehovah witness. Blood count improving. Hemoglobin 7.4 and 25 Total Time Total Time Spent Total Time Spent (In Minutes): 35 Total Time Includes: Examination of the Patient, Discharge Planning and Medication Reconciliation Discharge Plan Discharge Items Patient Disposition: Transfer Inpatient Rehab Fac Reason For Visit: ELEVATED TROPONIN, LE CELLULITIS Discharge Diagnosis: Elevated troponin; cellulitis Activity: Resume your previous activity Non-emergency contact: Primary Care Provider Call non-emergency contact if: you have any medication questions, your pain is not controlled and your temperature is above 101 Follow-up/Referrals: Aide Calle MD [Primary Care Provider] - Diet: Carb Consistent or DM2 and Heart Healthy Addtl Attending Provider Instructions: You were admitted to the hospital with lesions on your legs caused by your heart issues and your kidney problems. We have treated you here for a long time, and we feel you are ready to go to [facility] for further strength training and continued medical care. Please use a CPAP at night for sleep apnea. Please check CBC in 3-4 days to assess hemoglobin and white blood count. Pending Studies at Discharge: No Stand-Alone Forms: My [facility] Skilled Items Patient informed of condition?: Yes DNR: No Discharge Level of Care: Acute rehab Communicable Disease: No Discharge Prognosis: Improving Lines: None Urinary Catheter: No Medications and DC Order Prescriptions: New Novolog Flexpen U-100 Insulin 100 unit/mL (3 mL) Insulin Pen See Rx Instructions .ROUTE .COMPLEX Qty: 15 RF: 0 Xifaxan 550 mg Tablet 550 mg PO BID Qty: 1 RF: 0 lactulose 20 gram/30 mL Solution 30 ml PO BID Qty: 1200 RF: 0 Renal Caps 1 mg Capsule 1 cap PO QAM Qty: 1 RF: 0 Continued allopurinol 100 mg tablet 100 mg PO BID RF: 0 carvedilol [Coreg] 25 mg tablet 25 mg PO BID RF: 0 loratadine [Claritin] 10 mg tablet 10 mg PO DAILY RF: 0 omega-3 fatty acids [Fish Oil Concentrate] 1,000 mg capsule 1,000 mg PO DAILY RF: 0 cholecalciferol (vitamin D3) 50,000 unit capsule 50,000 units PO MONTHLY Qty: 3 RF: 3 atorvastatin 40 mg tablet 40 mg PO DAILY Qty: 90 RF: 0 vitamin B complex tablet 1 tab PO DAILY RF: 0 Neosporin (mnc-pas-zmtsn) 3.5-400-5,000 [id number] Ointment In Packet 1 applic TOPICAL DAILY RF: 0 Changed aspirin 325 mg tablet 81 mg PO DAILY Qty: 0 RF: 0 Basaglar KwikPen U-100 Insulin 100 unit/mL (3 mL) insulin pen 15 unit SUBCUT HS Qty: 0 RF: 0 Discontinued lisinopril 20 mg tablet 20 mg PO DAILY RF: 0 torsemide 100 mg tablet 100 mg PO .COMPLEX Qty: 180 RF: 3 nitroglycerin 0.4 mg tablet, sublingual 0.4 mg SL ONCE PRN (Reason: Chest Pain) RF: 0 (DME) pen needle, diabetic [BD Ultra-Fine Sophia Pen Needle] 32 gauge x 5/32" needle See Dose Instructions .ROUTE .MEDSUPPLY Qty: 10 RF: 0 (DME) lancets [OneTouch Delica Lancets] 30 gauge misc See Dose Instructions .ROUTE .MEDSUPPLY Qty: 25 RF: 0 (DME) OneTouch Verio strip See Dose Instructions .ROUTE .MEDSUPPLY Qty: 10 RF: 0 Discharge Orders: Discharge Order (Routine); Ordered 09/10/19 Ordered By: Khris Benjamin/Other Patient Handouts: Dialysis Arteriovenous Fistula, Hemodialysis Admission Data Admit Date/Time: 08/19/19 23:54 Attending Provider: Khris Land Admit Provider: Johnny Brewer Primary Care Provider: Aide Calle Other Providers: [facility] ; Bety Kern at [facility] ; Jonas Sharp ; Denisse Crowell ; Efrain Morales ; Jamari King Other Interventions: Discharge Summary Assessment (RN) Last Done: 09/10/19 14:32 DC Date/Time DO NOT enter until pt leaves facility: 09/10/19 15:50
[2019-09-26] MEDS ORDERED: ERGOCALCIFEROL 50,000 UNITS CAP PO SCH (20:19)
== END 2019-09-10 15:50 | DRG 286 ==
LOC: ED 21:04 → SUATTDRO 23:54 → 2S 23:54 → 3W 08-22 10:39 → 2S 08-27 15:14
PROC: CLB.CRH (2019-08-27 15:00)